=== PATIENT | male | born 1930 | race Caucasian/White ===

== ENCOUNTER 2018-01-07 11:37 | Inpatient (IN) | payer OTHER ==
[2018-01-07 12:16] LABS: Urine Blood NEGATIVE (NEG); Urine Glucose NEGATIVE (NEG); Urine Protein NEGATIVE (NEG); Urine Specific Gravity 1.015 (1.005-1.030)
[2018-01-07 12:36] LABS: Absolute Lymphocytes (CBC) 1.1 K/uL (0.7-4.9); Absolute Monocytes 0.4 K/uL (0.1-1.3); Absolute Neutrophil 4.4 K/uL (1.8-8.0); Basophils % 0.9 % (0-1.3); Eosinophils % 2.1 % (0-4.4); Hematocrit 28.2 % (39.6-49.0); Lymphocytes % 17.6 % (15.3-44.8); MCH 25.9 pg (27.0-35.0); MCV 82.8 fL (80-100); MPV 9.7 fL (7.6-11.3); Monocytes % 6.8 % (3.3-12.3); RBC Red Blood Cell Count 3.41 M/uL (4.33-5.43)
[2018-01-07 12:37] LABS: Protime INR 1.08
[2018-01-07 12:53] LABS: Potassium 4.2 mEq/L (3.6-5.0)
--- NOTE | 2018-01-07 12:54 | EKG ---
Test Date: 2018-01-07 Test Time: 12:15:09 Library Sales Consultant: NAHID MEASUREMENT RESULTS: Intervals: Rate: 77 UT: QRSD: 86 QT: 382 QTc: 432 Wallace: P: UT: QRS: 3 T: 93 INTERPRETIVE STATEMENTS: Atrial fibrillation Nonspecific T wave abnormality Abnormal ECG Compared to ECG 05/02/2017 21:20:49 T-wave abnormality now present Ventricular premature complex(es) no longer present Electronically Signed On 01-07-18 12:54:11 CDT by Elmer Vee
[2018-01-07 12:59] LABS: Albumin 3.2 g/dL (3.2-5.5); Bilirubin Direct 0.3 mg/dL (0-0.2); Bilirubin Total 0.9 mg/dL (0.3-1.2); Magnesium 1.5 mg/dL (1.8-2.5); Protein, Total 6.7 g/dL (6.0-8.3)
[2018-01-07] MEDS ORDERED: METHYLPREDNISOLONE 125 MG INJ ONE (13:30)
[2018-01-07] MEDS ORDERED: NA CHLORIDE 0.9% 500 ML ONE (13:31)
[2018-01-07] MEDS ORDERED: LEVALBUTEROL 1.25 MG/3 ML NEB ONE (13:31)
[2018-01-07] MEDS ORDERED: Magnesium Sulfate 2gm IVPB 2 G/50 ML BAG IV ONE (13:31)
--- NOTE | 2018-01-07 13:34 | RAD REPORT ---
EXAM DESCRIPTION: Tino Single View01/07/2018 1:25 pm CLINICAL HISTORY: Shortness of breath COMPARISON: April 2017 FINDINGS: Bibasilar lung opacities are present. Additional bilateral interstitial opacities are most ly chronic. The heart is mildly enlarged IMPRESSION: Bibasilar lung opacities probably represent pneumonia
[2018-01-07] MEDS ORDERED: Levofloxacin500mg IV 500 MG/100 ML BAG IV ONE (13:54)
--- NOTE | 2018-01-07 14:09 | ER ---
Nurse's Notes [facility] Name: Varinder Nielson Age: 87 yrs Sex: Male : 1930 Arrival Date: 01/07/2018 Time: 11:45 Bed 15 Private MD: Tramaine Grady H Diagnosis: Pneumonia due to other specified bacteria Presentation: 01/07 11:48 Presenting complaint: Patient states: Sent by PCP for worsening SOB and fatigue x 3 hb days. Transition of care: patient was not received from another setting of care. Onset of symptoms is unknown. Care prior to arrival: None. 11:48 Method Of Arrival: Ambulatory hb 11:48 Acuity: JANET 3 hb 16:15 Initial Sepsis Screen: Does the patient meet any 2 criteria? No. Patient's initial aj sepsis screen is negative. Does the patient have a suspected source of infection? No. Patient's initial sepsis screen is negative. Historical: - Allergies: 11:51 No Known Allergies; hb - Home Meds: 11:51 acetaminophen 325 mg Oral tab 2 tabs as needed [Active]; albuterol inhaler 2 puff every hb 6 hours [Active]; amlodipine 5 mg tab 1 tab once daily [Active]; apixaban Oral 1 tab 2 times per day [Active]; aspirin 81 mg Oral TbEC 1 tab once daily [Active]; atorvastatin 40 mg Oral tab 1 tab once daily [Active]; docusate sodium 100 mg Oral tab 1 tab once daily [Active]; ferrous sulfate 325 mg (65 mg iron) Oral tab twice a day [Active]; folic acid 1 mg Oral tab 1 tab once daily [Active]; hydralazine 25 mg Oral tab 1 tab three times a day [Active]; Levaquin 500 mg Oral tab 1 tab once daily [Active]; losartan 100 mg Oral tab 1 tab once daily [Active]; losartan 50 mg Oral tab 1 tab once daily [Active]; metformin 500 mg Oral Tb24 1 tab once daily [Active]; metoprolol tartrate 25 mg Oral tab 1 tab 2 times per day [Active]; multivitamin with minerals Oral tab daily [Active]; pantoprazole 40 mg Oral TbEC 1 tab once daily [Active]; Tears Naturale Free (PF) 0.1-0.3 % ophthalmic dpet 2 drop twice a day [Active]; amlodipine 10 mg tab 1 tab once daily [Active]; - PMHx: 11:51 Atrial Fib; CAD; Anemia; COPD; CVA; Dementia; Diabetes - NIDDM; Gastric Reflux; High hb Cholesterol; Hypertension; hypomagnesium; osteoarthritis; Pneumonia; - PSHx: 11:51 Cholecystectomy; Appendectomy; hb - Immunization history:: Adult Immunizations up to date. - Social history:: Smoking status: Patient/guardian denies using tobacco. Screenin:21 Abuse screen: Denies threats or abuse. Denies injuries from another. Nutritional aj screening: No deficits noted. Tuberculosis screening: No symptoms or risk factors identified. Fall Risk None identified. Assessment: 12:21 General: Appears in no apparent distress. comfortable, Behavior is calm, cooperative, aj appropriate for age. Pain: Denies pain. Neuro: Level of Consciousness is awake, alert, obeys commands, Oriented to person, place, time, situation, Appropriate for age. Respiratory: Reports shortness of breath on exertion Airway is patent Respiratory effort is even, unlabored, Respiratory pattern is regular, symmetrical. GI: Abdomen is flat, non-distended, Patient currently denies bloody stool. Derm: Skin is intact, is healthy with good turgor, Skin is pink, warm \\T\\ dry. normal. 16:09 Reassessment: Patient seated in wheelchair, asked tech to bring walker to him. Patient aj then looked in his wallet. Claimed his montemayor totalling $50.00 was missing. Patient states, "I had two twenty's and a ten dollar bill and now it's gone.". This nurse informed the charge nurse would be called. Charge nurse informed of patient complaint. 16:14 Reassessment: Charge nurse to notify Icebox Man. To meet patient in room 408 to aj make report. Vital Signs: 11:49 BP 139 / 72; Pulse 76; Resp 20; Temp 98.3; Pulse Ox 97% on R/A; Weight 83.91 kg; Height hb 5 ft. 10 in. (177.80 cm); Pain 0/10; 15:26 BP 146 / 78; Pulse 82; Resp 21; Pulse Ox 99% on R/A; aj 11:49 Body Mass Index 26.54 (83.91 kg, 177.80 cm) hb ED Course: 11:45 Patient arrived in ED. na 11:45 Grady, IreneAdamarisFermin, DO is Private Physician. na 11:49 Triage completed. hb 11:50 Arm band placed on left wrist. hb 11:57 Ray Palomo PA is PHCP. jr8 11:57 Nicolás Bosch MD is Attending Physician. jr8 11:57 iWnter Pickett, RN is Primary Nurse. aj 12:20 EKG done, by wafer fabrication technician. reviewed by Ray CALZADA. at1 12:21 Patient has correct armband on for positive identification. Placed in gown. Bed in low aj position. Call light in reach. Side rails up X 1. correspondence renew clerk on. Pulse ox on. NIBP on. 12:21 Inserted saline lock: 20 gauge in left forearm, using aseptic technique. Blood aj collected. 12:55 X-ray completed. Portable x-ray completed in exam room. Patient tolerated procedure ag1 well. 12:56 XRAY Chest (1 view) In Process Unspecified. EDMS 14:07 Yasmine Jacobsen MD is Hospitalizing Provider. jr8 15:37 No provider procedures requiring assistance completed. Patient admitted, IV remains in aj place. intact. 15:[address] nj 15:51 CT completed. Patient tolerated procedure well. Patient moved back from CT. ok Administered Medications: 13:39 Drug: Xopenex 1.25 mg Route: Inhalation; aj 13:39 Drug: SOLU-Medrol 125 mg Route: IVP; Site: left forearm; aj 16:15 Follow up: Response: No adverse reaction aj 13:40 Drug: NS 0.9% 500 ml Route: IV; Rate: bolus; Site: left forearm; aj 16:17 Follow up: Response: No adverse reaction; IV Status: Infusion continued upon admission; aj IV Intake: 300ml 13:40 Drug: Magnesium Sulfate 2 grams Route: IVPB; Infused Over: 2 hrs; Site: left forearm; aj 16:16 Follow up: Response: No adverse reaction; IV Status: Completed infusion; IV Intake: 50mlaj 14:42 Drug: LevaQUIN 500 mg Volume: 100 ml; Route: IVPB; Infused Over: 60 mins; Site: left aj forearm; 16:16 Follow up: Response: No adverse reaction; IV Status: Infusion continued upon admission; aj IV Intake: 50ml Intake: 16:16 IV: 50ml; Total: 50ml. aj 16:16 IV: 50ml; Total: 100ml. aj 16:17 IV: 300ml; Total: 400ml. lc Outcome: 14:08 Decision to Hospitalize by Provider. javier 15:37 Admitted to Med/surg accompanied by tech, via wheelchair, room 408, with chart, Report aj called to [place] 15:37 Condition: good 15:37 Discharge instructions given to patient, Instructed on the need for admit, Demonstrated understanding of instructions. 16:18 Patient left the ED. lc Signatures: Dispatcher [employer] EDWinter Chino, RN RN lc Daley, Ray Rodriguez PA PA jr8 Winter vidal, mammal keeper EKG Tat1 Brenda Garrett ag1 Jennifer Parham, RN RN Nba García
--- NOTE | 2018-01-07 14:09 | EDPHYS ---
Physician Documentation [facility] Name: Varinder Nielson Age: 87 yrs Sex: Male : 1930 Arrival Date: 01/07/2018 Time: 11:45 Bed 15 Private MD: Tramaine Grady H ED Physician Nicolás Bosch HPI: 01/07 13:28 This 87 yrs old Male presents to ER via Ambulatory with complaints of jr8 shortness of breath. 13:28 The patient has shortness of breath with light activity. Onset: The symptoms/episode jr8 began/occurred gradually, 2 day(s) ago. Duration: The symptoms are continuous. The patient's shortness of breath is aggravated by exertion. Associated signs and symptoms: Pertinent positives: fatigue. Severity of symptoms: At their worst the symptoms were moderate in the emergency department the symptoms are unchanged. It is unknown whether or not the patient has had similar symptoms in the past. The patient has been recently seen by a physician:. Historical: - Allergies: 11:51 No Known Allergies; hb - Home Meds: 11:51 acetaminophen 325 mg Oral tab 2 tabs as needed [Active]; albuterol inhaler 2 puff every hb 6 hours [Active]; amlodipine 5 mg tab 1 tab once daily [Active]; apixaban Oral 1 tab 2 times per day [Active]; aspirin 81 mg Oral TbEC 1 tab once daily [Active]; atorvastatin 40 mg Oral tab 1 tab once daily [Active]; docusate sodium 100 mg Oral tab 1 tab once daily [Active]; ferrous sulfate 325 mg (65 mg iron) Oral tab twice a day [Active]; folic acid 1 mg Oral tab 1 tab once daily [Active]; hydralazine 25 mg Oral tab 1 tab three times a day [Active]; Levaquin 500 mg Oral tab 1 tab once daily [Active]; losartan 100 mg Oral tab 1 tab once daily [Active]; losartan 50 mg Oral tab 1 tab once daily [Active]; metformin 500 mg Oral Tb24 1 tab once daily [Active]; metoprolol tartrate 25 mg Oral tab 1 tab 2 times per day [Active]; multivitamin with minerals Oral tab daily [Active]; pantoprazole 40 mg Oral TbEC 1 tab once daily [Active]; Tears Naturale Free (PF) 0.1-0.3 % ophthalmic dpet 2 drop twice a day [Active]; amlodipine 10 mg tab 1 tab once daily [Active]; - PMHx: 11:51 Atrial Fib; CAD; Anemia; COPD; CVA; Dementia; Diabetes - NIDDM; Gastric Reflux; High hb Cholesterol; Hypertension; hypomagnesium; osteoarthritis; Pneumonia; - PSHx: 11:51 Cholecystectomy; Appendectomy; hb - Immunization history:: Adult Immunizations up to date. - Social history:: Smoking status: Patient/guardian denies using tobacco. ROS: 13:28 Eyes: Negative for injury, pain, redness, and discharge, ENT: Negative for injury, jr8 pain, and discharge, Neck: Negative for injury, pain, and swelling, Cardiovascular: Negative for chest pain, palpitations, and edema, Abdomen/GI: Negative for abdominal pain, nausea, vomiting, diarrhea, and constipation, Back: Negative for injury and pain, MS/Extremity: Negative for injury and deformity, Skin: Negative for injury, rash, and discoloration, Neuro: Negative for headache, weakness, numbness, tingling, and seizure. 13:28 Constitutional: Positive for fatigue. 13:28 Respiratory: Positive for dyspnea on exertion, shortness of breath, Negative for cough, hemoptysis, orthopnea, pleurisy, sputum production, wheezing. Exam: 13:28 Eyes: Pupils equal round and reactive to light, extra-ocular motions intact. Lids and jr8 lashes normal. Conjunctiva and sclera are non-icteric and not injected. Cornea within normal limits. Periorbital areas with no swelling, redness, or edema. ENT: Nares patent. No nasal discharge, no septal abnormalities noted. Tympanic membranes are normal and external auditory canals are clear. Oropharynx with no redness, swelling, or masses, exudates, or evidence of obstruction, uvula midline. Mucous membranes moist. Neck: Trachea midline, no thyromegaly or masses palpated, and no cervical lymphadenopathy. Supple, full range of motion without nuchal rigidity, or vertebral point tenderness. No Meningismus. Cardiovascular: Regular rate and rhythm with a normal S1 and S2. No gallops, murmurs, or rubs. Normal PMI, no JVD. No pulse deficits. Abdomen/GI: Soft, non-tender, with normal bowel sounds. No distension or tympany. No guarding or rebound. No evidence of tenderness throughout. Back: No spinal tenderness. No costovertebral tenderness. Full range of motion. Skin: Warm, dry with normal turgor. Normal color with no rashes, no lesions, and no evidence of cellulitis. MS/ Extremity: Pulses equal, no cyanosis. Neurovascular intact. Full, normal range of motion. Neuro: Awake and alert, GCS 15, oriented to person, place, time, and situation. Cranial nerves II-XII grossly intact. Motor strength 5/5 in all extremities. Sensory grossly intact. Cerebellar exam normal. Normal gait. 13:28 Respiratory: the patient does not display signs of respiratory distress, Respirations: normal, symetrical, no use of accessory muscles, no grunting, no evidence of nasal flaring, no prolonged exhalations, no pursed lip breathing, no retractions, no shallow respirations, no splinting, no tachypnea, Breath sounds: wheezing: expiratory that is mild, is heard diffusely. Vital Signs: 11:49 BP 139 / 72; Pulse 76; Resp 20; Temp 98.3; Pulse Ox 97% on R/A; Weight 83.91 kg; Height hb 5 ft. 10 in. (177.80 cm); Pain 0/10; 15:26 BP 146 / 78; Pulse 82; Resp 21; Pulse Ox 99% on R/A; aj 11:49 Body Mass Index 26.54 (83.91 kg, 177.80 cm) hb MDM: 11:57 Patient medically screened. [facility] 14:07 Data reviewed: vital signs, nurses notes, lab test result(s), EKG, radiologic studies, [facility] plain films, and as a result, I will admit patient. Data interpreted: Pulse oximetry: on room air is 95 %. Interpretation: normal. Counseling: I had a detailed discussion with the patient and/or guardian regarding: the historical points, exam findings, and any diagnostic results supporting the discharge/admit diagnosis, lab results, radiology results, the need for further work-up and treatment in the hospital. 01/07 12:05 Order name: Basic Metabolic Panel [facility] 01/07 12:05 Order name: BNP; Complete Time: 13:20 [facility] 01/07 12:05 Order name: CBC with Diff; Complete Time: 12:55 [facility] 01/07 12:05 Order name: LFT's [facility] 01/07 12:05 Order name: Magnesium [facility] 01/07 12:05 Order name: PT-INR; Complete Time: 12:55 [facility] 01/07 12:05 Order name: XRAY Chest (1 view); Complete Time: 13:43 [facility] 01/07 12:05 Order name: TS [facility] 01/07 12:05 Order name: Basic Metabolic Panel; Complete Time: 13:20 [facility] 01/07 12:05 Order name: Liver (Hepatic) Function; Complete Time: 13:20 [facility] 01/07 12:05 Order name: Magnesium; Complete Time: 13:20 [facility] 01/07 12:12 Order name: Urine Dipstick--Ancillary (enter results); Complete Time: 12:29 cc1 01/07 15:04 Order name: Sputum Culture [facility] 01/07 15:04 Order name: Urinalysis [facility] 01/07 12:05 Order name: EKG; Complete Time: 12:06 [facility] 01/07 12:05 Order name: Cardiac monitoring; Complete Time: 12:16 [facility] 01/07 12:05 Order name: EKG - Nurse/Tech; Complete Time: 12:16 [facility] 01/07 12:05 Order name: IV Saline Lock; Complete Time: 12:16 [facility] 01/07 12:05 Order name: Labs collected and sent; Complete Time: 12:16 [facility] 01/07 12:05 Order name: O2 Per Protocol; Complete Time: 12:16 [facility] 01/07 12:05 Order name: O2 Sat Monitoring; Complete Time: 12:16 [facility] 01/07 15:04 Order name: Heart Healthy [facility] 01/07 15:04 Order name: Chest Pa And Lat (2 Views) [facility] 01/07 15:04 Order name: Chest Pa And Lat (2 Views) [facility] 01/07 15:23 Order name: Thorax Wo Con; Complete Time: 17:10 [facility] 01/07 12:05 Order name: Urine Dipstick-Ancillary (obtain specimen); Complete Time: 12:11 [facility] Administered Medications: 13:39 Drug: Xopenex 1.25 mg Route: Inhalation; aj 13:39 Drug: SOLU-Medrol 125 mg Route: IVP; Site: left forearm; aj 16:15 Follow up: Response: No adverse reaction aj 13:40 Drug: NS 0.9% 500 ml Route: IV; Rate: bolus; Site: left forearm; 16:17 Follow up: Response: No adverse reaction; IV Status: Infusion continued upon admission; IV Intake: 300ml 13:40 Drug: Magnesium Sulfate 2 grams Route: IVPB; Infused Over: 2 hrs; Site: left forearm; 16:16 Follow up: Response: No adverse reaction; IV Status: Completed infusion; IV Intake: 50mlaj 14:42 Drug: LevaQUIN 500 mg Volume: 100 ml; Route: IVPB; Infused Over: 60 mins; Site: left aj forearm; 16:16 Follow up: Response: No adverse reaction; IV Status: Infusion continued upon admission; IV Intake: 50ml Disposition: 01/07/18 14:08 Hospitalization ordered by Yasmine Jacobsen for Inpatient Admission. Preliminary diagnosis is Pneumonia due to other specified bacteria. - Bed requested for Telemetry/MedSurg (Inpatient). - Status is Inpatient Admission. aj - Condition is Stable. - Problem is new. - Symptoms have improved. UTI on Admission? No Addendum: 01/22/2018 19:45 Co-signature as Attending Physician, Nicolás Bosch MD I agree with the assessment and k dr plan of care. Signatures: Dispatcher [employer] EDAngela Acevedo Amanda, Nicolás Sandoval RN, MD MD [facility] Ray Palomo PA PA jr8 Jennifer Parham RN RN Corrections: (The following items were deleted from the chart) 01/07 15:20 14:08 Hospitalization Ordered by Yasmine Jacobsen MD for Inpatient Admission. Preliminary bd diagnosis is Pneumonia due to other specified bacteria. Bed requested for Telemetry/MedSurg (Inpatient). Status is Inpatient Admission. Condition is Stable. Problem is new. Symptoms have improved. UTI on Admission? No. jr8 16:18 15:20 01/07/2018 14:08 Hospitalization Ordered by Yasmine Jacobsen MD for Inpatient aj Admission. Preliminary diagnosis is Pneumonia due to other specified bacteria. Bed requested for Telemetry/MedSurg (Inpatient). Status is Inpatient Admission. Condition is Stable. Problem is new. Symptoms have improved. UTI on Admission? No. bd
[2018-01-07] MEDS ORDERED: ONDANSETRON 4 MG/2 ML VIAL IV PRN (14:57)
--- NOTE | 2018-01-07 15:50 | P.HP ---
Certification for Inpatient Patient admitted to: Observation With expected LOS: <2 Midnights Patient will require the following post-hospital care: None Practitioner: I am a practitioner with admitting privileges, knowledge of patient current condition, hospital course, and medical plan of care. Services: Services provided to patient in accordance with Admission requirements found in Title 42 Section 412.3 of the Code of Federal Regulations Patient History Date of Service: 01/07/18 Primary Care Provider: Unknown Reason for admission: SOB History of Present Illness: Set this is a 87-year-old male with significant past medical history of hypertension, diabetes, atrial fibrillation, COPD, CVA, dementia who presented to the ED complaining of having some shortness of breath that has been going on for about a week or 2. Patient states that he has chronic recurrent pneumonia and was at a [facility] today to get checked out for his shortness of breath. [facility] the [facility] he was sent over to the ER here to get it further checked out with an x-ray and lab work. Patient stated that he has been having to use more pillows at night time and has been "swollen" a lot for past couple of days. Patient did say that he took 2 Lasix pills for past couple of days and has not taken any today. Patient stated that he weighed 214lbs, however today he weighs about 184lbs and he said that he has a lot of urine output after taking lasix. He still however is SOB. No fever or chills noted. Allergies No Known Allergies Allergy (Verified 04/06/17 04:28) Home Medications: Acetaminophen [Tylenol] 325 mg PO Q6HP PRN 04/27/17 Albuterol Sulfate [Ventolin Hfa] 2 puff IH Q6H 04/27/17 Amlodipine [Norvasc*] 5 mg PO DAILY 04/27/17 Aspirin [Aspirin EC 81 MG] 81 mg PO DAILY 04/27/17 Atorvastatin Calcium [Lipitor*] 40 mg PO BEDTIME 04/27/17 Docusate [Colace Cap*] 100 mg PO DAILY 04/27/17 Ferrous Sulfate 325 mg PO BID 04/27/17 Fluticasone/Vilanterol [Breo Ellipta 100-25 Mcg INH] 1 each IH DAILY 04/27/17 Folic Acid 1 mg PO DAILY 04/27/17 Losartan Potassium [Cozaar*] 50 mg PO DAILY 04/27/17 Mag Hydroxide 8% [Milk Of Magnesia*] 30 ml PO Q8HP 04/27/17 Metformin HCl [Glucophage*] 500 mg PO DAILY WITH BREAKFAST 04/27/17 Metoprolol Tartrate [Lopressor*] 25 mg PO BID 04/27/17 Mirtazapine 7.5 mg PO BEDTIME 04/27/17 Multivitamin [One Daily Multivitamin] 1 each PO DAILY 04/27/17 Pantoprazole [Protonix Tab*] 40 mg PO DAILY 04/27/17 Polyethylene Glycol 3350 [Miralax] 17 gm PO DAILYPRN PRN 04/27/17 Doxycycline Monohydrate 100 mg PO BID #28 capsule 05/03/17 Gabapentin 400 mg PO TID #90 capsule 05/03/17 Smz./Tmp. [Bactrim Ds 800 MG/160 MG*] 1 tab PO BID #28 tab 05/03/17 - Past Medical/Surgical History Diabetic: Yes -: Iron deficiency anemia -: DDD, cervical radiculopathy -: CAD -: Diabetes mellitus type 2 -: Atrial fibrillation -: Hypertension -: GERD -: TIA/history CVA -: Arthritis -: Arthritis -: osteoarthritis -: anticoagulant therapy -: L eye cataract sx -: Appendectomy -: Cholecystectomy -: L. knee replacement Psychosocial/ Personal History: He is . He has 2 children. - Family History Mother -: Hypertension, Stroke - Social History Alcohol use: No CD- Drugs: No Caffeine use: Yes Review of Systems General: As per HPI Physical Examination - Physical Exam General: Alert, In no apparent distress, Oriented x3 HEENT: Atraumatic Neck: Supple Respiratory: Normal air movement, Crackles/rales Cardiovascular: Regular rate/rhythm, Normal S1 S2, Edema (2+ Edema lower extremity) Gastrointestinal: Normal bowel sounds, Soft and benign, Non-distended, No tenderness Musculoskeletal: No tenderness Integumentary: No rashes Neurological: Normal speech, Normal strength at 5/5 x4 extr Lymphatics: No axilla or inguinal lymphadenopathy - Studies Laboratory Data (last 24 hrs) 01/07/18 12:13: PT 12.8 H, INR 1.08 01/07/18 12:13: WBC 6.1, Hgb 8.8 L, Hct 28.2 L, Plt Count 208 01/07/18 12:13: B-Natriuretic Peptide 243 H 01/07/18 12:13: Sodium 136, Potassium 4.2, BUN 35 H, Creatinine 1.69 H, Glucose 160 H, Magnesium 1.5 L, Total Bilirubin 0.9, AST 21, ALT 10, Alkaline Phosphatase 75 Assessment and Plan - Problems (Diagnosis) (1) Dyspnea Current Visit: Yes Status: Acute Plan: Dyspnea during sleep and Swelling. Most likely 2.2 to PNA vs Volume overload -IV lasix 20mg daily -IV abx for now for PNA -CT chest pending -Pulmnology consulted. Awaiting Reccs Qualifiers: Dyspnea type: orthopnea Qualified Code(s): R06.01 - Orthopnea (2) Pneumonia Onset Date: 03/08/17 Current Visit: No Status: Acute Plan: PNA on cxray with + productive cough -IV abx for now -Procal pending -CT chest pending -Lab work f/u Qualifiers: Pneumonia type: due to unspecified organism Laterality: unspecified laterality Lung location: unspecified part of lung Qualified Code(s): J18.9 - Pneumonia, unspecified organism (3) CHF (congestive heart failure) Current Visit: Yes Status: Acute Plan: Acute on chronic Diastolic HF -IV lasix daily. Elevated BNP -ECHO in 03/2018 with Diastolic Dysfuntion. EF of 65%. - Qualifiers: Heart failure type: diastolic Heart failure chronicity: acute on chronic Qualified Code(s): I50.33 - Acute on chronic diastolic (congestive) heart failure (4) Atrial fibrillation Onset Date: 03/15/17 Current Visit: No Status: Chronic Plan: Currently in Afib with Rate control. -On BB and ASA. Will continue. Qualifiers: Atrial fibrillation type: persistent Qualified Code(s): I48.1 - Persistent atrial fibrillation (5) COPD (chronic obstructive pulmonary disease) Onset Date: 04/28/17 Current Visit: No Status: Chronic Plan: Duonebs, Steriods and oxygen Qualifiers: COPD type: chronic bronchitis Chronic bronchitis type: unspecified Qualified Code(s): J42 - Unspecified chronic bronchitis (6) Coronary artery disease Onset Date: 03/15/17 Current Visit: No Status: Chronic Qualifiers: Coronary Disease-Associated Artery/Lesion type: [place] artery [place] vs. transplanted heart: [place] heart Associated angina: without angina Qualified Code(s): I25.10 - Atherosclerotic heart disease of [place] coronary artery without angina pectoris (7) Diabetes mellitus Onset Date: 03/15/17 Current Visit: No Status: Chronic Qualifiers: Diabetes mellitus type: type 2 Diabetes mellitus rat exterminator insulin use: unspecified rat exterminator insulin use status (8) History of CVA (cerebrovascular accident) Current Visit: No Status: Chronic (9) Hyperlipidemia Onset Date: 04/28/17 Current Visit: No Status: Chronic Qualifiers: Hyperlipidemia type: unspecified Qualified Code(s): E78.5 - Hyperlipidemia , unspecified (10) Hypertension Onset Date: 03/15/17 Current Visit: No Status: Chronic Qualifiers: Hypertension type: essential hypertension Qualified Code(s): I10 - Essential (primary) hypertension Discharge Plan: Home Plan to discharge in: 48 Hours - Advance Directives Does patient have a Living Will: No Does patient have a Durable POA for Healthcare: No - Code Status/Comfort Care Code Status Assessed: Yes Critical Care: No
--- NOTE | 2018-01-07 16:06 | RAD REPORT ---
EXAM DESCRIPTION: CT - Thorax Wo Con CLINICAL HISTORY: Shortness of breath, fatigue COMPARISON: 03/08/2017, 03/06/2017 FINDINGS: Fibrotic changes are present throughout the lungs, greatest in the lower lobes. Traction b ronchiectasis with scarring suspected in the inferior right middle lobe. Endobronchial opacity is pre sent in the left lower lobe with mild linear atelectasis, possibly aspirated material with developing pneumonia present. Small bilateral pleural effusions are present. No pneumothorax. Mildly prominent lymph nodes are present in the mediastinum, the largest in the pretracheal region me asuring 16 mm. Prominent subcarinal lymph node is present measuring 22 mm. These lymph nodes appear f ractionally enlarged since comparative study. No concerning bony finding. Nodular contour is seen to the liver parenchyma with trace ascites in the upper abdomen, likely indicating mild liver cirrhosis. All CT scans are performed using dose optimization technique as appropriate and may include automated exposure control or mA/KV adjustment according to patient size. IMPRESSION: Linear left lower lobe lung opacity with areas of endobronchial plugging seen to the pos terior left lower lobe. Aspiration with mild postobstructive atelectasis or developing pneumonia susp ected. Small bilateral pleural effusions. Mild pulmonary fibrosis. Mild liver cirrhosis with trace ascites in the upper abdomen.
[2018-01-07] MEDS: INSULIN -REGULAR HUMAN 50 UNIT/0.5 ML ML SQ SCH ×2 (16:30→21:20)
[2018-01-07 16:52] VITALS: BMI 30.4
[2018-01-07] MEDS: FUROSEMIDE 20 MG/ 2ML VIAL IV SCH (18:10)
[2018-01-07] MEDS: PANTOPRAZOLE 40MG TABLET PO SCH (18:10)
[2018-01-07 18:21] LABS: Urine Appearance CLOUDY; Urine Bilirubin NEGATIVE (NEG); Urine Blood NEGATIVE (NEG); Urine Color YELLOW; Urine Glucose TRACE (NEG); Urine Protein NEGATIVE (NEG); Urine Specific Gravity 1.015 (1.005-1.030)
[2018-01-07 18:24] LABS: Urine Microscopic Reflex ORDER UMIC
[2018-01-07 18:59] LABS: Urine Bacteria NONE SEEN /HPF (NONE SEEN); Urine Culture Reflex Order NOT NEEDED; Urine Mucus NS /HPF (NONE SEEN); Urine RBC <5 /HPF (NONE SEEN)
[2018-01-07] MEDS: IPRATROPIUM BROM 0.5MG/2.5ML NEB SCH (20:30)
[2018-01-07] MEDS: LEVALBUTEROL 1.25 MG/3 ML NEB NEB SCH (20:31)
[2018-01-07] MEDS: ACETAMINOPHEN 500 MG TAB PO PRN (23:04)
[2018-01-08] MEDS: IPRATROPIUM BROM 0.5MG/2.5ML NEB SCH ×4 (01:56→20:29)
[2018-01-08] MEDS: LEVALBUTEROL 1.25 MG/3 ML NEB NEB SCH ×2 (01:57→09:28)
[2018-01-08 06:28] LABS: Absolute Lymphocytes (CBC) 0.5 K/uL (0.7-4.9); Absolute Monocytes 0.1 K/uL (0.1-1.3); Absolute Neutrophil 2.8 K/uL (1.8-8.0); Basophils % 0.2 % (0-1.3); Eosinophils % 0.1 % (0-4.4); Hematocrit 23.8 % (39.6-49.0); Lymphocytes % 14.2 % (15.3-44.8); MCH 26.3 pg (27.0-35.0); MPV 9.4 fL (7.6-11.3); Monocytes % 2.6 % (3.3-12.3)
[2018-01-08 06:57] LABS: Albumin 2.1 g/dL (3.2-5.5); Bilirubin Total 0.6 mg/dL (0.3-1.2); Potassium 4.5 mEq/L (3.6-5.0); Protein, Total 5.7 g/dL (6.0-8.3)
[2018-01-08] MEDS ORDERED: AZITHROMYCIN IV 500 MG in NA CHLORIDE 0.9% 250 ML IVPB SCH (09:00)
[2018-01-08] MEDS ORDERED: INSULIN DETEMIR 100 UNIT/1 ML INSULIN SQ SCH (09:00)
[2018-01-08] MEDS: INSULIN -REGULAR HUMAN 50 UNIT/0.5 ML ML SQ SCH ×4 (09:09→21:01)
[2018-01-08] MEDS: FUROSEMIDE 20 MG/ 2ML VIAL IV SCH (09:11)
[2018-01-08] MEDS: PANTOPRAZOLE 40MG TABLET PO SCH ×2 (09:11→17:28)
[2018-01-08] MEDS: predniSONE 10 MG TAB PO SCH (09:11)
--- NOTE | 2018-01-08 09:50 | P.CNS ---
Date of Consult: 01/08/18 Reason for Consult: Pneumonia Primary Care Provider: Unknown Chief Complaint: SOB History of Present Illness: Patient is a pleasant 87-year-old man he has been sick for about 2 weeks complaining of shortness of breath feeling sluggish fever chills coughing up very little sputum also gained weight from 118 lb to 214 lower extremity edema and was admitted to the hospital with a diagnosis of pneumonia according to the patient is a pneumonia about 10 times in the past 10 months history of COPD takes bronchodilators at home is feeling a little better patient is compliant with his inhalers Allergies No Known Allergies Allergy (Verified 01/07/18 16:44) Home Medications: Albuterol Sulfate [Ventolin Hfa] 2 puff IH Q6H 04/27/17 Amlodipine [Norvasc*] 10 mg PO DAILY 04/27/17 Atorvastatin Calcium [Lipitor*] 40 mg PO BEDTIME 04/27/17 Folic Acid 1 mg PO DAILY 04/27/17 Losartan Potassium [Cozaar*] 100 mg PO DAILY 04/27/17 Metformin HCl [Glucophage*] 1,000 mg PO BID 04/27/17 Gabapentin 400 mg PO TID #90 capsule 05/03/17 Albuterol Neb [Proventil 0.083% Neb Soln] 2.5 mg IH QID 01/07/18 Budesonide/Formoterol Fumarate [Symbicort 80-4.5 Mcg Inhaler] 2 puff IH BID Cholecalciferol (Vitamin D3) [Vitamin D] 1,200 unit PO DAILY 01/07/18 Ferrous Gluconate 324 mg PO BID 01/07/18 Glipizide [Glucotrol] 10 mg PO BID 01/07/18 Hydrochlorothiazide 50 mg PO DAILY 01/07/18 Omeprazole 20 mg PO DAILY PRN 01/07/18 Urea 226.8 gm TP DAILY 01/07/18 - Past Medical/Surgical History Diabetic: Yes -: Iron deficiency anemia -: DDD, cervical radiculopathy -: CAD -: Diabetes mellitus type 2 -: Atrial fibrillation -: Hypertension -: GERD -: TIA/history CVA -: Arthritis -: Arthritis -: osteoarthritis -: anticoagulant therapy -: L eye cataract sx -: Appendectomy -: Cholecystectomy -: L. knee replacement Psychosocial/ Personal History: He is . He has 2 children. - Family History Mother Medical History: Hypertension, Stroke - Social History Smoking Status: Unknown if ever smoked Alcohol use: No CD- Drugs: No Caffeine use: Yes Place of Residence: Home Review of Systems Unremarkable General: Weakness Respiratory: Cough, Shortness of Breath Cardiovascular: Edema Physical Examination Temp Pulse Resp BP Pulse Ox 98.0 F 80 18 145/67 H 96 01/08/18 08:00 01/08/18 09:11 01/08/18 08:00 01/08/18 09:11 01/08/18 08:00 General: Alert, Oriented x3 HEENT: Atraumatic Neck: Supple Respiratory: Crackles/rales (Bilaterally) Cardiovascular: Edema (3+ edema), Irregular heart rate/rhythm Gastrointestinal: Normal bowel sounds, Soft and benign Musculoskeletal: No clubbing, No swelling Integumentary: No rashes, No breakdown Laboratory Data (last 24 hrs) 01/07/18 12:13: PT 12.8 H, INR 1.08 01/07/18 12:13: WBC 6.1, Hgb 8.8 L, Hct 28.2 L, Plt Count 208 01/07/18 12:13: B-Natriuretic Peptide 243 H 01/07/18 12:13: Sodium 136, Potassium 4.2, BUN 35 H, Creatinine 1.69 H, Glucose 160 H, Magnesium 1.5 L, Total Bilirubin 0.9, AST 21, ALT 10, Alkaline Phosphatase 75 - Problems (1) Pneumonia Onset Date: 03/08/17 Current Visit: No Status: Acute Plan: Patient is 87 years of age admitted with 2 week history of cough congestion slight fever and chills patient does have a consolidation in the right lower lobe with some interstitial changes bilaterally renal function is mildly worsened has a mild microcytic anemia check iron studies patient's RDW is elevated clinically stable 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 antibiotics consider levofloxacin continue with bronchodilators lower extremity edema probably has underlying heart failure continue with diuresis patient is in AFib am not sure why is not anti coagulated apparently he has had repeated falls at home med list advise by his pastoral assistant to take a baby aspirin Qualifiers: Pneumonia type: due to unspecified organism Laterality: unspecified laterality Lung location: unspecified part of lung Qualified Code(s): J18.9 - Pneumonia, unspecified organism
[2018-01-08] MEDS ORDERED: LEVALBUTEROL 1.25 MG/3 ML NEB NEB PRN (09:52)
[2018-01-08] MEDS: levoFLOXacin 500 MG TAB PO SCH (10:41)
[2018-01-08] MEDS ORDERED: D50W 25 GM/50 ML SYRINGE IV PRN ×2 (11:46→14:01)
[2018-01-08] MEDS ORDERED: GLUCAGON 1 MG/VIAL IM PRN ×2 (11:46→14:01)
[2018-01-08] MEDS ORDERED: NA CHLORIDE 0.9% 250 ML IV SCH (12:00)
[2018-01-08 12:27] LABS: Ferritin 21.8 ng/ml (23.9-336.2)
--- NOTE | 2018-01-08 12:46 | RAD REPORT ---
EXAM DESCRIPTION: Tino Pa And Lat (2 Views)01/08/2018 12:38 pm CLINICAL HISTORY: Shortness of breath COMPARISON: January 07, 2018 FINDINGS: No significant change has occurred in bibasilar lung opacities. Moderate additional inters titial lung opacities are chronic. The heart is mildly enlarged IMPRESSION: No significant change in bibasilar lung opacities which may represent a combination of p neumonia and scarring. Moderate additional bilateral interstitial lung opacities have the appearance of pulmonary fibrosis
[2018-01-08] MEDS ORDERED: Magnesium Sulfate 2gm IVPB 2 G/50 ML BAG IV ONE (15:00)
[2018-01-08 19:54] LABS: Hematocrit 25.7 % (39.6-49.0)
[2018-01-08] MEDS: FERROUS SULFATE 325 MG TAB PO SCH (21:00)
[2018-01-09] MEDS: TRAZODONE 50 MG TABLET PO PRN ×2 (00:27→21:12)
[2018-01-09] MEDS: IPRATROPIUM BROM 0.5MG/2.5ML NEB SCH ×5 (01:50→20:00)
[2018-01-09 06:20] LABS: Absolute Monocytes 0.5 K/uL (0.1-1.3); Absolute Neutrophil 4.3 K/uL (1.8-8.0); Basophils % 0.6 % (0-1.3); Eosinophils % 0.8 % (0-4.4); Hematocrit 27.3 % (39.6-49.0); MCH 26.6 pg (27.0-35.0); MCV 82.3 fL (80-100); MPV 9.6 fL (7.6-11.3); Monocytes % 7.9 % (3.3-12.3); RBC Red Blood Cell Count 3.32 M/uL (4.33-5.43)
[2018-01-09 06:51] LABS: Albumin 2.7 g/dL (3.2-5.5); Bilirubin Total 0.6 mg/dL (0.3-1.2); Magnesium 1.7 mg/dL (1.8-2.5); Potassium 4.2 mEq/L (3.6-5.0); Protein, Total 5.8 g/dL (6.0-8.3)
[2018-01-09] MEDS ORDERED: MAGNESIUM SULFATE 1 gm IVPB 1 GM/100 ML BAG IV ONE (06:53)
[2018-01-09] MEDS: INSULIN -REGULAR HUMAN 50 UNIT/0.5 ML ML SQ SCH ×4 (07:30→21:12)
[2018-01-09] MEDS: FUROSEMIDE 20 MG/ 2ML VIAL IV SCH (08:43)
[2018-01-09] MEDS: FERROUS SULFATE 325 MG TAB PO SCH ×2 (08:44→21:12)
[2018-01-09] MEDS: predniSONE 10 MG TAB PO SCH (08:44)
[2018-01-09] MEDS: PANTOPRAZOLE 40MG TABLET PO SCH ×2 (08:44→16:32)
[2018-01-09] MEDS: levoFLOXacin 500 MG TAB PO SCH (08:44)
--- NOTE | 2018-01-09 11:28 | PN ---
Subjective: Currently, the patient is lying in bed. He looks comfortable. Shortness of breath improved. No chest pain. No abdominal pain. He continued to have cough. Objective: Vital Signs: Currently, blood pressure 148/67, respiratory rate 16 , pulse 82, temperature 98. General: He is fully alert, oriented x3. Does not look in any distress. HEENT: Atraumatic, normocephalic. PERRLA. Oral mucosa is moist. Neck: Supple. No JVD. Chest: Clear to auscultation with crackles at the bases. Heart: Regular rate and rhythm. S1, S2 are normal. No gallop. Abdomen: Soft, nontender. No masses. Positive bowel sounds. Extremities: No clubbing, no cyanosis. +2 edema. No calf tenderness. Neurologic: Grossly intact. Laboratory Data: Labs today showed CBC with white blood cells 3.4, hemoglobin down to , platelets 153. Chemistry showed sodium 133, potassium 4.5, creatinine 1.6, BUN of 33, glucose 268, serum total protein 5.7, globulin 3.6. Chest x-ray done today showed no change with bibasilar lung opacities, which represent ? pneumonia. Plan: 1. Dyspnea, multifactorial secondary to pneumonia and congestive heart failure. We will appreciate Dr. Anderson's input. 2. Pneumonia on x-ray. X-ray continued to show some infiltrate. CAT scan of the chest yesterday showed left lower lobe lung opacity with areas of endobronchial blocking seen on the posterior left lower lobe. Questionable for aspiration mild postobstructive atelectasis. Continue the patient on IV antibiotics with Levaquin. Continue nebulizer with Atrovent mg daily. 3. Anemia, much worse than yesterday. We will check stool occult blood. Iron profile showed iron deficiency. Also, the patient on tablet. If stool occult blood positive, then we will proceed with GI consult. The patient will be transfused 2 units of blood at this point. 4. Congestive heart failure. The patient on Lasix 20 mg daily. He has renal insufficiency. 5. Lower extremity edema and anasarca secondary to congestive heart failure. Echocardiogram done March 2017 that showed normal left ventricular ejection fraction. Aortic sclerosis, no aortic stenosis or regurgitation. 6. History of atrial fibrillation, rate controlled on beta-cecil and aspirin. The patient is not on anticoagulation apparently due to the risk of falls and standard risk of cerebrovascular accident. 7. Hyperlipidemia but the patient is not on statin. He will need to be on that at home. 8. We will start Lovenox for deep vein thrombosis prophylaxis. 9. Hyperglycemia. I will check hemoglobin A1c, place the patient on insulin sliding scale and may be Lantus 5 units at nighttime. 10. Hypomagnesemia. I will replace with IV magnesium. FOREST/MILIND Voice ID: [id number] Report ID: [id number] MTDD
[2018-01-09] MEDS ORDERED: HOME MED 1 EA UNK (Omeprazole [Omeprazole] 20 MG) PO PRN (13:06)
[2018-01-09] MEDS ORDERED: PANTOPRAZOLE 40MG TABLET PO PRN (13:49)
[2018-01-09] MEDS ORDERED: ALBUTEROL INHALER 60 PUFF/8 GM IH SCH (14:15)
[2018-01-09] MEDS: AMLODIPINE 10 MG TAB PO SCH (14:59)
[2018-01-09] MEDS: ENOXAPARIN 30 MG/0.3 ML SQ SCH (14:59)
[2018-01-09] MEDS: METFORMIN HCL 500 MG TAB PO SCH (16:32)
[2018-01-09] MEDS ORDERED: glipiZIDE 5 MG TAB PO SCH (17:00)
--- NOTE | 2018-01-09 17:55 | PN ---
Subjective: Currently, he is sitting on the side of the bed. He has no fever overnight. No chest p ain. He is feeling little bit better after we gave him blood transfusion. He did not have bowel mov ements. His stool occult blood is still pending. Objective: Vital Signs: Today, blood pressure is 159/80, respiratory rate 18, pulse 90, temperature 98.2, and saturating 98%. General: He is alert and oriented x3. Does not look in any distress. HEENT: Atraumatic, normocephalic. Oral mucosa is moist. Neck: Supple. No JVD. No carotid bruits. Chest: Clear to auscultation with crackles in the bases. Heart: Regular rate and rhythm. S1, S2 normal. No gallop. Abdomen: Soft, nontender. No masses. No hepatosplenomegaly. Positive bowel sounds. Extremities: No clubbing or cyanosis. +2 edema continues. No calf tenderness. Laboratory Data: Labs today showed CBC; white blood cells 5.8, hemoglobin 8.8, and platelet normal. Chemistry within normal, except for BUN of 43 and creatinine of 1.58, glucose 195. Stool occult blo od is still pending. Assessment And Plan: 1.Dyspnea, continue to improve. Multifactorial secondary to his pneumonia and CHF. The patient is feeling somewhat better after transfusion, but he may need to have home oxygen. 2.Pneumonia on x-ray. CAT scan showed left lower lobe opacities, which is questionable for aspirati on. I will proceed with swallow eval tomorrow. We will continue IV antibiotic in the meantime with Levaquin and continue nebulizer with Atrovent and Lovenox. 3.Hypertension, not well controlled. We will titrate blood pressure medications. Continue the micheal ent on p.r.n. hydralazine. 4.Anemia is better, status post transfusion. Stool occult blood pending. If positive, we will need to consult GI before discharging the patient. The patient's hemoglobin did not go up appropriately and it only went up 1.2. He received 2 units of blood. 5.History of congestive heart failure on Lasix 20. We will probably need to increase that to 40. 6.Lower extremity edema with anasarca secondary to his CHF. His echo from March 2017 showed normal l eft ventricular ejection fraction. I am not sure if the patient has diastolic dysfunction. 7.History of atrial fibrillation. Currently rate controlled with beta cecil and aspirin. The tyler ielincoln apparently is not on anticoagulation due to risk of multiple falls. He understand the risk of C VA. 8.Deep vein thrombosis prophylaxis with Lovenox. 9.Hyperglycemia, better. The patient was started on Lantus 5 units last night. His glucose is bett er this morning. I checked his hemoglobin A1c, but that is still pending. I am not sure if the micheal ent have diabetes as his medication list on the admission note did not include anything for diabetes, but he may need to be discharged on medication for diabetes upon going home. 10.We will need to obtain Physical Therapy with PT/OT, social work consult to make sure that the tyler bose have a caregiver. He stated that his care for him, but she is elderly and she have knee is sues as well. 11.Low magnesium, replaced yesterday. FOREST/MILIND Voice ID: [id number] Report ID: [id number]
[2018-01-09] MEDS ORDERED: ATORVASTATIN 40 MG TAB PO SCH (21:00)
[2018-01-09] MEDS: HOME MED 1 EA UNK (Budesonide/Formoterol Fumarate [Symbicort 80-4.5 Mcg Inhaler] 2 PUFF) IH SCH (21:00)
[2018-01-09] MEDS ORDERED: HOME MED 1 EA UNK (Glipizide [Glucotrol] 10 MG) PO SCH (21:00)
[2018-01-09] MEDS: ACETAMINOPHEN 500 MG TAB PO PRN (23:55)
[2018-01-10] MEDS: IPRATROPIUM BROM 0.5MG/2.5ML NEB SCH ×3 (02:00→14:00)
[2018-01-10 04:17] LABS: Absolute Monocytes 0.4 K/uL (0.1-1.3); Basophils % 0.6 % (0-1.3); Eosinophils % 2.1 % (0-4.4); Hematocrit 26.1 % (39.6-49.0); Lymphocytes % 18.2 % (15.3-44.8); MCH 27.3 pg (27.0-35.0); MCV 82.7 fL (80-100); MPV 9.5 fL (7.6-11.3); Monocytes % 7.2 % (3.3-12.3); RBC Red Blood Cell Count 3.16 M/uL (4.33-5.43)
[2018-01-10 04:37] LABS: Albumin 2.6 g/dL (3.2-5.5); Bilirubin Total 0.5 mg/dL (0.3-1.2); Magnesium 1.6 mg/dL (1.8-2.5); Potassium 4.1 mEq/L (3.6-5.0); Protein, Total 5.7 g/dL (6.0-8.3)
[2018-01-10] MEDS ORDERED: MAGNESIUM SULFATE 1 gm IVPB 1 GM/100 ML BAG IV ONE (04:58)
[2018-01-10] MEDS: INSULIN -REGULAR HUMAN 50 UNIT/0.5 ML ML SQ SCH ×2 (07:30→11:30)
[2018-01-10 08:26] VITALS: BP 155/87; TEMP 98.6
[2018-01-10] MEDS ORDERED: UREA TP SCH (09:00)
[2018-01-10] MEDS ORDERED: FOLIC ACID 1 MG TABLET PO SCH (09:00)
[2018-01-10] MEDS ORDERED: VITAMIN D 400 UNIT TAB PO SCH (09:00)
[2018-01-10] MEDS ORDERED: CHOLECALCIFEROL PO SCH (09:00)
[2018-01-10] MEDS ORDERED: HYDROCHLOROTHIAZIDE 50 MG PO SCH (09:00)
[2018-01-10] MEDS ORDERED: hydroCHLOROthiazide 25 MG TAB PO SCH (09:00)
[2018-01-10] MEDS: HOME MED 1 EA UNK (Budesonide/Formoterol Fumarate [Symbicort 80-4.5 Mcg Inhaler] 2 PUFF) IH SCH (09:00)
[2018-01-10] MEDS ORDERED: FUROSEMIDE 40 MG/4 ML VIAL IV SCH (09:00)
[2018-01-10] MEDS: METFORMIN HCL 500 MG TAB PO SCH (09:26)
[2018-01-10] MEDS: FERROUS SULFATE 325 MG TAB PO SCH (09:26)
[2018-01-10] MEDS: predniSONE 10 MG TAB PO SCH (09:27)
[2018-01-10] MEDS: PANTOPRAZOLE 40MG TABLET PO SCH (09:27)
[2018-01-10] MEDS: AMLODIPINE 10 MG TAB PO SCH (09:27)
[2018-01-10] MEDS: levoFLOXacin 500 MG TAB PO SCH (09:28)
[2018-01-10] MEDS: ENOXAPARIN 30 MG/0.3 ML SQ SCH (09:29)
[2018-01-10 10:34] LABS: A1c Component 0.38 mg/dL; Hemoglobin A1c 6.1 % (4-6.0)
[2018-01-10 11:53] VITALS: O2SAT 95
--- NOTE | 2018-01-10 18:17 | P.DS ---
Admission Date: 01/07/18 Discharge Date: 01/10/18 Primary Care Provider: Unknown Disposition: ROUTINE DISCHARGE Discharge Condition: GOOD Reason for Admission: SOB Consultations: Pulmonology - Problems (1) Dyspnea Onset Date: 01/10/18 Status: Acute Qualifiers: Dyspnea type: orthopnea Qualified Code(s): R06.01 - Orthopnea (2) Pneumonia Onset Date: 03/08/17 Status: Acute Qualifiers: Pneumonia type: due to unspecified organism Laterality: unspecified laterality Lung location: unspecified part of lung Qualified Code(s): J18.9 - Pneumonia, unspecified organism (3) CHF (congestive heart failure) Onset Date: 01/10/18 Status: Acute Qualifiers: Heart failure type: diastolic Heart failure chronicity: acute on chronic Qualified Code(s): I50.33 - Acute on chronic diastolic (congestive) heart failure (4) Atrial fibrillation Onset Date: 03/15/17 Status: Chronic Qualifiers: Atrial fibrillation type: persistent Qualified Code(s): I48.1 - Persistent atrial fibrillation (5) COPD (chronic obstructive pulmonary disease) Onset Date: 04/28/17 Status: Chronic Qualifiers: COPD type: chronic bronchitis Chronic bronchitis type: unspecified Qualified Code(s): J42 - Unspecified chronic bronchitis (6) Coronary artery disease Onset Date: 03/15/17 Status: Chronic Qualifiers: Coronary Disease-Associated Artery/Lesion type: [place] artery [place] vs. 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 use: unspecified extermination supervisor insulin use status (8) History of CVA (cerebrovascular accident) Status: Chronic (9) Hyperlipidemia Onset Date: 04/28/17 Status: Chronic Qualifiers: Hyperlipidemia type: unspecified Qualified Code(s): E78.5 - Hyperlipidemia , unspecified (10) Hypertension Onset Date: 03/15/17 Status: Chronic Qualifiers: Hypertension type: essential hypertension Qualified Code(s): I10 - Essential (primary) hypertension Brief History of Present Illness: Set this is a 87-year-old male with significant past medical history of hypertension, diabetes, atrial fibrillation, COPD, CVA, dementia who presented to the ED complaining of having some shortness of breath that has been going on for about a week or 2. Patient states that he has chronic recurrent pneumonia and was at [facility] to get checked out for his shortness of breath. [facility] he was sent over to the ER here to get it further checked out with an x-ray and lab work. Patient stated that he has been having to use more pillows at night time and has been "swollen" a lot for past couple of days. Patient did say that he took 2 Lasix pills for past couple of days and has not taken any today. Patient stated that he weighed 214lbs, however today he weighs about 184lbs and he said that he has a lot of urine output after taking lasix. He still however is SOB. No fever or chills noted. Hospital Course: Overall during the hospital course patient remained stable The patient was initially admitted to the hospital for dyspnea. Most likely multifactorial secondary to pneumonia, congestive heart failure. Patient remained on IV antibiotics here in the hospital. X-ray was consistent with bilateral lower lobe pneumonia pro calcitonin was elevated along with white count as well. Pulmonology was consulted who recommended the patient be continued on IV antibiotics. Sputum culture was is positive for 2+ staph aureus currently still pending sensitivities. Patient this morning was doing well overall had worked with physical therapy and has tolerated his diet well. Has no complaints to offer no fevers overnight and thus antibiotics was switched over to p.o.. At this point patient would like to go home and states that he will follow up with his primary care doctor. Given that he is doing well overall patient was discharged home under stable condition and was given oral antibiotics to go home with. We will follow up with sputum culture here in the hospital will notify patient if there is any changes. Patient did not have any coughing or any other fever chills here overnight. Patient also did not require oxygen when he went home. Initially due to weakness patient was referred for SNF however patient refused to go to SNF and stated that he will go home with home health. Other chronic conditions remained stable while here in the hospital. Patient does have a history of atrial fibrillation for which he gets beta-cecil. The remote history of GI bleeding and thus was asked only to take ASA. Vital Signs/Physical Exam: Temp Pulse Resp BP Pulse Ox 98.6 F 84 18 155/87 H 95 01/10/18 08:00 01/10/18 09:28 01/10/18 08:00 01/10/18 09:28 01/10/18 08:00 General: Alert, In no apparent distress, Oriented x3 HEENT: Atraumatic, PERRLA, EOMI Neck: Supple, JVD not distended Respiratory: Clear to auscultation bilaterally, Normal air movement Cardiovascular: Regular rate/rhythm, Normal S1 S2 Gastrointestinal: Normal bowel sounds, No tenderness Musculoskeletal: No tenderness Integumentary: No rashes Neurological: Normal speech, Normal tone, Normal affect Lymphatics: No axilla or inguinal lymphadenopathy Laboratory Data at Discharge: WBC 5.6 K/uL (4.3-10.9) 01/10/18 03:52 Hgb 8.6 g/dL (13.6-17.9) L 01/10/18 03:52 Hct 26.1 % (39.6-49.0) L 01/10/18 03:52 Plt Count 157 K/uL (152-406) 01/10/18 03:52 PT 12.8 SECONDS (9.5-12.5) H 01/07/18 12:13 INR 1.08 01/07/18 12:13 Sodium 135 mEq/L (135-145) 01/10/18 03:52 Potassium 4.1 mEq/L (3.6-5.0) 01/10/18 03:52 BUN 37 mg/dL (6-20) H 01/10/18 03:52 Creatinine 1.41 mg/dL (0.61-1.24) H 01/10/18 03:52 Glucose 133 mg/dL (65-120) H 01/10/18 03:52 Magnesium 1.6 mg/dL (1.8-2.5) L 01/10/18 03:52 Total Bilirubin 0.5 mg/dL (0.3-1.2) 01/10/18 03:52 AST 13 IU/L (10-42) 01/10/18 03:52 ALT 11 IU/L (10-60) 01/10/18 03:52 Alkaline Phosphatase 59 IU/L (42-121) 01/10/18 03:52 B-Natriuretic Peptide 243 pg/ml (<=100) H 01/07/18 12:13 Home Medications: Albuterol Sulfate [Ventolin Hfa] 2 puff IH Q6H 04/27/17 Amlodipine [Norvasc*] 10 mg PO DAILY 04/27/17 Atorvastatin Calcium [Lipitor*] 40 mg PO BEDTIME 04/27/17 Folic Acid 1 mg PO DAILY 04/27/17 Losartan Potassium [Cozaar*] 100 mg PO DAILY 04/27/17 Metformin HCl [Glucophage*] 1,000 mg PO BID 04/27/17 Gabapentin 400 mg PO TID #90 capsule 05/03/17 Albuterol Neb [Proventil 0.083% Neb Soln] 2.5 mg IH QID 01/07/18 Budesonide/Formoterol Fumarate [Symbicort 80-4.5 Mcg Inhaler] 2 puff IH BID Cholecalciferol (Vitamin D3) [Vitamin D3] 1,200 unit PO DAILY 01/07/18 Ferrous Gluconate 324 mg PO BID 01/07/18 Glipizide [Glucotrol] 10 mg PO BID 01/07/18 Hydrochlorothiazide 50 mg PO DAILY 01/07/18 Omeprazole 20 mg PO DAILY PRN 01/07/18 Urea 226.8 gm TP DAILY 01/07/18 Levofloxacin [Levaquin*] 500 mg PO DAILY #10 tab 01/10/18 New Medications: Levofloxacin [Levaquin*] 500 mg PO DAILY #10 tab Patient Discharge Instructions: Please f/u with PCP in 1 week post discharge. Please f/u with Dr Spence in 1 week post discharge. New medication. Levaquin 500mg Daily for 10 days Diet: Regular Activity: Ad pamella Followup: Bhupendra Rossi MD [ACTIVE - CAN ADMIT] - 1 Week (call to schedule appointment)
== END 2018-01-10 14:52 | disposition home or self-care (01) | DRG 291 ==
LOC: ER 11:37 → 4TH 14:33
PROVIDERS: ADMIT Family Medicine; ATTEND Family Medicine
PROC: 30233N1 Transfusion of Nonautologous Red Blood Cells into Peripheral Vein, Percutaneous Approach (ICD-10-PCS; principal; 2018-01-08)
DX: I11.0 Hypertensive heart disease with heart failure (principal); J18.9 Pneumonia, unspecified organism; I48.1 Persistent atrial fibrillation; I50.33 Acute on chronic diastolic (congestive) heart failure; D50.9 Iron deficiency anemia, unspecified; K21.9 Gastro-esophageal reflux disease without esophagitis; J42 Unspecified chronic bronchitis; E78.5 Hyperlipidemia, unspecified; R63.4 Abnormal weight loss; Z68.30 Body mass index [BMI] 30.0-30.9, adult; I25.10 Atherosclerotic heart disease of native coronary artery without angina pectoris; E83.42 Hypomagnesemia; M50.30 Other cervical disc degeneration, unspecified cervical region; E11.65 Type 2 diabetes mellitus with hyperglycemia; F03.90 Unspecified dementia, unspecified severity, without behavioral disturbance, psychotic disturbance, mood disturbance, and anxiety; Z86.73 Personal history of transient ischemic attack (TIA), and cerebral infarction without residual deficits
CPT/HCPCS: 36415; 71045; 71046; 71250; 80048; 80053; 80076; 81003; 81015; 82274; 82728; 82962; 83036; 83540; 83735; 83880; 84145; 84466; 85014; 85018; 85025; 85610; 86850; 86900; 86901; 87070; 87205; 93005; 96365; 96366; 96375; 97163; 99285; J0456; J1650; J1940; J2930; J3475; J7512; P9016

== ENCOUNTER 2018-09-18 15:34 | Inpatient (IN) | payer OTHER ==
--- OUTSIDE RECORDS SUMMARY | 2018-09-18 15:36 | XMS REPORT | Clinical Summary ---
:1930 Author Organization [facility] Address [address] [place] [id number] Care Team Providers Name Role Phone Asked, No Pcp Primary Care Provider Unavailable Allergies No Known Allergies Medications Medication Sig Dispensed Refills Start Date End Date Status omeprazole (PriLOSEC) 20 Take 20 mg by 0 Active MG capsule mouth daily. hydroCHLOROthiazide Take 50 mg by 0 Active (HYDRODIURIL) 50 MG tablet mouth daily. glipiZIDE (GLUCOTROL) 10 Take 10 mg by 0 Active MG tablet mouth 2 (two) times a day before meals. amlodipine-benazepril Take 1 capsule 0 Active (LOTREL) 10-20 mg per by mouth capsule daily. ferrous gluconate 324 mg Take 1 tablet 0 Active (36 mg iron) tablet by mouth 2 (two) times a day. losartan (COZAAR) 100 MG Take 100 mg by 0 Active tablet mouth daily. aspirin (ECOTRIN) 81 MG Take 81 mg by 0 Active enteric coated tablet mouth daily. gabapentin (NEURONTIN) 400 Take 400 mg by 0 Active mg capsule mouth 3 (three) times a day. atorvastatin (LIPITOR) 80 Take 40 mg by 0 Active MG tablet mouth daily. metFORMIN (GLUCOPHAGE) Take 1,000 mg 0 Active 1,000 mg tablet by mouth 2 (two) times a day with meals. melatonin 5 mg capsule Take 1 capsule 0 Active by mouth daily. Active Problems No known active problems Encounters Date Type Specialty Care Team Description 03/02/2018 Office Visit Orthopedic Surgery Raz Silva Primary osteoarthritis MD Og of right knee (Primary Dx) 02/07/2018 Office Visit Orthopedic Surgery Raz Silva Primary osteoarthritis of right knee (Primary Dx); MD Og Chronic pain of right knee after 09/17/2017 Family History Medical History Relation Name Comments Diabetes Father Hypertension Father Diabetes Mother Hypertension Mother Relation Name Status Comments Father Mother Social History Tobacco Use Types Packs/Day Years Used Date Never Smoker Smokeless Tobacco: Former User Quit: 2011 Alcohol Use Drinks/Week oz/Week Comments No Sex Assigned at Date Recorded Not on file Job Start Date Occupation Industry Not on file Not on file Not on file Travel History Travel Start Travel End No recent travel history available. Last Filed Vital Signs Vital Sign Reading Time Taken Blood Pressure - - Pulse - - Temperature - - Respiratory Rate - - Oxygen Saturation - - Inhaled Oxygen Concentration - - Weight 88.5 kg (195 lb) 02/07/2018 2:01 PM CDT Height 177.8 cm (5' 10") 02/07/2018 2:01 PM CDT Body Mass Index 27.98 02/07/2018 2:01 PM CDT Plan of Treatment Health Maintenance Due Date Last Done Comments SHINGLES VACCINES (1 of 2) 02/12/1981 PNEUMOCOCCAL POLYSACCHARIDE VACCINE AGE 65 AND OVER 02/13/1996 PNEUMOCOCCAL-13 02/13/1996 INFLUENZA VACCINE 04/20/2018 Procedures Procedure Name Priority Date/Time Associated Diagnosis Comments XR KNEE 3 VW RIGHT Routine 02/07/2018 2:00 PM Chronic pain of Results for this CDT right knee procedure are in the results section. after 09/17/2017 Results XR Knee 3 Vw Right (02/07/2018 2:00 PM CDT) Narrative Performed At Three views of the right knee performed in the office today demonstrate [facility] advanced degenerative changes throughout the knee.There is a marked varus alignment of approximately 25.There is complete destruction of the medial compartment with extensive bone to bone contact.There are periarticular osteophytes as well as subchondral sclerosis.Extensive arterial calcification is also noted. Performing Organization Address City/State/Zipcode Phone Number [facility] [id number] [place] [address] after 09/17/2017 Insurance Payer Benefit Plan / Group Subscriber ID Type Phone Address MEDICARE MEDICARE PART A AND B xxxxxxxxxx Medicare [place], [place] Advance Directives Patient has advance care planning documents on file. For more information, please contact:Melo Meza[address] [place] [address]
--- OUTSIDE RECORDS SUMMARY | 2018-09-18 15:38 | XMS REPORT | CCD ---
:02/13/1931 Author Organization [facility] [place] Care Team Providers Name Role Phone Arian Eddy Consulting Provider Allergies, Adverse Reactions, Alerts Substance Reaction Status NKDA Active NKFA Active Problem List Condition Effective Dates Status AP - Angina pectoris Resolved Arthritis Resolved BPH Resolved CAD (coronary artery disease) Resolved CATARACT1 Resolved CHF (congestive heart failure) Resolved COPD Resolved DM (diabetes mellitus)2 Resolved Eczema Resolved GERD (gastroesophageal reflux disease) Resolved glasses/day Resolved High cholesterol Resolved HTN (hypertension) Resolved Pneumonia3 Resolved Replacement4 Resolved [id number] in last 7 yrs4lt knee
--- OUTSIDE RECORDS SUMMARY | 2018-09-18 15:38 | XMS REPORT | CCD ---
:02/13/1931 Author Organization [facility] Care Team Providers Name Role Phone Robin Parrish Referring Provider Allergies, Adverse Reactions, Alerts Substance Reaction [...] HTN (hypertension) Resolved Pneumonia3 Resolved Replacement4 Resolved [id number] in last 7 yrs4lt knee Medications Medication Instructions Start Date End Date Status Saline Flush 0.9% 5 ml, Route: IVP, Drug 04/26/2013 04/26/2013 Discontinued Form: INJ, Dosing Weight 101.818, kg, PRN, PRN Line Flush, Start date: 04/26/13 8:31:00, Duration: 30 day, Stop date: 05/26/13 8:30:00 Saline Flush 0.9% 5 ml, Route: IVP, Drug 04/26/2013 04/26/2013 Discontinued Form: INJ, Dosing Weight 101.818, kg, Q12H, Start date: 04/26/13 9:00:00, Duration: 30 day, Stop date: 05/25/13 21:00:00 nitroglycerin SL Tab 0.4 mg, 1 tab, Route: 04/26/2013 04/26/2013 Discontinued SL, Drug form: TAB, Q5Min, Dosing Weight 101.818, kg, PRN Chest Pain, Start date: 04/26/13 8:31:00, Duration: 3 doses or times, Stop date: Limited # of times acetaminophen 650 mg, 2 tab, Route: 04/26/2013 04/26/2013 Discontinued PO, Drug form: TAB, Q4H, Dosing Weight 101.818, kg, PRN Headache 1-5, Start date: 04/26/13 8:31:00, Duration: 30 day, Stop date: 05/26/13 8:30:00 acetaminophen-hydrocodone 1 tab, Route: PO, Drug 04/26/2013 04/26/2013 Discontinued 325 mg-5 mg oral tablet Form: TAB, Dosing Weight 101.818, kg, Q4H, PRN Pain Score 1-5, Start date: 04/26/13 8:31:00, Duration: 30 day, Stop date: 05/26/13 8:30:00 metFORmin 850 mg oral 850 mg, 1 tab, PO, BID, 04/25/2013 Ordered tablet Substitution Allowed Coumadin 7.5 mg oral 7.5 mg, 1 tab, PO, wed/wed, Substitution Allowed 2012 Ordered tablet wed/sun Coumadin 5 mg oral tablet 5 mg, 1 tab, PO, Daily, ///wed/wed, Substitution Allowed 04/25/2013 Ordered ///wed/wed omeprazole 20 mg oral 20 mg, 1 tab, PO, Daily, 04/25/2013 Ordered enteric coated tablet Substitution Allowed amLODipine 10 mg oral 10 mg, 1 tab, PO, Daily, 04/25/2013 Ordered tablet Substitution Allowed losartan 50 mg oral tablet with HTCZ, PO, Daily, 04/25/2013 Ordered Substitution Allowed glyBURIDE 5 mg oral tablet 10 mg, 2 tab, PO, BID, 04/25/2013 Ordered Substitution Allowed K-Dur 10 oral tablet, 1 tab po daily, 04/25/2013 Ordered extended release Substitution Allowed simvastatin 40 mg oral 40 mg, 1 tab, PO, 04/25/2013 Ordered tablet Bedtime, Substitution Allowed, Maintenance Vital Signs Most recent to oldest [Reference Range]: 1 Height 177.8 cm (04/25/2013 12:37:00) Weight 101.818 kg (04/25/2013 12:37:00) Results BLOOD BANK RESULTS Most recent to oldest [Reference Range]: 1 ABO/Rh AB NEG *Unknown* (04/26/2013 06:30:00) Antibody Scrn Negative (04/26/2013 06:30:00) CHEMISTRY Most recent to oldest [Reference Range]: 1 Sodium Lvl [135-145 mEq/L] 138 mEq/L (04/26/2013:30:00) Potassium Lvl [3.5-5.1 mEq/L] 3.9 mEq/L (04/26/2013:30:00) Chloride Lvl [95-109 mEq/L] 98 mEq/L (04/26/2013:30:00) CO2 [24-32 mEq/L] 31 mEq/L (04/26/2013:30:00) AGAP [10.0-20.0 mEq/L] 12.9 mEq/L (04/26/2013:30:00) Creatinine Lvl [0.5-1.4 mg/dL] 1.3 mg/dL (04/26/2013:30:00) eGFR 51 mL/min/1.73m2 1 *NA* (04/26/201330:00) BUN [7-22 mg/dL] 21 mg/dL (04/26/2013:30:00) Glucose Lvl [70-99 mg/dL] 131 mg/dL 2 *HI* (04/26/2013:30:00) Calcium Lvl [8.5-10.5 mg/dL] 10.4 mg/dL (04/26/2013:30:00) 1Result Comment: The eGFR is calculated using the CKD-EPI formula. In most young , healthy individualsthe eGFR will be >90 mL/min/1.73m2. The eGFR declines with age. An eGFR of 60-89 may be normal in some populations, particularly the elderly, for whom the CKD-EPI formula has not been extensively validated. Use of the eGFR is not recommended in the following populations: Individuals with unstable creatinine concentrations, including patients and those with serious co-morbid conditions. Patients with extremes in muscle mass or diet. The data above are obtained from the National Kidney Disease Education Program ( NKDEP) which additionally recommends that when the eGFR is used in patients with extremes of body mass index for purposesof drug dosing, the eGFR should be multiplied by the estimated BMI.2Interpretive Data: Adult reference range values reflect the clinical guidelines of the [place] [employer].HEMATOLOGY Most recent to oldest [Reference Range]: 1 WBC [3.7-10.4 K/CMM] 7.8 K/CMM (04/26/2013 06:30:00) RBC [4.70-6.10 M/CMM] 4.06 M/CMM *LOW* (04/26/2013 06:30:00) Hgb [14.0-18.0 g/dL] 10.7 g/dL *LOW* (04/26/2013 06:30:00) Hct [42.0-54.0 %] 33.5 % *LOW* (04/26/2013 06:30:00) MCV [80.0-94.0 fL] 82.6 fL (04/26/2013 06:30:00) MCH [27.0-31.0 pg] 26.3 pg *LOW* (04/26/2013 06:30:00) MCHC [32.0-36.0 g/dL] 31.9 g/dL *LOW* (04/26/2013 06:30:00) RDW [11.5-14.5 %] 15.7 % *HI* (04/26/2013 06:30:00) Platelet [133-450 K/CMM] 215 K/CMM (04/26/2013 06:30:00) MPV [7.4-10.4 fL] 9.5 fL (04/26/2013 06:30:00) Segs [45.0-75.0 %] 70.2 % (04/26/2013 06:30:00) Lymphocytes [20.0-40.0 %] 19.6 % *LOW* (04/26/2013 06:30:00) Monocytes [2.0-12.0 %] 8.2 % (04/26/2013 06:30:00) Eosinophils [0.0-4.0 %] 1.5 % (04/26/2013 06:30:00) Basophils [0.0-1.0 %] 0.5 % (04/26/2013 06:30:00) Segs-Bands # [1.5-8.1 K/CMM] 5.5 K/CMM (04/26/2013 06:30:00) Lymphocytes # [1.0-5.5 K/CMM] 1.5 K/CMM (04/26/2013 06:30:00) Monocytes # [0.0-0.8 K/CMM] 0.6 K/CMM (04/26/2013 06:30:00) Eosinophils # [0.0-0.5 K/CMM] 0.1 K/CMM (04/26/2013 06:30:00) Basophils # [0.0-0.2 K/CMM] 0.0 K/CMM (04/26/2013 06:30:00) Elliptocyte [None Seen] Slight *ABN* (04/26/2013 06:30:00) Plt Morph Normal (04/26/2013 06:30:00) PT [12.0-14.7 seconds] 14.8 seconds *HI* (04/26/2013 06:30:00) INR [0.85-1.17] 1.14 3 (04/26/2013 06:30:00) 3Interpretive Data: RECOMMENDED RANGES FOR PROTIME INR: 2.0-3.0 for most medical and surgical thromboembolic states. 2.5-3.5 for artificial heart valves and recurrent embolism. INR SHOULD BE USED ONLY FOR PATIENTS ON STABLE ANTICOAGULANT THERAPY. Procedures Procedures Date Related Diagnosis Cholecystectomy Coronary angiogram 1 Knee replacement 2 [facility]uls[facility] of lens [facility]
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
--- OUTSIDE RECORDS SUMMARY | 2018-09-18 15:38 | XMS REPORT | Continuity of Care Document ---
:02/13/1931 Author Organization [facility] Care Team Providers Name Role Phone MD Prashant, Art Unavailable Unavailable Insurance Providers Payer name Policy type / Policy ID Covered green party ID Policy Fraser Coverage type MEDICARE PRIMARY MEDICARE [place]: [employer] MEDICARE B-[place]: [employer] Encounters Encounter Performer Location Date Office Visit Koffi Cerda MD [facility] [place] [facility] Allergies, Adverse Reactions, Alerts Type Substance [...] Apr 11, 2014 Active CORONARY ATHEROSCLEROSIS OF [place] CORONARY ARTERY Apr 11, 2014 Active DISEASE, [...] STATED UNCONTROLLED SINUSITIS, ACUTE Jun 05, 2014 Inactive COPD Jun 05, 2014 Active CELLULITIS, ARM Dec 05, 2014 Inactive BACK PAIN, LUMBAR Dec 05, 2014 Active GUAIAC POSITIVE STOOL Jan 04, 2015 Active IRON DEFICIENCY ANEMIA, UNSPECIFIED Jan 04, 2015 Active HYPOGLYCEMIA Jan 04, 2015 Active WEIGHT LOSS January 23, 2015 Inactive ARTHUS PHENOMENON Feb 19, 2015 Active CELLULITIS AND ABSCESS OF BUTTOCK Apr 09, 2015 Active Procedures Date Description Comments Nov 17, 2012 smoking status former smoker Apr 11, 2014 smoking status Former smoker Apr 11, 2014 diabetic foot check yes Jun 05, 2014 smoking status Former smoker Dec 05, 2014 smoking status Former smoker Jan 04, 2015 smoking status Former smoker Jan 04, 2015 diabetic foot check yes January 23, 2015 smoking status Former smoker Feb 19, 2015 smoking status Former smoker Apr 09, 2015 smoking status Former smoker Medications Medication Instructions Start Date Status ZETIA 10 MG TABS 1 PO daily Inactive WARFARIN SODIUM 10 MG TABS 1 PO [...] Active daily for Blood Pressure & Heart HYDROCHLOROTHIAZIDE 50 MG TABS 1 tablet po daily February 06, 2013 Active CEPHALEXIN 500 [...] BID for 10 days Jun 05, 2014 Inactive MECLIZINE HCL 12.5 MG TABS 1 tablet every 8 hours PRN Mar 08, 2013 Inactive dizziness OMEPRAZOLE 20 MG TBEC 1 PO daily February 06, 2013 Inactive METFORMIN HCL 1000 MG TABS Take 1 tablet by mouth twice February 06, 2013 Active daily DOXAZOSIN MESYLATE 2 MG TABS 1 hs daily February 06, 2013 Inactive BENZONATATE 100 MG CAPS 1-2 capusles PO TID PRN Jun 05, 2014 Inactive cough KEFLEX 500 MG CAPS 2 capsule 2wice Dec 05, 2014 Inactive KEFLEX 500 MG CAPS 1 capsule three times a day Dec 21, 2014 Inactive SIMVASTATIN 40 MG TABS Take 1 tablet by mouth at February 06, 2013 Inactive bedtime GLYBURIDE 5 MG TABS Take 1 tablets by mouth once February 06, 2013 Active daily KEFLEX 500 MG CAPS 1 capsule three times a day January 21, 2015 Inactive TRIAMCINOLONE ACETONIDE 0.1 % CREA apply to affected area twice Feb 19, 2015 Active daily as needed KEFLEX 500 MG CAPS 1 capsule three times a day Apr 09, 2015 Active Vital Signs Date Description Test Result Nov 17, 2012 height Lori - 8302-2 HEIGHT 67 in Nov 17, 2012 weight Lori Anguiano WEIGHT 222.2 lb Nov 17, 2012 temperature [...] RATE 16 /min February 06, 2013 weight Lori Anguiano WEIGHT 230.8 lb February 06, 2013 temperature [...] 86 /min February 14, 2014 weight Lori Giron1-9 WEIGHT 218.4 lb February 14, 2014 temperature [...] 80 mm Hg Apr 11, 2014 weight David&William - 3141-9 WEIGHT 220.2 lb Apr 11, 2014 temperature [...] RATE 20 /min Jun 05, 2014 weight David&William - 3141-9 WEIGHT 224.0 lb Jun 05, 2014 temperature E&M TEMPERATURE 98.0 deg f Jun 05, 2014 pulse rate E&M - 8867-4 PULSE RATE 100 /min Jun 05, 2014 respiratory rate E&M - 9279-1 RESP RATE 28 /min Jun 05, 2014 blood pressure, systolic - 8480-6 BP SYSTOLIC 140 mm Hg Jun 05, 2014 blood pressure, diastolic - 8462-4 BP DIASTOLIC 60 mm Hg Dec 05, 2014 weight David&William - Mack1-9 WEIGHT 209 lb Dec 05, 2014 temperature E&M TEMPERATURE 98.0 deg f Dec 05, 2014 respiratory rate E&M - 9279-1 RESP RATE 16 /min Dec 05, 2014 pulse rate E&M - 8867-4 PULSE RATE 99 /min Dec 05, 2014 blood pressure, systolic - 8480-6 BP SYSTOLIC 166 mm Hg Dec 05, 2014 blood pressure, diastolic - 8462-4 BP DIASTOLIC 68 mm Hg Jan 04, 2015 weight David&William - Mack1-9 WEIGHT 206.6 lb Jan 04, 2015 temperature E&M TEMPERATURE 97.8 deg f Jan 04, 2015 respiratory rate E&M - 9279-1 RESP RATE 20 /min Jan 04, 2015 pulse rate E&M - 8867-4 PULSE RATE 105 /min Jan 04, 2015 blood pressure, systolic - 8480-6 BP SYSTOLIC 159 mm Hg Jan 04, 2015 blood pressure, diastolic - 8462-4 BP DIASTOLIC 69 mm Hg January 23, 2015 weight E&M - 3141-9 WEIGHT 205 lb January 23, 2015 pulse rate E&M - 8867-4 PULSE RATE 92 /min January 23, 2015 blood pressure, systolic - 8480-6 BP SYSTOLIC 152 mm Hg January 23, 2015 blood pressure, diastolic - 8462-4 BP DIASTOLIC 72 mm Hg Feb 19, 2015 weight E&M - 3141-9 WEIGHT 207.4 lb Feb 19, 2015 temperature E&M TEMPERATURE 97.4 deg f Feb 19, 2015 respiratory rate E&M - 9279-1 RESP RATE 20 /min Feb 19, 2015 pulse rate E&M - 8867-4 PULSE RATE 84 /min Feb 19, 2015 blood pressure, systolic - 8480-6 BP SYSTOLIC 167 mm Hg Feb 19, 2015 blood pressure, diastolic - 8462-4 BP DIASTOLIC 69 mm Hg Apr 09, 2015 weight E&M - 3141-9 WEIGHT 204.2 lb Apr 09, 2015 temperature E&M TEMPERATURE 97.5 deg f Apr 09, 2015 respiratory rate E&M - 9279-1 RESP RATE 16 /min Apr 09, 2015 pulse rate E&M - 8867-4 PULSE RATE 105 /min Apr 09, 2015 blood pressure, systolic - 8480-6 BP SYSTOLIC 172 mm Hg Apr 09, 2015 blood pressure, diastolic - 8462-4 BP DIASTOLIC 74 mm Hg Results Date Description Test Name Value Reference Interpretation Status Dec 04, hemoglobin, blood HGB 10.5 g/dL 2014Dec 04, hematocrit, blood HCT 33.3 % 2014Dec 04, platelet count PLATELETS 201 /mm3 2014Jan 04, hemoglobin, blood HGB 11.1 g/dL 12.3-17.3 Low 2014Jan 04, hematocrit, blood HCT 34.0 % 36.7-50.5 Low 2014Jan 04, erythrocyte ESR 77 mm/hr 0-15 High 2014 sedimentation rate Jan 04, reticulocytes as RETIC COUNT 0.8 % 0.5-1.5 2014 percent of blood erythrocytes Dec 04, cholesterol, serum CHOLESTEROL 129 mg/dl 2014Dec 04, triglyceride, serum, TRIGLYCERIDE 69 mg/dl 2014 fasting Dec 04, HDL cholesterol, HDL 32 mg/dl 2014 serum Dec 04, LDL cholesterol, LDL 83.2 2014 serum mg/dl Dec 04, hemoglobin A1C, HGBA1C 6.5 % 2014 blood, as % of total hemoglobin Dec 04, thyroid stimulating TSH 4.1 2015 hormone, serum uIU/mL Dec 04, sodium, serum SODIUM 132 2014 mmol/L Dec 04, potassium, serum POTASSIUM 3.7 2014 mmol/L Dec 04, creatinine, serum CREATININE 0.92 2014 mg/dL Dec 04, albumin, serum ALBUMIN 3.7 g/dL 2014Dec 04, calcium, serum CALCIUM 10.9 2014 mg/dL Dec 04, aspartate SGOT (AST) 22 U/L 2014 aminotransferase (SGOT), serum Dec 04, alanine SGPT (ALT) 16 U/L 2014 aminotransferase (SGPT), serum Dec 04, alkaline phosphatase, ALK PHOS 87 U/L 2014 serum Oct 09, cholesterol, serum CHOLESTEROL 100 mg/dl 2014Oct 09, triglyceride, serum, TRIGLYCERIDE 71 mg/dl 2014 fasting Oct 09, HDL cholesterol, HDL 29 mg/dl 2014 serum Oct 09, LDL cholesterol, LDL 56.8 2014 serum mg/dl Oct 09, hemoglobin A1C, HGBA1C 6.8 % 2014 blood, as % of total hemoglobin Oct 09, thyroid stimulating TSH 4.7 2014 hormone, serum uIU/mL Jan 04, sodium, serum SODIUM 131 135-143 Low 2014 mmol/L Jan 04, potassium, serum POTASSIUM 3.4 3.3-5.0 2014 mmol/L Jan 04, albumin, serum ALBUMIN 3.6 g/dL 3.5-5.0 2014Jan 04, calcium, serum CALCIUM 10.6 8.6-9.8 High 2014 mg/dL Jan 04, creatinine, serum CREATININE 0.96 0.46-1.20 2014 mg/dL Jan 04, urea nitrogen, blood BUN 17 mg/dL 10-22 2014Jan 04, alkaline phosphatase, ALK PHOS 80 U/L 32-96 2014 serum Jan 04, aspartate SGOT (AST) 22 U/L 10-42 2014 aminotransferase (SGOT), serum Jan 04, alanine SGPT (ALT) 16 U/L 11-43 2015 aminotransferase (SGPT), serum Jan 04, cholesterol, serum CHOLESTEROL 136 mg/dl [phone] Jan 04, HDL cholesterol, HDL 34 mg/dl 26-62 2014Jan 04, LDL cholesterol, LDL 90 mg/dl 0-130 2014Jan 04, iron, serum IRON 25 ug/dL 20-172 2014Jan 04, iron binding TIBC 367 ug/dL [phone] capacity, total Jan 04, creatine kinase, CPK 87 U/L 18-164 2014Jan 04, hemoglobin A1C, HGBA1C 6.6 % 3.0-6.0 High 2015 blood, as % of total hemoglobin Jan 04, ferritin, serum FERRITIN 41.7 23.9-336.2 2015 ng/mL Dec 04, international INR 2.16 null 2015 normalized ratio (INR) Apr 17, international INR 1.59 null 0.8-1.5 High 2015 normalized ratio (INR)
--- OUTSIDE RECORDS SUMMARY | 2018-09-18 15:38 | XMS REPORT | Continuity of Care Document ---
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 XRAY VISIT 09/17 [facility] /2015 [place] [facility] [id number] ART 11/09 [facility] [place] [facility] [id number] ART 02/08 [facility] [place] Procedures Procedure Code Date Perfomer Comments Source diabetic foot check [id number] yes Medical 5 Group diabetic foot check [id number] yes Medical 4 Group Cholecystectomy [id number] [facility] Coronary angiogram [id number] [facility] <sup>1</sup> 04/26/13 [facility] Knee replacement [id number] 2lt [facility] <sup>2</sup> [facility] Phacoemulsification of 3ou [facility] lens and insertion of [facility] prosthetic replacement <sup>3</sup>
--- OUTSIDE RECORDS SUMMARY | 2018-09-18 15:39 | XMS REPORT | Continuity of Care Document ---
:02/13/1931 Author Organization [facility] Care Team Providers Name Role Phone MD Prashant, Art Unavailable Unavailable Insurance Providers Payer name Policy type / Policy ID Covered republican ID Policy Fraser Coverage type MEDICARE PRIMARY MEDICARE B-[place]: [employer] MEDICARE B-[place]: [employer] Encounters Encounter Performer Location Date Office Visit Koffi Cerda MD [facility] [place] [facility] Allergies, Adverse Reactions, Alerts Type Substance [...] Apr 11, 2014 Active CORONARY ATHEROSCLEROSIS OF [place] CORONARY ARTERY Apr 11, 2014 Active DISEASE, [...] Inactive ARTHUS PHENOMENON Feb 19, 2015 Active Procedures Date Description Comments Nov [...] Feb 19, 2015 smoking status Former smoker Medications Medication [...] Feb 19, 2015 Active daily as needed Vital Signs Date Description Test Result Nov 17, 2012 height E&M - 8302-2 HEIGHT 67 in Nov 17, 2012 weight David&William - 3141-9 WEIGHT 222.2 lb Nov 17, [...] RATE 16 /min February 06, 2013 weight David&William - 3141-9 WEIGHT 230.8 lb February 06, [...] RATE 20 /min Mar 08, 2013 weight David&William - 3141-9 WEIGHT 229.4 lb Mar 08, 2013 temperature [...] RATE 86 /min February 14, 2014 weight David&William - Mack1-9 WEIGHT 218.4 lb February 14, 2014 temperature [...] Hg Apr 11, 2014 weight David&William - Mack1-9 WEIGHT 220.2 lb Apr 11, 2014 temperature [...] RATE 20 /min Jun 05, 2014 weight E&M - 3141-9 WEIGHT 224.0 lb Jun 05, [...] 60 mm Hg Dec 05, 2014 weight E&M - 3141-9 WEIGHT 209 lb Dec 05, 2014 temperature [...] 68 mm Hg Jan 04, 2015 weight E&M - 3141-9 WEIGHT 206.6 lb Jan 04, 2015 temperature [...] - 8462-4 BP DIASTOLIC 69 mm Hg Results Date Description Test Name [...] 2014Dec 04, triglyceride, serum, TRIGLYCERIDE 69 mg/dl 2014Dec 04, HDL cholesterol, HDL 32 mg/dl 2014Dec 04, LDL cholesterol, LDL 83.2 2014 serum mg/dl Dec 04, hemoglobin A1C, HGBA1C 6.5 % 2014 blood, as % of total hemoglobin Dec 04, thyroid stimulating TSH 4.1 2014 hormone, serum uIU/mL Dec 04, sodium, serum [...] Oct 09, HDL cholesterol, HDL 29 mg/dl 2014Oct 09, LDL cholesterol, LDL 56.8 2014 serum mg/dl Oct 09, hemoglobin A1C, HGBA1C 6.8 % 2014 blood, as % of total hemoglobin Mele 20, thyroid stimulating TSH 4.7 2015 hormone, serum uIU/mL Jan 04, sodium, serum [...] Jan 04, cholesterol, serum CHOLESTEROL 136 mg/dl [phone] Jan 04, HDL cholesterol, HDL 34 mg/dl 26-62 2014 serum Jan 04, LDL cholesterol, LDL 90 mg/dl 0-130 2014 serum Jan 04, iron, serum IRON 25 ug/dL 20-172 2014Jan 04, iron binding TIBC 367 ug/dL [phone] capacity, total Jan 04, creatine kinase, CPK 87 U/L 18-164 2014 serum Jan 04, hemoglobin A1C, HGBA1C 6.6 % 3.0-6.0 High 2015 blood, as % of total hemoglobin Jan 04, ferritin, serum FERRITIN 41.7 23.9-336.2 2014 ng/mL Dec 04, international INR 2.16 null 2014 normalized ratio (INR) Jan 04, international INR 1.59 null 0.8-1.5 High 2014 normalized ratio (INR)
--- OUTSIDE RECORDS SUMMARY | 2018-09-18 15:39 | XMS REPORT | Continuity of Care Document ---
:1930 Author Organization [facility] Care Team Providers Name Role Phone MD Howie, Kaushal Unavailable Unavailable Insurance Providers Payer name Policy type / Policy ID Covered democrat ID Policy Fraser Coverage type MEDICARE PRIMARY MEDICARE [place]: [employer] MEDICARE B-[place]: [employer] Encounters Encounter Performer Location Date Office Visit Kaushal Denise MD [facility] [place] January 23, 2015 Gastroenterology Allergies, Adverse Reactions, Alerts Type Substance Reaction [...] Apr 11, 2014 Active CORONARY ATHEROSCLEROSIS OF [place] CORONARY ARTERY Apr 11, 2014 Active DISEASE, [...] Active WEIGHT LOSS January 23, 2015 Inactive Procedures Date Description Comments Nov 17, 2012 smoking status former smoker Apr 11, 2014 smoking status Former smoker Apr 11, 2014 diabetic foot check yes Jun 05, 2014 smoking status Former smoker Dec 05, 2014 smoking status Former smoker Jan 04, 2015 smoking status Former smoker Jan 04, 2015 diabetic foot check yes January 23, 2015 smoking status Former smoker Medications Medication [...] three times a day January 21, 2015 Active Vital Signs Date Description Test [...] 16 /min February 06, 2013 weight Lori Laboy-9 WEIGHT 230.8 lb February 06, 2013 temperature [...] 20 /min Mar 08, 2013 weight Lori Laboy-9 WEIGHT 229.4 lb Mar 08, 2013 temperature [...] 86 /min February 14, 2014 weight Lori Laboy-9 WEIGHT 218.4 lb February 14, 2014 temperature [...] mm Hg Apr 11, 2014 weight Lori Laboy-9 WEIGHT 220.2 lb Apr 11, 2014 temperature [...] RATE 20 /min Jun 05, 2014 weight David&M - 3141-9 WEIGHT 224.0 lb Jun 05, [...] 68 mm Hg Jan 04, 2015 weight David&M - 3141-9 WEIGHT 206.6 lb Jan 04, [...] - 8462-4 BP DIASTOLIC 72 mm Hg Results Date Description Test Name [...] Dec 04, HDL cholesterol, HDL 32 mg/dl 2014Dec 04, LDL cholesterol, LDL 83.2 2015 serum mg/dl Dec 04, hemoglobin A1C, HGBA1C [...] alkaline phosphatase, ALK PHOS 80 U/L 32-96 2015 serum Apr 17, aspartate SGOT (AST) 22 U/L 10-42 2015 aminotransferase (SGOT), serum Apr 17, alanine SGPT (ALT) 16 U/L 11-43 2015 aminotransferase (SGPT), serum Apr 17, cholesterol, serum CHOLESTEROL 136 mg/dl [phone] Apr 17, HDL cholesterol, HDL 34 mg/dl 26-62 2015 serum Apr 17, LDL cholesterol, LDL 90 mg/dl 0-130 2015 serum Apr 17, iron, serum IRON 25 ug/dL 20-172 2015 Jan 04, iron binding TIBC 367 ug/dL [phone] capacity, total Apr , creatine kinase, CPK 87 U/L 18-164 2015 serum Apr 17, hemoglobin A1C, HGBA1C 6.6 % 3.0-6.0 High 2015 blood, as % of total hemoglobin Apr , ferritin, serum FERRITIN 41.7 23.9-336.2 2014 ng/mL Dec 04, international INR 2.16 null 2015 normalized ratio (INR) Jan 04, international INR 1.59 null 0.8-1.5 High 2015 normalized ratio (INR)
--- OUTSIDE RECORDS SUMMARY | 2018-09-18 15:39 | XMS REPORT | Continuity of Care Document ---
:1930 Author Organization [facility] Care Team Providers Name Role Phone MD Prashant, Art Unavailable Unavailable Insurance Providers Payer name Policy type / Policy ID Covered libertarian ID Policy Fraser Coverage type MEDICARE PRIMARY MEDICARE [place]: [employer] MEDICARE B-[place]: [employer] Encounters Encounter Performer Location Date Lab Report Art MD Prashant [facility] [place] [facility] Jan 04, 2015 Practice Allergies, Adverse Reactions, Alerts Type Substance [...] Apr 11, 2014 Active CORONARY ATHEROSCLEROSIS OF [place] CORONARY ARTERY Apr 11, 2014 Active DISEASE, [...] 2015 Active HYPOGLYCEMIA Jan 04, 2015 Active Procedures Date Description Comments Nov 17, 2012 smoking status former smoker Apr 11, 2014 smoking status Former smoker Apr 11, 2014 diabetic foot check yes Jun 05, 2014 smoking status Former smoker Dec 05, 2014 smoking status Former smoker Jan 04, 2015 smoking status Former smoker Jan 04, 2015 diabetic foot check yes Medications Medication Instructions Start Date Status ZETIA [...] mouth once February 06, 2013 Active daily Vital Signs Date Description Test Result Nov [...] 16 /min February 06, 2013 weight Lori - Benoit-9 WEIGHT 230.8 lb February 06, 2013 temperature [...] /min Mar 08, 2013 weight David&William - Mack1-9 WEIGHT 229.4 lb Mar 08, 2013 temperature [...] 86 /min February 14, 2014 weight Lori - Mack1-9 WEIGHT 218.4 lb February 14, [...] Hg Jan 04, 2015 weight David&William - 3141-9 WEIGHT 206.6 lb Jan 04, [...] serum Dec 04, LDL cholesterol, LDL 83.2 2015 serum [...] Oct 09, hemoglobin A1C, HGBA1C 6.8 % 2015 blood, as % of total hemoglobin Oct 09, thyroid stimulating TSH 4.7 2015 hormone, serum uIU/mL Jan 04, sodium, serum SODIUM 131 135-143 Low 2014 mmol/L Jan 04, potassium, serum POTASSIUM 3.4 3.3-5.0 2014 mmol/L Jan 04, albumin, serum ALBUMIN 3.6 g/dL 3.5-5.0 2014Jan 04, calcium, serum CALCIUM 10.6 8.6-9.8 High 2014 mg/dL Jan 04, creatinine, serum CREATININE 0.96 0.46-1.20 2014 mg/dL Jan 04, urea nitrogen, blood BUN 17 mg/dL -22 2014Jan 04, alkaline phosphatase, ALK PHOS 80 U/L 32-96 2014Jan 04, aspartate SGOT (AST) 22 U/L 10-42 2014 aminotransferase (SGOT), serum Jan 04, alanine SGPT (ALT) 16 U/L 11-43 2014 aminotransferase (SGPT), serum Jan 04, cholesterol, serum CHOLESTEROL 136 mg/dl [phone] Jan 04, HDL cholesterol, HDL 34 mg/dl 26-62 2014Jan 04, LDL cholesterol, LDL 90 mg/dl 0-130 2014Jan 04, iron, serum IRON 25 ug/dL 20-172 2014Jan 04, iron binding TIBC 367 ug/dL [phone] capacity, total Jan 04, creatine kinase, CPK 87 U/L 18-164 2014 serum Apr , hemoglobin A1C, HGBA1C 6.6 % 3.0-6.0 High 2014 blood, as % of total hemoglobin Jan 04, ferritin, serum FERRITIN 41.7 23.9-336.2 2014 ng/mL Dec 04, international INR 2.16 null 2014 normalized ratio (INR) Jan 04, international INR 1.59 null 0.8-1.5 High 2014 normalized ratio (INR)
--- OUTSIDE RECORDS SUMMARY | 2018-09-18 15:39 | XMS REPORT | Continuity of Care Document ---
:1930 Author Organization [facility] Care Team Providers Name Role Phone MD Prashant, Art Unavailable Unavailable Insurance Providers Payer name Policy type / Policy ID Covered alliance party ID Policy Fraser Coverage type MEDICARE PRIMARY MEDICARE [place]: [employer] MEDICARE B-[place]: [employer] Encounters Encounter Performer Location Date Office Visit Koffi Cerda MD [facility] [place] [facility] Allergies, Adverse Reactions, Alerts Type Substance [...] Apr 11, 2014 Active CORONARY ATHEROSCLEROSIS OF [place] CORONARY ARTERY Apr 11, 2014 Active DISEASE, [...] 2014 Active COPD Jun 05, 2014 Active CELLULITIS, ARM Dec 05, 2014 Active BACK PAIN, LUMBAR Dec 05, 2014 Active Procedures Date Description Comments Nov 17, 2012 smoking status former smoker Apr 11, 2014 smoking status Former smoker Apr 11, 2014 diabetic foot check yes Jun 05, 2014 smoking status Former smoker Dec 05, 2014 smoking status Former smoker Medications Medication Instructions Start Date Status ZETIA 10 MG TABS 1 PO daily Inactive GLYBURIDE 5 MG TABS Take 2 tablets by mouth February 06, 2013 Active twice daily WARFARIN SODIUM 10 MG TABS 1 [...] mouth at February 06, 2013 Active bedtime HYDROCHLOROTHIAZIDE 50 MG TABS 1 tablet po [...] CAPS 2 capsule 2wice Dec 05, 2014 Active Vital Signs Date Description Test Result [...] /min February 06, 2013 weight David&William - Mack1-9 WEIGHT 230.8 lb February 06, 2013 temperature [...] 86 /min February 14, 2014 weight Lori Laboy-Peyton WEIGHT 218.4 lb February 14, 2014 temperature [...] /min Jun 05, 2014 weight David&William - Mack1-9 WEIGHT 224.0 lb Jun 05, 2014 temperature [...]
[2018-09-18] MEDS ORDERED: LEVALBUTEROL 1.25 MG/3 ML NEB ONE (15:55)
[2018-09-18] MEDS ORDERED: METHYLPREDNISOLONE 125 MG INJ ONE (15:55)
--- NOTE | 2018-09-18 16:07 | RAD REPORT ---
EXAM DESCRIPTION: RAD - Chest Single View - 09/18/2018 3:48 pm CLINICAL HISTORY: Dyspnea;Hemoptysis Chest pain. COMPARISON: Chest Pa And Lat (2 Views) dated 01/08/2018; Chest Single View dated 01/07/2018; Chest Pa And Lat (2 Views) dated 05/03/2017; Chest Single View dated 05/01/2017 FINDINGS: Portable technique limits examination quality. Moderate bibasilar pulmonary opacity is present with bilateral pleural effusions, most compatible wit h bibasilar pneumonia. The heart is mildly enlarged in size. No displaced fractures. IMPRESSION: Moderate bibasilar pneumonia pattern is noted.
--- NOTE | 2018-09-18 16:16 | EDPHYS ---
Physician Documentation [facility] Name: Varinder Nielson Age: 88 yrs Sex: Male : 1930 Arrival Date: 09/18/2018 Time: 15:39 Bed 4 Private MD: ED Physician Cody Bhatti HPI: 09/18 16:09 This 88 yrs old Male presents to ER via Wheelchair with complaints of jr8 Shortness Of Breath. 16:09 The patient has shortness of breath at rest. Onset: The symptoms/episode began/occurred jr8 gradually, 1 day(s) ago. Duration: The symptoms are continuous, and are markedly worse than the original presentation. The patient's shortness of breath is aggravated by supine position, talking, walking. Associated signs and symptoms: Pertinent positives: non-productive cough. Severity of symptoms: At their worst the symptoms were moderate in the emergency department the symptoms are unchanged. It is unknown whether or not the patient has had similar symptoms in the past. The patient has not recently seen a physician. Historical: - Allergies: 15:45 No Known Allergies; tw2 - PMHx: 15:45 COPD; Diabetes - NIDDM; Gastric Reflux; Anemia; Atrial Fib; CAD; CVA; Dementia; High tw2 Cholesterol; Hypertension; hypomagnesium; osteoarthritis; Pneumonia; - PSHx: 15:45 Cholecystectomy; Appendectomy; tw2 - Immunization history:: Adult Immunizations. - Social history:: Smoking status: Patient/guardian denies using tobacco, the patient reports quitting approximately 15 years ago. - Ebola Screening: : Patient denies travel to an Ebola-affected area in the 21 days before illness onset. ROS: 16:09 Eyes: Negative for injury, pain, redness, and discharge, ENT: Negative for injury, jr8 pain, and discharge, Neck: Negative for injury, pain, and swelling, Cardiovascular: Negative for chest pain, palpitations, and edema, Abdomen/GI: Negative for abdominal pain, nausea, vomiting, diarrhea, and constipation, Back: Negative for injury and pain, MS/Extremity: Negative for injury and deformity, Skin: Negative for injury, rash, and discoloration, Neuro: Negative for headache, weakness, numbness, tingling, and seizure. 16:09 Respiratory: Positive for dyspnea on exertion, shortness of breath, wheezing. Exam: 16:09 Eyes: Pupils equal round and reactive to light, extra-ocular motions intact. Lids and jr8 lashes normal. Conjunctiva and sclera are non-icteric and not injected. Cornea within normal limits. Periorbital areas with no swelling, redness, or edema. ENT: Nares patent. No nasal discharge, no septal abnormalities noted. Tympanic membranes are normal and external auditory canals are clear. Oropharynx with no redness, swelling, or masses, exudates, or evidence of obstruction, uvula midline. Mucous membranes moist. Neck: Trachea midline, no thyromegaly or masses palpated, and no cervical lymphadenopathy. Supple, full range of motion without nuchal rigidity, or vertebral point tenderness. No Meningismus. Cardiovascular: Regular rate and rhythm with a normal S1 and S2. No gallops, murmurs, or rubs. Normal PMI, no JVD. No pulse deficits. 1+ pitting edema to lower extremities Abdomen/GI: Soft, non-tender, with normal bowel sounds. No distension or tympany. No guarding or rebound. No evidence of tenderness throughout. Back: No spinal tenderness. No costovertebral tenderness. Full range of motion. Skin: Warm, dry with normal turgor. Normal color with no rashes, no lesions, and no evidence of cellulitis. MS/ Extremity: Pulses equal, no cyanosis. Neurovascular intact. Full, normal range of motion. Neuro: Awake and alert, GCS 15, oriented to person, place, time, and situation. Cranial nerves II-XII grossly intact. Motor strength 5/5 in all extremities. Sensory grossly intact. Cerebellar exam normal. Normal gait. 16:09 Respiratory: moderate respiratory distress is noted, Respirations: labored breathing, pursed lip breathing, tachypnea, Breath sounds: wheezing: expiratory that is moderate, is heard diffusely, Respiratory rate: 24 Vital Signs: 15:42 BP 146 / 76; Pulse 80; Resp 24; Pulse Ox 85% on R/A; Pain 0/10; tw2 15:45 Temp 97.7(O); sv 16:30 BP 134 / 78; Pulse 88; Resp 22; Pulse Ox 100% on 2 lpm NC; sv 16:55 BP 132 / 80; Pulse 85; Resp 22; Pulse Ox 99% on 2 lpm NC; sv 15:42 placed on 3L nc o2 at 95%, provider ZHENG Zhang at bedside at this time. tw2 MDM: 15:39 Patient medically screened. 8 16:11 Data reviewed: vital signs, nurses notes, lab test result(s), EKG, radiologic studies, jr8 plain films. Data interpreted: Pulse oximetry: on room air is 85 %. Interpretation: hypoxia. Counseling: I had a detailed discussion with the patient and/or guardian regarding: the historical points, exam findings, and any diagnostic results supporting the discharge/admit diagnosis, lab results, radiology results, the need for further work-up and treatment in the hospital. Physician consultation: Jorge Luis Carter DO was called at 16:11, was contacted at 16:11, regarding admission, to the telemetry unit. consult, patient's condition, and will see patient in ED. 09/18 15:39 Order name: Basic Metabolic Panel; Complete Time: 16:35 09/18 15:39 Order name: CBC with Diff; Complete Time: 16:32 09/18 15:39 Order name: LFT's; Complete Time: 16:35 09/18 15:39 Order name: Magnesium; Complete Time: 16:35 09/18 15:39 Order name: NT PRO-BNP; Complete Time: 16:35 09/18 15:39 Order name: PT-INR; Complete Time: 16:32 09/18 15:39 Order name: Troponin (emerg Dept Use Only); Complete Time: 16:35 09/18 15:39 Order name: XRAY Chest (1 view); Complete Time: 16:11 09/18 15:40 Order name: Blood Culture Adult (2) 09/18 16:15 Order name: Procalcitonin 09/18 16:15 Order name: Lactate 09/18 15:39 Order name: EKG; Complete Time: 15:40 09/18 15:39 Order name: Cardiac monitoring; Complete Time: 16:14 09/18 15:39 Order name: EKG - Nurse/Tech; Complete Time: 15:56 09/18 15:39 Order name: IV Saline Lock; Complete Time: 16:14 09/18 15:39 Order name: Labs collected and sent; Complete Time: 16:14 09/18 15:39 Order name: O2 Per Protocol; Complete Time: 16:14 09/18 15:39 Order name: O2 Sat Monitoring; Complete Time: 16:14 Administered Medications: 15:55 Drug: Xopenex (3) 1.25 mg Route: Inhalation; sv 16:05 Drug: SOLU-Medrol 125 mg Route: IVP; Site: left forearm; sv 16:29 Follow up: Response: No adverse reaction sv 16:28 Drug: LevaQUIN 750 mg Volume: 150 ml; Route: IVPB; Infused Over: 90 mins; Site: left sv forearm; 17:00 Follow up: Response: No adverse reaction; IV Status: Infusion continued upon admission sv 16:28 Drug: NS 0.9% 1000 ml Route: IV; Rate: 1000 ml; Site: left forearm; sv 17:00 Follow up: Response: No adverse reaction; IV Status: Infusion continued upon admission sv 16:54 Drug: Lasix 20 mg Route: IVP; Site: left forearm; sv 17:00 Follow up: Response: No adverse reaction sv Disposition: 18:41 Co-signature as Attending Physician, Cody Bhatti MD. rn Disposition: 09/18/18 16:15 Hospitalization ordered by Jorge Luis Carter for Inpatient Admission. Preliminary diagnosis are Pneumonia due to other specified bacteria, Acute respiratory failure with hypoxia. - Bed requested for Telemetry/MedSurg (Inpatient). - Status is Inpatient Admission. sv - Condition is Fair. - Problem is new. - Symptoms have improved. UTI on Admission? No Signatures: Dispatcher [employer] EDMS Lee Ann Oneill RN RN Cody Bhatti MD MD rn Roszak, Josh, PA PA jr8 Latanya Bedolla RN RN tw2 Elise Shaikh RN RN df Corrections: (The following items were deleted from the chart) 16:11 16:09 Eyes: Pupils equal round and reactive to light, extra-ocular motions intact. Lids jr8 and lashes normal. Conjunctiva and sclera are non-icteric and not injected. Cornea within normal limits. Periorbital areas with no swelling, redness, or edema. ENT: Nares patent. No nasal discharge, no septal abnormalities noted. Tympanic membranes are normal and external auditory canals are clear. Oropharynx with no redness, swelling, or masses, exudates, or evidence of obstruction, uvula midline. Mucous membranes moist. Neck: Trachea midline, no thyromegaly or masses palpated, and no cervical lymphadenopathy. Supple, full range of motion without nuchal rigidity, or vertebral point tenderness. No Meningismus. Cardiovascular: Regular rate and rhythm with a normal S1 and S2. No gallops, murmurs, or rubs. Normal PMI, no JVD. No pulse deficits. Abdomen/GI: Soft, non-tender, with normal bowel sounds. No distension or tympany. No guarding or rebound. No evidence of tenderness throughout. Back: No spinal tenderness. No costovertebral tenderness. Full range of motion. Skin: Warm, dry with normal turgor. Normal color with no rashes, no lesions, and no evidence of cellulitis. MS/ Extremity: Pulses equal, no cyanosis. Neurovascular intact. Full, normal range of motion. Neuro: Awake and alert, GCS 15, oriented to person, place, time, and situation. Cranial nerves II-XII grossly intact. Motor strength 5/5 in all extremities. Sensory grossly intact. Cerebellar exam normal. Normal gait. jr8 16:34 16:15 Hospitalization Ordered by Jorge Luis Carter DO for Inpatient Admission. Preliminary df diagnosis is Pneumonia due to other specified bacteria; Acute respiratory failure with hypoxia. Bed requested for Telemetry/MedSurg (Inpatient). Status is Inpatient Admission. Condition is Fair. Problem is new. Symptoms have improved. UTI on Admission? No. jr8 17:07 16:34 09/18/2018 16:15 Hospitalization Ordered by Jorge Luis Carter DO for Inpatient sv Admission. Preliminary diagnosis is Pneumonia due to other specified bacteria; Acute respiratory failure with hypoxia. Bed requested for Telemetry/MedSurg (Inpatient). Status is Inpatient Admission. Condition is Fair. Problem is new. Symptoms have improved. UTI on Admission? No. df
--- NOTE | 2018-09-18 16:16 | ER ---
Nurse's Notes [facility] Name: Varinder Nielson Age: 88 yrs Sex: Male : 1930 Arrival Date: 09/18/2018 Time: 15:39 Bed 4 Private MD: Diagnosis: Pneumonia due to other specified bacteria;Acute respiratory failure with hypoxia Presentation: 09/18 15:39 Presenting complaint: Patient states: danis been short of breath for like 2 days and i tw2 cant get the va to answer. Transition of care: patient was not received from another setting of care. Onset of symptoms was September 18, 2018. Risk Assessment: Do you want to hurt yourself or someone else? Patient reports no desire to harm self or others. Care prior to arrival: None. 15:39 Method Of Arrival: Wheelchair tw2 15:39 Acuity: JANET 2 tw2 15:50 Initial Sepsis Screen: Does the patient meet any 2 criteria? RR > 20 per min. Yes Does sv the patient have a suspected source of infection? No. Patient's initial sepsis screen is negative. Triage Assessment: 15:39 General: Appears distressed, Behavior is cooperative. Pain: Denies pain. Respiratory: tw2 Reports shortness of breath air hunger Respiratory effort is labored, pursed lip, Respiratory pattern is tachypnea Onset: The symptoms/episode began/occurred couple of days now, the patient has severe shortness of breath. Historical: - Allergies: 15:45 No Known Allergies; tw2 - PMHx: 15:45 COPD; Diabetes - NIDDM; Gastric Reflux; Anemia; Atrial Fib; CAD; CVA; Dementia; High tw2 Cholesterol; Hypertension; hypomagnesium; osteoarthritis; Pneumonia; - PSHx: 15:45 Cholecystectomy; Appendectomy; tw2 - Immunization history:: Adult Immunizations. - Social history:: Smoking status: Patient/guardian denies using tobacco, the patient reports quitting approximately 15 years ago. - Ebola Screening: : Patient denies travel to an Ebola-affected area in the 21 days before illness onset. Screenin:45 Abuse screen: Denies threats or abuse. Nutritional screening: No deficits noted. tw2 Tuberculosis screening: No symptoms or risk factors identified. Fall Risk Secondary diagnosis (15 points) impaired mobility, Ambulatory Aid- Crutches/Cane/Walker (15 pts). Assessment: 15:39 Respiratory: Airway is patent Respiratory effort is labored, pursed lip, Respiratory tw2 pattern is tachypnea. 15:50 General: Appears uncomfortable, Behavior is cooperative, appropriate for age. Pain: sv Denies pain. Neuro: Level of Consciousness is awake, alert, obeys commands, Oriented to person, place, time, situation, Moves all extremities. Full function Gait is steady. Cardiovascular: Heart tones S1 S2 present Patient's skin is warm and dry. Pulses are 3+ in right radial artery and left radial artery Rhythm is sinus rhythm. Respiratory: Reports shortness of breath at rest on exertion labored breathing Airway is patent Respiratory effort is even, labored, pursed lip, Respiratory pattern is symmetrical, tachypnea Breath sounds with wheezes bilaterally. Derm: Skin is normal. 16:14 Reassessment: Dr Carter at bedside. sv 16:20 Reassessment: Patient appears in no apparent distress at this time. Patient and/or sv family updated on plan of care and expected duration. Pain level reassessed. Patient is alert, oriented x 3, equal unlabored respirations, skin warm/dry/pink. Patient states feeling better. Patient states symptoms have improved. Respiratory: Respiratory effort is even, unlabored, Respiratory pattern is symmetrical, tachypnea. 17:00 Reassessment: Lactate and procalcitonin obtained before going upstairs. sv Vital Signs: 15:42 BP 146 / 76; Pulse 80; Resp 24; Pulse Ox 85% on R/A; Pain 0/10; tw2 15:45 Temp 97.7(O); sv 16:30 BP 134 / 78; Pulse 88; Resp 22; Pulse Ox 100% on 2 lpm NC; sv 16:55 BP 132 / 80; Pulse 85; Resp 22; Pulse Ox 99% on 2 lpm NC; sv 15:42 placed on 3L nc o2 at 95%, provider ZHENG Zhang at bedside at this time. tw2 ED Course: 15:39 Patient arrived in ED. jr8 15:39 Ray Palomo PA is PHCP. jr8 15:39 Cody Bhatti MD is Attending Physician. jr8 15:39 Placed in gown. Bed in low position. Side rails up X2. sewer builder on. Pulse ox on. tw2 NIBP on. 15:42 Triage completed. tw2 15:42 Arm band placed on. tw2 15:45 Initial lab(s) drawn, by me, sent to lab. First set of blood cultures drawn by me. sv Inserted saline lock: 20 gauge in left forearm, using aseptic technique. Blood collected. Flushed left forearm with 5 ml normal saline. 15:47 XRAY Chest (1 view) In Process Unspecified. EDMS 15:50 EKG done, by ED staff, reviewed by Ray CALZADA. eb 16:00 Second set of blood cultures drawn by me. sv 16:12 Lee Ann Oneill, RN is Primary Nurse. sv 16:14 Jorge Luis Carter DO is Hospitalizing Provider. jr8 17:07 No provider procedures requiring assistance completed. Patient admitted, IV remains in sv place. intact. Administered Medications: 15:55 Drug: Xopenex (3) 1.25 mg Route: Inhalation; sv 16:05 Drug: SOLU-Medrol 125 mg Route: IVP; Site: left forearm; sv 16:29 Follow up: Response: No adverse reaction sv 16:28 Drug: LevaQUIN 750 mg Volume: 150 ml; Route: IVPB; Infused Over: 90 mins; Site: left sv forearm; 17:00 Follow up: Response: No adverse reaction; IV Status: Infusion continued upon admission sv 16:28 Drug: NS 0.9% 1000 ml Route: IV; Rate: 1000 ml; Site: left forearm; sv 17:00 Follow up: Response: No adverse reaction; IV Status: Infusion continued upon admission sv 16:54 Drug: Lasix 20 mg Route: IVP; Site: left forearm; sv 17:00 Follow up: Response: No adverse reaction sv Outcome: 16:15 Decision to Hospitalize by Provider. jr8 16:50 Admitted to Tele accompanied by tech, via stretcher, room 423, with oxygen, with chart, sv Report called to THAD SINGH 16:50 Condition: stable 16:50 Instructed on the need for admit. 17:07 Patient left the ED. sv Signatures: Dispatcher [employer] Lee Ann Hawkins, RN RN Ray Palomo PA PA jr8 Latanya Bedolla RN RN tw2 Vivian Gupta
[2018-09-18 16:20] LABS: Absolute Lymphocytes (CBC) 0.9 K/uL (0.7-4.9); Absolute Monocytes 0.5 K/uL (0.1-1.3); Absolute Neutrophil 5.3 K/uL (1.8-8.0); Basophils % 0.6 % (0-1.3); Eosinophils % 1.7 % (0-4.4); Hematocrit 23.4 % (39.6-49.0); Lymphocytes % 13.4 % (15.3-44.8); MPV 9.8 fL (7.6-11.3); Monocytes % 7.3 % (3.3-12.3); Protime INR 1.12
[2018-09-18] MEDS ORDERED: Levofloxacin 750mg IV 750 MG/150 ML BAG IV ONE (16:21)
[2018-09-18] MEDS ORDERED: NA CHLORIDE 0.9% 1,000 ML ONE (16:21)
[2018-09-18 16:34] LABS: ALT/SGPT 10 U/L (12-78); AST/SGOT 10 U/L (15-37); Alkaline Phosphatase 117 U/L (45-117); BUN Blood Urea Nitrogen 30 mg/dL (7-18); Bicarbonate 28 mmol/L (21-32); Bilirubin Direct 0.2 mg/dL (0-0.2); Bilirubin Total 0.4 mg/dL (0.2-1.0); Glucose Level 134 mg/dL (74-106); Magnesium 2.1 mg/dL (1.8-2.4); NT PRO-BNP 3003 pg/mL (<450); Potassium 4.1 mmol/L (3.5-5.1); Protein, Total 7.8 g/dL (6.4-8.2); Sodium Level 140 mmol/L (136-145); Troponin (Emerg Dept Use Only) < 0.02 ng/mL (0.0-0.045)
[2018-09-18] MEDS ORDERED: FUROSEMIDE 20 MG/ 2ML VIAL ONE (16:52)
--- NOTE | 2018-09-18 16:54 | P.HP ---
Certification for Inpatient Patient admitted to: Inpatient With expected LOS: >2 Midnights Patient will require the following post-hospital care: None Practitioner: I am a practitioner with admitting privileges, knowledge of patient current condition, hospital course, and medical plan of care. Services: Services provided to patient in accordance with Admission requirements found in Title 42 Section 412.3 of the Code of Federal Regulations Patient History Date of Service: 09/18/18 Primary Care Provider: [facility] Reason for admission: Shortness of breath History of Present Illness: 88-year-old male presented to the emergency room with increasing shortness of breath. Patient has reported increased shortness of breath over the past week. He denies any fever, chills. He does report increased sputum production and a cough. Patient has multiple medical problems including COPD with oxygen, former tobacco abuse, hypertension, CHF, paroxysmally atrial fibrillation, diabetes and diabetic neuropathy. Patient is seen at the [facility]. He was not able to get in to see his doctor on Wednesday. He came to the ER for further evaluation. In the ER patient evaluated peer blood pressure 146/76. Heart rate 80. Oxygen saturations were decreased. Lab white count 6.9, hemoglobin 7.6. Sodium within normal range. BUN of 13, creatinine 1.91 with a GFR 33. Glucose 134. Troponin unremarkable. Chest x-ray shows bilateral pneumonia. Patient was given COPD treatment in the emergency room. Antibiotics have been initiated. Patient will be admitted for further evaluation. In the ER patient appeared stable. Patient reports that he takes multiple medications for multiple illnesses. He reports a history of having pneumonia last year. Allergies No Known Allergies Allergy (Verified 01/07/18 16:44) Home medications list reviewed: Yes Home Medications: Albuterol Sulfate [Ventolin Hfa] 2 puff IH Q6H 04/27/17 Amlodipine [Norvasc*] 10 mg PO DAILY 04/27/17 Atorvastatin Calcium [Lipitor*] 40 mg PO BEDTIME 04/27/17 Folic Acid 1 mg PO DAILY 04/27/17 Losartan Potassium [Cozaar*] 100 mg PO DAILY 04/27/17 Metformin HCl [Glucophage*] 1,000 mg PO BID 04/27/17 Gabapentin 400 mg PO TID #90 capsule 05/03/17 Albuterol Neb [Proventil 0.083% Neb Soln] 2.5 mg IH QID 01/07/18 Budesonide/Formoterol Fumarate [Symbicort 80-4.5 Mcg Inhaler] 2 puff IH BID Cholecalciferol (Vitamin D3) [Vitamin D3] 1,200 unit PO DAILY 01/07/18 Ferrous Gluconate 324 mg PO BID 01/07/18 Glipizide [Glucotrol] 10 mg PO BID 01/07/18 Hydrochlorothiazide 50 mg PO DAILY 01/07/18 Omeprazole 20 mg PO DAILY PRN 01/07/18 Urea 226.8 gm TP DAILY 01/07/18 levoFLOXacin [Levaquin*] 500 mg PO DAILY #10 tab 01/10/18 - Past Medical/Surgical History Diabetic: Yes -: Iron deficiency anemia -: DDD, cervical radiculopathy -: CAD -: Diabetes mellitus type 2 -: Paroxysmally Atrial fibrillation -: Hypertension -: GERD -: TIA/history CVA -: Diabetic neuropathy -: Arthritis -: CHF, diastolic dysfunction, pulmonary hypertension -: Hyperlipidemia -: L eye cataract sx -: Appendectomy -: Cholecystectomy -: L. knee replacement Psychosocial/ Personal History: He is . He has 2 children. - Family History Mother -: Hypertension, Stroke - Social History Smoking Status: Former smoker Alcohol use: No CD- Drugs: No Caffeine use: Yes Place of Residence: Home Review of Systems General: Weakness, As per HPI Eyes: Unremarkable ENT: Nose Congestion, As per HPI Respiratory: Cough, Shortness of Breath, Sputum, As per HPI Cardiovascular: Edema, As per HPI Gastrointestinal: Unremarkable Genitourinary: Unremarkable Musculoskeletal: Pedal edema, As per HPI Integumentary: Unremarkable Neurological: Unremarkable Lymphatics: Unremarkable Physical Examination - Physical Exam General: Alert, In no apparent distress, Oriented x3, Cooperative HEENT: Atraumatic, Normocephalic, PERRLA, Other (Nasal congestion bilateral) Neck: Supple Respiratory: Crackles/rales (Bilateral), Expiratory wheezes, Inspiratory wheezes Cardiovascular: Normal pulses, Regular rate/rhythm Gastrointestinal: Normal bowel sounds, Soft and benign, Non-distended, No tenderness, No masses, No rebound, No guarding Musculoskeletal: No erythema, No tenderness, No warmth Integumentary: No erythema, No warmth, No cyanosis, Tenderness/swelling (1 to 2 + pitting edema to the lower extremities bilateral) Neurological: Normal speech, Normal strength at 5/5 x4 extr, Normal tone, Normal affect - Studies Laboratory Data (last 24 hrs) 09/18/18 15:45: PT 13.2 H, INR 1.12 09/18/18 15:45: WBC 6.9, Hgb 7.6 L*, Hct 23.4 L, Plt Count 211 09/18/18 15:45: Sodium 140, Potassium 4.1, BUN 30 H, Creatinine 1.91 H, Glucose 134 H, Magnesium 2.1, Total Bilirubin 0.4, AST 10 L, ALT 10 L, Alkaline Phosphatase 117 Assessment and Plan - Plan Impression: Shortness of breath secondary to bilateral pneumonia complicated with acute on chronic diastolic CHF with pulmonary hypertension and COPD exacerbation Acute on chronic renal disease stage III CAD Paroxysmally atrial fibrillation not on chronic anti coagulation therapy Hypertension Diabetes mellitus type 2, [id number] Chronic iron deficiency anemia GERD Hyperlipidemia Plan: Shortness of breath secondary to bilateral pneumonia complicated with acute on chronic diastolic CHF with pulmonary hypertension and COPD exacerbation: Will be admitted for treatment. Will start IV Levaquin. Will provide medication for cough and congestion. Will maintain sats above 90%. Will start low-dose steroids for COPD. Will provide COPD treatment. Will consult pulmonology for further evaluation. Will monitor cardiac enzymes. Will check echocardiogram. Will start Lasix IV 20 mg twice daily. Consult cardiology for further recommendation. Will continue monitor closely. Will recheck chest x-ray in the morning. Patient may require skilled placement at discharge. Acute on chronic renal disease stage III: Will continue to monitor closely. Patient on diuretic therapy. Will check renal ultrasound. Will consult nephrology for further recommendation. CAD: Will continue with DVT prophylaxis. Paroxysmally atrial fibrillation not on chronic anti coagulation therapy: Will continue with DVT prophylaxis. Patient taking metoprolol for rate control. Patient not on chronic anticoagulation therapy likely related to high risk for fall and bleeding. Stable this time. Hypertension: Will continue with his medications of Norvasc 10 mg daily, losartan 100 mg daily, and metoprolol 25 mg daily. Will monitor and adjust appropriately. Diabetes mellitus type 2, [id number]: Will continue with sliding scale. Will check A1c. Chronic iron deficiency anemia: Will monitor hemoglobin closely. Will start iron supplementation. Patient may require blood transfusion if significantly decreased. Will check iron and B12 studies. GERD: Will provide medication. Will monitor closely. Hyperlipidemia: Will restart home medication-Lipitor 80 mg daily Discharge Plan: Other (Skilled placement) Plan to discharge in: Greater than 2 days - Advance Directives Does patient have a Living Will: No Does patient have a Durable POA for Healthcare: No - Code Status/Comfort Care Code Status Assessed: Yes (Patient is full code) Time Spent Managing Pts Care (In Minutes): 55
[2018-09-18] MEDS: INSULIN -REGULAR HUMAN 50 UNIT/0.5 ML ML SQ SCH ×2 (16:59→20:53)
[2018-09-18] MEDS ORDERED: ONDANSETRON 4 MG/2 ML VIAL IV PRN (16:59)
[2018-09-18] MEDS ORDERED: ALBUTEROL 2.5 MG/3 ML NEB SOL NEB PRN (16:59)
[2018-09-18] MEDS: FUROSEMIDE 20 MG/ 2ML VIAL IV SCH (17:00)
[2018-09-18 18:00] LABS: Thyroid Stimulating Hormone 5.26 uIU/mL (0.360-3.740)
[2018-09-18] MEDS ORDERED: Levofloxacin500mg IV 500 MG/100 ML BAG IV SCH (18:00)
[2018-09-18 18:25] LABS: Urine Appearance CLEAR; Urine Bilirubin NEGATIVE (NEG); Urine Blood NEGATIVE (NEG); Urine Color YELLOW; Urine Glucose NEGATIVE (NEG); Urine Protein TRACE (NEG); Urine Specific Gravity 1.015 (1.005-1.030); Urine Urobilinogen 0.2 mg/dL (0.2-1.0)
[2018-09-18] MEDS: ENOXAPARIN 40 MG/0.4 ML SQ SCH (18:34)
--- NOTE | 2018-09-18 18:55 | EKG ---
Test Date: 2018-09-18 Test Time: 15:50:31 Dynamometer Tester Engine: ALISHA MEASUREMENT RESULTS: Intervals: Rate: 76 PA: 276 QRSD: 78 QT: 364 QTc: 409 [place]: P: -35 PA: 276 QRS: 39 T: 80 INTERPRETIVE STATEMENTS: Atrial fibrillation Nonspecific T wave abnormality Abnormal ECG Compared to ECG 01/07/2018 12:15:09 T-wave abnormality still present Electronically Signed On 09-18-18 18:54:39 PACK CHANGER by Elmer Vee
--- NOTE | 2018-09-18 19:08 | RAD REPORT ---
EXAM DESCRIPTION: US - Renal Ultrasound-Complete - 09/18/2018 6:19 pm CLINICAL HISTORY: evaluate for chronic renal disease COMPARISON: No comparisons FINDINGS: Both kidneys are mildly echogenic. The right kidney measures 9.9 x 6.1 x 4.6 cm. No hydronephrosis, focal mass or perinephric fluid. 3.5 x 3.3 x 3.2 cm hypoechoic cyst is present. The left kidney measures 12.9 x 5.5 x 5.4 cm. No hydronephrosis, focal mass or perinephric fluid. The urinary bladder is incompletely distended without gross abnormality seen. IMPRESSION: Mildly echogenic kidneys suggests underlying medical renal disease. Benign 3.5 cm right renal cyst.
[2018-09-18 19:10] LABS: Urine Microscopic Reflex NO UMIC
[2018-09-18] MEDS: ARFORMOTEROL TARTRATE 15 MCG/2 ML VIAL.NEB NEB SCH (20:21)
[2018-09-18] MEDS: ATORVASTATIN 80 MG TAB PO SCH (20:46)
[2018-09-18] MEDS: BENZONATATE 100 MG CAP PO PRN (20:46)
[2018-09-18] MEDS: FERROUS SULFATE 325 MG TAB PO SCH (20:46)
[2018-09-18] MEDS: GABAPENTIN 100 MG CAP PO SCH (20:46)
[2018-09-18] MEDS: FAMOTIDINE 20 MG TAB PO SCH (20:46)
[2018-09-18] MEDS: GUAIFENESIN 600 MG SA TAB PO SCH (20:48)
[2018-09-18 22:04] LABS: Hematocrit 21.6 % (39.6-49.0)
[2018-09-18 22:29] LABS: CKMB Creatine Kinase MB 1.4 ng/mL (0.3-3.6); Creatine Phosphokinase 25 U/L (39-308); Troponin I < 0.02 ng/mL (0.0-0.045)
[2018-09-19] MEDS ORDERED: MELATONIN 3 MG TABLET PO ONE (00:05)
[2018-09-19] MEDS: METOPROLOL TAR 25 MG TAB PO SCH (06:02)
[2018-09-19 06:27] LABS: Absolute Lymphocytes (CBC) 0.4 K/uL (0.7-4.9); Absolute Neutrophil 3.9 K/uL (1.8-8.0); Basophils % 0.2 % (0-1.3); Hematocrit 21.5 % (39.6-49.0); Lymphocytes % 8.9 % (15.3-44.8); MPV 9.4 fL (7.6-11.3); Monocytes % 0.9 % (3.3-12.3)
[2018-09-19 06:46] LABS: Magnesium 2.1 mg/dL (1.8-2.4); Potassium 4.2 mmol/L (3.5-5.1)
[2018-09-19 06:48] LABS: CKMB Creatine Kinase MB 1.1 ng/mL (0.3-3.6); Creatine Phosphokinase 18 U/L (39-308); Troponin I < 0.02 ng/mL (0.0-0.045)
[2018-09-19] MEDS: ARFORMOTEROL TARTRATE 15 MCG/2 ML VIAL.NEB NEB SCH ×2 (07:42→19:55)
[2018-09-19] MEDS ORDERED: FUROSEMIDE 20 MG/ 2ML VIAL IV ONE (08:00)
[2018-09-19 08:12] LABS: Blood Morphology Comment NOTED (NOT SEEN); Platelet Estimate ADEQ; Urine White Blood Cell Casts OK
[2018-09-19 08:13] LABS: Anisocytosis 1+; Macrocytosis SLIGHT
[2018-09-19] MEDS: GUAIFENESIN 600 MG SA TAB PO SCH ×2 (10:17→20:56)
[2018-09-19] MEDS: FAMOTIDINE 20 MG TAB PO SCH (10:17)
[2018-09-19] MEDS: FERROUS SULFATE 325 MG TAB PO SCH ×2 (10:17→20:55)
[2018-09-19] MEDS: VITAMIN D 5,000 UNIT CAP PO SCH (10:17)
[2018-09-19] MEDS: AMLODIPINE 10 MG TAB PO SCH (10:17)
[2018-09-19] MEDS: LOSARTAN POTASSIUM 50 MG TABLET PO SCH (10:17)
[2018-09-19] MEDS: FUROSEMIDE 20 MG/ 2ML VIAL IV SCH (10:18)
[2018-09-19] MEDS: INSULIN -REGULAR HUMAN 50 UNIT/0.5 ML ML SQ SCH ×4 (10:18→21:00)
[2018-09-19] MEDS: ENOXAPARIN 40 MG/0.4 ML SQ SCH (10:19)
--- NOTE | 2018-09-19 10:44 | P.CNS ---
Date of Consult: 09/19/18 Primary Care Provider: [facility] Chief Complaint: Shortness of breath History of Present Illness: Patient is 88 years of age was recently discharged from the [facility] with the GI bleeding he has some blood transfusion complaining of shortness of breath for the past 4 days denies any fever chills cough sputum has some history of hemoptysis patient has chronic lower extremity edema history of congestive heart failure on diuretics at home patient quits from smoking a long time ago his uses in inhaler at home history of hypertension Allergies No Known Allergies Allergy (Verified 01/07/18 16:44) Home Medications: Acetaminophen [Tylenol*] 325 mg PO Q4HP PRN 09/18/18 Amlodipine Besylate [Norvasc] 10 mg PO DAILY 09/18/18 Aspirin Chewable [Aspirin Chewable*] 81 mg PO DAILY 09/18/18 Atorvastatin Calcium [Lipitor] 40 mg PO BEDTIME 09/18/18 Budesonide/Formoterol Fumarate [Symbicort 80-4.5 Mcg Inhaler] 2 puff IH BID Cholecalciferol (Vitamin D3) [Vitamin D3] 3 tab PO DAILY 09/18/18 Diclofenac Sodium [Voltaren] 1 brandon TOP BIDP PRN 09/18/18 Docusate Sodium 100 mg PO BIDP PRN 09/18/18 Ferrous Gluconate 324 mg PO Q48H 09/18/18 Folic Acid 1 mg PO DAILY 09/18/18 Furosemide [Lasix*] 60 mg PO DAILY 09/18/18 Gabapentin 300 mg PO DAILY 09/18/18 Glipizide [Glucotrol] 10 mg PO DAILY 09/18/18 Magnesium Oxide [Mag 0X*] 400 mg PO DAILY 09/18/18 Melatonin/Pyridoxine HCl (B6) [Melatonin 3 mg Tablet] 3 mg PO BEDTIME 09/18/18 Metoprolol Succinate [Toprol Xl*] 25 mg PO DAILY 09/18/18 Omeprazole 20 mg PO DAILY 09/18/18 Polyethyl Gly 3350 [Glycolax*] 1 dose PO DAILYPRN PRN 09/18/18 Zinc Oxide [Zinc Oxide 20%*] 1 brandon TOP PRN 09/18/18 levoFLOXacin [Levaquin*] 500 mg PO Q48H 09/18/18 - Past Medical/Surgical History Diabetic: Yes -: Iron deficiency anemia -: DDD, cervical radiculopathy -: CAD -: Diabetes mellitus type 2 -: Paroxysmally Atrial fibrillation -: Hypertension -: GERD -: TIA/history CVA -: Diabetic neuropathy -: Arthritis -: CHF, diastolic dysfunction, pulmonary hypertension -: Hyperlipidemia -: L eye cataract sx -: Appendectomy -: Cholecystectomy -: L. knee replacement Psychosocial/ Personal History: He is . He has 2 children. - Family History Mother Medical History: Hypertension, Stroke - Social History Smoking Status: Unknown if ever smoked Alcohol use: No CD- Drugs: No Caffeine use: Yes Place of Residence: Home Review of Systems General: Weakness Respiratory: Shortness of Breath Cardiovascular: Edema Physical Examination Temp Pulse Resp BP Pulse Ox 98.6 F 70 18 147/67 H 96 09/19/18 08:00 09/19/18 10:18 09/19/18 08:00 09/19/18 10:18 09/19/18 08:00 General: Alert, Oriented x3, Mild distress HEENT: Atraumatic Neck: Supple Respiratory: Clear to auscultation bilaterally, Diminished Cardiovascular: Normal S1 S2, Edema (2+ edema) Gastrointestinal: Normal bowel sounds, Soft and benign Laboratory Data (last 24 hrs) 09/18/18 15:45: PT 13.2 H, INR 1.12 09/18/18 15:45: WBC 6.9, Hgb 7.6 L*, Hct 23.4 L, Plt Count 211 09/18/18 15:45: Sodium 140, Potassium 4.1, BUN 30 H, Creatinine 1.91 H, Glucose 134 H, Magnesium 2.1, Total Bilirubin 0.4, AST 10 L, ALT 10 L, Alkaline Phosphatase 117 - Problems (1) Shortness of breath Current Visit: Yes Status: Acute Plan: Patient is 88 years of age recently had an upper GI bleed was transfuse admitted with 4 day history of worsening dyspnea he has bilateral lower zone opacities possible effusion. Patient also has chronic renal insufficiency is also anemic transfused 1 unit of packed red blood cells no evidence of sepsis patient will need a higher dose of Lasix probably has some element of volume overload as he was recently transfused BNP also elevated Dc levofloxacin increase dose of Lasix to 40 mg IV b.i.d. patient has had 1 unit of blood transfused I doubt if he has COPD 2D echocardiogram
--- NOTE | 2018-09-19 10:56 | RAD REPORT ---
EXAM DESCRIPTION: RAD - Chest Pa And Lat (2 Views) - 09/19/2018 9:34 am CLINICAL HISTORY: follow up pneumonia/COPD Chest pain. COMPARISON: Chest Single View dated 09/18/2018; Chest Pa And Lat (2 Views) dated 01/08/2018; Chest Si ngle View dated 01/07/2018; Chest Pa And Lat (2 Views) dated 05/03/2017 FINDINGS: Bibasilar lung opacities are present with bilateral pleural effusions, slightly worse on t he left. Overall, findings appears essentially unchanged since comparative study. Baseline emphysemat ous changes are present. The heart is mildly enlarged in size. No displaced fractures. IMPRESSION: Little overall change is seen in the appearance of the chest since comparative study.
--- NOTE | 2018-09-19 11:07 | P.PN ---
Subjective Date of Service: 09/19/18 Primary Care Provider: [facility] Chief Complaint: Shortness of breath Subjective: Improving Physical Examination - Vital Signs Temperature: 98.6 F Blood Pressure: 147/67 Pulse: 70 Respirations: 18 Pulse Ox (%): 96 - Physical Exam General: Alert, In no apparent distress, Oriented x3, Cooperative HEENT: Atraumatic Neck: Supple Respiratory: Crackles/rales (To the bases bilateral but improved) Cardiovascular: Irregular heart rate/rhythm (Atrial fibrillation rate controlled ) Gastrointestinal: Normal bowel sounds, No tenderness, No masses, No rebound, No guarding Musculoskeletal: No erythema, No tenderness, No warmth Integumentary: No erythema, No warmth, No cyanosis, Tenderness/swelling (Edema to the lower extremities improved) Neurological: Normal speech, Normal strength at 5/5 x4 extr, Normal tone, Normal affect - Studies Laboratory Data (last 24 hrs) 09/18/18 15:45: PT 13.2 H, INR 1.12 09/18/18 15:45: WBC 6.9, Hgb 7.6 L*, Hct 23.4 L, Plt Count 211 09/18/18 15:45: Sodium 140, Potassium 4.1, BUN 30 H, Creatinine 1.91 H, Glucose 134 H, Magnesium 2.1, Total Bilirubin 0.4, AST 10 L, ALT 10 L, Alkaline Phosphatase 117 Medications List Reviewed: Yes Assessment & Plan Discharge Plan: Other (Skilled placement) Plan to discharge in: 48 Hours Physician Review Additional Text: Impression: Shortness of breath secondary to acute on chronic diastolic CHF with pulmonary hypertension and COPD exacerbation Acute on chronic renal disease stage III CAD Paroxysmally atrial fibrillation not on chronic anti coagulation therapy Hypertension Diabetes mellitus type 2, [id number] Chronic iron deficiency anemia GERD Hyperlipidemia Recent history of GI bleed Plan: Shortness of breath secondary to acute on chronic diastolic CHF with pulmonary hypertension and COPD exacerbation: Patient evaluated by pulmonology. Pulmonology feels shortness of breath related to CHF and COPD. Levaquin discontinued. IV Lasix adjusted. Will provide medication for cough and congestion. Will maintain sats above 90%. Will continue COPD treatment. Echo to be obtained. Consult cardiology for further recommendation. Will continue monitor closely. Will have physical therapy assess ambulation. Will try to wean off oxygen. Case discussed with social media editor. Patient will likely require skilled placement at discharge Acute on chronic renal disease stage III: Will continue to monitor closely. Patient on diuretic therapy. Will check renal ultrasound. Will consult nephrology for further recommendation. CAD: Will continue with DVT prophylaxis. Paroxysmally atrial fibrillation not on chronic anti coagulation therapy: Will continue with DVT prophylaxis. Patient taking metoprolol for rate control. Patient not on chronic anticoagulation therapy likely related to high risk for fall and bleeding. Stable this time. Hypertension: Will continue with his medications of Norvasc 10 mg daily, losartan 100 mg daily, and metoprolol 25 mg daily. Will monitor and adjust appropriately. Diabetes mellitus type 2, [id number]: Will continue with sliding scale. Will check A1c. Acute on Chronic iron and B12 deficiency anemia: Will monitor hemoglobin closely. Hemoglobin low. Will transfuse 1 unit. Will continue with iron and B12 supplementation. Will maintain hemoglobin above 8.0 GERD: Will provide medication. Will monitor closely. Hyperlipidemia: Will restart home medication-Lipitor 80 mg daily Recent history of GI bleed: Will continue monitor closely. Continue as above. Time Spent Managing Pts Care (In Minutes): 55
[2018-09-19] MEDS ORDERED: CYANOCOBALAMIN 1000MCG/ML INJ IM ONE (11:08)
[2018-09-19] MEDS: PANTOPRAZOLE 40MG TABLET PO SCH ×2 (12:10→17:13)
[2018-09-19] MEDS ORDERED: NA CHLORIDE 0.9% 250 ML ONE (13:18)
--- NOTE | 2018-09-19 15:14 | CON ---
History Of Present Illness: Mr. Nielson came to the hospital with dyspnea. He is found to be profou ndly anemic. He is in atrial fibrillation and he had what looks like it could have been bibasilar pn eumonia according the radiology report, but also may be mild pulmonary edema. He does not have an el evated white cell count or a fever. Enzymes are normal. Mr. Nielson is known to have normal ejectio n fraction, although the echocardiogram for this visit is still pending. He is known to be in chroni c AFib and his treatment plan is all around rate control. We cannot establish sinus rhythm in him an d we cannot anticoagulate him. He has severe GI bleeding. He has been through workup from the GI tr act to find something that could be repaired, fixed, corrected and to no avail. So, he is extremely intolerant to have blood thinners, and in spite of no blood thinners, he still requires transfusion. His hemoglobin as of today is 7.0. It was 7.6 on admission yesterday. He will probably require ano ther transfusion. He is getting antibiotics, IV levofloxacin since that is completely absorbed orall y and I consider changing that oral levofloxacin. He is getting diuresis that is probably helping hi m. I think it is more likely this is mild basilar pulmonary edema instead of bilateral pneumonia. W e should not alter the therapy for his atrial fibrillation. We should probably even stop the DVT pro phylaxis, Lovenox dose he gets. He has dropped his hemoglobin and may require another transfusion, o ne has been ordered. Thank you very much for your kind referral of Mr. Nielson. I will follow him with you. INGA Voice ID: [id number] Report ID: [id number]
[2018-09-19] MEDS: FUROSEMIDE 40 MG/4 ML VIAL IV SCH (15:47)
[2018-09-19 19:02] LABS: Urine Protein/Creatinine Ratio 0.44 ratio (<0.15)
[2018-09-19 19:18] LABS: Hematocrit 23.9 % (39.6-49.0)
[2018-09-19] MEDS: MELATONIN 3 MG TABLET PO PRN (20:55)
[2018-09-19] MEDS: GABAPENTIN 100 MG CAP PO SCH (20:55)
[2018-09-19] MEDS: ATORVASTATIN 80 MG TAB PO SCH (20:56)
[2018-09-19] MEDS: TAMSULOSIN 0.4 MG SR CAP PO SCH (21:00)
[2018-09-19 22:55] LABS: Hematocrit 22.9 % (39.6-49.0)
--- NOTE | 2018-09-19 23:41 | CON ---
Date of Consultation: 09/19/2018 NEPHROLOGY CONSULTATION History Of Present Illness: Mr. Nielson is an 88-year-old male who presented to the hospital with sh ortness of breath. The patient has evidence of congestive heart failure as well as COPD exacerbation . The consultation is requested as the patient does have elevated creatinine on admission. The micheal ent has stated that he may have had a kidney workup in the past but is unsure, he is not the best his antonio. Since admission, the patient has been treated for COPD as well as acute congestive heart michelle lure. Both Cardiology and Pulmonology are following along with the patient. The patient is currentl y seen at the bedside. His current complaints; he denies any fevers, chills. He said the shortness of breath is improving. He is complaining of nausea. He has had no vomiting or diarrhea. He also s tates that he has been having dark stools. He states in terms of urination that he has frequency, es pecially at nighttime, 8 to 10 times per night that he has to rise for urination. He denies any use of NSAIDs and any contrast administration. Past Medical History: As per admission history and physical. Family History: No history of renal disease. Social History: The patient is a former smoker. No alcohol or drug use noted. Physical Examination: Vital Signs: Blood pressure is 144/65, pulse 85, temperature 98.2. General: Elderly, frail, in no acute distress. Heart: Regular rate and rhythm. Distant heart sounds. No murmurs, rubs, gallops. Lungs: Expiratory wheezing noted bilaterally. No crepitations noted. Abdomen: Soft, nontender, nondistended. Extremities: No significant edema. Laboratory Data: Sodium 140, potassium 4.2, chloride 106, CO2 of 27, BUN 36, creatinine 1.76, glucos e 263, calcium 10.3. Troponin has been negative. The patient did have iron panel which has shown tr ansferrin saturation of 9.1. TSH was 5.2, albumin is 3. CBC had shown a hemoglobin and hematocrit o f 7/21.5. UA was bland. Diagnostic Imaging: Renal ultrasound has shown right kidney measuring 9.9 cm. He has a 3.5 cm hypoe choic cyst, left kidney is 12.9 cm. The most recent chest x-ray, little overall change in appearance of chest since the comparative study which is showing bibasilar lung opacities with bilateral pleura l effusions, slightly worse in the left. He also has emphysematous changes. Current Medications: Reviewed. The patient is on Lasix 20 mg IV twice daily, Zofran 4 mg IV q.6 braeden rs. Also receiving iron supplementation. Impression: 1.Acute kidney injury on chronic kidney disease. The patient does have a baseline creatinine which has been elevated over the past year from a 1.3 to 1.6 range. The patient also likely has a nominal cardiorenal syndrome. We will avoid all NSAIDs, avoid all contrast. Continue diuresis to achieve eu volemia. Monitor daily electrolytes. Maintain potassium greater than 4, magnesium over 2 with activ e diuresis. 2.Nausea. The patient does have antiemetics on board. Recommend liberal use of antiemetics to help with the patient's nausea. 3.Anemia. The patient has a recent history of gastrointestinal bleed. Given his renal insufficienc y, I will also order a urine protein creatinine ratio to assess the patient's proteinuria level in co ordination with his hypoalbuminemia to ensure that he does not have nephrotic range proteinuria, whic h combined with anemia would have its own differential diagnosis but we will assess that with the pat ient's urine test. 4.Urinary frequency. The patient likely has some element of benign prostatic hypertrophy. PSA leve l will be ordered for the morning and the patient will also have tamsulosin ordered in the evenings to help with urination. Thank you kindly for the consultation. We will continue to follow. FELIPE Voice ID: [id number] Report ID: [id number]
[2018-09-20] MEDS ORDERED: NA CHLORIDE 0.9% 100 ML IV ONE (00:49)
[2018-09-20] MEDS ORDERED: MORPHINE 2 MG/ML SYR IV ONE (03:47)
[2018-09-20] MEDS ORDERED: MORPHINE 4 MG/ML SYR ONE (04:05)
[2018-09-20] MEDS ORDERED: FUROSEMIDE 20 MG/ 2ML VIAL IV ONE (04:06)
[2018-09-20] MEDS: METOPROLOL TAR 25 MG TAB PO SCH (05:31)
[2018-09-20 06:17] LABS: Absolute Lymphocytes (CBC) 0.7 K/uL (0.7-4.9); Absolute Monocytes 0.5 K/uL (0.1-1.3); Absolute Neutrophil 4.7 K/uL (1.8-8.0); Basophils % 0.6 % (0-1.3); Eosinophils % 1.1 % (0-4.4); Hematocrit 24.8 % (39.6-49.0); Lymphocytes % 12.1 % (15.3-44.8); MPV 9.3 fL (7.6-11.3); Monocytes % 8.6 % (3.3-12.3); RBC Red Blood Cell Count 2.82 M/uL (4.33-5.43)
[2018-09-20 06:43] LABS: Magnesium 2.3 mg/dL (1.8-2.4); Potassium 3.9 mmol/L (3.5-5.1)
[2018-09-20] MEDS: INSULIN -REGULAR HUMAN 50 UNIT/0.5 ML ML SQ SCH ×4 (07:30→21:00)
[2018-09-20] MEDS: ARFORMOTEROL TARTRATE 15 MCG/2 ML VIAL.NEB NEB SCH ×2 (07:41→20:00)
[2018-09-20] MEDS: PANTOPRAZOLE 40MG TABLET PO SCH ×2 (08:23→17:02)
[2018-09-20] MEDS: FUROSEMIDE 40 MG/4 ML VIAL IV SCH ×2 (09:00→17:02)
[2018-09-20] MEDS ORDERED: POTASSIUM CL SA 10 MEQ TAB PO ONE (09:00)
[2018-09-20] MEDS ORDERED: CHOLECALCIFEROL PO SCH (09:00)
[2018-09-20] MEDS: AMLODIPINE 10 MG TAB PO SCH (09:00)
[2018-09-20] MEDS: LOSARTAN POTASSIUM 50 MG TABLET PO SCH (09:00)
[2018-09-20] MEDS: ENOXAPARIN 40 MG/0.4 ML SQ SCH (10:43)
[2018-09-20] MEDS: FERROUS SULFATE 325 MG TAB PO SCH ×2 (10:45→22:53)
[2018-09-20] MEDS: VITAMIN D 5,000 UNIT CAP PO SCH (10:47)
[2018-09-20] MEDS: FOLIC ACID 1 MG TABLET PO SCH (10:47)
[2018-09-20] MEDS: CYANOCOBALAMIN 1,000 MCG TAB PO SCH (10:47)
[2018-09-20] MEDS: GUAIFENESIN 600 MG SA TAB PO SCH ×2 (10:47→22:53)
--- NOTE | 2018-09-20 10:50 | ECHO ---
HEIGHT: 5 ft 10 in WEIGHT: 184 lb 0 oz DATE OF STUDY: 09/19/[address]: Jorge Luis Carter DO 2-DIMENSIONAL: YES M.MODE: YES DOPPLER: YES COLOR FLOW: YES TDS: PORTABLE: DEFINITY: BUBBLE STUDY: DIAGNOSIS: EVAL CONGESTIVE HEART FAILURE CARDIAC HISTORY: CATHERIZATION: NO SURGERY: NO PROSTHETIC VALVE: NO PACEMAKER: NO MEASUREMENTS (cm) DIASTOLIC (NORMALS) SYSTOLIC (NORMALS) IVSd 1.2 (0.6-1.2) LA Diam 4.4 (1.9-4.0) LVEF 61% LVIDd 4.9 (3.5-5.7) LVIDs 3.3 (2.0-3.5) %FS 33% LVPWd 1.1 (0.6-1.2) Ao Diam 2.7 (2.0-3.7) 2 DIMENSIONAL ASSESSMENT: RIGHT ATRIUM: NORMAL LEFT ATRIUM: DILATED RIGHT VENTRICLE: NORMAL LEFT VENTRICLE: NORMAL TRICUSPID VALVE: NORMAL MITRAL VALVE: NORMAL PULMONIC VALVE: NORMAL AORTIC VALVE: MILD SCLEROSIS PERICARDIAL EFFUSION: NONE AORTIC ROOT: NORMAL LEFT VENTRICULAR WALL MOTION: NORMAL DOPPLER/COLOR FLOW: MILD MITRAL REGURGITATION AND TRICUSPID REGURGITATION. ESTIMATED RIGHT VENTRICULAR SYSTOLIC PRESSURE 40 mmHg. MILD PULMONARY HYPERTENSION. NO AORTIC STENOSIS OR AORTIC REGURGITATION. COMMENTS: NORMAL LEFT VENTRICULAR EJECTION FRACTION. DILATED LEFT ATRIUM. AORTIC SCLEROSIS WITH NO AORTIC STENOSIS OR AORTIC REGURGITATION. ATRIAL FIBRILLATION 80-85 BEATS PER MINUTE. TECHNOLOGIST: CAROLA ESCOBAR
--- NOTE | 2018-09-20 11:59 | P.PN ---
Subjective Date of Service: 09/20/18 Primary Care Provider: [facility] Chief Complaint: Shortness of breath Subjective: Doing well Physical Examination - Vital Signs Temperature: 98 F Blood Pressure: 141/65 Pulse: 66 Respirations: 18 Pulse Ox (%): 99 - Physical Exam General: Alert, In no apparent distress, Oriented x3, Cooperative HEENT: Atraumatic Neck: Supple Respiratory: Crackles/rales (Bases but improved) Cardiovascular: Irregular heart rate/rhythm (Atrial fibrillation, rate controlled) Gastrointestinal: Normal bowel sounds, Soft and benign, Non-distended, No tenderness, No masses, No rebound, No guarding Musculoskeletal: No erythema, No tenderness, No warmth Integumentary: No tenderness/swelling, No erythema, No warmth, No cyanosis Neurological: Normal speech, Normal strength at 5/5 x4 extr, Normal tone, Normal affect - Studies Medications List Reviewed: Yes Assessment & Plan Discharge Plan: Other (half-way facility) Plan to discharge in: 48 Hours Physician Review Additional Text: Impression: Shortness of breath secondary to acute on chronic diastolic CHF with pulmonary hypertension and COPD exacerbation Acute on chronic renal disease stage III CAD Paroxysmally atrial fibrillation not on chronic anti coagulation therapy Hypertension Diabetes mellitus type 2, [id number] Chronic iron deficiency anemia GERD Hyperlipidemia Recent history of GI bleed Plan: Shortness of breath secondary to acute on chronic diastolic CHF with pulmonary hypertension and COPD exacerbation: Patient continues to improve. Patient evaluated by pulmonology and Cardiology. Pulmonology feels shortness of breath related to CHF and COPD. Levaquin discontinued. Continue with IV Lasix. Patient refuse IV Lasix this morning. Will need to address compliance with treatment. Will provide medication for cough and congestion. Will maintain sats above 90%. Will continue COPD treatment. Will have physical therapy assess ambulation. Will try to wean off oxygen. Case discussed with medical social worker. Arrangement for skilled placement is required. I will turn the service over to Dr. Jacobsen tomorrow. I will go over the plan of care with her. Acute on chronic renal disease stage III: Will continue to monitor closely. Patient on diuretic therapy. Renal ultrasound shows chronic renal disease. CAD: Will continue with DVT prophylaxis but will need to consider discontinuing if still with anemia. Paroxysmally atrial fibrillation not on chronic anti coagulation therapy: Will continue with DVT prophylaxis but will consider holding off on DVT prophylaxis if patient continues to be anemic. Patient taking metoprolol for rate control. Patient not on chronic anticoagulation therapy likely related to high risk for fall and bleeding. Stable this time. Hypertension: Will continue with his medications of Norvasc 10 mg daily, losartan 100 mg daily, and metoprolol 25 mg daily. Will monitor and adjust appropriately. Diabetes mellitus type 2, [id number]: Will continue with sliding scale. Will check A1c. Acute on Chronic iron and B12 deficiency anemia: Will monitor hemoglobin closely. Hemoglobin low. Will transfuse 1 unit. Will continue with iron and B12 supplementation. Will maintain hemoglobin above 8.0 GERD: Will provide medication. Will monitor closely. Hyperlipidemia: Will restart home medication-Lipitor 80 mg daily Recent history of GI bleed: Will continue monitor closely. Patient did receive transfusion. Overall stable. Continue to monitor closely. Continue as above. Time Spent Managing Pts Care (In Minutes): 55
[2018-09-20] MEDS: MELATONIN 3 MG TABLET PO PRN (22:52)
[2018-09-20] MEDS: ATORVASTATIN 80 MG TAB PO SCH (22:53)
[2018-09-20] MEDS: GABAPENTIN 100 MG CAP PO SCH (22:53)
[2018-09-20] MEDS: TAMSULOSIN 0.4 MG SR CAP PO SCH (22:53)
[2018-09-21 04:06] LABS: Absolute Lymphocytes (CBC) 0.8 K/uL (0.7-4.9); Absolute Monocytes 0.4 K/uL (0.1-1.3); Absolute Neutrophil 3.5 K/uL (1.8-8.0); Basophils % 0.9 % (0-1.3); Eosinophils % 2.3 % (0-4.4); Hematocrit 25.4 % (39.6-49.0); Lymphocytes % 16.4 % (15.3-44.8); MPV 9.6 fL (7.6-11.3); Monocytes % 7.3 % (3.3-12.3); RBC Red Blood Cell Count 2.88 M/uL (4.33-5.43)
[2018-09-21 04:21] LABS: Magnesium 2.3 mg/dL (1.8-2.4)
[2018-09-21] MEDS: METOPROLOL TAR 25 MG TAB PO SCH (06:07)
[2018-09-21] MEDS: INSULIN -REGULAR HUMAN 50 UNIT/0.5 ML ML SQ SCH ×4 (07:30→21:00)
[2018-09-21] MEDS: ARFORMOTEROL TARTRATE 15 MCG/2 ML VIAL.NEB NEB SCH ×2 (09:41→20:15)
[2018-09-21] MEDS: LOSARTAN POTASSIUM 50 MG TABLET PO SCH (10:03)
[2018-09-21] MEDS: PANTOPRAZOLE 40MG TABLET PO SCH ×2 (10:04→16:59)
[2018-09-21] MEDS: FOLIC ACID 1 MG TABLET PO SCH (10:04)
[2018-09-21] MEDS: AMLODIPINE 10 MG TAB PO SCH (10:04)
[2018-09-21] MEDS: FERROUS SULFATE 325 MG TAB PO SCH ×2 (10:05→21:30)
[2018-09-21] MEDS: VITAMIN D 5,000 UNIT CAP PO SCH (10:05)
[2018-09-21] MEDS: BENZONATATE 100 MG CAP PO PRN (10:05)
[2018-09-21] MEDS: CYANOCOBALAMIN 1,000 MCG TAB PO SCH (10:05)
[2018-09-21] MEDS: FUROSEMIDE 40 MG/4 ML VIAL IV SCH ×2 (10:05→16:58)
[2018-09-21] MEDS: ENOXAPARIN 30 MG/0.3 ML SQ SCH (10:06)
[2018-09-21] MEDS: GUAIFENESIN 600 MG SA TAB PO SCH ×2 (10:06→21:30)
--- NOTE | 2018-09-21 12:34 | P.PN ---
Subjective Date of Service: 09/24/18 Primary Care Provider: [facility] Chief Complaint: Shortness of breath Subjective: Improving (Patient claims that is improving is still short of breath has some cough Mr GIL isolated in the sputum CT scan possible pneumonia) Review of Systems General: Weakness Respiratory: Cough, Shortness of Breath Physical Examination - Vital Signs Temperature: 97.2 F Blood Pressure: 137/62 Pulse: 60 Respirations: 22 Pulse Ox (%): 99 - Physical Exam General: Alert, Oriented x3, Mild distress Neck: Supple Respiratory: Clear to auscultation bilaterally, Diminished Cardiovascular: Edema, Irregular heart rate/rhythm - Studies Medications List Reviewed: Yes Assessment & Plan - Problems (Diagnosis) (1) Shortness of breath Current Visit: Yes Status: Acute Plan: Congestive heart failure kidney function is improving continue with Lasix hemoglobin is now 8.6 status post blood transfusion (2) Pneumonia Current Visit: Yes Status: Acute Plan: Possible pneumonia Mr GIL isolated CT scan abnormal he does have an infiltrate with IV vancomycin for 2 weeks Dc doxycycline abnormal renal function ovoid Bactrim patient resistant to doxycycline Qualifiers: Pneumonia type: due to methicillin-resistant Staphylococcus aureus (MRSA) Physician Review Additional Text: I
[2018-09-21] MEDS: VANCOMYCIN 1.5 GM in NA CHLORIDE 0.9% 500 ML IVPB SCH (13:32)
--- NOTE | 2018-09-21 15:25 | PN ---
Date of Progress Note: 09/21/2018 NEPHROLOGY PROGRESS NOTE Subjective: The patient is seen at the bedside. No overnight events reported. The patient continue s on diuresis. Review of Systems: No fevers, chills, chest pain, shortness of breath, nausea, vomiting, or diarrhea. The patient noris nues to have frequency of urination. Physical Examination: Vital Signs: Blood pressure 137/62, pulse 60, temperature 97.2. Input and output; 1518 in, 1400 out . General: Elderly, no acute distress. Heart: Regular rate and rhythm. No murmurs, rubs, or gallops. Lungs: Poor air movement bilaterally. No acute crepitations noted, however, decreased breath sounds at the bases. Abdomen: Soft, nontender, nondistended. Extremities: No significant edema. Laboratory Data: CBC reviewed. Serum chemistry, electrolytes noted, BUN and creatinine are 42/1.52. Impression: 1.Acute kidney injury on chronic kidney disease. 2.Acute chronic obstructive pulmonary disease exacerbation. 3.Acute congestive heart failure. 4.Anemia. 5.Urinary frequency. 6.Hypercalcemia. Plan: The patient is responding well to diuresis. The patient is having frequency of urination. Ta msulosin is not providing significant benefit. Consider urology evaluation and also up titration of the patient's Flomax cautiously after assessing the patient's ambulatory status without increasing fa ll risk. The patient has hypercalcemia and thus the patient's vitamin D 5000 units will be discontinued at this time. Avoid NSAIDs, avoid contrast and we will continue to follow. /MILIND Voice ID: [id number] Report ID: [id number]
[2018-09-21] MEDS: ACETAMINOPHEN 500 MG TAB PO PRN (16:58)
--- NOTE | 2018-09-21 18:37 | P.PN ---
Subjective Date of Service: 09/21/18 Primary Care Provider: [facility] Chief Complaint: Shortness of breath Patient seen and examined at bedside. Chart reviewed. Case discussed with pulmonology. Patient currently without acute distress. Refusing to go to a shelter facility. States that he does not want to go anywhere with his [facility] benefits and his recent CA surgery. States that he does not want to go home either. Patient stated extensively on the need to go to a shelter facility for physical therapy and IV antibiotics. Review of Systems 10-point ROS is otherwise unremarkable Physical Examination - Vital Signs Temperature: 97.2 F Blood Pressure: 149/65 Pulse: 77 Respirations: 20 Pulse Ox (%): 97 - Physical Exam General: Alert, Mild distress HEENT: Atraumatic, PERRLA, EOMI Neck: Supple, JVD not distended Respiratory: Normal air movement, Crackles/rales, Expiratory wheezes, Inspiratory wheezes Cardiovascular: Regular rate/rhythm, Normal S1 S2 Gastrointestinal: Normal bowel sounds, No tenderness Musculoskeletal: No tenderness Integumentary: No rashes Neurological: Normal speech, Normal tone, Normal affect Lymphatics: No axilla or inguinal lymphadenopathy - Studies Medications List Reviewed: Yes Assessment And Plan - Current Problems (Diagnosis) (1) Acute respiratory distress Current Visit: Yes Status: Acute Plan: Acute respiratory distress most likely secondary to COPD exacerbation secondary to pneumonia -pulmonology consulted. Appreciated recommendations at this time -duo nebs, steroids, oxygen at this time -sputum culture positive for MRSA -patient started on IV vancomycin today. Will need to be continued for 2 weeks -case management consulted for placement at this time. (2) Pneumonia Current Visit: Yes Status: Acute Plan: Pneumonia secondary to MRSA -on IV vancomycin and will need a for total of 2 weeks. Qualifiers: Pneumonia type: due to methicillin-resistant Staphylococcus aureus (MRSA) (3) COPD (chronic obstructive pulmonary disease) Onset Date: 04/28/17 Current Visit: No Status: Chronic Plan: Acute worsening of chronic COPD most likely secondary to pneumonia -units, steroids, oxygen at this time Qualifiers: COPD type: chronic bronchitis Chronic bronchitis type: unspecified Qualified Code(s): J42 - Unspecified chronic bronchitis (4) CHF (congestive heart failure) Onset Date: 01/10/18 Current Visit: No Status: Chronic Plan: Acute on chronic diastolic dysfunction -cardiology consulted. Appreciated recommendations at this time -now improved. -Continue with IV Lasix. Qualifiers: Heart failure type: diastolic Heart failure chronicity: acute on chronic Qualified Code(s): I50.33 - Acute on chronic diastolic (congestive) heart failure (5) Atrial fibrillation Onset Date: 03/15/17 Current Visit: No Status: Chronic Plan: 1 metoprolol for rate control. No anticoagulation due to high risk for fall and GI bleed Qualifiers: Atrial fibrillation type: persistent Qualified Code(s): I48.1 - Persistent atrial fibrillation (6) Coronary artery disease Onset Date: 03/15/17 Current Visit: No Status: Chronic Qualifiers: Coronary Disease-Associated Artery/Lesion type: ho-chunk artery [place] vs. transplanted heart: ho-chunk heart Associated angina: without angina Qualified Code(s): I25.10 - Atherosclerotic heart disease of ho-chunk coronary artery without angina pectoris (7) Diabetes type 2, controlled Onset Date: 09/22/16 Current Visit: No Status: Chronic Qualifiers: Diabetes mellitus oysterman insulin use: with oysterman use Diabetes mellitus complication status: without complication Qualified Code(s): E11.9 - Type 2 diabetes mellitus without complications; Z79.4 - termite control servicer (current) use of insulin (8) History of CVA (cerebrovascular accident) Current Visit: No Status: Chronic (9) Hyperlipidemia Onset Date: 04/28/17 Current Visit: No Status: Chronic Qualifiers: Hyperlipidemia type: unspecified Qualified Code(s): E78.5 - Hyperlipidemia , unspecified (10) Hypertension Onset Date: 03/15/17 Current Visit: No Status: Chronic Qualifiers: Hypertension type: essential hypertension Qualified Code(s): I10 - Essential (primary) hypertension (11) GERD (gastroesophageal reflux disease) Current Visit: No Status: Suspected Qualifiers: Esophagitis presence: esophagitis presence not specified Qualified Code(s) : K21.9 - Gastro-esophageal reflux disease without esophagitis Discharge Plan: Other Plan to discharge in: 72 Hours - Code Status/Comfort Care Code Status Assessed: Yes Physician Review Additional Text: Impression: Shortness of breath secondary to acute on chronic diastolic CHF with pulmonary hypertension and COPD exacerbation Acute on chronic renal disease stage III CAD Paroxysmally atrial fibrillation not on chronic anti coagulation therapy Hypertension Diabetes mellitus type 2, [id number] Chronic iron deficiency anemia GERD Hyperlipidemia Recent history of GI bleed Plan: Shortness of breath secondary to acute on chronic diastolic CHF with pulmonary hypertension and COPD exacerbation: Patient continues to improve. Patient evaluated by pulmonology and Cardiology. Pulmonology feels shortness of breath related to CHF and COPD. Levaquin discontinued. Continue with IV Lasix. Patient refuse IV Lasix this morning. Will need to address compliance with treatment. Will provide medication for cough and congestion. Will maintain sats above 90%. Will continue COPD treatment. Will have physical therapy assess ambulation. Will try to wean off oxygen. Case discussed with social media analyst. Arrangement for skilled placement is required. I will turn the service over to Dr. Jacobsen tomorrow. I will go over the plan of care with her. Acute on chronic renal disease stage III: Will continue to monitor closely. Patient on diuretic therapy. Renal ultrasound shows chronic renal disease. CAD: Will continue with DVT prophylaxis but will need to consider discontinuing if still with anemia. Paroxysmally atrial fibrillation not on chronic anti coagulation therapy: Will continue with DVT prophylaxis but will consider holding off on DVT prophylaxis if patient continues to be anemic. Patient taking metoprolol for rate control. Patient not on chronic anticoagulation therapy likely related to high risk for fall and bleeding. Stable this time. Hypertension: Will continue with his medications of Norvasc 10 mg daily, losartan 100 mg daily, and metoprolol 25 mg daily. Will monitor and adjust appropriately. Diabetes mellitus type 2, [id number]: Will continue with sliding scale. Will check A1c. Acute on Chronic iron and B12 deficiency anemia: Will monitor hemoglobin closely. Hemoglobin low. Will transfuse 1 unit. Will continue with iron and B12 supplementation. Will maintain hemoglobin above 8.0 GERD: Will provide medication. Will monitor closely. Hyperlipidemia: Will restart home medication-Lipitor 80 mg daily Recent history of GI bleed: Will continue monitor closely. Patient did receive transfusion. Overall stable. Continue to monitor closely. Continue as above. Critical Care: No
[2018-09-21] MEDS: IPRATROPIUM BROM 0.5MG/2.5ML NEB PRN (20:15)
[2018-09-21] MEDS: ATORVASTATIN 80 MG TAB PO SCH (21:30)
[2018-09-21] MEDS: GABAPENTIN 100 MG CAP PO SCH (21:30)
[2018-09-21] MEDS: TAMSULOSIN 0.4 MG SR CAP PO SCH (21:30)
[2018-09-21] MEDS ORDERED: DOXYCYCLINE 100 MG CAP PO SCH (23:00)
[2018-09-22 04:20] LABS: Absolute Lymphocytes (CBC) 0.6 K/uL (0.7-4.9); Absolute Monocytes 0.3 K/uL (0.1-1.3); Absolute Neutrophil 2.9 K/uL (1.8-8.0); Basophils % 0.8 % (0-1.3); Eosinophils % 2.4 % (0-4.4); Hematocrit 24.3 % (39.6-49.0); Lymphocytes % 15.4 % (15.3-44.8); MPV 9.4 fL (7.6-11.3); Monocytes % 8.1 % (3.3-12.3); RBC Red Blood Cell Count 2.73 M/uL (4.33-5.43)
[2018-09-22 04:24] LABS: Magnesium 2.2 mg/dL (1.8-2.4); Potassium 3.8 mmol/L (3.5-5.1)
[2018-09-22] MEDS ORDERED: POTASSIUM 25 MEQ EFFERV TAB PO ONE (05:09)
[2018-09-22] MEDS: METOPROLOL TAR 25 MG TAB PO SCH (05:54)
[2018-09-22] MEDS: INSULIN -REGULAR HUMAN 50 UNIT/0.5 ML ML SQ SCH ×4 (07:30→21:01)
[2018-09-22] MEDS: PANTOPRAZOLE 40MG TABLET PO SCH ×2 (07:55→16:57)
[2018-09-22] MEDS: ARFORMOTEROL TARTRATE 15 MCG/2 ML VIAL.NEB NEB SCH ×2 (08:00→20:40)
[2018-09-22] MEDS: CYANOCOBALAMIN 1,000 MCG TAB PO SCH (09:48)
[2018-09-22] MEDS: FOLIC ACID 1 MG TABLET PO SCH (09:48)
[2018-09-22] MEDS: LOSARTAN POTASSIUM 50 MG TABLET PO SCH (09:48)
[2018-09-22] MEDS: FERROUS SULFATE 325 MG TAB PO SCH ×2 (09:48→21:01)
[2018-09-22] MEDS: AMLODIPINE 10 MG TAB PO SCH (09:49)
[2018-09-22] MEDS: GUAIFENESIN 600 MG SA TAB PO SCH ×2 (09:49→21:00)
[2018-09-22] MEDS: ENOXAPARIN 30 MG/0.3 ML SQ SCH (09:49)
[2018-09-22] MEDS: FUROSEMIDE 40 MG/4 ML VIAL IV SCH ×2 (09:51→16:57)
--- NOTE | 2018-09-22 16:00 | PN ---
Date of Progress Note: 09/22/2018 History: The patient was seen and examined at bedside. He is very frustrated. He states that he is not going to get better here, [facility] says that [facility] trying to send him to a nurs ing home, but he [facility] not want to [facility] to [facility]. He does not believe that the [facility] is g oing to give him the right treatment to get him better. Physical Examination: Vital Signs: At this time are showing temperature of 98.1, pulse rate of 73, respiratory rate of 18, blood pressure 125/56, O2 saturation of 98% on 2 L of nasal cannula. General: He appears thin, weak, and cachectic. HEENT: Shows atraumatic head. Chest: Auscultation of lungs revealed wheezes noted in the left lung base. No crackles were noted. No JVD was noted. Cardiac: Auscultation of the heart revealed regular rate and rhythm. Extremities: Without any evidence of edema, but muscle wasting and cachexia was noted. Laboratory Data: At this time is showing sodium of 143, potassium of 3.8, chloride of 107, BUN of 38 , and creatinine of 1.4, which is improving from previous. CBC showing chronic anemia with a hemoglo bin of 8, hematocrit of 24.3, and platelet count of 136. Current Medications: Include Tylenol, albuterol nebulizer, amlodipine 10 mg a day, atorvastatin, carson zonatate, vitamin B12, Lovenox for DVT prophylaxis, p.o. iron, folic acid, Lasix 40 mg IV b.i.d. mariaelena pentin 200 mg at bedtime, Mucinex 600 mg twice daily, losartan 100 mg a day, melatonin, metoprolol 25 mg a day, Pantoprazole 40 mg b.i.d., Zofran as needed, tamsulosin 0.4 mg at bedtime, and vancomycin 1.5 g every 36 hours. Impression: 1.Acute on chronic renal insufficiency, currently with overall stabilizing and improving renal funct ion, underlying cardiorenal syndrome leading to worsening renal failure, but it is improving at this time. 2.Respiratory distress secondary to combination of congestive heart failure as well as chronic obstr uctive pulmonary disease. The patient is currently getting treatment for congestive heart failure wi th Lasix and chronic obstructive pulmonary disease with nebulizers. May need some steroids also to i mprove his breathing function as well. 3.Hypertension. The patient remains on multiple medications including losartan, metoprolol, and his blood pressure seems to be stable overall. 4.Underlying benign prostatic hyperplasia, remains on tamsulosin. 5.Methicillin-resistant Staphylococcus aureus pneumonia. Remains on vancomycin every 36 hours. Lev els are being monitored, by pharmacy. Plan: The patient's overall renal function is doing better and I have reassured the patient regardin g his renal condition and also advised that the patient needs 2 weeks of antibiotics to improve his M RSA underlying pneumonia leading to shortness of breath and COPD exacerbation. The patient was educa zaida regarding the need for antibiotics and need for pulmonary toilet as well as physical therapy. Th e patient understands, but stated that he does not want to go to the [facility]. Continue all othe r medications and plan of care. SARAH/MILIND Voice ID: [id number] Report ID: [id number]
--- NOTE | 2018-09-22 16:16 | P.PN ---
Subjective Date of Service: 09/22/18 Primary Care Provider: [facility] Chief Complaint: Shortness of breath Patient seen and examined at bedside. Chart reviewed. Case discussed with pulmonology. Patient currently without acute distress. Refusing to go to a correction facility. States that he does not want to go anywhere with his [facility] benefits and his recent colon surgery. States he is bleeding in his colon and needs it fixed. States that he does not want to go home either. Patient educated extensively on the need to go to a correction facility for physical therapy and IV antibiotics. States that he will be talking to his today Review of Systems 10-point ROS is otherwise unremarkable Physical Examination - Vital Signs Temperature: 98.3 F Blood Pressure: 142/63 Pulse: 81 Respirations: 20 Pulse Ox (%): 99 - Physical Exam General: Alert, Mild distress HEENT: Atraumatic, PERRLA, EOMI Neck: Supple, JVD not distended Respiratory: Normal air movement, Crackles/rales, Expiratory wheezes, Inspiratory wheezes Cardiovascular: Regular rate/rhythm, Normal S1 S2 Gastrointestinal: Normal bowel sounds, No tenderness Musculoskeletal: No tenderness Integumentary: No rashes Neurological: Normal speech, Normal tone, Normal affect Lymphatics: No axilla or inguinal lymphadenopathy - Studies Medications List Reviewed: Yes Assessment And Plan - Current Problems (Diagnosis) (1) Acute respiratory distress Current Visit: Yes Status: Acute Plan: Acute respiratory distress most likely secondary to COPD exacerbation secondary to pneumonia -pulmonology consulted. Appreciated recommendations at this time -duo nebs, steroids, oxygen at this time -sputum culture positive for MRSA -patient started on IV vancomycin 11/03 -case management consulted for placement at this time. (2) Pneumonia Current Visit: Yes Status: Acute Plan: Pneumonia secondary to MRSA -on IV vancomycin 11/03 Qualifiers: Pneumonia type: due to methicillin-resistant Staphylococcus aureus (MRSA) (3) COPD (chronic obstructive pulmonary disease) Onset Date: 04/28/17 Current Visit: No Status: Chronic Plan: Acute worsening of chronic COPD most likely secondary to pneumonia -Duonebs, steroids, oxygen at this time Qualifiers: COPD type: chronic bronchitis Chronic bronchitis type: unspecified Qualified Code(s): J42 - Unspecified chronic bronchitis (4) CHF (congestive heart failure) Onset Date: 01/10/18 Current Visit: No Status: Chronic Plan: Acute on chronic diastolic dysfunction. Now improved -cardiology consulted. Appreciated recommendations at this time -Continue with IV Lasix. Qualifiers: Heart failure type: diastolic Heart failure chronicity: acute on chronic Qualified Code(s): I50.33 - Acute on chronic diastolic (congestive) heart failure (5) Atrial fibrillation Onset Date: 03/15/17 Current Visit: No Status: Chronic Plan: On metoprolol for rate control. No anticoagulation due to high risk for fall and GI bleed Qualifiers: Atrial fibrillation type: persistent Qualified Code(s): I48.1 - Persistent atrial fibrillation (6) Coronary artery disease Onset Date: 03/15/17 Current Visit: No Status: Chronic Qualifiers: Coronary Disease-Associated Artery/Lesion type: [place] artery [place] vs. 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) use of insulin (8) History of CVA (cerebrovascular accident) Current Visit: No Status: Chronic (9) Hyperlipidemia Onset Date: 04/28/17 Current Visit: No Status: Chronic Qualifiers: Hyperlipidemia type: unspecified Qualified Code(s): E78.5 - Hyperlipidemia , unspecified (10) Hypertension Onset Date: 03/15/17 Current Visit: No Status: Chronic Qualifiers: Hypertension type: essential hypertension Qualified Code(s): I10 - Essential (primary) hypertension (11) GERD (gastroesophageal reflux disease) Current Visit: No Status: Suspected Qualifiers: Esophagitis presence: esophagitis presence not specified Qualified Code(s) : K21.9 - Gastro-esophageal reflux disease without esophagitis Discharge Plan: Retirement Plan to discharge in: Greater than 2 days - Code Status/Comfort Care Code Status Assessed: Yes Critical Care: No
--- NOTE | 2018-09-22 20:49 | RAD REPORT ---
EXAM DESCRIPTION: [place] Single View09/22/2018 8:30 pm CLINICAL HISTORY: Chest pain COMPARISON: September 19, 2018 FINDINGS: No significant change in the bilateral pulmonary opacities and pleural effusions. Heart remains enlarged
[2018-09-22] MEDS: GABAPENTIN 100 MG CAP PO SCH (21:00)
[2018-09-22] MEDS: ATORVASTATIN 80 MG TAB PO SCH (21:01)
[2018-09-22] MEDS: TAMSULOSIN 0.4 MG SR CAP PO SCH (21:01)
--- NOTE | 2018-09-23 00:51 | PN ---
Date of Progress Note: 09/22/2018 Mr. Nielson had been admitted with bilateral pneumonia, questionable pulmonary edema, anemia, and chr onic atrial fibrillation. He was seen mostly for his chronic atrial fibrillation. He is severely an emic and not a candidate for anticoagulation. He is on a low-dose metoprolol and Lasix. We recommen d stopping the Lovenox because of the anemia. He is in atrial fibrillation and the heart rate in the 60s today. His echocardiogram was normal. Continue present regimen. We will sign off his case. SHERMAN/MILIND Voice ID: [id number] Report ID: [id number]
[2018-09-23] MEDS: VANCOMYCIN 1.5 GM in NA CHLORIDE 0.9% 500 ML IVPB SCH (01:00)
[2018-09-23] MEDS: METOPROLOL TAR 25 MG TAB PO SCH (05:22)
[2018-09-23 06:15] LABS: Magnesium 2.2 mg/dL (1.8-2.4); Potassium 3.8 mmol/L (3.5-5.1)
[2018-09-23] MEDS ORDERED: POTASSIUM CL SA 10 MEQ TAB PO ONE (06:23)
[2018-09-23 06:34] LABS: Absolute Lymphocytes (CBC) 0.8 K/uL (0.7-4.9); Absolute Monocytes 0.4 K/uL (0.1-1.3); Absolute Neutrophil 3.1 K/uL (1.8-8.0); Basophils % 0.6 % (0-1.3); Eosinophils % 2.3 % (0-4.4); Hematocrit 25.1 % (39.6-49.0); Lymphocytes % 17.5 % (15.3-44.8); MPV 9.5 fL (7.6-11.3); Monocytes % 8.7 % (3.3-12.3); RBC Red Blood Cell Count 2.83 M/uL (4.33-5.43)
[2018-09-23] MEDS: ARFORMOTEROL TARTRATE 15 MCG/2 ML VIAL.NEB NEB SCH ×2 (08:05→20:00)
[2018-09-23] MEDS: INSULIN -REGULAR HUMAN 50 UNIT/0.5 ML ML SQ SCH ×4 (09:00→21:00)
[2018-09-23] MEDS: PANTOPRAZOLE 40MG TABLET PO SCH ×2 (09:00→17:04)
[2018-09-23] MEDS: LOSARTAN POTASSIUM 50 MG TABLET PO SCH (09:00)
[2018-09-23] MEDS: FERROUS SULFATE 325 MG TAB PO SCH ×2 (10:23→21:21)
[2018-09-23] MEDS: CYANOCOBALAMIN 1,000 MCG TAB PO SCH (10:24)
[2018-09-23] MEDS: FOLIC ACID 1 MG TABLET PO SCH (10:24)
[2018-09-23] MEDS: AMLODIPINE 10 MG TAB PO SCH (10:24)
[2018-09-23] MEDS: GUAIFENESIN 600 MG SA TAB PO SCH ×2 (10:25→21:21)
[2018-09-23] MEDS: FUROSEMIDE 40 MG/4 ML VIAL IV SCH (10:26)
--- NOTE | 2018-09-23 11:13 | P.PN ---
Subjective Date of Service: 09/23/18 Primary Care Provider: [facility] Chief Complaint: Shortness of breath Patient seen and examined at bedside. Chart reviewed. Case discussed with pulmonology. Patient currently without acute distress. Agreeable to senior care facility. [place] was faked clinicals have been sent overnight complains of having some hemoptysis. No other complaints to offer at this time. Review of Systems 10-point ROS is otherwise unremarkable Physical Examination - Vital Signs Temperature: 97.3 F Blood Pressure: 145/70 Pulse: 63 Respirations: 20 Pulse Ox (%): 100 - Physical Exam General: Alert, In no apparent distress HEENT: Atraumatic, PERRLA, EOMI Neck: Supple, JVD not distended Respiratory: Normal air movement, Crackles/rales, Expiratory wheezes, Inspiratory wheezes Cardiovascular: Regular rate/rhythm, Normal S1 S2 Gastrointestinal: Normal bowel sounds, No tenderness Musculoskeletal: No tenderness Integumentary: No rashes Neurological: Normal speech, Normal tone, Normal affect Lymphatics: No axilla or inguinal lymphadenopathy - Studies Medications List Reviewed: Yes Assessment And Plan - Current Problems (Diagnosis) (1) Acute respiratory distress Current Visit: Yes Status: Acute Plan: Acute respiratory distress most likely secondary to COPD exacerbation secondary to pneumonia -pulmonology consulted. Appreciated recommendations at this time -duo nebs, steroids, oxygen at this time -sputum culture positive for MRSA -patient started on IV vancomycin 12/01 -case management consulted for placement at this time. (2) Pneumonia Current Visit: Yes Status: Acute Plan: Pneumonia secondary to MRSA -on IV vancomycin 12/01 Qualifiers: Pneumonia type: due to methicillin-resistant Staphylococcus aureus (MRSA) (3) Hemoptysis Current Visit: Yes Status: Acute Plan: Hemoptysis noted this morning most likely secondary to pneumonia versus chronic cough -will continue to monitor closely. H&H has been stable at this time. (4) COPD (chronic obstructive pulmonary disease) Onset Date: 04/28/17 Current Visit: No Status: Chronic Plan: Acute worsening of chronic COPD most likely secondary to pneumonia -Duonebs, steroids, oxygen at this time Qualifiers: COPD type: chronic bronchitis Chronic bronchitis type: unspecified Qualified Code(s): J42 - Unspecified chronic bronchitis (5) CHF (congestive heart failure) Onset Date: 01/10/18 Current Visit: No Status: Chronic Plan: Acute on chronic diastolic dysfunction. Now improved -cardiology consulted. Appreciated recommendations at this time -Continue with IV Lasix. Qualifiers: Heart failure type: diastolic Heart failure chronicity: acute on chronic Qualified Code(s): I50.33 - Acute on chronic diastolic (congestive) heart failure (6) Atrial fibrillation Onset Date: 03/15/17 Current Visit: No Status: Chronic Plan: On metoprolol for rate control. No anticoagulation due to high risk for fall and GI bleed Qualifiers: Atrial fibrillation type: persistent Qualified Code(s): I48.1 - Persistent atrial fibrillation (7) Coronary artery disease Onset Date: 03/15/17 Current Visit: No Status: Chronic Qualifiers: Coronary Disease-Associated Artery/Lesion type: [place] artery [place] vs. 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 of insulin (9) History of CVA (cerebrovascular accident) Current Visit: No Status: Chronic (10) Hyperlipidemia Onset Date: 04/28/17 Current Visit: No Status: Chronic Qualifiers: Hyperlipidemia type: unspecified Qualified Code(s): E78.5 - Hyperlipidemia , unspecified (11) Hypertension Onset Date: 03/15/17 Current Visit: No Status: Chronic Qualifiers: Hypertension type: essential hypertension Qualified Code(s): I10 - Essential (primary) hypertension (12) GERD (gastroesophageal reflux disease) Current Visit: No Status: Suspected Qualifiers: Esophagitis presence: esophagitis presence not specified Qualified Code(s) : K21.9 - Gastro-esophageal reflux disease without esophagitis - Plan Patient is currently awaiting placement at this time. Clinicals have been sent to the care home for senior care facility. Will await approval from the insurance and the facility itself. Discharge Plan: Shelter Plan to discharge in: 48 Hours - Code Status/Comfort Care Code Status Assessed: Yes Critical Care: No
[2018-09-23] MEDS ORDERED: LIDOCAINE 1% MPF 5 ML VIAL ONE (14:49)
--- NOTE | 2018-09-23 16:15 | RAD REPORT ---
EXAM DESCRIPTION: RAD - Chest Single View - 09/23/2018 4:00 pm CLINICAL HISTORY: Picc line placement COMPARISON: Chest Single View dated 09/22/2018; Chest Pa And Lat (2 Views) dated 09/19/2018; Chest Sin gle View dated 09/18/2018; Chest Pa And Lat (2 Views) dated 01/08/2018 FINDINGS: Portable chest was obtained following placement of a left upper extremity PICC line. The c atheter tip projects over the SVC..
--- NOTE | 2018-09-23 16:32 | PN ---
Date of Progress Note: 09/23/2018 Subjective: The patient is seen and examined. Doing better today. He is complaining of some hemopt ysis. Physical Examination: Vital Signs: Showing temperature of 97.3, pulse rate 62, respiratory rate 20, blood pressure 145/70, O2 saturation of 98% on 2 L nasal cannula oxygen. General: He appears thin, weak, and cachectic. HEENT: Shows atraumatic head. Lungs: Clear. Abdomen: Soft and nontender. Heart: Auscultation of the heart revealed regular rate and rhythm. Extremities: Without any evidence of edema. Laboratory Data: Showing improved creatinine to 1.8 and other electrolytes are stable. CBC showing chronic anemia with a hemoglobin of 8.6, hematocrit of 25.1, and platelet count of 143. Current Medications: Have been reviewed. Impression: 1.Acute on chronic renal insufficiency secondary to cardiorenal syndrome versus acute tubular necros is, currently improving at this time. 2.Chronic congestive heart failure. Remains on Lasix 40 mg IV b.i.d. We will go ahead and change i t to p.o. Lasix at this time. 3.Methicillin-resistant Staphylococcus aureus pneumonia, remains on vancomycin. Pharmacy is followi ng vancomycin levels and dosage is being adjusted. 4.Severe debility and weakness. The patient will need physical therapy and occupational therapy. Plan: The patient is overall doing okay, improving renal function. We will switch him to p.o. Lasix . Continue antibiotics and monitor him closely. VV/MODL Voice ID: [id number] Report ID: [id number]
[2018-09-23] MEDS: FUROSEMIDE 40 MG TABLET PO SCH (17:09)
[2018-09-23] MEDS: TAMSULOSIN 0.4 MG SR CAP PO SCH (21:20)
[2018-09-23] MEDS: GABAPENTIN 100 MG CAP PO SCH (21:21)
[2018-09-23] MEDS: ATORVASTATIN 80 MG TAB PO SCH (21:21)
[2018-09-24 05:22] LABS: Absolute Lymphocytes (CBC) 0.8 K/uL (0.7-4.9); Absolute Monocytes 0.4 K/uL (0.1-1.3); Absolute Neutrophil 3.2 K/uL (1.8-8.0); Basophils % 0.8 % (0-1.3); Eosinophils % 2.3 % (0-4.4); Lymphocytes % 18.3 % (15.3-44.8); Monocytes % 8.9 % (3.3-12.3); RBC Red Blood Cell Count 2.61 M/uL (4.33-5.43)
[2018-09-24 05:40] LABS: Potassium 3.9 mmol/L (3.5-5.1)
[2018-09-24] MEDS ORDERED: POTASSIUM CL SA 10 MEQ TAB PO ONE ×2 (05:41→08:03)
[2018-09-24] MEDS: METOPROLOL TAR 25 MG TAB PO SCH (06:19)
[2018-09-24] MEDS: INSULIN -REGULAR HUMAN 50 UNIT/0.5 ML ML SQ SCH ×4 (07:30→21:00)
[2018-09-24] MEDS: ARFORMOTEROL TARTRATE 15 MCG/2 ML VIAL.NEB NEB SCH ×2 (08:03→21:15)
[2018-09-24] MEDS: SODIUM CHLORIDE 0.9% 10ML INJ IV SCH ×2 (09:00→21:00)
[2018-09-24] MEDS: PANTOPRAZOLE 40MG TABLET PO SCH ×2 (09:00→16:55)
[2018-09-24] MEDS ORDERED: SODIUM CHLORIDE 0.9% 10ML INJ IV PRN ×2 (09:00)
[2018-09-24] MEDS ORDERED: LIDOCAINE 1% MPF 5 ML VIAL IM PRN (09:00)
[2018-09-24] MEDS: AMLODIPINE 10 MG TAB PO SCH (09:31)
[2018-09-24] MEDS: FERROUS SULFATE 325 MG TAB PO SCH ×2 (09:31→22:04)
[2018-09-24] MEDS: FOLIC ACID 1 MG TABLET PO SCH (09:31)
[2018-09-24] MEDS: CYANOCOBALAMIN 1,000 MCG TAB PO SCH (09:31)
[2018-09-24] MEDS: LOSARTAN POTASSIUM 50 MG TABLET PO SCH (09:32)
[2018-09-24] MEDS: GUAIFENESIN 600 MG SA TAB PO SCH ×2 (09:32→22:04)
[2018-09-24] MEDS: FUROSEMIDE 40 MG TABLET PO SCH ×2 (09:32→16:56)
[2018-09-24] MEDS ORDERED: NA CHLORIDE 0.9% 250 ML ONE (10:28)
--- NOTE | 2018-09-24 10:50 | P.PN ---
Subjective Date of Service: 09/24/18 Primary Care Provider: [facility] Chief Complaint: Hemoptysis Patient is complaining of coughing up some dark blood probably hemoptysis from his pneumonia otherwise is breathing has improved Review of Systems General: Weakness Respiratory: Shortness of Breath, Hemoptysis Physical Examination - Vital Signs Temperature: 97.2 F Blood Pressure: 137/62 Pulse: 60 Respirations: 22 Pulse Ox (%): 99 - Physical Exam General: Alert, Oriented x3 Neck: Supple Respiratory: Clear to auscultation bilaterally Cardiovascular: No edema, Regular rate/rhythm - Studies Microbiology Data (last 24 hrs): 09/18/18 16:00 Blood - Blood Aerobic Blood Culture - Final No growth in 5 days. 09/18/18 16:00 Blood - Blood Anaerobic Blood Culture - Final No growth in 5 days. 09/18/18 16:00 Blood - Blood Aerobic Blood Culture - Final No growth in 5 days. 09/18/18 16:00 Blood - Blood Anaerobic Blood Culture - Final No growth in 5 days. Medications List Reviewed: Yes Assessment & Plan - Problems (Diagnosis) (1) Shortness of breath Current Visit: Yes Status: Acute Plan: Shortness of breath is improving continue with Lasix in his slight decline in his hemoglobin (2) Pneumonia Current Visit: Yes Status: Acute Plan: Patient is improving is a little anxious I suspect his hemoptysis which is very dark old blood is probably from his underlying infection continue with vancomycin Qualifiers: Pneumonia type: due to methicillin-resistant Staphylococcus aureus (MRSA) Physician Review Additional Text: I
[2018-09-24] MEDS: VANCOMYCIN 1.5 GM in NA CHLORIDE 0.9% 500 ML IVPB SCH ×2 (13:00→17:54)
[2018-09-24 16:53] LABS: Hematocrit 29.9 % (39.6-49.0)
--- NOTE | 2018-09-24 18:16 | P.PN ---
Subjective Date of Service: 09/24/18 Primary Care Provider: [place] [facility] Chief Complaint: Hemoptysis Patient seen and examined at bedside. Chart reviewed. Case discussed with pulmonology. Patient currently without acute distress. Agreeable to snf facility. [place] was faked clinicals have been sent overnight complains of having some hemoptysis. No other complaints to offer at this time. Review of Systems 10-point ROS is otherwise unremarkable Physical Examination - Vital Signs Temperature: 98.6 F Blood Pressure: 144/65 Pulse: 78 Respirations: 18 Pulse Ox (%): 98 - Physical Exam General: Alert, In no apparent distress HEENT: Atraumatic, PERRLA, EOMI Neck: Supple, JVD not distended Respiratory: Normal air movement, Expiratory wheezes, Inspiratory wheezes Cardiovascular: Regular rate/rhythm, Normal S1 S2 Gastrointestinal: Normal bowel sounds, No tenderness Musculoskeletal: No tenderness Integumentary: No rashes Neurological: Normal speech, Normal tone, Normal affect Lymphatics: No axilla or inguinal lymphadenopathy - Studies Microbiology Data (last 24 hrs): 09/18/18 16:00 Blood - Blood Aerobic Blood Culture - Final No growth in 5 days. 09/18/18 16:00 Blood - Blood Anaerobic Blood Culture - Final No growth in 5 days. 09/18/18 16:00 Blood - Blood Aerobic Blood Culture - Final No growth in 5 days. 09/18/18 16:00 Blood - Blood Anaerobic Blood Culture - Final No growth in 5 days. Medications List Reviewed: Yes Assessment And Plan - Current Problems (Diagnosis) (1) Anemia Onset Date: 03/15/17 Current Visit: No Status: Chronic Plan: Anemia of chronic disease versus acute blood loss anemia. -patient with history of GI bleeding recently had general surgery operated on his colon per patient -records have been requested from [place] -will get a stool culture this time. -hemoglobin in the 7.8 today will transfuse 2 units. -GI is unavailable at this time. Will get RBC scan to identify the location of of the bleed -save actively bleeding patient may need to be transferred to a higher level of care for that have GI coverage Qualifiers: Anemia type: other cause Other causes of anemia: acute posthemorrhagic Qualified Code(s): D62 - Acute posthemorrhagic anemia (2) Acute respiratory distress Current Visit: Yes Status: Acute Plan: Acute respiratory distress most likely secondary to COPD exacerbation secondary to pneumonia -pulmonology consulted. Appreciated recommendations at this time -duo nebs, steroids, oxygen at this time -sputum culture positive for MRSA -patient started on IV vancomycin 01/01 -case management consulted for placement at this time. (3) Pneumonia Current Visit: Yes Status: Acute Plan: Pneumonia secondary to MRSA -on IV vancomycin 01/01 Qualifiers: Pneumonia type: due to methicillin-resistant Staphylococcus aureus (MRSA) (4) Hemoptysis Current Visit: Yes Status: Acute Plan: Hemoptysis noted this morning most likely secondary to pneumonia versus chronic cough -will continue to monitor closely. H&H trending down today -pulmonology notified. Recommendations appreciated at this time (5) COPD (chronic obstructive pulmonary disease) Onset Date: 04/28/17 Current Visit: No Status: Chronic Plan: Acute worsening of chronic COPD most likely secondary to pneumonia -Duonebs, steroids, oxygen at this time Qualifiers: COPD type: chronic bronchitis Chronic bronchitis type: unspecified Qualified Code(s): J42 - Unspecified chronic bronchitis (6) CHF (congestive heart failure) Onset Date: 01/10/18 Current Visit: No Status: Chronic Plan: Acute on chronic diastolic dysfunction. Now improved -cardiology consulted. Appreciated recommendations at this time -Continue with IV Lasix. Qualifiers: Heart failure type: diastolic Heart failure chronicity: acute on chronic Qualified Code(s): I50.33 - Acute on chronic diastolic (congestive) heart failure (7) Atrial fibrillation Onset Date: 03/15/17 Current Visit: No Status: Chronic Plan: On metoprolol for rate control. No anticoagulation due to high risk for fall and GI bleed Qualifiers: Atrial fibrillation type: persistent Qualified Code(s): I48.1 - Persistent atrial fibrillation (8) Coronary artery disease Onset Date: 03/15/17 Current Visit: No Status: Chronic Qualifiers: Coronary Disease-Associated Artery/Lesion type: [place] artery [place] vs. 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 of insulin (10) History of CVA (cerebrovascular accident) Current Visit: No Status: Chronic (11) Hyperlipidemia Onset Date: 04/28/17 Current Visit: No Status: Chronic Qualifiers: Hyperlipidemia type: unspecified Qualified Code(s): E78.5 - Hyperlipidemia , unspecified (12) Hypertension Onset Date: 03/15/17 Current Visit: No Status: Chronic Qualifiers: Hypertension type: essential hypertension Qualified Code(s): I10 - Essential (primary) hypertension (13) GERD (gastroesophageal reflux disease) Current Visit: No Status: Suspected Qualifiers: Esophagitis presence: esophagitis presence not specified Qualified Code(s) : K21.9 - Gastro-esophageal reflux disease without esophagitis - Plan Patient is currently awaiting placement at this time. [facility]. Will await approval from the insurance and the facility itself. Physician Review Additional Text: I
--- NOTE | 2018-09-24 19:32 | RAD REPORT ---
EXAM DESCRIPTION: NM - GI Blood Loss Imaging - 09/24/2018 4:27 pm CLINICAL HISTORY: GI bleed TECHNIQUE: 1 24.8 millicuries technetium labeled red blood cells were administered intravenously. Im ages of the abdomen and pelvis were obtained for 90 minutes. FINDINGS: There is poor labeling as free pertechnetate is present within the stomach. Activity is s een within the duodenum and proximal jejunum likely from the stomach. Otherwise, no abnormal radiotracer activity is visualized within the bowel. IMPRESSION: No gross evidence of an active GI bleed
[2018-09-24] MEDS: IPRATROPIUM BROM 0.5MG/2.5ML NEB PRN (21:15)
[2018-09-24] MEDS: ATORVASTATIN 80 MG TAB PO SCH (22:03)
[2018-09-24] MEDS: TAMSULOSIN 0.4 MG SR CAP PO SCH (22:04)
[2018-09-24] MEDS: GABAPENTIN 100 MG CAP PO SCH (22:04)
[2018-09-25] MEDS: METOPROLOL TAR 25 MG TAB PO SCH (05:58)
[2018-09-25 06:18] LABS: Absolute Lymphocytes (CBC) 0.8 K/uL (0.7-4.9); Absolute Monocytes 0.4 K/uL (0.1-1.3); Absolute Neutrophil 3.3 K/uL (1.8-8.0); Basophils % 0.8 % (0-1.3); Hematocrit 25.9 % (39.6-49.0); Lymphocytes % 17.7 % (15.3-44.8); MPV 9.6 fL (7.6-11.3); Monocytes % 9.1 % (3.3-12.3); RBC Red Blood Cell Count 2.98 M/uL (4.33-5.43)
[2018-09-25] MEDS: INSULIN -REGULAR HUMAN 50 UNIT/0.5 ML ML SQ SCH ×4 (07:30→21:00)
[2018-09-25] MEDS: SODIUM CHLORIDE 0.9% 10ML INJ IV SCH ×2 (09:00→21:00)
[2018-09-25] MEDS: PANTOPRAZOLE 40MG TABLET PO SCH ×2 (09:04→17:12)
[2018-09-25] MEDS: AMLODIPINE 10 MG TAB PO SCH (09:04)
[2018-09-25] MEDS: FERROUS SULFATE 325 MG TAB PO SCH ×2 (09:04→21:42)
[2018-09-25] MEDS: FUROSEMIDE 40 MG TABLET PO SCH ×2 (09:04→17:11)
[2018-09-25] MEDS: GUAIFENESIN 600 MG SA TAB PO SCH ×2 (09:04→21:42)
[2018-09-25] MEDS: FOLIC ACID 1 MG TABLET PO SCH (09:04)
[2018-09-25] MEDS: LOSARTAN POTASSIUM 50 MG TABLET PO SCH (09:05)
[2018-09-25] MEDS: ARFORMOTEROL TARTRATE 15 MCG/2 ML VIAL.NEB NEB SCH ×2 (09:15→20:00)
[2018-09-25] MEDS: CYANOCOBALAMIN 1,000 MCG TAB PO SCH (09:15)
--- NOTE | 2018-09-25 12:41 | P.PN ---
Subjective Date of Service: 09/25/18 Primary Care Provider: [facility] Chief Complaint: Hemoptysis Patient seen and examined at bedside. Chart reviewed. Case discussed with pulmonology. Patient currently without acute distress. Agreeable to long-term facility. [facility] was faxed clinicals have been sent. Hemoptysis has improved.. No other complaints to offer at this time. Review of Systems 10-point ROS is otherwise unremarkable Physical Examination - Vital Signs Temperature: 98.6 F Blood Pressure: 129/62 Pulse: 68 Respirations: 16 Pulse Ox (%): 98 - Physical Exam General: Alert, In no apparent distress HEENT: Atraumatic, PERRLA, EOMI Neck: Supple, JVD not distended Respiratory: Clear to auscultation bilaterally, Normal air movement Cardiovascular: Regular rate/rhythm, Normal S1 S2 Gastrointestinal: Normal bowel sounds, No tenderness Musculoskeletal: No tenderness Integumentary: No rashes Neurological: Normal speech, Normal tone, Normal affect Lymphatics: No axilla or inguinal lymphadenopathy - Studies Medications List Reviewed: Yes Assessment And Plan - Current Problems (Diagnosis) (1) Anemia Onset Date: 03/15/17 Current Visit: No Status: Chronic Plan: Anemia of chronic disease versus acute blood loss anemia. -patient with history of GI bleeding recently had general surgery operated on his colon per patient -records have been requested from [place] -stool occult negative at this time -hemoglobin stable after transfusion -GI is unavailable at this time. RBC scan negative for any acute bleeding Qualifiers: Anemia type: other cause Other causes of anemia: acute posthemorrhagic Qualified Code(s): D62 - Acute posthemorrhagic anemia (2) Acute respiratory distress Current Visit: Yes Status: Acute Plan: Acute respiratory distress most likely secondary to COPD exacerbation secondary to pneumonia -pulmonology consulted. Appreciated recommendations at this time -duo nebs, steroids, oxygen at this time -sputum culture positive for MRSA -patient started on IV vancomycin 01/31 -case management consulted for placement at this time. (3) Pneumonia Current Visit: Yes Status: Acute Plan: Pneumonia secondary to MRSA -on IV vancomycin 01/31 Qualifiers: Pneumonia type: due to methicillin-resistant Staphylococcus aureus (MRSA) (4) Hemoptysis Current Visit: Yes Status: Acute Plan: Hemoptysis noted this morning most likely secondary to pneumonia versus chronic cough. Improved today -will continue to monitor closely. H&H trending down today -pulmonology notified. Recommendations appreciated at this time (5) COPD (chronic obstructive pulmonary disease) Onset Date: 04/28/17 Current Visit: No Status: Chronic Plan: Acute worsening of chronic COPD most likely secondary to pneumonia -Duonebs, steroids, oxygen at this time Qualifiers: COPD type: chronic bronchitis Chronic bronchitis type: unspecified Qualified Code(s): J42 - Unspecified chronic bronchitis (6) CHF (congestive heart failure) Onset Date: 01/10/18 Current Visit: No Status: Chronic Plan: Acute on chronic diastolic dysfunction. Now improved -cardiology consulted. Appreciated recommendations at this time -Continue with IV Lasix. Qualifiers: Heart failure type: diastolic Heart failure chronicity: acute on chronic Qualified Code(s): I50.33 - Acute on chronic diastolic (congestive) heart failure (7) Atrial fibrillation Onset Date: 03/15/17 Current Visit: No Status: Chronic Plan: On metoprolol for rate control. No anticoagulation due to high risk for fall and GI bleed Qualifiers: Atrial fibrillation type: persistent Qualified Code(s): I48.1 - Persistent atrial fibrillation (8) Coronary artery disease Onset Date: 03/15/17 Current Visit: No Status: Chronic Qualifiers: Coronary Disease-Associated Artery/Lesion type: [place] artery [place] vs. transplanted heart: [place] heart Associated angina: without angina Qualified Code(s): I25.10 - Atherosclerotic heart disease of [place] coronary artery without angina pectoris (9) Diabetes type 2, controlled Onset Date: 09/22/16 Current Visit: No Status: Chronic Qualifiers: Diabetes mellitus technician terminal and repeater insulin use: with long-term use Diabetes mellitus complication status: without complication Qualified Code(s): E11.9 - Type 2 diabetes mellitus without complications; Z79.4 - emt intermediate (current) use of insulin (10) History of CVA (cerebrovascular accident) Current Visit: No Status: Chronic (11) Hyperlipidemia Onset Date: 04/28/17 Current Visit: No Status: Chronic Qualifiers: Hyperlipidemia type: unspecified Qualified Code(s): E78.5 - Hyperlipidemia , unspecified (12) Hypertension Onset Date: 03/15/17 Current Visit: No Status: Chronic Qualifiers: Hypertension type: essential hypertension Qualified Code(s): I10 - Essential (primary) hypertension (13) GERD (gastroesophageal reflux disease) Current Visit: No Status: Suspected Qualifiers: Esophagitis presence: esophagitis presence not specified Qualified Code(s) : K21.9 - Gastro-esophageal reflux disease without esophagitis - Plan Patient is currently awaiting placement at this time. Clinicals have been sent to the intermediate for long-term facility. Will await approval from the insurance and the facility itself. Discharge Plan: Long Term Plan to discharge in: 48 Hours - Code Status/Comfort Care Code Status Assessed: Yes Critical Care: No
[2018-09-25] MEDS: VANCOMYCIN 1.5 GM in NA CHLORIDE 0.9% 500 ML IVPB SCH (18:01)
[2018-09-25] MEDS: GABAPENTIN 100 MG CAP PO SCH (21:42)
[2018-09-25] MEDS: ATORVASTATIN 80 MG TAB PO SCH (21:42)
[2018-09-25] MEDS: TAMSULOSIN 0.4 MG SR CAP PO SCH (21:42)
[2018-09-26] MEDS: METOPROLOL TAR 25 MG TAB PO SCH (06:00)
[2018-09-26] MEDS: INSULIN -REGULAR HUMAN 50 UNIT/0.5 ML ML SQ SCH ×4 (07:30→21:00)
[2018-09-26] MEDS: PANTOPRAZOLE 40MG TABLET PO SCH ×2 (07:41→17:38)
[2018-09-26] MEDS: FERROUS SULFATE 325 MG TAB PO SCH ×2 (09:59→21:00)
[2018-09-26] MEDS: FOLIC ACID 1 MG TABLET PO SCH (09:59)
[2018-09-26] MEDS: LOSARTAN POTASSIUM 50 MG TABLET PO SCH (09:59)
[2018-09-26] MEDS: CYANOCOBALAMIN 1,000 MCG TAB PO SCH (09:59)
[2018-09-26] MEDS: GUAIFENESIN 600 MG SA TAB PO SCH ×2 (09:59→21:00)
[2018-09-26] MEDS: FUROSEMIDE 40 MG TABLET PO SCH ×2 (09:59→17:37)
[2018-09-26] MEDS: AMLODIPINE 10 MG TAB PO SCH (10:00)
[2018-09-26] MEDS: SODIUM CHLORIDE 0.9% 10ML INJ IV SCH ×2 (10:00→21:00)
[2018-09-26] MEDS: ARFORMOTEROL TARTRATE 15 MCG/2 ML VIAL.NEB NEB SCH ×2 (14:04→20:30)
--- NOTE | 2018-09-26 14:53 | P.PN ---
Subjective Date of Service: 09/26/18 Primary Care Provider: [facility] Chief Complaint: Hemoptysis Patient seen and examined at bedside. Chart reviewed. Case discussed with pulmonology. Patient currently without acute distress. Agreeable to shelter facility. [facility] was faxed clinicals have been sent. Hemoptysis has improved.. No other complaints to offer at this time. Review of Systems 10-point ROS is otherwise unremarkable Physical Examination - Vital Signs Temperature: 98.5 F Blood Pressure: 139/68 Pulse: 73 Respirations: 20 Pulse Ox (%): 97 - Physical Exam General: Alert, In no apparent distress HEENT: Atraumatic, PERRLA, EOMI Neck: Supple, JVD not distended Respiratory: Clear to auscultation bilaterally, Normal air movement Cardiovascular: Regular rate/rhythm, Normal S1 S2 Gastrointestinal: Normal bowel sounds, No tenderness Musculoskeletal: No tenderness Integumentary: No rashes Neurological: Normal speech, Normal tone, Normal affect Lymphatics: No axilla or inguinal lymphadenopathy - Studies Medications List Reviewed: Yes Assessment And Plan - Current Problems (Diagnosis) (1) Anemia Onset Date: 03/15/17 Current Visit: No Status: Chronic Plan: Anemia of chronic disease versus acute blood loss anemia. -patient with history of GI bleeding recently had general surgery operated on his colon per patient -records have been requested from [place] -stool occult negative at this time -hemoglobin stable after transfusion -GI is unavailable at this time. RBC scan negative for any acute bleeding Qualifiers: Anemia type: other cause Other causes of anemia: acute posthemorrhagic Qualified Code(s): D62 - Acute posthemorrhagic anemia (2) Acute respiratory distress Current Visit: Yes Status: Acute Plan: Acute respiratory distress most likely secondary to COPD exacerbation secondary to pneumonia -pulmonology consulted. Appreciated recommendations at this time -duo nebs, steroids, oxygen at this time -sputum culture positive for MRSA -patient started on IV vancomycin 03/03 -case management consulted for placement at this time. (3) Pneumonia Current Visit: Yes Status: Acute Plan: Pneumonia secondary to MRSA -on IV vancomycin 03/03 Qualifiers: Pneumonia type: due to methicillin-resistant Staphylococcus aureus (MRSA) (4) Hemoptysis Current Visit: Yes Status: Acute Plan: Hemoptysis noted this morning most likely secondary to pneumonia versus chronic cough. Improved today -will continue to monitor closely. H&H trending down today -pulmonology notified. Recommendations appreciated at this time (5) COPD (chronic obstructive pulmonary disease) Onset Date: 04/28/17 Current Visit: No Status: Chronic Plan: Acute worsening of chronic COPD most likely secondary to pneumonia -Duonebs, steroids, oxygen at this time Qualifiers: COPD type: chronic bronchitis Chronic bronchitis type: unspecified Qualified Code(s): J42 - Unspecified chronic bronchitis (6) CHF (congestive heart failure) Onset Date: 01/10/18 Current Visit: No Status: Chronic Plan: Acute on chronic diastolic dysfunction. Now improved -cardiology consulted. Appreciated recommendations at this time -Continue with IV Lasix. Qualifiers: Heart failure type: diastolic Heart failure chronicity: acute on chronic Qualified Code(s): I50.33 - Acute on chronic diastolic (congestive) heart failure (7) Atrial fibrillation Onset Date: 03/15/17 Current Visit: No Status: Chronic Plan: On metoprolol for rate control. No anticoagulation due to high risk for fall and GI bleed Qualifiers: Atrial fibrillation type: persistent Qualified Code(s): I48.1 - Persistent atrial fibrillation (8) Coronary artery disease Onset Date: 03/15/17 Current Visit: No Status: Chronic Qualifiers: Coronary Disease-Associated Artery/Lesion type: [place] artery [place] vs. transplanted heart: [place] heart Associated angina: without angina Qualified Code(s): I25.10 - Atherosclerotic heart disease of [place] coronary artery without angina pectoris (9) Diabetes type 2, controlled Onset Date: 09/22/16 Current Visit: No Status: Chronic Qualifiers: Diabetes mellitus intermodal dispatcher insulin use: with [facility] use Diabetes mellitus complication status: without complication Qualified Code(s): E11.9 - Type 2 diabetes mellitus without complications; Z79.4 - intermodal dispatcher (current) use of insulin (10) History of CVA (cerebrovascular accident) Current Visit: No Status: Chronic (11) Hyperlipidemia Onset Date: 04/28/17 Current Visit: No Status: Chronic Qualifiers: Hyperlipidemia type: unspecified Qualified Code(s): E78.5 - Hyperlipidemia , unspecified (12) Hypertension Onset Date: 03/15/17 Current Visit: No Status: Chronic Qualifiers: Hypertension type: essential hypertension Qualified Code(s): I10 - Essential (primary) hypertension (13) GERD (gastroesophageal reflux disease) Current Visit: No Status: Suspected Qualifiers: Esophagitis presence: esophagitis presence not specified Qualified Code(s) : K21.9 - Gastro-esophageal reflux disease without esophagitis - Plan Patient is currently awaiting placement at this time. Clinicals have been sent to the long term for shelter facility. Will await approval from the insurance and the facility itself.
[2018-09-26] MEDS: VANCOMYCIN 1.5 GM in NA CHLORIDE 0.9% 500 ML IVPB SCH (18:47)
[2018-09-26] MEDS: ATORVASTATIN 80 MG TAB PO SCH (21:00)
[2018-09-26] MEDS: TAMSULOSIN 0.4 MG SR CAP PO SCH (21:00)
[2018-09-26] MEDS: GABAPENTIN 100 MG CAP PO SCH (21:00)
[2018-09-27 05:10] LABS: Magnesium 1.8 mg/dL (1.8-2.4); Potassium 3.8 mmol/L (3.5-5.1)
[2018-09-27] MEDS: METOPROLOL TAR 25 MG TAB PO SCH (05:28)
[2018-09-27] MEDS: INSULIN -REGULAR HUMAN 50 UNIT/0.5 ML ML SQ SCH ×4 (07:30→20:28)
[2018-09-27] MEDS: ARFORMOTEROL TARTRATE 15 MCG/2 ML VIAL.NEB NEB SCH ×2 (07:45→20:05)
[2018-09-27] MEDS ORDERED: MAGNESIUM SULFATE 1 gm IVPB 1 GM/100 ML BAG IV ONE (07:46)
[2018-09-27] MEDS ORDERED: POTASSIUM CL SA 10 MEQ TAB PO ONE (08:02)
[2018-09-27 08:55] LABS: Magnesium 1.8 mg/dL (1.8-2.4); Potassium 4.1 mmol/L (3.5-5.1)
[2018-09-27] MEDS: SODIUM CHLORIDE 0.9% 10ML INJ IV SCH ×2 (09:00→20:32)
[2018-09-27] MEDS: GUAIFENESIN 600 MG SA TAB PO SCH ×2 (10:04→20:28)
[2018-09-27] MEDS: PANTOPRAZOLE 40MG TABLET PO SCH ×2 (10:04→17:28)
[2018-09-27] MEDS: FOLIC ACID 1 MG TABLET PO SCH (10:04)
[2018-09-27] MEDS: LOSARTAN POTASSIUM 50 MG TABLET PO SCH (10:05)
[2018-09-27] MEDS: FUROSEMIDE 40 MG TABLET PO SCH ×2 (10:05→17:28)
[2018-09-27] MEDS: FERROUS SULFATE 325 MG TAB PO SCH ×2 (10:05→20:28)
[2018-09-27] MEDS: CYANOCOBALAMIN 1,000 MCG TAB PO SCH (10:05)
[2018-09-27] MEDS: AMLODIPINE 10 MG TAB PO SCH (10:06)
--- NOTE | 2018-09-27 14:35 | P.PN ---
Subjective Date of Service: 09/27/18 Primary Care Provider: [facility] Chief Complaint: Hemoptysis Patient seen and examined at bedside. Chart reviewed. Case discussed with pulmonology. Patient currently without acute distress. Agreeable to [facility] facility. [facility] denied the patient and new clinicals were sent over to [facility]. A marked this is has been improving this morning. Review of Systems 10-point ROS is otherwise unremarkable Physical Examination - Vital Signs Temperature: 98.6 F Blood Pressure: 133/60 Pulse: 63 Respirations: 16 Pulse Ox (%): 96 - Physical Exam General: Alert, In no apparent distress, Cachectic, Other HEENT: Atraumatic, PERRLA, EOMI Neck: Supple, JVD not distended Respiratory: Normal air movement, Expiratory wheezes, Inspiratory wheezes Cardiovascular: Regular rate/rhythm, Normal S1 S2 Gastrointestinal: Normal bowel sounds, No tenderness Musculoskeletal: No tenderness Integumentary: No rashes Neurological: Normal speech, Normal tone, Normal affect Lymphatics: No axilla or inguinal lymphadenopathy - Studies Medications List Reviewed: Yes Assessment And Plan - Current Problems (Diagnosis) (1) Anemia Onset Date: 03/15/17 Current Visit: No Status: Chronic Plan: Anemia of chronic disease versus acute blood loss anemia. -patient with history of GI bleeding recently had general surgery operated on his colon per patient -records have been requested from [place] -stool occult negative at this time -hemoglobin stable after transfusion -GI is unavailable at this time. RBC scan negative for any acute bleeding Qualifiers: Anemia type: other cause Other causes of anemia: acute posthemorrhagic Qualified Code(s): D62 - Acute posthemorrhagic anemia (2) Acute respiratory distress Current Visit: Yes Status: Acute Plan: Acute respiratory distress most likely secondary to COPD exacerbation secondary to pneumonia -pulmonology consulted. Appreciated recommendations at this time -duo nebs, steroids, oxygen at this time -sputum culture positive for MRSA -patient started on IV vancomycin 04/02 -case management consulted for placement at this time. (3) Pneumonia Current Visit: Yes Status: Acute Plan: Pneumonia secondary to MRSA -on IV vancomycin 04/02 Qualifiers: Pneumonia type: due to methicillin-resistant Staphylococcus aureus (MRSA) (4) Hemoptysis Current Visit: Yes Status: Acute Plan: Hemoptysis noted this morning most likely secondary to pneumonia versus chronic cough. Improved today -will continue to monitor closely. H&H steadily trending down. -pulmonology notified. Recommendations appreciated at this time (5) COPD (chronic obstructive pulmonary disease) Onset Date: 04/28/17 Current Visit: No Status: Chronic Plan: Acute worsening of chronic COPD most likely secondary to pneumonia -Duonebs, steroids, oxygen at this time Qualifiers: COPD type: chronic bronchitis Chronic bronchitis type: unspecified Qualified Code(s): J42 - Unspecified chronic bronchitis (6) CHF (congestive heart failure) Onset Date: 01/10/18 Current Visit: No Status: Chronic Plan: Acute on chronic diastolic dysfunction. Now improved -cardiology consulted. Appreciated recommendations at this time -Continue with IV Lasix. Qualifiers: Heart failure type: diastolic Heart failure chronicity: acute on chronic Qualified Code(s): I50.33 - Acute on chronic diastolic (congestive) heart failure (7) Atrial fibrillation Onset Date: 03/15/17 Current Visit: No Status: Chronic Plan: On metoprolol for rate control. No anticoagulation due to high risk for fall and GI bleed Qualifiers: Atrial fibrillation type: persistent Qualified Code(s): I48.1 - Persistent atrial fibrillation (8) Coronary artery disease Onset Date: 03/15/17 Current Visit: No Status: Chronic Qualifiers: Coronary Disease-Associated Artery/Lesion type: [place] artery [place] vs. 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 insulin use: with detention use Diabetes mellitus complication status: without complication Qualified Code(s): E11.9 - Type 2 diabetes mellitus without complications; Z79.4 - terminal worker (current) use of insulin (10) History of CVA (cerebrovascular accident) Current Visit: No Status: Chronic (11) Hyperlipidemia Onset Date: 04/28/17 Current Visit: No Status: Chronic Qualifiers: Hyperlipidemia type: unspecified Qualified Code(s): E78.5 - Hyperlipidemia , unspecified (12) Hypertension Onset Date: 03/15/17 Current Visit: No Status: Chronic Qualifiers: Hypertension type: essential hypertension Qualified Code(s): I10 - Essential (primary) hypertension (13) GERD (gastroesophageal reflux disease) Current Visit: No Status: Suspected Qualifiers: Esophagitis presence: esophagitis presence not specified Qualified Code(s) : K21.9 - Gastro-esophageal reflux disease without esophagitis - Plan Patient is currently awaiting placement at this time. Clinicals have been sent to the [facility] for [facility] facility. Has been denied [facility]. New clinical sent to [facility]. Will await approval from the insurance and the facility itself. Discharge Plan: Home Plan to discharge in: 24 Hours - Code Status/Comfort Care Code Status Assessed: Yes Critical Care: No
[2018-09-27] MEDS: VANCOMYCIN 1.5 GM in NA CHLORIDE 0.9% 500 ML IVPB SCH (17:29)
[2018-09-27] MEDS: ACETAMINOPHEN 500 MG TAB PO PRN (18:23)
[2018-09-27] MEDS: ATORVASTATIN 80 MG TAB PO SCH (20:28)
[2018-09-27] MEDS: GABAPENTIN 100 MG CAP PO SCH (20:28)
[2018-09-27] MEDS: TAMSULOSIN 0.4 MG SR CAP PO SCH (20:29)
[2018-09-27] MEDS: MELATONIN 3 MG TABLET PO PRN (23:06)
--- NOTE | 2018-09-27 23:30 | P.PN ---
Date of Service: 09/26/18 Vital Signs Temp Pulse Resp BP Pulse Ox 98.8 F 80 18 142/61 H 95 09/27/18 20:00 09/27/18 20:00 09/27/18 20:00 09/27/18 20:00 09/27/18 20:00 Medications Acetaminophen (Tylenol -Extra Strength) 500 mg PO Q4HP PRN PRN Reason: [id number] Stop: 10/18/18 17:00 Last Admin: 09/27/18 18:23 Dose: 500 mg Albuterol Sulfate (Proventil 0.083% Neb Soln) 2.5 mg NEB [id number] PRN PRN Reason: SHORTNESS OF BREATH Stop: 10/18/18 17:00 Amlodipine Besylate (Norvasc) 10 mg PO DAILY EZEKIEL Stop: 10/19/18 09:01 Last Admin: 09/27/18 10:06 Dose: 10 mg Arformoterol Tartrate (Brovana) 15 mcg NEB BIDRESP EZEKIEL Stop: 10/18/18 20:01 Last Admin: 09/27/18 20:05 Dose: 15 mcg Atorvastatin Calcium (Lipitor) 80 mg PO BEDTIME EZEKIEL Stop: 10/18/18 21:01 Last Admin: 09/27/18 20:28 Dose: 80 mg Benzonatate (Tessalon Perle) 100 mg PO TID PRN PRN Reason: COUGH Stop: 10/18/18 17:00 Last Admin: 09/21/18 10:05 Dose: 100 mg Cyanocobalamin (Vitamin B-12) 1,000 mcg PO DAILY EZEKIEL Stop: 10/20/18 09:01 Last Admin: 09/27/18 10:05 Dose: 1,000 mcg Ferrous Sulfate (Feosol) 325 mg PO BID EZEKIEL Stop: 10/18/18 21:01 Last Admin: 09/27/18 20:28 Dose: 325 mg Folic Acid (Folic Acid) 1 mg PO DAILY EZEKIEL Stop: 10/20/18 09:01 Last Admin: 09/27/18 10:04 Dose: 1 mg Furosemide (Lasix) 40 mg PO BIDL EZEKIEL Stop: 10/23/18 17:01 Last Admin: 09/27/18 17:28 Dose: 40 mg Gabapentin (Neurontin) 200 mg PO BEDTIME EZEKIEL Stop: 10/18/18 21:01 Last Admin: 09/27/18 20:28 Dose: 200 mg Guaifenesin (Mucinex 600mg) 600 mg PO BID COUNT INCLUDES THE [facility] Stop: 10/18/18 21:01 Last Admin: 09/27/18 20:28 Dose: 600 mg Vancomycin HCl 1.5 gm/ Sodium (Chloride) 500 mls @ 250 mls/hr IVPB Q24H COUNT INCLUDES THE [facility]; Protocol Stop: 10/24/18 18:01 Last Admin: 09/27/18 17:29 Dose: 500 mls Insulin Human Regular (Novolin -R) 0 unit SQ ACHS COUNT INCLUDES THE [facility]; Protocol Stop: 10/18/18 17:00 Last Admin: 09/27/18 20:28 Dose: 4 unit Ipratropium [place] (Atrovent Neb) 0.5 mg NEB [id number] PRN PRN Reason: SHORTNESS OF BREATH Stop: 10/18/18 17:00 Last Admin: 09/24/18 21:15 Dose: 0.5 mg Lidocaine HCl (Xylocaine 1% Inj, Mpf 5 Ml) 0 ml IM PRN PRN PRN Reason: FOR PICC LINE INSERTION Stop: 09/28/18 09:01 Losartan Potassium (Cozaar) 100 mg PO DAILY COUNT INCLUDES THE [facility] Stop: 10/19/18 09:01 Last Admin: 09/27/18 10:05 Dose: 100 mg Melatonin (Melatonin) 3 mg PO BEDTIME PRN PRN PRN Reason: INSOMNIA Stop: 10/18/18 22:57 Last Admin: 09/27/18 23:06 Dose: 3 mg Metoprolol Tartrate (Lopressor) 25 mg PO [id number] COUNT INCLUDES THE [facility] Stop: 10/19/18 06:01 Last Admin: 09/27/18 05:28 Dose: 25 mg Ondansetron HCl (Zofran) 4 mg IV Q6HP PRN PRN Reason: NAUSEA / VOMITING Stop: 10/18/18 17:00 Last Admin: 09/20/18 12:45 Dose: 4 mg Pantoprazole Sodium (Protonix Tab) 40 mg PO BIDAC COUNT INCLUDES THE [facility] Stop: 10/19/18 10:46 Last Admin: 09/27/18 17:28 Dose: 40 mg Sodium Chloride (Normal Saline Flush) 10 ml IV BID EZEKIEL Stop: 10/18/18 21:01 Last Admin: 09/27/18 20:29 Dose: 10 ml Sodium Chloride (Sodium Chloride 10 Ml Inj) 10 ml IV BID EZEKIEL Stop: 10/24/18 09:01 Last Admin: 09/27/18 20:32 Dose: Not Given Tamsulosin HCl (Flomax) 0.4 mg PO BEDTIME EZEKIEL Stop: 10/19/18 21:01 Last Admin: 09/27/18 20:29 Dose: 0.4 mg Microbiology Results 09/18/18 16:00 Blood - Blood Aerobic Blood Culture - Final No growth in 5 days. 09/18/18 16:00 Blood - Blood Anaerobic Blood Culture - Final No growth in 5 days. 09/18/18 16:00 Blood - Blood Aerobic Blood Culture - Final No growth in 5 days. 09/18/18 16:00 Blood - Blood Anaerobic Blood Culture - Final No growth in 5 days. Assessment/ Plan: Nephrology CPS stable without CP or SOB. No pain. Good urine output. No acute events overnight. Vitals, medications, blood work and imaging reviewed in the chart. NAD. MMM. Neck supple. CTA. RRR. Soft Abd. No C/C/E. No rash. AAO. Normal Speech. A/ RAN/ CKD III. Proteinuria. 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 Iron Deficiency Anemia. Hypercalcemia. PNA. P/ Continue current POC and Medications other than the changes listed below. AM labs. Daily weight. No NSAIDs. Transfuse PRBC as needed. Check PTH level. Agree with abx.
--- NOTE | 2018-09-27 23:31 | P.PN ---
Date of Service: 09/27/18 Vital Signs Temp Pulse Resp BP Pulse Ox 98.8 F 80 18 142/61 H 95 09/27/18 20:00 09/27/18 20:00 09/27/18 20:00 09/27/18 20:00 09/27/18 20:00 Medications Acetaminophen (Tylenol -Extra Strength) 500 mg PO Q4HP PRN PRN Reason: [id number] Stop: 10/18/18 17:00 Last Admin: 09/27/18 18:23 Dose: 500 mg Albuterol Sulfate (Proventil 0.083% Neb Soln) 2.5 mg NEB [id number] PRN PRN Reason: SHORTNESS OF BREATH Stop: 10/18/18 17:00 Amlodipine Besylate (Norvasc) 10 mg PO DAILY EZEKIEL Stop: 10/19/18 09:01 Last Admin: 09/27/18 10:06 Dose: 10 mg Arformoterol Tartrate (Brovana) 15 mcg NEB BIDRESP EZEKIEL Stop: 10/18/18 20:01 Last Admin: 09/27/18 20:05 Dose: 15 mcg Atorvastatin Calcium (Lipitor) 80 mg PO BEDTIME EZEKIEL Stop: 10/18/18 21:01 Last Admin: 09/27/18 20:28 Dose: 80 mg Benzonatate (Tessalon Perle) 100 mg PO TID PRN PRN Reason: COUGH Stop: 10/18/18 17:00 Last Admin: 09/21/18 10:05 Dose: 100 mg Cyanocobalamin (Vitamin B-12) 1,000 mcg PO DAILY EZEKIEL Stop: 10/20/18 09:01 Last Admin: 09/27/18 10:05 Dose: 1,000 mcg Ferrous Sulfate (Feosol) 325 mg PO BID EZEKIEL Stop: 10/18/18 21:01 Last Admin: 09/27/18 20:28 Dose: 325 mg Folic Acid (Folic Acid) 1 mg PO DAILY EZEKIEL Stop: 10/20/18 09:01 Last Admin: 09/27/18 10:04 Dose: 1 mg Furosemide (Lasix) 40 mg PO BIDL EZEKIEL Stop: 10/23/18 17:01 Last Admin: 09/27/18 17:28 Dose: 40 mg Gabapentin (Neurontin) 200 mg PO BEDTIME EZEKIEL Stop: 10/18/18 21:01 Last Admin: 09/27/18 20:28 Dose: 200 mg Guaifenesin (Mucinex 600mg) 600 mg PO BID [facility] Stop: 10/18/18 21:01 Last Admin: 09/27/18 20:28 Dose: 600 mg Vancomycin HCl 1.5 gm/ Sodium (Chloride) 500 mls @ 250 mls/hr IVPB Q24H [facility]; Protocol Stop: 10/24/18 18:01 Last Admin: 09/27/18 17:29 Dose: 500 mls Insulin Human Regular (Novolin -R) 0 unit SQ ACHS [facility]; Protocol Stop: 10/18/18 17:00 Last Admin: 09/27/18 20:28 Dose: 4 unit Ipratropium [place] (Atrovent Neb) 0.5 mg NEB [id number] PRN PRN Reason: SHORTNESS OF BREATH Stop: 10/18/18 17:00 Last Admin: 09/24/18 21:15 Dose: 0.5 mg Lidocaine HCl (Xylocaine 1% Inj, Mpf 5 Ml) 0 ml IM PRN PRN PRN Reason: FOR PICC LINE INSERTION Stop: 09/28/18 09:01 Losartan Potassium (Cozaar) 100 mg PO DAILY [facility] Stop: 10/19/18 09:01 Last Admin: 09/27/18 10:05 Dose: 100 mg Melatonin (Melatonin) 3 mg PO BEDTIME PRN PRN PRN Reason: INSOMNIA Stop: 10/18/18 22:57 Last Admin: 09/27/18 23:06 Dose: 3 mg Metoprolol Tartrate (Lopressor) 25 mg PO [id number] [facility] Stop: 10/19/18 06:01 Last Admin: 09/27/18 05:28 Dose: 25 mg Ondansetron HCl (Zofran) 4 mg IV Q6HP PRN PRN Reason: NAUSEA / VOMITING Stop: 10/18/18 17:00 Last Admin: 09/20/18 12:45 Dose: 4 mg Pantoprazole Sodium (Protonix Tab) 40 mg PO BIDAC [facility] Stop: 10/19/18 10:46 Last Admin: 09/27/18 17:28 Dose: 40 mg Sodium Chloride (Normal Saline Flush) 10 ml IV BID EZEKIEL Stop: 10/18/18 21:01 Last Admin: 09/27/18 20:29 Dose: 10 ml Sodium Chloride (Sodium Chloride 10 Ml Inj) 10 ml IV BID EZEKIEL Stop: 10/24/18 09:01 Last Admin: 09/27/18 20:32 Dose: Not Given Tamsulosin HCl (Flomax) 0.4 mg PO BEDTIME EZEKIEL Stop: 10/19/18 21:01 Last Admin: 09/27/18 20:29 Dose: 0.4 mg Microbiology Results 09/18/18 16:00 Blood - Blood Aerobic Blood Culture - Final No growth in 5 days. 09/18/18 16:00 Blood - Blood Anaerobic Blood Culture - Final No growth in 5 days. 09/18/18 16:00 Blood - Blood Aerobic Blood Culture - Final No growth in 5 days. 09/18/18 16:00 Blood - Blood Anaerobic Blood Culture - Final No growth in 5 days. Assessment/ Plan: Nephrology CPS stable without CP or SOB. No pain. Good urine output. Feeling better today. No acute events overnight. Wants to take a shower. Vitals, medications, blood work and imaging reviewed in the chart. NAD. MMM. Neck supple. CTA. RRR. Soft Abd. No C/C/E. No rash. AAO. Normal Speech. A/ RAN/ CKD III. Proteinuria. 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 Iron Deficiency Anemia. Hypercalcemia. PNA. P/ Continue current POC and Medications other than the changes listed below. AM labs. Daily weight. No NSAIDs. Transfuse PRBC as needed. Agree with abx. Maintain nutrition. PT as tolerated.
[2018-09-28 04:24] LABS: Urine Appearance CLEAR; Urine Bilirubin NEGATIVE (NEG); Urine Blood NEGATIVE (NEG); Urine Color YELLOW; Urine Glucose NEGATIVE (NEG); Urine Protein NEGATIVE (NEG); Urine pH 5.5 (5.0-7.0)
[2018-09-28 04:43] LABS: UR MICROALBUMIN 1.3 mg/dL (< 1.9)
[2018-09-28 05:23] LABS: Urine Bacteria <20 /HPF (NONE SEEN); Urine Culture Reflex Order NOT NEEDED; Urine RBC <5 /HPF (NONE SEEN)
[2018-09-28] MEDS: METOPROLOL TAR 25 MG TAB PO SCH (06:00)
[2018-09-28 06:39] LABS: Albumin 2.6 g/dL (3.4-5.0); Bilirubin Total 0.6 mg/dL (0.2-1.0); Magnesium 1.9 mg/dL (1.8-2.4); Phosphorus 2.2 mg/dL (2.5-4.9); Potassium 3.7 mmol/L (3.5-5.1); Protein, Total 6.5 g/dL (6.4-8.2); Uric Acid 6.5 mg/dL (3.5-7.2)
[2018-09-28 07:06] LABS: Absolute Lymphocytes (CBC) 0.7 K/uL (0.7-4.9); Absolute Monocytes 0.5 K/uL (0.1-1.3); Absolute Neutrophil 3.4 K/uL (1.8-8.0); Basophils % 0.9 % (0-1.3); Eosinophils % 3.6 % (0-4.4); Hematocrit 26.6 % (39.6-49.0); Lymphocytes % 14.9 % (15.3-44.8); MPV 11.2 fL (7.6-11.3); Monocytes % 9.7 % (3.3-12.3); RBC Red Blood Cell Count 3.08 M/uL (4.33-5.43)
[2018-09-28] MEDS: INSULIN -REGULAR HUMAN 50 UNIT/0.5 ML ML SQ SCH ×4 (07:30→21:12)
[2018-09-28] MEDS ORDERED: POTASSIUM CL SA 10 MEQ TAB PO ONE (08:02)
[2018-09-28] MEDS: ARFORMOTEROL TARTRATE 15 MCG/2 ML VIAL.NEB NEB SCH ×2 (08:24→19:52)
[2018-09-28] MEDS: SODIUM CHLORIDE 0.9% 10ML INJ IV SCH ×2 (09:00→21:00)
[2018-09-28] MEDS: FOLIC ACID 1 MG TABLET PO SCH (10:19)
[2018-09-28] MEDS: CYANOCOBALAMIN 1,000 MCG TAB PO SCH (10:19)
[2018-09-28] MEDS: FERROUS SULFATE 325 MG TAB PO SCH ×2 (10:19→21:11)
[2018-09-28] MEDS: GUAIFENESIN 600 MG SA TAB PO SCH ×2 (10:19→21:11)
[2018-09-28] MEDS: AMLODIPINE 10 MG TAB PO SCH (10:20)
[2018-09-28] MEDS: LOSARTAN POTASSIUM 50 MG TABLET PO SCH (10:20)
[2018-09-28] MEDS: PANTOPRAZOLE 40MG TABLET PO SCH ×2 (10:20→17:03)
[2018-09-28] MEDS: FUROSEMIDE 40 MG TABLET PO SCH ×2 (10:20→17:03)
--- NOTE | 2018-09-28 15:08 | P.PN ---
Subjective Date of Service: 09/28/18 Primary Care Provider: [facility] Chief Complaint: Hemoptysis Subjective: Doing well Physical Examination - Vital Signs Temperature: 98.0 F Blood Pressure: 150/60 Pulse: 70 Respirations: 18 Pulse Ox (%): 96 - Physical Exam General: Alert, In no apparent distress, Oriented x3, Cooperative HEENT: Atraumatic Neck: Supple Respiratory: Expiratory wheezes, Inspiratory wheezes Cardiovascular: Normal pulses, Regular rate/rhythm Gastrointestinal: Normal bowel sounds, Soft and benign, Non-distended, No tenderness, No masses, No rebound, No guarding Musculoskeletal: No erythema, No tenderness, No warmth Integumentary: No erythema, No warmth, No cyanosis - Studies Medications List Reviewed: Yes Assessment & Plan Discharge Plan: Intermediate Plan to discharge in: 24 Hours Physician Review Additional Text: Impression: Shortness of breath secondary to acute on chronic diastolic CHF with pulmonary hypertension and COPD exacerbation with sputum positive for methicillin- resistant Staph aureus on IV vancomycin day 05/03 Acute on chronic renal disease stage III CAD Paroxysmally atrial fibrillation not on chronic anti coagulation therapy Hypertension Diabetes mellitus type 2, [id number] Chronic iron deficiency anemia GERD Hyperlipidemia Recent history of GI bleed Plan: Shortness of breath secondary to acute on chronic diastolic CHF with pulmonary hypertension and COPD exacerbation with sputum positive for methicillin- resistant Staph aureus on IV vancomycin day 05/03: Patient continues to improve. Continue with IV vancomycin. Awaiting skilled placement. Pharmacy to monitor and adjust medication. Acute on chronic renal disease stage III: Will continue to monitor closely. Patient on diuretic therapy. Renal ultrasound shows chronic renal disease. CAD: Will continue with DVT prophylaxis but will need to consider discontinuing if still with anemia. Paroxysmally atrial fibrillation not on chronic anti coagulation therapy: Patient taking metoprolol for rate control. Patient not on chronic anticoagulation therapy likely related to high risk for fall and bleeding. Stable this time. Hypertension: Will continue with his medications of Norvasc 10 mg daily, losartan 100 mg daily, and metoprolol 25 mg daily. Will monitor and adjust appropriately. Diabetes mellitus type 2, [id number]: Will continue with sliding scale. Will check A1c. Acute on Chronic iron and B12 deficiency anemia: Will monitor hemoglobin closely. No bleeding noted. Will continue with iron and B12 supplementation. Will maintain hemoglobin above 8.0. Bleeding scan negative. GERD: Will provide medication. Will monitor closely. Hyperlipidemia: Continue with medication-Lipitor 80 mg daily Recent history of GI bleed: Will continue monitor closely. Patient did receive transfusion. Overall stable. Continue to monitor closely. Continue as above. Time Spent Managing Pts Care (In Minutes): 55
[2018-09-28] MEDS: VANCOMYCIN 1.5 GM in NA CHLORIDE 0.9% 500 ML IVPB SCH ×2 (17:03→18:00)
[2018-09-28] MEDS: TAMSULOSIN 0.4 MG SR CAP PO SCH (21:11)
[2018-09-28] MEDS: GABAPENTIN 100 MG CAP PO SCH (21:11)
[2018-09-28] MEDS: ATORVASTATIN 80 MG TAB PO SCH (21:11)
[2018-09-28] MEDS: MELATONIN 3 MG TABLET PO PRN (21:12)
[2018-09-29 05:12] VITALS: BMI 24.3
[2018-09-29 05:31] LABS: Absolute Lymphocytes (CBC) 0.8 K/uL (0.7-4.9); Absolute Monocytes 0.5 K/uL (0.1-1.3); Basophils % 0.8 % (0-1.3); Eosinophils % 2.2 % (0-4.4); Hematocrit 25.9 % (39.6-49.0); Lymphocytes % 14.3 % (15.3-44.8); MPV 10.5 fL (7.6-11.3); Monocytes % 8.9 % (3.3-12.3); RBC Red Blood Cell Count 2.99 M/uL (4.33-5.43)
[2018-09-29 05:44] LABS: Albumin 2.4 g/dL (3.4-5.0); Bilirubin Total 0.4 mg/dL (0.2-1.0); Potassium 3.9 mmol/L (3.5-5.1); Protein, Total 6.3 g/dL (6.4-8.2)
[2018-09-29] MEDS: METOPROLOL TAR 25 MG TAB PO SCH (05:56)
[2018-09-29] MEDS ORDERED: POTASSIUM CL SA 10 MEQ TAB PO ONE (07:00)
[2018-09-29] MEDS ORDERED: IPRATROPIUM BROM 0.5MG/2.5ML NEB PRN (07:21)
[2018-09-29] MEDS ORDERED: ALBUTEROL 2.5 MG/3 ML NEB SOL NEB PRN (07:22)
[2018-09-29] MEDS: ARFORMOTEROL TARTRATE 15 MCG/2 ML VIAL.NEB NEB SCH ×2 (07:24→21:30)
[2018-09-29] MEDS: INSULIN -REGULAR HUMAN 50 UNIT/0.5 ML ML SQ SCH ×4 (07:30→20:53)
[2018-09-29] MEDS: FERROUS SULFATE 325 MG TAB PO SCH ×2 (08:34→20:48)
[2018-09-29] MEDS: FOLIC ACID 1 MG TABLET PO SCH (08:34)
[2018-09-29] MEDS: FUROSEMIDE 40 MG TABLET PO SCH ×2 (08:34→17:00)
[2018-09-29] MEDS: PANTOPRAZOLE 40MG TABLET PO SCH ×2 (08:34→17:54)
[2018-09-29] MEDS: LOSARTAN POTASSIUM 50 MG TABLET PO SCH (08:35)
[2018-09-29] MEDS: AMLODIPINE 10 MG TAB PO SCH (08:35)
[2018-09-29] MEDS: CYANOCOBALAMIN 1,000 MCG TAB PO SCH (08:36)
[2018-09-29] MEDS: GUAIFENESIN 600 MG SA TAB PO SCH ×2 (08:36→20:49)
[2018-09-29] MEDS: SODIUM CHLORIDE 0.9% 10ML INJ IV SCH ×2 (08:38→20:50)
--- NOTE | 2018-09-29 09:29 | P.DS ---
Admission Date: 09/18/18 Discharge Date: 09/29/18 Primary Care Provider: [facility] Disposition: TRANSFER TO SNF - MEDICAL Discharge Condition: GOOD Reason for Admission: Hemoptysis Consultations: Pulmonary-Dr. Rossi Nephrology-Dr. Mai Cardiology-Dr. Vee/Dr. Jeffries Procedures: ECHO: Ejection fraction 61% LEFT VENTRICULAR WALL MOTION: NORMAL DOPPLER/COLOR FLOW: MILD MITRAL REGURGITATION AND TRICUSPID REGURGITATION. ESTIMATED RIGHT VENTRICULAR SYSTOLIC PRESSURE 40 mmHg. MILD PULMONARY HYPERTENSION. NO AORTIC STENOSIS OR AORTIC REGURGITATION. COMMENTS: NORMAL LEFT VENTRICULAR EJECTION FRACTION. DILATED LEFT ATRIUM. AORTIC SCLEROSIS WITH NO AORTIC STENOSIS OR AORTIC REGURGITATION. ATRIAL FIBRILLATION 80-85 BEATS PER MINUTE. Renal US: COMPARISON: No comparisons FINDINGS: Both kidneys are mildly echogenic. The right kidney measures 9.9 x 6.1 x 4.6 cm. No hydronephrosis, focal mass or perinephric fluid. 3.5 x 3.3 x 3.2 cm hypoechoic cyst is present. The left kidney measures 12.9 x 5.5 x 5.4 cm. No hydronephrosis, focal mass or perinephric fluid. The urinary bladder is incompletely distended without gross abnormality seen. IMPRESSION: Mildly echogenic kidneys suggests underlying medical renal disease. Benign 3.5 cm right renal cyst. GI Bleed scan: CLINICAL HISTORY: GI bleed TECHNIQUE: 1 24.8 millicuries technetium labeled red blood cells were administered intravenously. Images of the abdomen and pelvis were obtained for 90 minutes. FINDINGS: There is poor labeling as free pertechnetate is present within the stomach. Activity is seen within the duodenum and proximal jejunum likely from the stomach. Otherwise, no abnormal radiotracer activity is visualized within the bowel. IMPRESSION: No gross evidence of an active GI bleed Medical Problem List: Shortness of breath secondary to acute on chronic diastolic CHF with pulmonary hypertension, COPD exacerbation, bilateral pneumonia with chronic bilateral pleural effusions with sputum positive for methicillin-resistant Staph aureus on IV vancomycin day 06/03 Acute on chronic renal disease stage III CAD Paroxysmally atrial fibrillation not on chronic anti coagulation therapy Hypertension Diabetes mellitus type 2, [id number] Chronic iron and B12 deficiency anemia GERD Hyperlipidemia Recent history of GI bleed, no bleeding at this time status post transfusion BPH Brief History of Present Illness: 88-year-old male presented to the emergency room with increasing shortness of breath. Patient has reported increased shortness of breath over the past week. He denies any fever, chills. He does report increased sputum production and a cough. Patient has multiple medical problems including COPD with oxygen, former tobacco abuse, hypertension, CHF, paroxysmally atrial fibrillation, diabetes and diabetic neuropathy. Patient is seen at the [facility]. He was not able to get in to see his doctor on Wednesday. He came to the ER for further evaluation. In the ER patient evaluated peer blood pressure 146/76. Heart rate 80. Oxygen saturations were decreased. Lab white count 6.9, hemoglobin 7.6. Sodium within normal range. BUN of 13, creatinine 1.91 with a GFR 33. Glucose 134. Troponin unremarkable. Chest x-ray shows bilateral pneumonia. Patient was given COPD treatment in the emergency room. Antibiotics have been initiated. Patient will be admitted for further evaluation. In the ER patient appeared stable. Patient reports that he takes multiple medications for multiple illnesses. He reports a history of having pneumonia last year. Hospital Course: Patient presented with shortness of breath. Shortness of breath was complicated related to acute on chronic diastolic CHF with pulmonary hypertension, COPD exacerbation and bilateral pneumonia with chronic bilateral pleural effusions. Patient was also found to have sputum culture positive for methicillin-resistant Staph aureus. Patient seen and evaluated by Cardiology and pulmonology. Patient was treated during the course of his stay. Patient required IV antibiotic therapy. PICC line was placed. Patient continues with IV vancomycin. At discharge patient will continue with IV antibiotic treatment at skilled facility. At discharge he will continue with IV vancomycin. He is currently on day 06/03. Pharmacy to monitor and adjust. Vanc trough levels will need to be monitored along with BMP by pharmacy and nursing facility physician. Recheck chest x-ray in 1-2 weeks to monitor resolution. Patient may follow up with cardiology and pulmonology as an outpatient. For his COPD patient will continue with Brovana 1 unit dose twice daily and albuterol 1 unit dose 3 times a day as needed for shortness of breath. Patient will continue with oxygen to maintain sats above 90%. Patient may follow up with pulmonology in 1-2 weeks to follow up this hospitalization. Tessalon Perles 100 mg 1 pill 3 times a day as needed for cough will be provided. For his CHF patient will need to continue with a 1500 cc per day fluid restriction and low-salt diet. Adjustments in diuretic therapy were made. At discharge he will continue with Lasix 40 mg 1 pill twice daily. Patient is to monitor his weight daily. If his weight increases by more than 5 lb he is to contact his PCP or cardiology for further recommendation. Recommendation for the patient follow up with cardiology in 1-2 weeks to follow up this hospitalization. Patient has acute on chronic renal disease. Patient seen and evaluated by nephrology. Adjustments in medications were required. Recommendation is no further use of nonsteroidal anti-inflammatories. Future medications will need to be renally dosed. Recommend to recheck lab-BMP in 1 week to monitor his progress. Recommendation for the patient follow up with nephrology in 1-2 weeks to follow up this hospitalization. Patient has paroxysmal atrial fibrillation and CAD. Patient not on chronic anti coagulation therapy due to risk of fall and bleeding. Patient stable this time. Patient may continue with aspirin 81 mg daily. Patient on rate control [id number] 25 mg daily. Recommend for the patient follow up with cardiology in 1-2 weeks. Patient has hypertension. Medications were adjusted during his stay. A new medication losartan was added. At discharge she will continue with Norvasc 10 mg daily, Toprol-XL 25 mg daily, and losartan 100 mg daily. Recommendation is to maintain blood pressures less 150/80. Further adjustment can be done by his PCP or cardiology. Patient has diabetes type 2, [id number]. This remained stable. Patient will continue with glipizide 10 mg daily. Recommendation is to maintain blood sugars less 140 fasting and less than 200 after meals. Further adjustment can be done by his PCP. Patient has BPH. Patient will continue with Flomax 0.4 mg daily. Patient may follow up with urology as an outpatient to further monitor. Patient has chronic iron and B12 deficiency with GERD. Patient required transfusion of blood during his stay. Patient recently hospitalized at another facility for GI bleed. Guaiac stool negative. GI bleeding scan negative. Hemoglobin stable this time. At discharge patient will continue with iron 325 mg 1 pill twice daily, vitamin B12 1 pill daily, folic acid 1 mg once daily. Prilosec has been discontinued. Patient will continue with Protonix 40 mg 1 pill twice daily. Recommendation is for the patient follow up with GI as an outpatient to further monitor and address. Patient may require repeat EGD and colonoscopy in the future to further monitor and address. Recommend to recheck lab-CBC in 1-2 weeks to monitor his progress. Patient has diabetic neuropathy. Patient will continue with gabapentin 300 mg daily. Vital Signs/Physical Exam: Temp Pulse Resp BP Pulse Ox 99 F 62 19 129/60 93 09/29/18 04:00 09/29/18 08:35 09/29/18 04:00 09/29/18 08:35 09/29/18 04:00 General: Alert, In no apparent distress, Oriented x3, Cooperative HEENT: Atraumatic Neck: Supple Respiratory: Clear to auscultation bilaterally, Normal air movement Cardiovascular: Normal pulses, Regular rate/rhythm Gastrointestinal: Normal bowel sounds, Soft and benign, Non-distended, No tenderness, No masses, No rebound, No guarding Musculoskeletal: No erythema, No tenderness, No warmth Integumentary: No tenderness/swelling, No erythema, No warmth, No cyanosis Neurological: Normal speech, Normal strength at 5/5 x4 extr, Normal tone, Normal affect Laboratory Data at Discharge: WBC 5.4 K/uL (4.3-10.9) 09/29/18 04:50 Hgb 8.5 g/dL (13.6-17.9) L 09/29/18 04:50 Hct 25.9 % (39.6-49.0) L 09/29/18 04:50 Plt Count 129 K/uL (152-406) L 09/29/18 04:50 PT 13.2 SECONDS (9.5-12.5) H 09/18/18 15:45 INR 1.12 09/18/18 15:45 Sodium 140 mmol/L (136-145) 09/29/18 04:50 Potassium 3.9 mmol/L (3.5-5.1) 09/29/18 04:50 BUN 22 mg/dL (7-18) H 09/29/18 04:50 Creatinine 1.40 mg/dL (0.55-1.3) H 09/29/18 04:50 Glucose 208 mg/dL (74-106) H 09/29/18 04:50 Uric Acid 6.5 mg/dL (3.5-7.2) 09/28/18 05:21 Phosphorus 2.2 mg/dL (2.5-4.9) L 09/28/18 05:21 Magnesium 1.9 mg/dL (1.8-2.4) 09/28/18 05:21 Total Bilirubin 0.4 mg/dL (0.2-1.0) 09/29/18 04:50 AST 7 U/L (15-37) L 09/29/18 04:50 ALT 11 U/L (12-78) L 09/29/18 04:50 Alkaline Phosphatase 97 U/L (45-117) 09/29/18 04:50 Troponin I < 0.02 ng/mL (0.0-0.045) 09/19/18 06:15 Triglycerides 46 mg/dL (<150) 09/19/18 06:15 Cholesterol 69 mg/dL (<200) 09/19/18 06:15 HDL Cholesterol 32 mg/dL (40-60) L 09/19/18 06:15 Cholesterol/HDL Ratio 2.16 09/19/18 06:15 Home Medications: Acetaminophen [Tylenol*] 325 mg PO Q4HP PRN 09/18/18 Amlodipine Besylate [Norvasc] 10 mg PO DAILY 09/18/18 Aspirin Chewable [Aspirin Chewable*] 81 mg PO DAILY 09/18/18 Cholecalciferol (Vitamin D3) [Vitamin D3] 3 tab PO DAILY 09/18/18 Docusate Sodium 100 mg PO BIDP PRN 09/18/18 Folic Acid 1 mg PO DAILY 09/18/18 Gabapentin 300 mg PO DAILY 09/18/18 Glipizide [Glucotrol] 10 mg PO DAILY 09/18/18 Magnesium Oxide [Mag 0X*] 400 mg PO DAILY 09/18/18 Melatonin/Pyridoxine HCl (B6) [Melatonin 3 mg Tablet] 3 mg PO BEDTIME 09/18/18 Metoprolol Succinate [Toprol Xl*] 25 mg PO DAILY 09/18/18 Polyethyl Gly 3350 [Glycolax*] 1 dose PO DAILYPRN PRN 09/18/18 Zinc Oxide [Zinc Oxide 20%*] 1 brandon TOP PRN 09/18/18 Albuterol Neb [Proventil 0.083% Neb Soln] 3 ml NEB TID PRN #90 amp 09/29/18 Arformoterol Tartrate [Brovana] 2 ml NEB BIDRESP #60 vial.neb 09/29/18 Atorvastatin Calcium [Lipitor] 80 mg PO BEDTIME #30 tab 09/29/18 Benzonatate [Tessalon Perle*] 100 mg PO TID PRN #30 cap 09/29/18 Cyanocobalamin [Vitamin B-12*] 1,000 mcg PO DAILY #90 tab 09/29/18 Ferrous Sulfate [Ferrous Sulfate*] 325 mg PO BID #60 tab 09/29/18 Furosemide [Lasix*] 40 mg PO BIDL #60 tab 09/29/18 Losartan Potassium [Cozaar*] 100 mg PO DAILY #60 tablet 09/29/18 Pantoprazole [Protonix Tab*] 40 mg PO BIDAC #60 tab 09/29/18 Tamsulosin [Flomax*] 0.4 mg PO BEDTIME 30 Days cap 09/29/18 New Medications: Albuterol Neb [Proventil 0.083% Neb Soln] 3 ml NEB TID PRN #90 amp PRN Reason: Shortness Of Breath Arformoterol Tartrate [Brovana] 2 ml NEB BIDRESP #60 vial.neb Atorvastatin Calcium [Lipitor] 80 mg PO BEDTIME #30 tab Benzonatate [Tessalon Perle*] 100 mg PO TID PRN #30 cap PRN Reason: Cough Cyanocobalamin [Vitamin B-12*] 1,000 mcg PO DAILY #90 tab Ferrous Sulfate [Ferrous Sulfate*] 325 mg PO BID #60 tab Furosemide [Lasix*] 40 mg PO BIDL #60 tab Losartan Potassium [Cozaar*] 100 mg PO DAILY #60 tablet Pantoprazole [Protonix Tab*] 40 mg PO BIDAC #60 tab Tamsulosin [Flomax*] 0.4 mg PO BEDTIME 30 Days cap Patient Discharge Instructions: 1. Patient will go to a skilled facility to continue his care. 2. Patient presented with shortness of breath. Shortness of breath was complicated related to acute on chronic diastolic CHF with pulmonary hypertension, COPD exacerbation and bilateral pneumonia with chronic bilateral pleural effusions. Patient was also found to have sputum culture positive for methicillin-resistant Staph aureus. Patient seen and evaluated by Cardiology and pulmonology. Patient was treated during the course of his stay. Patient required IV antibiotic therapy. PICC line was placed. Patient continues with IV vancomycin. At discharge patient will continue with IV antibiotic treatment at skilled facility. At discharge he will continue with IV vancomycin. He is currently on day 06/03. Pharmacy to monitor and adjust. Vanc trough levels will need to be monitored along with BMP by pharmacy and nursing facility physician. Recheck chest x-ray in 1-2 weeks to monitor resolution. Patient may follow up with cardiology and pulmonology as an outpatient. 3. For his COPD patient will continue with Brovana 1 unit dose twice daily and albuterol 1 unit dose 3 times a day as needed for shortness of breath. Patient will continue with oxygen to maintain sats above 90%. Patient may follow up with pulmonology in 1-2 weeks to follow up this hospitalization. Tessalon Perles 100 mg 1 pill 3 times a day as needed for cough will be provided. 4. For his CHF patient will need to continue with a 1500 cc per day fluid restriction and low-salt diet. Adjustments in diuretic therapy were made. At discharge he will continue with Lasix 40 mg 1 pill twice daily. Patient is to monitor his weight daily. If his weight increases by more than 5 lb he is to contact his PCP or cardiology for further recommendation. Recommendation for the patient follow up with cardiology in 1-2 weeks to follow up this hospitalization. 5. Patient has acute on chronic renal disease. Patient seen and evaluated by nephrology. Adjustments in medications were required. Recommendation is no further use of nonsteroidal anti- inflammatories. Future medications will need to be renally dosed. Recommend to recheck lab-BMP in 1 week to monitor his progress. Recommendation for the patient follow up with nephrology in 1-2 weeks to follow up this hospitalization. 6. Patient has paroxysmal atrial fibrillation and CAD. Patient not on chronic anti coagulation therapy due to risk of fall and bleeding. Patient stable this time. Patient may continue with aspirin 81 mg daily. Patient on rate control [id number]-[id number] 25 mg daily. Recommend for the patient follow up with cardiology in 1-2 weeks. 7. Patient has hypertension. Medications were adjusted during his stay. A new medication losartan was added. At discharge she will continue with Norvasc 10 mg daily, Toprol-XL 25 mg daily, and losartan 100 mg daily. Recommendation is to maintain blood pressures less 150/80. Further adjustment can be done by his PCP or cardiology. 8. Patient has diabetes type 2, [id number]. This remained stable. Patient will continue with glipizide 10 mg daily. Recommendation is to maintain blood sugars less 140 fasting and less than 200 after meals. Further adjustment can be done by his PCP. 9. Patient has BPH. Patient will continue with Flomax 0.4 mg daily. Patient may follow up with urology as an outpatient to further monitor. 10. Patient has chronic iron and B12 deficiency with GERD. Patient required transfusion of blood during his stay. Patient recently hospitalized at another facility for GI bleed. Guaiac stool negative. GI bleeding scan negative. Hemoglobin stable this time. At discharge patient will continue with iron 325 mg 1 pill twice daily, vitamin B12 1 pill daily, folic acid 1 mg once daily. Prilosec has been discontinued. Patient will continue with Protonix 40 mg 1 pill twice daily. Recommendation is for the patient follow up with GI as an outpatient to further monitor and address. Patient may require repeat EGD and colonoscopy in the future to further monitor and address. Recommend to recheck lab-CBC in 1-2 weeks to monitor his progress. 11. Patient has diabetic neuropathy. Patient will continue with gabapentin 300 mg daily. Diet: AHA Activity: Fall precautions Time spent managing pt's care (in minutes): 55
[2018-09-29] MEDS ORDERED: VANCOMYCIN 1.5 GM in NA CHLORIDE 0.9% 500 ML IVPB SCH (18:00)
--- NOTE | 2018-09-29 20:20 | P.PN ---
Date of Service: 09/29/18 Vital Signs Temp Pulse Resp BP Pulse Ox 98.6 F 86 28 H 137/63 95 09/29/18 16:00 09/29/18 16:00 09/29/18 16:00 09/29/18 16:00 09/29/18 16:00 Medications Acetaminophen (Tylenol -Extra Strength) 500 mg PO Q4HP PRN PRN Reason: [id number] Stop: 10/18/18 17:00 Last Admin: 09/27/18 18:23 Dose: 500 mg Albuterol Sulfate (Proventil 0.083% Neb Soln) 2.5 mg NEB Q6HP PRN PRN Reason: SHORTNESS OF BREATH Stop: 10/29/18 07:23 Amlodipine Besylate (Norvasc) 10 mg PO DAILY EZEKIEL Stop: 10/19/18 09:01 Last Admin: 09/29/18 08:35 Dose: 10 mg Arformoterol Tartrate (Brovana) 15 mcg NEB BIDRESP EZEKIEL Stop: 10/18/18 20:01 Last Admin: 09/29/18 07:24 Dose: 15 mcg Atorvastatin Calcium (Lipitor) 80 mg PO BEDTIME EZEKIEL Stop: 10/18/18 21:01 Last Admin: 09/28/18 21:11 Dose: 80 mg Benzonatate (Tessalon Perle) 100 mg PO TID PRN PRN Reason: COUGH Stop: 10/18/18 17:00 Last Admin: 09/21/18 10:05 Dose: 100 mg Cyanocobalamin (Vitamin B-12) 1,000 mcg PO DAILY EZEKIEL Stop: 10/20/18 09:01 Last Admin: 09/29/18 08:36 Dose: 1,000 mcg Ferrous Sulfate (Feosol) 325 mg PO BID EZEKIEL Stop: 10/18/18 21:01 Last Admin: 09/29/18 08:34 Dose: 325 mg Folic Acid (Folic Acid) 1 mg PO DAILY EZEKIEL Stop: 10/20/18 09:01 Last Admin: 09/29/18 08:34 Dose: 1 mg Furosemide (Lasix) 40 mg PO BIDL EZEKIEL Stop: 10/23/18 17:01 Last Admin: 09/29/18 17:00 Dose: Not Given Gabapentin (Neurontin) 200 mg PO BEDTIME EZEKIEL Stop: 10/18/18 21:01 Last Admin: 09/28/18 21:11 Dose: 200 mg Guaifenesin (Mucinex 600mg) 600 mg PO BID [facility] Stop: 10/18/18 21:01 Last Admin: 09/29/18 08:36 Dose: 600 mg Vancomycin HCl 1.5 gm/ Sodium (Chloride) 500 mls @ 250 mls/hr IVPB Q36H [facility]; Protocol Stop: 10/29/18 18:01 Last Admin: 09/29/18 17:56 Dose: Not Given Insulin Human Regular (Novolin -R) 0 unit SQ ACHS [facility]; Protocol Stop: 10/18/18 17:00 Last Admin: 09/29/18 17:54 Dose: 2 unit Ipratropium Locust (Atrovent Neb) 0.5 mg NEB Q6HP PRN PRN Reason: SHORTNESS OF BREATH Stop: 10/29/18 07:22 Losartan Potassium (Cozaar) 100 mg PO DAILY [facility] Stop: 10/19/18 09:01 Last Admin: 09/29/18 08:35 Dose: 100 mg Melatonin (Melatonin) 3 mg PO BEDTIME PRN PRN PRN Reason: INSOMNIA Stop: 10/18/18 22:57 Last Admin: 09/28/18 21:12 Dose: 3 mg Metoprolol Tartrate (Lopressor) 25 mg PO [id number] [facility] Stop: 10/19/18 06:01 Last Admin: 09/29/18 05:56 Dose: 25 mg Ondansetron HCl (Zofran) 4 mg IV Q6HP PRN PRN Reason: NAUSEA / VOMITING Stop: 10/18/18 17:00 Last Admin: 09/20/18 12:45 Dose: 4 mg Pantoprazole Sodium (Protonix Tab) 40 mg PO BIDAC [facility] Stop: 10/19/18 10:46 Last Admin: 09/29/18 17:54 Dose: 40 mg Sodium Chloride (Normal Saline Flush) 10 ml IV BID [facility] Stop: 10/18/18 21:01 Last Admin: 09/29/18 08:37 Dose: 10 ml Sodium Chloride (Sodium Chloride 10 Ml Inj) 10 ml IV BID [facility] Stop: 10/24/18 09:01 Last Admin: 09/29/18 08:38 Dose: Not Given Tamsulosin HCl (Flomax) 0.4 mg PO BEDTIME [facility] Stop: 10/19/18 21:01 Last Admin: 09/28/18 21:11 Dose: 0.4 mg Microbiology Results 09/18/18 16:00 Blood - Blood Aerobic Blood Culture - Final No growth in 5 days. 09/18/18 16:00 Blood - Blood Anaerobic Blood Culture - Final No growth in 5 days. 09/18/18 16:00 Blood - Blood Aerobic Blood Culture - Final No growth in 5 days. 09/18/18 16:00 Blood - Blood Anaerobic Blood Culture - Final No growth in 5 days. Assessment/ Plan: Nephrology CPS stable without CP or SOB. No pain. Good urine output. No acute events overnight. Vitals, medications, blood work and imaging reviewed in the chart. NAD. MMM. Neck supple. CTA. RRR. Soft Abd. No C/C/E. No rash. AAO. Normal Speech. A/ RAN/ CKD III. Proteinuria. 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 Iron Deficiency Anemia. Hypercalcemia. PNA. P/ Continue current POC and Medications other than the changes listed below. AM labs. Daily weight. No NSAIDs. Hold Lasix at this time. Transfuse PRBC as needed. Agree with abx. Maintain nutrition. PT as tolerated.
[2018-09-29] MEDS: ATORVASTATIN 80 MG TAB PO SCH (20:48)
[2018-09-29] MEDS: TAMSULOSIN 0.4 MG SR CAP PO SCH (20:48)
[2018-09-29] MEDS: GABAPENTIN 100 MG CAP PO SCH (20:49)
[2018-09-30] MEDS: METOPROLOL TAR 25 MG TAB PO SCH (05:41)
[2018-09-30] MEDS: INSULIN -REGULAR HUMAN 50 UNIT/0.5 ML ML SQ SCH ×2 (07:30→12:18)
[2018-09-30] MEDS: ARFORMOTEROL TARTRATE 15 MCG/2 ML VIAL.NEB NEB SCH (07:33)
[2018-09-30 08:12] LABS: Absolute Lymphocytes (CBC) 0.8 K/uL (0.7-4.9); Absolute Monocytes 0.5 K/uL (0.1-1.3); Basophils % 0.8 % (0-1.3); Eosinophils % 2.1 % (0-4.4); Hematocrit 25.6 % (39.6-49.0); Lymphocytes % 15.6 % (15.3-44.8); MPV 10.6 fL (7.6-11.3); Monocytes % 8.4 % (3.3-12.3); RBC Red Blood Cell Count 2.97 M/uL (4.33-5.43)
[2018-09-30 08:51] LABS: Albumin 2.5 g/dL (3.4-5.0); Bilirubin Total 0.4 mg/dL (0.2-1.0); Potassium 4.1 mmol/L (3.5-5.1); Protein, Total 6.4 g/dL (6.4-8.2)
[2018-09-30] MEDS: PANTOPRAZOLE 40MG TABLET PO SCH (08:56)
[2018-09-30] MEDS: CYANOCOBALAMIN 1,000 MCG TAB PO SCH (08:56)
[2018-09-30] MEDS: AMLODIPINE 10 MG TAB PO SCH (08:56)
[2018-09-30] MEDS: FOLIC ACID 1 MG TABLET PO SCH (08:56)
[2018-09-30] MEDS: FERROUS SULFATE 325 MG TAB PO SCH (08:56)
[2018-09-30] MEDS: LOSARTAN POTASSIUM 50 MG TABLET PO SCH (08:56)
[2018-09-30] MEDS: GUAIFENESIN 600 MG SA TAB PO SCH (08:56)
[2018-09-30] MEDS: SODIUM CHLORIDE 0.9% 10ML INJ IV SCH (08:57)
[2018-09-30 12:52] VITALS: O2SAT 95
[2018-09-30 16:50] VITALS: BP 130/60; TEMP 97
--- NOTE | 2018-09-30 18:56 | P.PN ---
Date of Service: 09/30/18 Vital Signs Temp Pulse Resp BP Pulse Ox 97.0 F 60 18 130/60 96 09/30/18 12:00 09/30/18 12:00 09/30/18 12:00 09/30/18 12:00 09/30/18 12:00 Microbiology Results 09/18/18 16:00 Blood - Blood Aerobic Blood Culture - Final No growth in 5 days. 09/18/18 16:00 Blood - Blood Anaerobic Blood Culture - Final No growth in 5 days. 09/18/18 16:00 Blood - Blood Aerobic Blood Culture - Final No growth in 5 days. 09/18/18 16:00 Blood - Blood Anaerobic Blood Culture - Final No growth in 5 days. Assessment/ Plan: Nephrology CPS stable without CP or SOB. No pain. Good urine output. No acute events overnight. Vitals, medications, blood work and imaging reviewed in the chart. NAD. MMM. Neck supple. CTA. RRR. Soft Abd. No C/C/E. No rash. AAO. Normal Speech. A/ RAN/ CKD III. Proteinuria. 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 Iron Deficiency Anemia. Hypercalcemia. PNA. P/ Continue current POC and Medications other than the changes listed below. AM labs. Daily weight. No NSAIDs. Hold Lasix at this time. Transfuse PRBC as needed. Agree with abx. Maintain nutrition. PT as tolerated.
== END 2018-09-30 15:28 | DRG 177 ==
LOC: ER 15:34 → ERHOLD 16:21 → 4TH 16:55
PROVIDERS: ADMIT Family Medicine; ATTEND Family Medicine
PROC: 30233N1 Transfusion of Nonautologous Red Blood Cells into Peripheral Vein, Percutaneous Approach (ICD-10-PCS; principal; 2018-09-18)
PROC: 02HV33Z Insertion of Infusion Device into Superior Vena Cava, Percutaneous Approach (ICD-10-PCS; 2018-09-23)
PROC: B548ZZA Ultrasonography of Superior Vena Cava, Guidance (ICD-10-PCS; 2018-09-23)
DX: J15.212 Pneumonia due to Methicillin resistant Staphylococcus aureus (principal); I50.33 Acute on chronic diastolic (congestive) heart failure; J44.0 Chronic obstructive pulmonary disease with (acute) lower respiratory infection; J44.1 Chronic obstructive pulmonary disease with (acute) exacerbation; I13.0 Hypertensive heart and chronic kidney disease with heart failure and stage 1 through stage 4 chronic kidney disease, or unspecified chronic kidney disease; N17.9 Acute kidney failure, unspecified; J90 Pleural effusion, not elsewhere classified; N18.3 Chronic kidney disease, stage 3 (moderate); E11.22 Type 2 diabetes mellitus with diabetic chronic kidney disease; Z79.4 Long term (current) use of insulin; I27.20 Pulmonary hypertension, unspecified; I25.10 Atherosclerotic heart disease of native coronary artery without angina pectoris; I48.0 Paroxysmal atrial fibrillation; D50.9 Iron deficiency anemia, unspecified; D51.3 Other dietary vitamin B12 deficiency anemia; K21.9 Gastro-esophageal reflux disease without esophagitis; E78.5 Hyperlipidemia, unspecified; N40.0 Benign prostatic hyperplasia without lower urinary tract symptoms; Z87.891 Personal history of nicotine dependence; E11.40 Type 2 diabetes mellitus with diabetic neuropathy, unspecified; E83.52 Hypercalcemia; R80.9 Proteinuria, unspecified
CPT/HCPCS: 36415; 36430; 71045; 71046; 76770; 78278; 80048; 80053; 80061; 80076; 80202; 81001; 81003; 82043; 82274; 82550; 82553; 82570; 82607; 82728; 82962; 83036; 83540; 83605; 83735; 83880; 83970; 84100; 84145; 84156; 84439; 84443; 84466; 84484; 84550; 85014; 85018; 85025; 85610; 86850; 86900; 86901; 87040; 87070; 87077; 87081; 87186; 87205; 87804; 93005; 93306; 96365; 96375; 97112; 97116; 97163; 97530; 99285; A9560; G0103; J1650; J1940; J2405; J2930; J3420; J3475; J7030; J7605; P9016

== ENCOUNTER 2018-10-11 09:31 | Emergency (ER) | payer OTHER ==
--- OUTSIDE RECORDS SUMMARY | 2018-10-11 09:34 | XMS REPORT | Clinical Summary ---
:1930 Author Organization [facility] Address [address] [place] [id number] Care Team Providers Name Role Phone Asked, [...] Og Chronic pain of right knee after 10/10/2017 Family History Medical History Relation Name Comments [...] procedure are in the results section. after 10/10/2017 Results XR Knee 3 Vw Right (02/07/2018 [...] Address City/State/Zipcode Phone Number [facility] [address] [place] [address] after 10/10/2017 Insurance Payer Benefit Plan / Group Subscriber ID Type Phone Address MEDICARE MEDICARE PART A AND B xxxxxxxxxx Medicare [place], [place] Advance Directives Patient has advance care planning documents on file. For more information, please contact:Melo Meza[address] [place] [address]
--- OUTSIDE RECORDS SUMMARY | 2018-10-11 09:36 | XMS REPORT | Continuity of Care Document ---
:02/13/1931 Author Organization [facility] Care Team Providers Name Role Phone MD Prashant, Art Unavailable Unavailable Insurance Providers Payer name Policy type / Policy ID Covered republican ID Policy Fraser Coverage type MEDICARE PRIMARY MEDIC[place]: [employer] MEDIC[place]: [employer] Encounters Encounter Performer Location Date Office Visit Koffi Cerda MD [facility] Allergies, Adverse Reactions, Alerts [...] Apr 11, 2014 Active CORONARY ATHEROSCLEROSIS OF [place] CORONARY ARTERY Apr 11, 2014 Active DISEASE, [...] Jan 04, cholesterol, serum CHOLESTEROL 136 mg/dl [phone] Jan 04, HDL cholesterol, HDL 34 mg/dl 26-62 2014Jan 04, LDL cholesterol, LDL 90 mg/dl 0-130 2014Jan 04, iron, serum IRON 25 ug/dL 20-172 2014Jan 04, iron binding TIBC 367 ug/dL [phone] capacity, total Jan 04, creatine kinase, CPK [...]
--- OUTSIDE RECORDS SUMMARY | 2018-10-11 09:36 | XMS REPORT | CCD ---
:02/13/1931 Author Organization [facility] Care Team Providers Name Role Phone Robin [...] HTN (hypertension) Resolved Pneumonia3 Resolved Replacement4 Resolved [id number] in last 7 yrs4lt knee Medications Medication [...] values reflect the clinical guidelines of the [place] [employer].HEMATOLOGY Most recent to oldest [Reference [...] [facility]
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
--- OUTSIDE RECORDS SUMMARY | 2018-10-11 09:36 | XMS REPORT | CCD ---
:02/13/1931 Author Organization [facility] [place] Care Team Providers Name Role Phone Arian [...] HTN (hypertension) Resolved Pneumonia3 Resolved Replacement4 Resolved [id number] in last 7 yrs4lt knee
--- OUTSIDE RECORDS SUMMARY | 2018-10-11 09:36 | XMS REPORT | Continuity of Care Document ---
:1930 Author Organization [facility] Care Team Providers Name Role Phone MD Prashant, Art Unavailable Unavailable Insurance Providers Payer name Policy type / Policy ID Covered constitution party ID Policy Fraser Coverage type MEDICARE PRIMARY MEDIC[place]: [employer] MEDIC[place]: [employer] Encounters Encounter Performer Location Date Office Visit Koffi Cerda MD [facility] Allergies, Adverse Reactions, Alerts [...] Apr 11, 2014 Active CORONARY ATHEROSCLEROSIS OF [place] CORONARY ARTERY Apr 11, 2014 Active DISEASE, [...] RATE 20 /min Jun 05, 2014 weight Lori Anguiano WEIGHT 224.0 lb Jun 05, 2014 [...]
--- OUTSIDE RECORDS SUMMARY | 2018-10-11 09:37 | XMS REPORT | Continuity of Care Document ---
:1930 Author Organization [facility] Care Team Providers Name Role Phone MD Prashant, Art Unavailable Unavailable Insurance Providers Payer name Policy type / Policy ID Covered libertarian ID Policy Fraser Coverage type MEDICARE PRIMARY [place]: al[place]: [place]grano Encounters Encounter Performer Location Date Lab Report Art MD Prashant [facility] [place] [facility] Jan 04, 2015 Practice Allergies, Adverse [...] Apr 11, 2014 Active CORONARY ATHEROSCLEROSIS OF [place] CORONARY ARTERY Apr 11, 2014 Active DISEASE, [...] Jan 04, cholesterol, serum CHOLESTEROL 136 mg/dl [phone] Jan 04, HDL cholesterol, HDL 34 mg/dl 26-62 2014Jan 04, LDL cholesterol, LDL 90 mg/dl 0-130 2014Jan 04, iron, serum IRON 25 ug/dL 20-172 2014Jan 04, iron binding TIBC 367 ug/dL [phone] capacity, total Jan 04, creatine kinase, CPK [...]
--- OUTSIDE RECORDS SUMMARY | 2018-10-11 09:37 | XMS REPORT | Continuity of Care Document ---
:02/13/1931 Author Organization [facility] Care Team Providers Name Role Phone MD Prashant, Art Unavailable Unavailable Insurance Providers Payer name Policy type / Policy ID Covered democrat ID Policy Fraser Coverage type MEDICARE PRIMARY MEDIC[place]: iVideosongs MEDICARE B-[place]: iVideosongs Encounters Encounter Performer Location Date Office Visit Koffi Cerda MD [facility] [place] [facility] Feb [facility] Allergies, Adverse Reactions, Alerts [...] Apr 11, 2014 Active CORONARY ATHEROSCLEROSIS OF [place] CORONARY ARTERY Apr 11, 2014 Active DISEASE, [...] Jan 04, cholesterol, serum CHOLESTEROL 136 mg/dl [phone] Jan 04, HDL cholesterol, HDL 34 mg/dl 26-62 2014 serum Jan 04, LDL cholesterol, LDL 90 mg/dl 0-130 2014 serum Jan 04, iron, serum IRON 25 ug/dL 20-172 2014Jan 04, iron binding TIBC 367 ug/dL [phone] capacity, total Jan 04, creatine kinase, CPK [...]
--- OUTSIDE RECORDS SUMMARY | 2018-10-11 09:37 | XMS REPORT | Continuity of Care Document ---
:1930 Author Organization [facility] Care Team Providers Name Role Phone MD Prashant, Art Unavailable Unavailable Insurance Providers Payer name Policy type / Policy ID Covered democrat ID Policy Fraser Coverage type MEDICARE PRIMARY MEDIC[place]: [id number] MEDICARE B-[place]: [id number] Encounters Encounter Performer Location Date Office Visit Koffi Cerda MD [facility] [place] [facility] Allergies, Adverse Reactions, Alerts [...] Apr 11, 2014 Active CORONARY ATHEROSCLEROSIS OF [place] CORONARY ARTERY Apr 11, 2014 Active DISEASE, [...]
--- OUTSIDE RECORDS SUMMARY | 2018-10-11 09:37 | XMS REPORT | Continuity of Care Document ---
:1930 Author Organization [facility] Care Team Providers Name Role Phone MD Howie, Kaushal Unavailable Unavailable Insurance Providers Payer name Policy type / Policy ID Covered libertarian ID Policy Fraser Coverage type MEDICARE PRIMARY MEDIC[place]: Mendor MEDICARE B-[place]: Mendor Encounters Encounter Performer Location Date Office Visit Kaushal Denise MD [facility] [place] January 23, 2015 Gastroenterology Allergies, [...] Apr 11, 2014 Active CORONARY ATHEROSCLEROSIS OF [place] CORONARY ARTERY Apr 11, 2014 Active DISEASE, [...] Apr 17, cholesterol, serum CHOLESTEROL 136 mg/dl [phone] Apr 17, HDL cholesterol, HDL 34 mg/dl 26-62 2015 serum Apr 17, LDL cholesterol, LDL 90 mg/dl 0-130 2015 serum Apr 17, iron, serum IRON 25 ug/dL 20-172 2015 Jan 04, iron binding TIBC 367 ug/dL [phone] capacity, total Apr , creatine kinase, CPK [...]
[2018-10-11 10:20] LABS: Absolute Lymphocytes (CBC) 0.7 K/uL (0.7-4.9); Absolute Monocytes 0.5 K/uL (0.1-1.3); Absolute Neutrophil 3.3 K/uL (1.8-8.0); Basophils % 0.7 % (0-1.3); Eosinophils % 2.1 % (0-4.4); Hematocrit 21.9 % (39.6-49.0); Lymphocytes % 14.8 % (15.3-44.8); MPV 9.9 fL (7.6-11.3); Monocytes % 10.3 % (3.3-12.3); RBC Red Blood Cell Count 2.52 M/uL (4.33-5.43)
[2018-10-11 10:24] LABS: Protime INR 1.22
[2018-10-11] MEDS ORDERED: LORAZEPAM 0.5 MG TABLET ONE (10:34)
[2018-10-11] MEDS ORDERED: ALBUTEROL 2.5 MG/3 ML NEB SOL ONE ×2 (10:34→14:21)
--- NOTE | 2018-10-11 10:52 | RAD REPORT ---
EXAM DESCRIPTION: RAD - Chest Single View - 10/11/2018 10:45 am CLINICAL HISTORY: COPD Chest pain. COMPARISON: Chest Single View dated 09/23/2018; Chest Single View dated 09/22/2018; Chest Pa And Lat (2 Views) dated 09/19/2018; Chest Single View dated 09/18/2018 FINDINGS: Portable technique limits examination quality. Moderate bilateral pulmonary opacities with bilateral pleural effusions again noted, appearing stable since the prior study. Moderate cardiomegaly is seen. No displaced fractures. IMPRESSION: No significant interval change in the appearance of the chest since 09/23/2018 study.
[2018-10-11 10:58] LABS: Albumin 2.7 g/dL (3.4-5.0); Bilirubin Direct 0.2 mg/dL (0-0.2); Bilirubin Total 0.4 mg/dL (0.2-1.0); Potassium 3.9 mmol/L (3.5-5.1); Protein, Total 7.1 g/dL (6.4-8.2)
[2018-10-11] MEDS ORDERED: NA CHLORIDE 0.9% 250 ML ONE (11:37)
--- NOTE | 2018-10-11 12:03 | RAD REPORT ---
EXAM DESCRIPTION: RAD - Barium Swallow Modified - 10/11/2018 11:54 am CLINICAL HISTORY: r/o possible aspiration pneumonia. Dysphagia COMPARISON: GI Blood Loss Imaging dated 09/24/2018 TECHNIQUE: The patient was given liquid, semi-solid and solid forms of barium. Lateral view fluorosc opic imaging was performed in conjunction with speech pathology service. FINDINGS: Cervical spine changes noted but swallow within functional limits despite, -Pill got stuck in mid esophagus but cleared with another sup of thin. Total fluoroscopy time: 2 minutes.
--- NOTE | 2018-10-11 15:25 | ER ---
Nurse's Notes [facility] Name: Varinder Nielson Age: 88 yrs Sex: Male : 1930 Arrival Date: 10/11/2018 Time: 09:36 Bed 7 Private MD: Tramaine Grady H Diagnosis: Unspecified diastolic (congestive) heart failure;Chronic obstructive pulmonary disease, unspecified;Anemia in chronic diseases classified elsewhere Presentation: 10/11 09:50 Presenting complaint: Sent by PCP for low hemoglobin. Pt reports dark tarry stools x 1 hb year and recent blood transfusion. Transition of care: patient was not received from another setting of care. Onset of symptoms was October 11, 2018. Risk Assessment: Do you want to hurt yourself or someone else? Patient reports no desire to harm self or others. Initial Sepsis Screen: Does the patient meet any 2 criteria? No. Patient's initial sepsis screen is negative. Does the patient have a suspected source of infection? No. Patient's initial sepsis screen is negative. Care prior to arrival: None. 09:50 Method Of Arrival: Ambulatory hb 09:50 Acuity: JANET 3 hb Triage Assessment: 09:50 General: Appears in no apparent distress. comfortable, Behavior is calm, cooperative, sv appropriate for age. Pain: Denies pain. Neuro: Level of Consciousness is awake, alert, obeys commands, Oriented to person, place, time, situation, Moves all extremities. Full function Gait is steady. Respiratory: Airway is patent Respiratory effort is even, unlabored, Respiratory pattern is regular, symmetrical, Breath sounds with wheezes bilaterally. Historical: - Allergies: 09:54 No Known Allergies; hb - PMHx: 09:54 Atrial Fib; Dementia; Diabetes - NIDDM; Gastric Reflux; CAD; Anemia; COPD; CVA; High hb Cholesterol; Hypertension; hypomagnesium; osteoarthritis; Pneumonia; 10:07 Hyperlipidemia; CHF; BPH; sv - PSHx: 09:54 Cholecystectomy; Appendectomy; hb - Immunization history:: Adult Immunizations up to date. - Social history:: Smoking status: Patient/guardian denies using tobacco. - Ebola Screening: : No symptoms or risks identified at this time. Screenin:01 Abuse screen: Denies threats or abuse. Denies injuries from another. Nutritional hb screening: No deficits noted. Tuberculosis screening: No symptoms or risk factors identified. Fall Risk Total Slater Fall Scale indicates Low Risk Score (25-44 pts). Fall prevention measures have been instituted. Side Rails Up X 2 Frequent Obs/Assesments occuring As available Patient and Family Educated on Fall Prevention Program and strategies. Assessment: 10:30 Reassessment: Patient appears in no apparent distress at this time. Patient and/or sv family updated on plan of care and expected duration. Pain level reassessed. Patient is alert, oriented x 3, equal unlabored respirations, skin warm/dry/pink. 10:31 Reassessment: Point of Contact (): . ss 11:30 Reassessment: Patient appears in no apparent distress at this time. Patient and/or sv family updated on plan of care and expected duration. Pain level reassessed. Patient is alert, oriented x 3, equal unlabored respirations, skin warm/dry/pink. 12:16 Reassessment: Patient appears in no apparent distress at this time. Patient and/or sv family updated on plan of care and expected duration. Pain level reassessed. Patient is alert, oriented x 3, equal unlabored respirations, skin warm/dry/pink. 13:00 Reassessment: 1st unit of PRBCs started, see blood transfusion sheet. sv 14:10 Respiratory: Airway is patent Respiratory effort is even, unlabored, Respiratory sv pattern is regular, symmetrical, Breath sounds with wheezes bilaterally. Informed Christiana POOLROOM TABLE ATTENDANT and she came to bedside to reevaluate. Medication order received. 14:35 Reassessment: Patient appears in no apparent distress at this time. Patient and/or sv family updated on plan of care and expected duration. Pain level reassessed. Patient is alert, oriented x 3, equal unlabored respirations, skin warm/dry/pink. 15:30 Reassessment: Patient appears in no apparent distress at this time. Patient and/or sv family updated on plan of care and expected duration. Pain level reassessed. Patient is alert, oriented x 3, equal unlabored respirations, skin warm/dry/pink. 16:33 Reassessment: Patient appears in no apparent distress at this time. Patient and/or sv family updated on plan of care and expected duration. Pain level reassessed. Patient is alert, oriented x 3, equal unlabored respirations, skin warm/dry/pink. Vital Signs: 09:49 BP 107 / 54; Pulse 87; Resp 20; Temp 97.9; Pulse Ox 97% on R/A; Pain 0/10; hb 10:58 BP 132 / 57; Pulse 83; Resp 16; Pulse Ox 100% on 2 lpm NC; sv 12:40 BP 122 / 65; Pulse 72; Resp 16; Pulse Ox 100% 2 lpm ; sv 13:01 BP 127 / 66; Pulse 80; Resp 16; Pulse Ox 100% ; sv 13:45 BP 126 / 60; Pulse 67; Resp 16; Pulse Ox 100% on 2 lpm NC; sv 14:35 BP 124 / 63; Pulse 86; Resp 20; Temp 97.3; Pulse Ox 100% on 2 lpm NC; sv 15:22 BP 123 / 61; Pulse 85; Resp 20; Pulse Ox 100% on 2 lpm NC; sv 16:20 BP 145 / 74; Pulse 81; Resp 20; Pulse Ox 100% ; sv ED Course: 09:36 Patient arrived in ED. sb2 09:37 Tramaine Grady DO is Private Physician. sb2 09:41 Christian[facility] Rodgers [facility]-C [facility]. snw 09:41 Cody Bhatti MD is Attending Physician. snw 09:47 Lee Ann Oneill, SAMANTHA is Primary Nurse. sv 09:51 Triage completed. hb 10:00 T\T\S collected, blood band applied to patient. sv 10:01 Arm band placed on right wrist. hb 10:01 Patient has correct armband on for positive identification. Placed in gown. Bed in low hb position. Call light in reach. Side rails up X 1. 10:01 Inserted saline lock: 22 gauge in left upper arm, using aseptic technique. Blood hb collected. 10:13 Nurse Practitioner and/or Physician Hairspring Truer to see patient. sv 10:29 Awaiting lab results. sv 10:46 Chest Single View XRAY In Process Unspecified. EDMS 11:06 Patient moved to radiology via stretcher. sv 11:55 Barium Swallow Modified In Process Unspecified. EDMS 15:23 Tramaine Grady DO is Referral Physician. snw 16:09 Bb Add On: crossmatch 2 units, 1 to give as soon as ready Sent. sv 16:40 No provider procedures requiring assistance completed. IV discontinued, intact, sv bleeding controlled, No redness/swelling at site. Pressure dressing applied. Administered Medications: 10:29 Drug: Ativan 0.5 mg Route: PO; sv 10:57 Follow up: Response: No adverse reaction sv 10:29 Drug: Albuterol 2.5 mg Route: Inhalation; sv 14:14 Drug: Albuterol 2.5 mg Route: Inhalation; sv 16:09 Drug: Lasix 20 mg Route: IVP; Site: left upper arm; sv 16:37 Follow up: Response: No adverse reaction sv Output: 12:55 Urine: 100ml (Voided); Total: 100ml. sv 14:16 Urine: 100ml (Voided); Total: 200ml. sv Outcome: 15:24 Discharge ordered by . snw 15:45 Discharged to detention. Report called to Evelyn SINGH sv 15:45 Condition: stable 15:45 Discharge instructions given to detention, Instructed on discharge instructions, follow up and referral plans. Demonstrated understanding of instructions, follow-up care. 16:48 Patient left the ED. sv Signatures: Dispatcher [employer] Lee Ann Hawkins RN RN sv Christiana Rodgers, MACHINE HOSTLER-C MACHINE HOSTLER-Csnw Ayse Boggs RN RN Jennifer Parham RN RN hb Billeau, Sheri sb2
--- NOTE | 2018-10-11 15:26 | EDPHYS ---
Physician Documentation [facility] Name: Varinder Nielson Age: 88 yrs Sex: Male : 1930 Arrival Date: 10/11/2018 Time: 09:36 Bed 7 Private MD: Tramaine Grady H ED Physician Cody Bhatti HPI: 10/11 11:26 This 88 yrs old Male presents to ER via Ambulatory with complaints of snw Abnormal Lab Results. 11:26 Pt recently discharged with pneumonia, known guaiac + stools, anemia. Rec'd PRBC snw infusion recently. Abnormal H/H today. Onset: The symptoms/episode began/occurred gradually, and became persistent. Severity of symptoms: At their worst the symptoms were moderate in the emergency department the symptoms have improved mildly. The patient has experienced similar episodes in the past. The patient has been recently seen by a physician:. Historical: - Allergies: 09:54 No Known Allergies; hb - PMHx: 09:54 Atrial Fib; Dementia; Diabetes - NIDDM; Gastric Reflux; CAD; Anemia; COPD; CVA; High hb Cholesterol; Hypertension; hypomagnesium; osteoarthritis; Pneumonia; 10:07 Hyperlipidemia; CHF; BPH; sv - PSHx: 09:54 Cholecystectomy; Appendectomy; hb - Immunization history:: Adult Immunizations up to date. - Social history:: Smoking status: Patient/guardian denies using tobacco. - Ebola Screening: : No symptoms or risks identified at this time. ROS: 11:25 Eyes: Negative for injury, pain, redness, and discharge, ENT: Negative for injury, snw pain, and discharge, Neck: Negative for injury, pain, and swelling, Cardiovascular: Negative for chest pain, palpitations, and edema. 11:25 Abdomen/GI: Negative for abdominal pain, nausea, vomiting, diarrhea, and constipation, Back: Negative for injury and pain, : Negative for injury, bleeding, discharge, and swelling, MS/Extremity: Negative for injury and deformity, Skin: Negative for injury, rash, and discoloration, Neuro: Negative for headache, weakness, numbness, tingling, and seizure. 11:25 Constitutional: Positive for malaise. 11:25 Respiratory: Positive for cough, shortness of breath, wheezing. Exam: 11:23 Constitutional: This is a well developed, well nourished patient who is awake, alert, snw and in no acute distress. Head/Face: Normocephalic, atraumatic. ENT: Nares patent. No nasal discharge, no septal abnormalities noted. Tympanic membranes are normal and external auditory canals are clear. Oropharynx with no redness, swelling, or masses, exudates, or evidence of obstruction, uvula midline. Mucous membranes moist. Neck: Trachea midline, no thyromegaly or masses palpated, and no cervical lymphadenopathy. Supple, full range of motion without nuchal rigidity, or vertebral point tenderness. No Meningismus. Chest/axilla: Normal chest wall appearance and motion. Nontender with no deformity. No lesions are appreciated. Abdomen/GI: Soft, non-tender, with normal bowel sounds. No distension or tympany. No guarding or rebound. No evidence of tenderness throughout. Back: No spinal tenderness. No costovertebral tenderness. Full range of motion. Skin: Warm, dry with normal turgor. Normal color with no rashes, no lesions, and no evidence of cellulitis. MS/ Extremity: Pulses equal, no cyanosis. Neurovascular intact. Full, normal range of motion. Neuro: Awake and alert, GCS 15, oriented to person, place, time, and situation. Cranial nerves II-XII grossly intact. Motor strength 5/5 in all extremities. Sensory grossly intact. Cerebellar exam normal. Normal gait. Psych: Awake, alert, with orientation to person, place and time. Behavior, mood, and affect are within normal limits. 11:23 Cardiovascular: Rate: normal, Heart sounds: murmur, Edema: 2+ edema to level of left ankle, left foot, right ankle and right foot. 11:23 Respiratory: the patient does not display signs of respiratory distress, Respirations: normal, Breath sounds: decreased breath sounds, that are moderate, are located in both bases, + upper airway congestion. wheezin:25 Eyes: Conjunctiva: pale. snw Vital Signs: 09:49 BP 107 / 54; Pulse 87; Resp 20; Temp 97.9; Pulse Ox 97% on R/A; Pain 0/10; hb 10:58 BP 132 / 57; Pulse 83; Resp 16; Pulse Ox 100% on 2 lpm NC; sv 12:40 BP 122 / 65; Pulse 72; Resp 16; Pulse Ox 100% 2 lpm ; sv 13:01 BP 127 / 66; Pulse 80; Resp 16; Pulse Ox 100% ; sv 13:45 BP 126 / 60; Pulse 67; Resp 16; Pulse Ox 100% on 2 lpm NC; sv 14:35 BP 124 / 63; Pulse 86; Resp 20; Temp 97.3; Pulse Ox 100% on 2 lpm NC; sv 15:22 BP 123 / 61; Pulse 85; Resp 20; Pulse Ox 100% on 2 lpm NC; sv 16:20 BP 145 / 74; Pulse 81; Resp 20; Pulse Ox 100% ; sv MDM: 10:20 Patient medically screened. snw 15:20 Data reviewed: vital signs, nurses notes. Data interpreted: Pulse oximetry: on room air snw is 100 %. Interpretation: normal. Counseling: I had a detailed discussion with the patient and/or guardian regarding: the historical points, exam findings, and any diagnostic results supporting the discharge/admit diagnosis, lab results, radiology results, the need for outpatient follow up, to return to the emergency department if symptoms worsen or persist or if there are any questions or concerns that arise at home. Special discussion: Based on the history and exam findings, there is no indication for further emergent testing or inpatient evaluation. I discussed with the patient/guardian the need to see the primary care provider for further evaluation of the symptoms. 15:21 Response to treatment: the patient's condition has returned to base line, Pt passes snw barium swallow. Speech pathologist findings and recommendations in chart. Pt has many chronic illnesses being treated outpatient. No new complaints., and as a result, I will discharge patient, back to [facility].. 10/11 10:07 Order name: Basic Metabolic Panel; Complete Time: 11:w 10/11 10:07 Order name: CBC with Diff; Complete Time: 10:24 w 10/11 10:07 Order name: Hepatic Function; Complete Time: 11: snw 10/11 10:07 Order name: Lipase; Complete Time: 11:w 10/11 10:07 Order name: TS w 10/11 10:07 Order name: PT-INR; Complete Time: 10:57 snw 10/11 10:21 Order name: Chest Single View XRAY; Complete Time: 10:57 w 10/11 10:26 Order name: Bb Add On: crossmatch 2 units, 1 to give as soon as ready [facility] 10/11 10:39 Order name: Packed RBC Leukored -1 EDKY 10/11 16:00 Order name: Hemoglobin; Complete Time: 17:18 10/11 16:00 Order name: Hematocrit; Complete Time: 17:18 10/11 10:03 Order name: IV Saline Lock; Complete Time: 10:03 10/11 10:07 Order name: Labs collected and sent; Complete Time: 10:09 [facility] 10/11 10:38 Order name: Barium Swallow Modified; Complete Time: 12:06 EDKY 10/11 13:20 Order name: consult Order-Speech pathology; Complete Time: 14:15 [facility] 10/11 14:05 Order name: Diet Mech. Soft (chopped); Complete Time: 14:06 bd Administered Medications: 10:29 Drug: Ativan 0.5 mg Route: PO; sv 10:57 Follow up: Response: No adverse reaction sv 10:29 Drug: Albuterol 2.5 mg Route: Inhalation; sv 14:14 Drug: Albuterol 2.5 mg Route: Inhalation; sv 16:09 Drug: Lasix 20 mg Route: IVP; Site: left upper arm; sv 16:37 Follow up: Response: No adverse reaction sv Disposition: 16:52 Co-signature as Attending Physician, Cody Bhatti MD. rn Disposition: 10/11/18 15:24 Discharged to Home. Impression: Unspecified diastolic (congestive) heart failure, Chronic obstructive pulmonary disease, unspecified, Anemia in chronic diseases classified elsewhere. - Condition is Stable. - Discharge Instructions: Anemia, Nonspecific, Chronic Obstructive Pulmonary Disease, Heart Failure. - Medication Reconciliation Form, Thank You Letter, Antibiotic Education, Prescription Opioid Use form. - Follow up: Tramaine Grady DO; When: 1 - 2 days; Reason: Recheck today's complaints, Continuance of care, Re-evaluation by your physician. Follow up: Emergency Department; When: As needed; Reason: Worsening of condition. Signatures: Dispatcher [employer] [facility] Lee Ann Oneill RN RN sv Therrien, Shelly, HEAVY MOBILE EQUIPMENT OPERATOR-C HEAVY MOBILE EQUIPMENT OPERATOR-Csnw Cody Bhatti MD MD rn Baxter, Heather, RN RN Corrections: (The following items were deleted from the chart) 10:08 10:07 IV Saline Lock ordered. snw sv 11:14 10:04 CBC+H.LAB.BRZ ordered. EDKY EDMS 13:26 10:04 BASIC METABOLIC PANEL+C.LAB.BRZ ordered. EDKY EDMS 13:29 10:04 TYPE AND SCREEN+BB.LAB.BRZ ordered. EDKY EDKY 16:48 15:24 10/11/2018 15:24 Discharged to Home. Impression: Unspecified diastolic sv (congestive) heart failure; Chronic obstructive pulmonary disease, unspecified; Anemia in chronic diseases classified elsewhere. Condition is Stable. Forms are Medication Reconciliation Form, Thank You Letter, Antibiotic Education, Prescription Opioid Use. Follow up: Tramaine Grady; When: 1 - 2 days; Reason: Recheck today's complaints, Continuance of care, Re-evaluation by your physician. Follow up: Emergency Department; When: As needed; Reason: Worsening of condition. snw
[2018-10-11] MEDS ORDERED: FUROSEMIDE 20 MG/ 2ML VIAL ONE (16:12)
[2018-10-11 16:28] LABS: Hematocrit 25.5 % (39.6-49.0)
[2018-10-11 17:14] VITALS: O2SAT 100
[2018-10-11 17:20] VITALS: TEMP 97.3
[2018-10-11 17:22] VITALS: BP 145/74
== END 2018-10-11 16:48 | disposition home or self-care (01) ==
LOC: ER 09:31
DX: J44.9 Chronic obstructive pulmonary disease, unspecified (principal); D63.8 Anemia in other chronic diseases classified elsewhere; I11.0 Hypertensive heart disease with heart failure; I50.30 Unspecified diastolic (congestive) heart failure; I48.91 Unspecified atrial fibrillation; I25.10 Atherosclerotic heart disease of native coronary artery without angina pectoris; E11.9 Type 2 diabetes mellitus without complications; E78.5 Hyperlipidemia, unspecified; K21.9 Gastro-esophageal reflux disease without esophagitis; M19.90 Unspecified osteoarthritis, unspecified site; N40.0 Benign prostatic hyperplasia without lower urinary tract symptoms; F03.90 Unspecified dementia, unspecified severity, without behavioral disturbance, psychotic disturbance, mood disturbance, and anxiety; Z86.73 Personal history of transient ischemic attack (TIA), and cerebral infarction without residual deficits
CPT/HCPCS: 36415; 71045; 74230; 80048; 80076; 83690; 85014; 85018; 85025; 85610; 86850; 86900; 86901; 96374; 99284; J1940; P9016

== ENCOUNTER 2018-12-05 13:18 | Inpatient (IN) | payer OTHER ==
--- OUTSIDE RECORDS SUMMARY | 2018-12-05 13:23 | XMS REPORT | Clinical Summary ---
:1930 Author Organization [facility] Address [address] [place] [address] Care Team Providers Name Role Phone J Carlos Dixon Primary Care Provider Allergies Active Allergy Reactions Severity Noted Date Comments Lisinopril Medications Medication Sig Dispensed Refills Start Date End Date Status omeprazole (PriLOSEC) 20 Take 20 mg 0 Active MG capsule by mouth daily. glipiZIDE (GLUCOTROL) 10 Take 10 mg 0 Active MG tablet by mouth daily. amlodipine-benazepril Take 1 0 Active (LOTREL) 10-20 mg per capsule by capsule mouth daily. ferrous gluconate 324 mg Take 1 0 Active (36 mg iron) tablet tablet by mouth every other day. aspirin (ECOTRIN) 81 MG Take 81 mg 0 Active enteric coated tablet by mouth daily. gabapentin (NEURONTIN) Take 300 mg 0 Active 400 mg capsule by mouth 3 (three) times a day. atorvastatin (LIPITOR) Take 40 mg 0 Active 80 MG tablet by mouth daily. melatonin 5 mg capsule Take 1 0 Active capsule by mouth daily. metoprolol succinate XL Take 25 mg 0 Active (TOPROL-XL) 25 mg 24 hr by mouth tablet daily. docusate sodium (COLACE) Take 100 mg 0 Active 100 MG capsule by mouth daily. magnesium oxide (MAG-OX) Take 400 mg 0 Active 400 mg (241.3 mg by mouth magnesium) tablet daily. folic acid (FOLVITE) 400 Take 800 mcg 0 Active MCG tablet by mouth daily. furosemide (LASIX) 20 mg Take 20 mg 0 Active tablet by mouth 3 (three) times a day. cholecalciferol, vitamin Take 400 0 Active D3, (VITAMIN D3) 400 Units by unit tablet mouth 3 (three) times a day. potassium gluconate 595 Take 595 mg 0 Active mg (99 mg) tablet by mouth nightly. budesonide-formoterol Inhale 2 0 Active (SYMBICORT) 80-4.5 puffs as mcg/actuation inhaler needed. lisinopril Take 1 30 tablet 0 10/29/2018 Active (PRINIVIL,ZESTRIL) 20 mg tablet (20 tablet mg total) by mouth daily for 30 days. hydroCHLOROthiazide Take 50 mg 0 10/22/19 Discontinued (HYDRODIURIL) 50 MG by mouth 19 tablet daily. losartan (COZAAR) 100 MG Take 100 mg 0 10/22/19 Discontinued tablet by mouth 19 daily. metFORMIN (GLUCOPHAGE) Take 1,000 0 10/22/19 Discontinued 1,000 mg tablet mg by mouth 19 2 (two) times a day with meals. metFORMIN (GLUCOPHAGE) Take 1 60 tablet 0 10/28/2018 11/28/19 1,000 mg tablet tablet 19 (1,000 mg total) by mouth 2 (two) times a day with meals for 30 days. amLODIPine (NORVASC) 10 Take 1 30 tablet 0 10/29/2018 11/29/19 mg tablet tablet (10 19 mg total) by mouth daily for 30 days. levoFLOXacin (LEVAQUIN) Take 2 10 tablet 0 10/28/2018 11/02/19 250 MG tablet tablets (500 19 mg total) by mouth daily for 5 days. predniSONE (DELTASONE) Take 2 60 tablet 0 10/29/2018 11/29/19 20 mg tablet tablets (40 19 mg total) by mouth daily for 30 days. 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 Mediastinal lymphadenopathy 10/28/2018 Shortness of breath 10/28/2018 Anemia 10/28/2018 CHF, acute on chronic 10/22/2018 Encounters Date Type Specialty Care Team Description 11/10/2018 Office Visit Pulmonology Tessie Robertson MD Pleural effusion ( Primary Dx); Lung mass 10/22/2018 - [facility] Internal Roxie Ames, Acute on chronic congestive heart failure, unspecified heart failure type (HCC) (Primary Dx); 10/28/2018 Encounter Medicine Pleural effusion 03/02/2018 Office Visit Orthopedic Surgery Raz Silva MD osteoarthritis of right knee (Primary Dx) 02/07/2018 Office Visit Orthopedic Surgery Raz Silva Primary osteoarthritis of right knee (Primary Dx); MD Og Chronic pain of right knee after 12/04/2017 Family History Medical History Relation Name Comments [...] Vital Sign Reading Time Taken Blood Pressure 154/63 11/10/2018 2:49 PM [facility] Pulse 88 11/10/2018 2:49 PM [facility] Temperature 36.2 C (97.1 F) 11/10/2018 2:49 PM [facility] Respiratory Rate 18 10/28/2018 3:29 PM [facility] Oxygen Saturation 96% 11/10/2018 2:49 PM [facility] Inhaled Oxygen Concentration - - Weight 82.6 kg (182 lb) 11/10/2018 2:49 PM [facility] Height 177.8 cm (5' 10") 10/22/2018 10:35 PM [facility] Body Mass Index 26.11 11/10/2018 2:49 PM [facility] Plan of Treatment Health Maintenance Due Date Last Done Comments SHINGLES VACCINES (#1) 1981 65+ PNEUMOCOCCAL VACCINE (1 of 2 - PCV13) 02/16/1996 PNEUMOCOCCAL POLYSACCHARIDE VACCINE AGE 65 AND OVER 02/16/1996 INFLUENZA VACCINE Completed 07/07/2018 Procedures Procedure Name Priority Date/Time Associated Comments Diagnosis POC GLUCOSE Routine 10/28/2018 12:02 Results for this PM [facility] procedure are in the results section. POC GLUCOSE Routine 10/28/2018 7:57 Results for this AM [facility] procedure are in the results section. POC GLUCOSE Routine 10/27/2018 9:20 Results for this PM [facility] procedure are in the results section. POC GLUCOSE Routine 10/27/2018 4:53 Results for this PM [facility] procedure are in the results section. POC GLUCOSE Routine 10/27/2018 11:39 Results for this AM [facility] procedure are in the results section. POC GLUCOSE Routine 10/27/2018 7:03 Results for this AM [facility] procedure are in the results section. ESTIMATED GFR Routine 10/27/2018 6:30 Results for this AM [facility] procedure are in the results section. HC COMPLETE BLD COUNT Routine 10/27/2018 6:30 Results for this W/AUTO DIFF AM [facility] procedure are in the results section. MAGNESIUM LEVEL Routine 10/27/2018 6:30 Results for this AM [facility] procedure are in the results section. COMPREHENSIVE METABOLIC Routine 10/27/2018 6:30 Results for this PANEL AM [facility] procedure are in the results section. XR CHEST 1 VW PORTABLE Routine 10/27/2018 1:33 Results for this AM [facility] procedure are in the results section. POC GLUCOSE Routine 10/27/2018 12:38 Results for this AM [facility] procedure are in the results section. POC GLUCOSE Routine 10/26/2018 3:51 Results for this PM [facility] procedure are in the results section. US THORACENTESIS WITH Routine 10/26/2018 10:08 Results for this IMAGING AM [facility] procedure are in the results section. CYTOLOGY Routine 10/26/2018 10:01 Results for this (NON-GYNECOLOGICAL) AM [facility] procedure are in REQUEST the results section. XR CHEST 1 VW PORTABLE STAT 10/26/2018 9:21 Results for this AM [facility] procedure are in the results section. PH, MISC FLUID Routine 10/26/2018 9:05 Results for this AM [facility] procedure are in the results section. CELL COUNT AND Routine 10/26/2018 9:05 Results for this DIFFERENTIAL, BODY AM [facility] procedure are in FLUID the results section. PROTEIN, MISC FLUID Routine 10/26/2018 9:05 Results for this AM [facility] procedure are in the results section. LDH, MISC FLUID Routine 10/26/2018 9:05 Results for this AM [facility] procedure are in the results section. BLOOD CULTURE, AEROBIC Routine 10/26/2018 9:05 Results for this & ANAEROBIC AM [facility] procedure are in the results section. POC GLUCOSE Routine 10/26/2018 7:15 Results for this AM [facility] procedure are in the results section. POC GLUCOSE Routine 10/25/2018 10:44 Results for this PM [facility] procedure are in the results section. POC GLUCOSE Routine 10/25/2018 3:16 Results for this PM [facility] procedure are in the results section. POC GLUCOSE Routine 10/25/2018 10:33 Results for this AM [facility] procedure are in the results section. POC GLUCOSE Routine 10/25/2018 7:09 Results for this AM [facility] procedure are in the results section. POC GLUCOSE Routine 10/24/2018 9:00 Results for this PM [facility] procedure are in the results section. HC COMPLETE BLD COUNT Routine 10/24/2018 7:30 Results for this W/AUTO DIFF PM [facility] procedure are in the results section. XR CHEST 1 VW Routine 10/24/2018 6:50 Results for this PM [facility] procedure are in the results section. TRANSFUSE RED BLOOD Routine 10/24/2018 5:24 CELLS PM [facility] POC GLUCOSE Routine 10/24/2018 4:30 Results for this PM [facility] procedure are in the results section. US THORACENTESIS WITH Routine 10/24/2018 4:29 Results for this IMAGING PM [facility] procedure are in the results section. XR CHEST 1 VW PORTABLE STAT 10/24/2018 3:59 Results for this PM [facility] procedure are in the results section. PH, MISC FLUID Routine 10/24/2018 3:42 Results for this PM [facility] procedure are in the results section. CELL COUNT AND Routine 10/24/2018 3:42 Results for this DIFFERENTIAL, BODY PM [facility] procedure are in FLUID the results section. PROTEIN, MISC FLUID Routine 10/24/2018 3:42 Results for this PM [facility] procedure are in the results section. LDH, MISC FLUID Routine 10/24/2018 3:42 Results for this PM [facility] procedure are in the results section. BLOOD CULTURE, AEROBIC Routine 10/24/2018 3:42 Results for this & ANAEROBIC PM [facility] procedure are in the results section. GRAM STAIN Routine 10/24/2018 3:42 Results for this PM [facility] procedure are in the results section. POC GLUCOSE Routine 10/24/2018 11:36 Results for this AM [facility] procedure are in the results section. CYTOLOGY Routine 10/24/2018 7:44 Results for this (NON-GYNECOLOGICAL) AM [facility] procedure are in REQUEST the results section. POC GLUCOSE Routine 10/24/2018 7:18 Results for this AM [facility] procedure are in the results section. ESTIMATED GFR Routine 10/24/2018 6:20 Results for this AM [facility] procedure are in the results section. TOTAL IRON BINDING Routine 10/24/2018 6:20 Results for this CAPACITY AM [facility] procedure are in the results section. FERRITIN LEVEL Routine 10/24/2018 6:20 Results for this AM [facility] procedure are in the results section. MAGNESIUM LEVEL Routine 10/24/2018 6:20 Results for this AM [facility] procedure are in the results section. COMPREHENSIVE METABOLIC Routine 10/24/2018 6:20 Results for this PANEL AM [facility] procedure are in the results section. HC COMPLETE BLD COUNT Routine 10/24/2018 6:20 Results for this W/AUTO DIFF AM [facility] procedure are in the results section. US DUPLEX VENOUS LOWER Routine 10/24/2018 3:56 Results for this EXTREMITY BILATERAL AM [facility] procedure are in the results section. POC GLUCOSE Routine 10/23/2018 8:40 Results for this PM [facility] procedure are in the results section. TROPONIN Timed 10/23/2018 5:45 Results for this PM [facility] procedure are in the results section. POC GLUCOSE Routine 10/23/2018 4:10 Results for this PM [facility] procedure are in the results section. ECHOCARDIOGRAM 2D Routine 10/23/2018 2:16 Results for this COMPLETE W MMODE PM [facility] procedure are in SPECTRAL COLOR DOPPLER the results ([id number]) section. POC GLUCOSE Routine 10/23/2018 10:49 Results for this AM [facility] procedure are in the results section. XR CHEST 1 VW PORTABLE Routine 10/23/2018 10:23 Results for this AM [facility] procedure are in the results section. ECG 12-LEAD Routine 10/23/2018 10:18 Results for this AM [facility] procedure are in the results section. CT CHEST WO CONTRAST Routine 10/23/2018 9:46 Results for this AM [facility] procedure are in the results section. TROPONIN Routine 10/23/2018 8:21 Results for this AM [facility] procedure are in the results section. ESTIMATED GFR Routine 10/23/2018 8:21 Results for this AM [facility] procedure are in the results section. MAGNESIUM LEVEL Routine 10/23/2018 8:21 Results for this AM [facility] procedure are in the results section. COMPREHENSIVE METABOLIC Routine 10/23/2018 8:21 Results for this PANEL AM [facility] procedure are in the results section. HC COMPLETE BLD COUNT Routine 10/23/2018 8:21 Results for this W/AUTO DIFF AM [facility] procedure are in the results section. POC GLUCOSE Routine 10/23/2018 7:01 Results for this AM [facility] procedure are in the results section. TRANSFUSE RED BLOOD STAT 10/23/2018 6:22 CELLS AM [facility] PREPARE RBC STAT 10/23/2018 12:40 Results for this AM [facility] procedure are in the results section. PREPARE RBC STAT 10/23/2018 12:40 Results for this AM [facility] procedure are in the results section. TYPE AND SCREEN STAT 10/23/2018 12:40 Results for this AM [facility] procedure are in the results section. HEMOGLOBIN & HEMATOCRIT STAT 10/23/2018 12:40 Results for this AM [facility] procedure are in the results section. POC GLUCOSE Routine 10/22/2018 11:40 Results for this PM [facility] procedure are in the results section. BLOOD CULTURE, AEROBIC Routine 10/22/2018 10:50 Results for this & ANAEROBIC PM [facility] procedure are in the results section. TROPONIN Routine 10/22/2018 10:45 Results for this PM [facility] procedure are in the results section. ESTIMATED GFR Routine 10/22/2018 10:45 Results for this PM [facility] procedure are in the results section. LIPASE LEVEL Routine 10/22/2018 10:45 Results for this PM [facility] procedure are in the results section. CREATINE KINASE, TOTAL Routine 10/22/2018 10:45 Results for this (CPK) PM [facility] procedure are in the results section. AMYLASE LEVEL Routine 10/22/2018 10:45 Results for this PM [facility] procedure are in the results section. B NATRIURETIC PEPTIDE Routine 10/22/2018 10:45 Results for this PM [facility] procedure are in the results section. COMPREHENSIVE METABOLIC Routine 10/22/2018 10:45 Results for this PANEL PM [facility] procedure are in the results section. HEMOGLOBIN A1C Routine 10/22/2018 10:45 Results for this PM [facility] procedure are in the results section. LACTIC ACID LEVEL Routine 10/22/2018 10:45 Results for this PM [facility] procedure are in the results section. LIPID PANEL Routine 10/22/2018 10:45 Results for this PM [facility] procedure are in the results section. MAGNESIUM LEVEL Routine 10/22/2018 10:45 Results for this PM [facility] procedure are in the results section. PHOSPHORUS LEVEL Routine 10/22/2018 10:45 Results for this PM [facility] procedure are in the results section. PREALBUMIN LEVEL Routine 10/22/2018 10:45 Results for this PM [facility] procedure are in the results section. THYROID STIMULATING Routine 10/22/2018 10:45 Results for this HORMONE PM [facility] procedure are in the results section. T4, FREE Routine 10/22/2018 10:45 Results for this PM [facility] procedure are in the results section. URIC ACID LEVEL Routine 10/22/2018 10:45 Results for this PM [facility] procedure are in the results section. URINALYSIS SCREEN AND Routine 10/22/2018 10:45 Results for this MICROSCOPY, WITH REFLEX PM [facility] procedure are in TO CULTURE the results section. PARTIAL THROMBOPLASTIN Routine 10/22/2018 10:45 Results for this TIME (PTT) PM [facility] procedure are in the results section. PROTHROMBIN TIME WITH Routine 10/22/2018 10:45 Results for this INR PM [facility] procedure are in the results section. HC COMPLETE BLD COUNT Routine 10/22/2018 10:45 Results for this W/AUTO DIFF PM [facility] procedure are in the results section. URINE CULTURE Routine 10/22/2018 10:45 Results for this PM [facility] procedure are in the results section. BLOOD CULTURE, AEROBIC Routine 10/22/2018 10:45 Results for this & ANAEROBIC PM [facility] procedure are in the results section. XR KNEE 3 VW RIGHT Routine 02/07/2018 2:00 Chronic pain of Results for this PM CDT right knee procedure are in the results section. after 12/04/2017 Results POC glucose (10/28/2018 12:02 PM [facility])Only the most recent of22 resultswithin the time period is included. POC glucose 210 (H) 65 - 99 mg/dL [facility] Comment: HOSPITAL RN Notified Meter ID: [id number] Set Making Machine Operator: Iban Queen Performing Organization Address City/[facility] Phone Number [facility] DEPARTMENT OF PATHOLOGY [address] [place] [address] Estimated GFR (10/27/2018 6:30 AM [facility])Only the most recent of4 resultswithin the time period is included. Estimated GFR 35 (A) mL/min/1.73 m2 [facility] Comment: [facility] CatergoryUnitsInterpretation G1 >=90 Normal or high G2 60-89Mildly decreased [id number] to moderately decreased L1t59-77Iafgoyoxwe to severely decreased G4 15-29Severely decreased G5 <15Kidney failure The eGFR was calculated using the Chronic Kidney Disease Epidemiology Collaboration (CKD-EPI) equation. Interpretation is based on recommendations of the National Kidney Foundation-Kidney Disease Outcomes Quality Initiative (NKF-KDOQI) published in 2014. Specimen Plasma specimen Performing Organization Address City/[facility]/Zipcode Phone Number [facility] DEPARTMENT OF PATHOLOGY [id number] [place] [address] CBC with platelet and differential (10/27/2018 6:30 AM [facility])Only the most recent of5 resultswithin the time period is included. WBC 4.8 4.5 - 11.0 k/uL [facility] RBC 2.95 (L) 4.40 - 6.00 m/uL [facility] HGB 7.9 (L) 14.0 - 18.0 g/dL [facility] HCT 26.2 (L) 41.0 - 51.0 % [facility] MCV 88.8 82.0 - 100.0 fL [facility] MCH 26.8 (L) 27.0 - 34.0 pg [facility] MCHC 30.2 (L) 31.0 - 37.0 g/dL [facility] RDW - SD 50.4 37.0 - 55.0 fL [facility] MPV 11.7 (H) 6.9 - 11.0 fL [facility] Platelet count 174 150 - 400 K/uL [facility] Nucleated RBC 0.00 /100 WBC [facility] Neutrophils 86.6 (H) 39.0 - 69.0 % [facility] Lymphocytes 6.6 (L) 25.0 - 45.0 % [facility] Monocytes 6.0 0.0 - 10.0 % [facility] Eosinophils 0.0 0.0 - 5.0 % [facility] Basophils 0.0 0.0 - 1.0 % [facility] Immature granulocytes 0.8 0.0 - 1.0 % [facility] Specimen Blood Performing Organization Address City/[facility]/Zipcode Phone Number [facility] DEPARTMENT OF PATHOLOGY [address] [place] [address] AND GENOMIC MEDICINE [facility] [address] [place] [address] HOSPITAL Magnesium level (10/27/2018 6:30 AM [facility])Only the most recent of4 resultswithin the time period is included. Magnesium 2.1 1.6 - 2.4 mg/dL [facility] Specimen Plasma specimen Performing Organization Address City/[facility]/Zipcode Phone Number [facility] DEPARTMENT OF PATHOLOGY [id number] [place] [address] AND [facility] [id number] [place] [address] Comprehensive metabolic panel (10/27/2018 6:30 AM [facility])Only the most recent of4 resultswithin the time period is included. Sodium 138 135 - 148 mEq/L [facility] Potassium 4.8 3.5 - 5.0 mEq/L [facility] Chloride 97 (L) 98 - 112 mEq/L [facility] CO2 27 24 - 31 mEq/L [facility] Anion gap 14@ANIO 7 - 15 mEq/L [facility] BUN 80 (H) 8 - 23 mg/dL [facility] Creatinine 1.71 (H) 0.70 - 1.20 mg/dL [facility] Glucose 215 (H) 65 - 99 mg/dL [facility] Calcium 11.1 (H) 8.8 - 10.2 mg/dL [facility] Protein 6.6 6.3 - 8.3 g/dL [facility] Albumin 2.9 (L) 3.5 - 5.0 g/dL [facility] A/G ratio 0.8 0.7 - 3.8 [facility] Alkaline phosphatase 72 40 - 129 U/L [facility] AST 14 10 - 50 U/L [facility] ALT 7 5 - 50 U/L [facility] Total bilirubin <0.2 0.2 - 1.2 mg/dL [facility] Specimen Plasma specimen Performing Organization Address City/State/Zipcode Phone Number [facility] DEPARTMENT OF PATHOLOGY [address] [place] [address] AND [facility] [id number] [place] [address] XR Chest 1 Vw Portable (10/27/2018 1:33 AM [facility])Only the most recent of4 resultswithin the time period is included. Narrative Performed At EXAMINATION:XR CHEST 1 VW PORTABLE [facility] CLINICAL HISTORY:pneumonia COMPARISON:10/26/2018 IMPRESSION: Mild to moderate enlargement of cardiac silhouette. Hazy interstitial infiltrates on the right are somewhat improved; airspace infiltrates on the left are somewhat worsened. Persistent opacity of right lung base is seen, and follow-up until resolution is advised. Small bilateral effusions. No pneumothorax. No other significant interval change. [facility]-[id number] Procedure Note Interface, Radiology Results Incoming - 10/27/2018 4:22 AM [facility] EXAMINATION: XR CHEST 1 VW PORTABLE CLINICAL HISTORY: pneumonia COMPARISON: 10/26/2018 IMPRESSION: Mild to moderate enlargement of cardiac silhouette. Hazy interstitial infiltrates on the right are somewhat improved; airspace infiltrates on the left are somewhat worsened. Persistent opacity of right lung base is seen, and follow-up until resolution is advised. Small bilateral effusions. No pneumothorax. No other significant interval change. [facility]-[id number] Performing Organization Address City/State/Zipcode Phone Number [facility] [address] [place] [address] US Thoracentesis With Imaging (10/26/2018 10:08 AM [facility])Only the most recent of2 resultswithin the time period is included. Narrative Performed At Procedure [facility] Ultrasound-guided left thoracentesis. Clinical Indication Pleural effusion. Anesthesia Lidocaine 1%. Sedation None. Technique Written informed consent was obtained prior to the procedure. Preprocedural ultrasound imaging over the left posterior chest was then performed, demonstrating a moderate pleural effusion. The posterior chest was sterilely prepared and draped in the routine manner. Lidocaine 1% was used for local anesthetic. Using ultrasound guidance, a 5-Andorran 1 step centesis was advanced successfully into thepleural space, with return of yellow pleural fluid. A total 2.7 L of fluid was removed. The Yueh catheter was removed and hemostasis was achieved with manual compression.The patient tolerated the procedure well. Complications None. Impression: Successful ultrasound-guided left thoracentesis with removal of 0.7 L of pleural fluid. [facility]-[id number] Procedure Note Interface, Radiology Results Incoming - 10/26/2018 10:37 AM [facility] Procedure Ultrasound-guided left thoracentesis. Clinical Indication Pleural effusion. Anesthesia Lidocaine 1%. Sedation None. Technique Written informed consent was obtained prior to the procedure. Preprocedural ultrasound imaging over the left posterior chest was then performed, demonstrating a moderate pleural effusion. The posterior chest was sterilely prepared and draped in the routine manner. Lidocaine 1% was used for local anesthetic. Using ultrasound guidance, a 5-Andorran 1 step centesis was advanced successfully into thepleural space, with return of yellow pleural fluid. A total 2.7 L of fluid was removed. The Yueh catheter was removed and hemostasis was achieved with manual compression. The patient tolerated the procedure well. Complications None. Impression: Successful ultrasound-guided left thoracentesis with removal of 0.7 L of pleural fluid. [facility]-[id number] Performing Organization Address City/[facility]/Zipcode Phone Number [facility] [address] [place] [phone] Cytology (non-gynecological) request (10/26/2018 10:01 AM SIDING STAPLER)Only the most recent of2 resultswithin the time period is included. [facility] DEPARTMENT OF PATHOLOGY AND GENOMIC MEDICINE Cytology See link below for PDF [facility] DEPARTMENT OF (non-gynecological) report Lab Report PATHOLOGY AND GENOMIC MEDICINE Result status This is Final Report [facility] DEPARTMENT OF for [id number] PATHOLOGY AND GENOMIC MEDICINE Performing Organization Address [facility] Phone Number [facility] DEPARTMENT OF PATHOLOGY [address] [place] [address] AND [facility] Blood culture, aerobic & anaerobic (10/26/2018 9:05 AM SIDING STAPLER)Only the most recent of4 resultswithin the time period is included. Blood culture isolate No growth after 5 days of incubation. [facility] Comment: HOSPITAL Specimen Information Specimen Source: Fluid Specimen Site: Thoracentesis fluid Specimen Thoracentesis fluid Performing Organization Address City/[facility] Phone Number [facility] DEPARTMENT OF PATHOLOGY AND [address] [place] [address] [facility] [address] [address] Cell count and differential, body fluid (10/26/2018 9:05 AM SIDING STAPLER)Only the most recent of2 resultswithin the time period is included. [facility] fluid type Pleural [facility] Color, fluid Pale yellow [facility] Appearance, fluid Hazy [facility] RBC, fluid SEE COMMENTComment: 2+ /CMM [facility] (500 - 10,000 RBC/[facility] Nucleated cells, fluid 892 /CMM [facility] Fluid mononuclear cell Diff to follow [facility] Neutrophils, fluid 2 % [facility] Lymphocytes, fluid 30 % [facility] Mesothelial cells, fluid 2 % [facility] Macrophages, fluid 66 % [facility] Specimen Cerebrospinal fluid Performing Organization Address City/State/Zipcode Phone Number [facility] DEPARTMENT OF PATHOLOGY [address] [place] [address] AND [facility] MEDICINE [facility] [address] [place] [address] HOSPITAL Protein, misc fluid (10/26/2018 9:05 AM SIDING STAPLER)Only the most recent of2 resultswithin the time period is included. Fluid type Pleural [facility] Protein, fluid 1.4 g/dL [facility] Comment: Analysis performed on Madison 8000 analyzer. This is not an approved methodology for this specimen type;accuracy and clinical significance uncertain. Specimen Fluid Performing Organization Address City/[facility]/Zipcode Phone Number [facility] DEPARTMENT OF PATHOLOGY AND [address] [place] [phone] LDH, misc fluid (10/26/2018 9:05 AM SIDING STAPLER)Only the most recent of2 resultswithin the time period is included. Fluid type Pleural [facility] LDH, fluid 63 U/L [facility] Comment: Analysis performed on Madison 8000 analyzer. This is not an approved methodology for this specimen type;accuracy and clinical significance uncertain. Specimen Fluid Performing Organization Address City/[facility] Phone Number [facility] DEPARTMENT OF PATHOLOGY AND [address] [place] [address] [address] pH, misc fluid (10/26/2018 9:05 AM SIDING STAPLER)Only the most recent of2 resultswithin the time period is included. Fluid type Pleural [facility] pH, fluid 8.00Comment: Reference ranges are not [facility] established for Miscellanous specimens. Specimen Fluid Performing Organization Address City/State/Zipcode Phone Number [facility] DEPARTMENT OF PATHOLOGY AND [address] [place] [phone] [address] XR Chest 1 Vw (10/24/2018 6:50 PM SIDING STAPLER) Narrative Performed At Study:XR CHEST 1 VW HM [facility] History: Post Thoracentesis COMPARISON: Same date IMPRESSION: A single view of the chest. Mild pulmonary edema, bibasilar consolidations or atelectasis, and small bilateral pleural effusions unchanged. No pneumothorax. Cardiac silhouette is enlarged, stable.Visualized osseous structures arestable. [id number] Procedure Note Hm Interface, Radiology Results Incoming - 10/24/2018 7:07 PM SIDING STAPLER Study:XR CHEST 1 VW History: Post Thoracentesis COMPARISON: Same date IMPRESSION: A single view of the chest. Mild pulmonary edema, bibasilar consolidations or atelectasis, and small bilateral pleural effusions unchanged. No pneumothorax. Cardiac silhouette is enlarged, stable. Visualized osseous structures are stable. [id number] Performing Organization Address City/[facility]/Zipcode Phone Number [facility] [address] [place] [address] Transfuse RBC (10/24/2018 5:24 PM SIDING STAPLER)Only the most recent of4 resultswithin the time period is included.Gram stain (10/24/2018 3:42 PM SIDING STAPLER) Gram stain isolate Few WBC's [facility] No organisms seen Comment: Specimen Information Specimen Source: Thoracentesis fluid Specimen Site: Chest, right Specimen Thoracentesis fluid - Chest, right Performing Organization Address City/[facility] Phone Number [facility] DEPARTMENT OF PATHOLOGY AND [address] [place] [address] [facility] [address] [place] [phone] Total iron binding capacity (10/24/2018 6:20 AM SIDING STAPLER) Iron level 14 (L) 59 - 158 ug/dL [facility] Iron binding capacity 211 (L) 260 - 460 ug/dL [facility] % Saturation 6.6 (L) 20.0 - 40.0 % [facility] Specimen Plasma specimen Performing Organization Address City/[facility]/Zipcode Phone Number [facility] DEPARTMENT OF PATHOLOGY [address] [place] [address] AND [facility] [address] [place] [address] HOSPITAL Ferritin level (10/24/2018 6:20 AM SIDING STAPLER) Ferritin level 99 30 - 400 ng/mL [facility] Specimen Plasma specimen Performing Organization Address City/[facility]/Zipcode Phone Number [facility] DEPARTMENT OF PATHOLOGY AND [address] [place] [address] GENOMIC MEDICINE [facility] [address] [place] [address] Us duplex venous lower extremity (10/24/2018 3:56 AM SIDING STAPLER) Narrative Performed At EXAMINATION:US DUPLEX VENOUS LOWER EXTREMITY BILATERAL [facility] CLINICAL HISTORY:Leg swelling or painDVT suspected COMPARISON:None. TECHNIQUE:Grayscale, color Doppler, and spectral waveform analysis of the bilateral lower extremity deep venous systems was performed. The bilateral common femoral, superficial femoral, proximal deep femoral, greater saphenous, and popliteal veins were evaluated. The calf vessels were also evaluated. FINDINGS: The bilateral common femoral, superficial femoral, and popliteal veins are compressible. They demonstrate normal venous waveforms and response to augmentation. There is flow in the visualized calf veins. There is no evidence of a popliteal or Hilario's cyst. IMPRESSION: Normal bilateral lower extremity venous Doppler examination. There is no evidence of deep venous thrombosis. Subcutaneous edema of bilateral lower extremities. [facility]-[id number] Procedure Note Interface, Radiology Results Incoming - 10/24/2018 5:26 AM SIDING STAPLER EXAMINATION: US DUPLEX VENOUS LOWER EXTREMITY BILATERAL CLINICAL HISTORY: Leg swelling or pain DVT suspected COMPARISON: None. TECHNIQUE: Grayscale, color Doppler, and spectral waveform analysis of the bilateral lower extremity deep venous systems was performed. The bilateral common femoral, superficial femoral, proximal deep femoral, greater saphenous, and popliteal veins were evaluated. The calf vessels were also evaluated. FINDINGS: The bilateral common femoral, superficial femoral, and popliteal veins are compressible. They demonstrate normal venous waveforms and response to augmentation. There is flow in the visualized calf veins. There is no evidence of a popliteal or Hilario's cyst. IMPRESSION: Normal bilateral lower extremity venous Doppler examination. There is no evidence of deep venous thrombosis. Subcutaneous edema of bilateral lower extremities. [facility]-[id number] Performing Organization Address City/[facility]/Zipcode Phone Number [facility] [address] [place] [address] Troponin (10/23/2018 5:45 PM SIDING STAPLER)Only the most recent of3 resultswithin the time period is included. Troponin <0.30 0.00 - 0.30 ng/mL [facility] Comment: HOSPITAL 0.11 - 1.49 ng/mlMay indicate increased risk of acute coronary syndrome. >=1.5 ng/mlConsistent with acute myocardial infarction. The diagnostic value of a single normal or non-diagnostic result is questionable.Serial samples at 2-6 hour intervals are required to rule out acute myocardial injury. Specimen Plasma specimen Performing Organization Address City/State/Zipcode Phone Number [facility] DEPARTMENT OF PATHOLOGY [address] [place] [address] AND GENOMIC MEDICINE [facility] [address] Echocardiogram complete w contrast and 3D if needed (10/23/2018 2:16 PM SIDING STAPLER) Ao Root Diameter 3.32 cm HM [facility] AoV Area, Vmax 2.08 cm2 [facility] AoV Area, VTI 1.94 cm2 [facility] AoV Mean PG 5.77 mmHg [facility] AoV Peak PG 10.06 mmHg HM [facility] AoV Vmax 1.59 m/s [facility] AoV VTI 0.35 m [facility] IVS,d 1.28 cm [facility] IVS/LVPW,2D 1.15 HM [facility] Left Atrium Dimension Anterior 4.11 cm HM [facility] LA Area d A4C 15.65 cm2 [facility] LV,d 5.06 cm HM [facility] LV EF,2D 63.07 % [facility] LV,s 3.63 cm HM [facility] LVOT area 3.43 cm2 HM [facility] LVOT Diam,S 2.09 cm HM [facility] LVOT Vmax 0.96 m/s [facility] LVOT VTI 0.20 m [facility] LVPWD,d 1.11 cm HM [facility] PV Pk Grad 6.16 mmHg HM [facility] PV VMAX 1.24 m/s [facility] RVOT Vmax 0.71 m/s [facility] RVSP (TR) 65.15 mmHg HM [facility] TR Vpeak 3.54 mm/s [facility] TR pk grad 50.15 mmHg HM [facility] AV LVOT peak gradient 3.72 mmHg HM [facility] RVSP 65.15 mmHg HM [facility] Ao Root Diameter 3.32 cm HM [facility] MV mean gradient 2.72 mmHg HM [facility] LV SYS VOL 55.62 ml HM [facility] LV MCKEON VOL 121.75 ml HM [facility] LV SV Teich 2D 66.13 ml HM [facility] LV Vol s Teich PSAX 55.62 ml HM [facility] MR peak grad 8.83 mmHg HM [facility] MV Vmax 1.49 m HM [facility] MV VTI Tips 0.37 m HM [facility] RVOT pk grad 2.01 mmHg HM [facility] AoV Vmn 1.15 HM [facility] LV FS Teich 2D 28.26 HM [facility] LV FS Cube 2D 28.26 HM [facility] LVOT Vmn 0.68 HM [facility] Aov area Vmn 2.01 cm2 HM [facility] LA Vol d MOD A4C 39.55 ml HM [facility] LVOT mean grad 1.98 mmHg HM [facility] MAX Pred HR 133.31 [facility] 85 of MPHR 113.31 HM [facility] Calc MPHR 133.31 bpm HM [facility] LV SV Cube 2D 81.88 ml HM [facility] LV vol d cube 2D 129.81 ml HM [facility] LV vol s cube 2D 47.94 ml HM [facility] Pred Exer Dur R1 4.61 HM [facility] Pred METS R1 5.00 HM [facility] Velocity Ratio (V1/V2) 0.60 m/s [facility] EF 54.32 % [facility] Narrative Performed At Left ventricular systolic function is normal. [facility] Left Ventricular ejection fraction is 60 - 65%. Left atrium size is mildly dilated. Severe pulmonary hypertension present. Unable to assess diastolic filling. Right Ventricle: Normal right ventricular size, wall thickness and global function. Diastology: Unable to assess diastolic filling. Mild tricuspid valve regurgitation. Performing Organization Address City/State/Zipcode Phone Number [facility] [address] [place] [address] ECG 12 lead (10/23/2018 10:18 AM SIDING STAPLER) Ventricular rate 79 [facility] Atrial rate 87 [facility] QRSD interval 96 [facility] QT interval 372 [facility] QTC interval 426 [facility] QRS axis 1 -11 [facility] T wave axis 70 [facility] EKG impression Atrial fibrillation with premature [facility] MUSE ventricular or aberrantly conducted complexes-Abnormal ECG-No previous ECGs available- Narrative Performed At Performing Organization Address City/State/Zipcode Phone Number [facility] MUSE [address] [place] [address] CT Chest Wo Contrast (10/23/2018 9:46 AM SIDING STAPLER) Narrative Performed At EXAMINATION: [facility] CT CHEST WO CONTRAST CLINICAL HISTORY: Hypoxia TECHNIQUE: Multiple axial images of the chest were obtained without intravenous contrast. The lack of intravenous contrast reduces the sensitivity of detecting solid organ disease and evaluating vasculature. Sagittal and coronal computerized reformatted images were also obtained. CT imaging was performed with iterative reconstruction techniques and/or automated exposure control to reduce radiation dose. COMPARISON: FINDINGS: 1.Moderate symmetric bilateral pleural effusions are present. 2.There are prominent bilateral interstitial lung markings. Many are fine, peripheral/juxtapleural, and somewhat irregular. 3.There is localized consolidation and atelectasis in the right middle lobe, regional bronchiectasis, and there is endobronchial impaction and complete opacification of the proximal right middle lobe bronchus. 4.Endobronchial mucous plugging/opacification in the basal left lower lobe airways are present. There is consolidation/atelectasis in the left lower lobe. However, there is narrowing of more rounded opacification in the left lower lobe measuring approximately 6 x 4 cm on image 77. 5.There are multiple enlarged mediastinal and left hilar lymph nodes. A subcarinal lymph node measuring 3.4 x 1.9 cm on image 57, low right anterior paratracheal 2.2 x 1.5 cm node on image 41, as well as multiple other more superior paratracheal nodes, AP window nodes, and anterior mediastinal nodes, are present. There is a mildly prominent left gastric lymph node on image 106, measuring 16 x 14 mm. 6.There is mild to moderate generalized cardiomegaly. Coronary, aortic and peripheral atherosclerosis are present. 7.There is trace perihepatic ascites. 8.No acute or aggressive skeletal skeletal abnormality is seen. IMPRESSION: 1.Extensive mediastinal adenopathy, suspected left lower lobe mass, suspicious for malignancy. If possible, further evaluation with contrast-enhanced CT is recommended. Otherwise bronchoscopy is advised. 2.Right middle lobe consolidation, bronchiectasis, with proximal middle lobe endobronchial mucous plugging. Middle lobe acute on chronic pneumonia is suspected. 3.Probable heart failure. 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 [facility]-[id number] Procedure Note Interface, Radiology Results Incoming - 10/23/2018 9:59 AM SIDING STAPLER EXAMINATION: CT CHEST WO CONTRAST CLINICAL HISTORY: Hypoxia TECHNIQUE: Multiple axial images of the chest were obtained without intravenous contrast. The lack of intravenous contrast reduces the sensitivity of detecting solid organ disease and evaluating vasculature. Sagittal and coronal computerized reformatted images were also obtained. CT imaging was performed with iterative reconstruction techniques and/or automated exposure control to reduce radiation dose. COMPARISON: FINDINGS: 1. Moderate symmetric bilateral pleural effusions are present. 2. There are prominent bilateral interstitial lung markings. Many are fine, peripheral/juxtapleural, and somewhat irregular. 3. There is localized consolidation and atelectasis in the right middle lobe, regional bronchiectasis, and there is endobronchial impaction and complete opacification of the proximal right middle lobe bronchus. 4. Endobronchial mucous plugging/opacification in the basal left lower lobe airways are present. There is consolidation/atelectasis in the left lower lobe. However, there is narrowing of more rounded opacification in the left lower lobe measuring approximately 6 x 4 cm on image 77. 5. There are multiple enlarged mediastinal and left hilar lymph nodes. A subcarinal lymph node measuring 3.4 x 1.9 cm on image 57, low right anterior paratracheal 2.2 x 1.5 cm node on image 41, as well as multiple other more superior paratracheal nodes, AP window nodes, and anterior mediastinal nodes, are present. There is a mildly prominent left gastric lymph node on image 106, measuring 16 x 14 mm. 6. There is mild to moderate generalized cardiomegaly. Coronary, aortic and peripheral atherosclerosis are present. 7. There is trace perihepatic ascites. 8. No acute or aggressive skeletal skeletal abnormality is seen. IMPRESSION: 1. Extensive mediastinal adenopathy, suspected left lower lobe mass, suspicious for malignancy. If possible, further evaluation with contrast- enhanced CT is recommended. Otherwise bronchoscopy is advised. 2. Right middle lobe consolidation, bronchiectasis, with proximal middle lobe endobronchial mucous plugging. Middle lobe acute on chronic pneumonia is suspected. 3. Probable heart failure. 4. 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 [facility]-[id number] Performing Organization Address City/State/Zipcode Phone Number [facility] [address] [place] [address] Hemoglobin & hematocrit (10/23/2018 12:40 AM SIDING STAPLER) HGB 6.5 (LL) 14.0 - 18.0 g/dL [facility] Comment: HOSPITAL Hgb results called to and read back by Glenn Cochran/KENNY (name/location) at 10/23/201800:59 (date/time) by [facility]. HCT 21.1 (L) 41.0 - 51.0 % [facility] Specimen Blood Performing Organization Address City/State/Zipcode Phone Number [facility] DEPARTMENT OF PATHOLOGY [address] [place] [address] Prepare RBC, 1 Units (10/23/2018 12:40 AM SIDING STAPLER)Only the most recent of2 resultswithin the time period is included. Product name Apheresis Red Cell AS3 #2 LR [facility] Unit number [id number] [facility] Product [facility] [id number] [facility] Dispense status Transfused [facility] Blood expiration date [facility] Blood type code 0600 [facility] Blood type A NEGATIVE [facility] Performing Organization Address City/State/Zipcode Phone Number [facility] DEPARTMENT OF PATHOLOGY [address] [place] [address] [place] [address] HOSPITAL Type and screen (10/23/2018 12:40 AM SIDING STAPLER) ABO grouping AB [facility] Rh type NEG [facility] Antibody screen (gel) NEG [facility] Specimen Blood Performing Organization Address City/State/Zipcode Phone Number [facility] DEPARTMENT OF PATHOLOGY [address] [place] [address] [place] [address] HOSPITAL Urinalysis screen and microscopy, with reflex to culture (10/22/2018 10:45 PM SIDING STAPLER) Specimen site [place] [facility] Color, UA Yellow [facility] Appearance, UA Clear [facility] Specific gravity, UA 1.015 1.001 - 1.030 [facility] pH, UA 5.0 5.0 - 9.0 [facility] Protein, UA Negative Negative [facility] Glucose, UA 1+ (A) Negative [facility] Ketones, UA Negative Negative [facility] Bilirubin, UA Negative Negative [facility] Blood, UA Small (A) Negative [facility] Nitrite, UA Negative Negative [facility] Urobilinogen, UA <2.0 <2.0 E.U./dL [facility] Leukocyte esterase, UA Negative Negative [facility] Epithelial cells, UA <1 /HPF [facility] Round epithelial cells, UA <1 0 - 5 /HPF [facility] WBC, UA 1 0 - 1 /HPF [facility] RBC, UA 7 (H) 0 - 5 /HPF [facility] Bacteria, UA None seen None seen [facility] Yeast, UA None seen [facility] Yeast with pseudohyphae, UA None seen [facility] Specimen Urine Performing Organization Address City/[facility]/Zipcode Phone Number [facility] DEPARTMENT OF PATHOLOGY [id number] [place] [address] Partial thromboplastin time, activated (10/22/2018 10:45 PM SIDING STAPLER) PTT 43.5 (H) 23.0 - 36.0 sec [facility] PTT therapeutic range for unfractionated heparin is 61.0-112.0 seconds which corresponds to Anti-Xa 0.3-0.7 U/ml. Specimen Blood Performing Organization Address City/[facility]/Zipcode Phone Number [facility] DEPARTMENT OF PATHOLOGY [id number] [place] [address] [place] [address] HOSPITAL Prothrombin time with INR (10/22/2018 10:45 PM SIDING STAPLER) Prothrombin time 14.9 (H) 11.5 - 14.5 sec [facility] INR 1.2 [facility] Comment: [facility] The International Normalized Ratio (INR) is a therapeutic monitoring tool for patients who are stable on oral anticoagulant therapy. An INR of 2.0-3.0 is suggested for deep vein thrombosis/pulmonary embolism. Specimen Blood Performing Organization Address City/[facility]/Zipcode Phone Number [facility] DEPARTMENT OF PATHOLOGY [address] [place] [address] Urine culture (10/22/2018 10:45 PM SIDING STAPLER) Urine culture SEE COMMENTComment: Bacteriuria [facility] screen negative. HOSPITAL Performing Organization Address City/[facility] Phone Number [facility] DEPARTMENT OF PATHOLOGY [address] [place] [address] Uric acid level (10/22/2018 10:45 PM SIDING STAPLER) Uric acid 9.1 (H) 3.4 - 7.0 mg/dL [facility] Specimen Plasma specimen Performing Organization Address City/[facility] [place] [facility] Phone Number [facility] DEPARTMENT OF PATHOLOGY [address] [place] [address] Thyroid stimulating hormone (10/22/2018 10:45 PM [facility]) TSH 1.46 0.27 - 4.20 uIU/mL [facility] Specimen Plasma specimen Performing Organization Address City/[facility] [place] [facility]alscode Phone Number [facility] DEPARTMENT OF PATHOLOGY [address] [place] [address] T4, free (10/22/2018 10:45 PM [facility]) T4, free 0.9 0.9 - 1.7 ng/dL [facility] Specimen Plasma specimen Performing Organization Address City/[facility]/Zipcode Phone Number [facility] DEPARTMENT OF PATHOLOGY [address] [place] [address] [address] HOSPITAL Prealbumin level (10/22/2018 10:45 PM [place]) Prealbumin 11 (L) 16 - 32 mg/dL [facility] Specimen Serum Performing Organization Address City/State/Zipcode Phone Number [facility] DEPARTMENT OF PATHOLOGY AND [address] [place] [address] [address] Phosphorus level (10/22/2018 10:45 PM [facility]) Phosphorus 2.6 2.4 - 4.5 mg/dL [facility] Specimen Plasma specimen Performing Organization Address City/State/Zipcode Phone Number [facility] DEPARTMENT OF PATHOLOGY [id number] [place] [address] B natriuretic peptide (10/22/2018 10:45 PM [facility]) BNP 461 (H) 0 - 100 pg/mL [facility] Specimen Blood Performing Organization Address City/[facility]/Zipcode Phone Number [facility] DEPARTMENT OF PATHOLOGY [address] [place] [address] [place] [address] HOSPITAL Lipase level (10/22/2018 10:45 PM [place]) Lipase 24 13 - 60 U/L [facility] Specimen Plasma specimen Performing Organization Address City/[facility]/Zipcode Phone Number [facility] DEPARTMENT OF PATHOLOGY [address] [place] [address]. [place] [address] [place] [address] HOSPITAL Lactic acid level (10/22/2018 10:45 PM [place]) Lactic acid 1.5 0.5 - 2.2 mmol/L [facility] Specimen Plasma specimen Performing Organization Address City/[facility]/Zipcode Phone Number [facility] DEPARTMENT OF PATHOLOGY [address] [place] [address] Hemoglobin A1c (10/22/2018 10:45 PM [facility]) Hemoglobin A1C 5.8 4.0 - 6.0 % [facility] Comment: HOSPITAL Less than 6% - Goal of therapy for Type II Diabetes Less than 7%-Goal of therapy for Type I Diabetes Less than 8%-Acceptable control for Type I or Type II Diabetes Greater than 8%-Unacceptable control; action indicated. ([id number]) Specimen Blood Performing Organization Address City/[facility] Phone Number [facility] DEPARTMENT OF PATHOLOGY [address] [place] [address] Creatine kinase, total (CPK) (10/22/2018 10:45 PM [facility]) Creatine kinase 18 (A) 39 - 308 U/L [facility] Specimen Plasma specimen Performing Organization Address City/[facility]code Phone Number [facility] DEPARTMENT OF PATHOLOGY [address] [place] [address] Amylase level (10/22/2018 10:45 PM [place]) Amylase 8 13 - 73 U/L [facility] Specimen Plasma specimen Performing Organization Address City/[facility] [place] [facility]alscova Phone Number [facility] DEPARTMENT OF PATHOLOGY [address] [place] [address] Lipid panel (10/22/2018 10:45 PM [facility]) Cholesterol 68 0 - 199 mg/dL [facility] Triglycerides 26 0 - 149 mg/dL [facility] HDL cholesterol 35 (L) 40 - 99,999 [facility] mg/dL [facility] LDL cholesterol 34 0 - 99 mg/dL [facility] Lipid panel See below [facility] interpretation Comment: [facility] Total Cholesterol (mg/dL) <200 Desirable [phone]-gqgv >=240High Triglycerides (mg/dL) <150 Normal [id number]-sffr 200-499High >=500Very high HDL Cholesterol (mg/dL) <40Low (male) <50Low (female) LDL Cholesterol (mg/dL) <100 Optimal 100-129Near or above optimal [phone]-whvy 160-189High >=190Very high Risk Catergories that modify LDL goals. Risk CatergoriesLDL goal (mg/dL) CHD and CHD risk equivalent<100 (10-year risk >20%) Multiple (2+) risk factors <130 (10-year risk=<20%) 0-1 risk factors <160 (<10-year risk) Defining levels of lipids in metabolic syndrome Triglycerides>=150 mg/dL HDL Cholesterol Men<40 mg/dL Women<50 mg/dL Non-HDL cholesterol is a second target for therapy in persons with high triglycerides (>=200 mg/dL) Specimen Plasma specimen Performing Organization Address City/[facility] [place] [facility]code Phone Number [facility] DEPARTMENT OF PATHOLOGY [address] [place] [address] AND GENOMIC MEDICINE [facility] [address] [place] [address] HOSPITAL XR Knee 3 Vw Right (02/07/2018 2:00 PM CDT) Narrative Performed At Three views of the right knee performed in the office today demonstrate HM CRISTHIAN advanced degenerative changes throughout the knee.There is a marked varus alignment of approximately 25.There is complete destruction of the medial compartment with extensive bone to bone contact.There are periarticular osteophytes as well as subchondral sclerosis.Extensive arterial calcification is also noted. Performing Organization Address City/[facility]code Phone Number WAYNE MORROW [address] [place] [address] after 12/04/2017 Insurance Payer Benefit Plan / Group Subscriber ID Type Phone Address [facility] MEDICARE AARP MEDICARE COMPLETE MCR xxxxxxxxx HMO Advance Directives Patient has advance care planning documents on file. For more information, please contact:Melo Meza[address] [place] [address]
--- OUTSIDE RECORDS SUMMARY | 2018-12-05 13:25 | XMS REPORT | CCD ---
:02/13/1931 Author Organization [facility] Care Team Providers Name Role Phone Robin [...] HTN (hypertension) Resolved Pneumonia3 Resolved Replacement4 Resolved [id number] in last 7 yrs4lt knee Medications Medication [...] values reflect the clinical guidelines of the [place] [employer].HEMATOLOGY Most recent to oldest [Reference [...] lens and insertion of prosthetic replacement 3 [facility]978hh1sw
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
--- OUTSIDE RECORDS SUMMARY | 2018-12-05 13:26 | XMS REPORT | Continuity of Care Document ---
:1930 Author Organization [facility] Care Team Providers Name Role Phone MD Prashant, Art Unavailable Unavailable Insurance Providers Payer name Policy type / Policy ID Covered constitution party ID Policy [place] Coverage type MEDICARE PRIMARY [place] Encounters Encounter Performer Location Date Office Visit Koffi Cerda MD [facility] Medical [place] [facility] Allergies, Adverse Reactions, Alerts [...] Apr 11, 2014 Active CORONARY ATHEROSCLEROSIS OF [place] CORONARY ARTERY Apr 11, 2014 Active DISEASE, [...]
--- OUTSIDE RECORDS SUMMARY | 2018-12-05 13:26 | XMS REPORT | CCD ---
:02/13/1931 Author Organization [facility] [place] Care Team Providers Name Role Phone Arian [...] HTN (hypertension) Resolved Pneumonia3 Resolved Replacement4 Resolved [id number] in last 7 yrs4lt knee
--- OUTSIDE RECORDS SUMMARY | 2018-12-05 13:26 | XMS REPORT | Continuity of Care Document ---
:02/13/1931 Author Organization [facility] Care Team Providers Name Role Phone MD Prashant, Art Unavailable Unavailable Insurance Providers Payer name Policy type / Policy ID Covered democrat ID Policy [place] Coverage type MEDICARE PRIMARY MED[place] Encounters Encounter Performer Location Date Office Visit Koffi Cerda MD [facility] Medical [facility] Allergies, Adverse Reactions, Alerts [...] Apr 11, 2014 Active CORONARY ATHEROSCLEROSIS OF [place] CORONARY ARTERY Apr 11, 2014 Active DISEASE, [...] Jan 04, cholesterol, serum CHOLESTEROL 136 mg/dl [phone] Jan 04, HDL cholesterol, HDL 34 mg/dl 26-62 2014Jan 04, LDL cholesterol, LDL 90 mg/dl 0-130 2014Jan 04, iron, serum IRON 25 ug/dL 20-172 2014Jan 04, iron binding TIBC 367 ug/dL [phone] capacity, total Jan 04, creatine kinase, CPK [...]
--- OUTSIDE RECORDS SUMMARY | 2018-12-05 13:26 | XMS REPORT | Continuity of Care Document ---
:1930 Author Organization [facility] Care Team Providers Name Role Phone MD Prashant, Art Unavailable Unavailable Insurance Providers Payer name Policy type / Policy ID Covered alliance party ID Policy [place] Coverage type MEDICARE PRIMARY MEDIC[place] The Old Reader MED[place]ARE [place]: [place] Old Reader Encounters Encounter Performer Location Date Office Visit Koffi Cerda MD [facility] Medical [place] [facility] Allergies, Adverse Reactions, Alerts [...]
--- OUTSIDE RECORDS SUMMARY | 2018-12-05 13:27 | XMS REPORT | Continuity of Care Document ---
:1930 Author Organization [facility] Care Team Providers Name Role Phone MD Howie, Kaushal Unavailable Unavailable Insurance Providers Payer name Policy type / Policy ID Covered constitution party ID Policy Fraser Coverage type MEDICARE PRIMARY MEDIC[place]: [place] MED[place]: [place] Encounters Encounter Performer Location Date Office Visit Kaushal Denise MD [facility] [place] January 23, 2015 Gastroenterology [...] Apr 11, 2014 Active CORONARY ATHEROSCLEROSIS OF [place] CORONARY ARTERY Apr 11, 2014 Active DISEASE, [...] Apr 17, cholesterol, serum CHOLESTEROL 136 mg/dl [phone] Apr 17, HDL cholesterol, HDL 34 mg/dl 26-62 2015 serum Apr 17, LDL cholesterol, LDL 90 mg/dl 0-130 2015 serum Apr 17, iron, serum IRON 25 ug/dL 20-172 2015 Jan 04, iron binding TIBC 367 ug/dL [phone] capacity, total Apr , creatine kinase, CPK [...]
--- OUTSIDE RECORDS SUMMARY | 2018-12-05 13:27 | XMS REPORT | Continuity of Care Document ---
:1930 Author Organization [facility] Care Team Providers Name Role Phone MD Prashant, Art Unavailable Unavailable Insurance Providers Payer name Policy type / Policy ID Covered green party ID Policy Fraser Coverage type MEDICARE PRIMARY MEDICARE B-[place]: Ask The Doctor MEDICARE B-[place]: Ask The Doctor Encounters Encounter Performer Location Date Lab Report Art MD Prashant [facility] [place] [facility] Jan 04, 2015 Practice Allergies, Adverse [...] Apr 11, 2014 Active CORONARY ATHEROSCLEROSIS OF [place] CORONARY ARTERY Apr 11, 2014 Active DISEASE, [...] Jan 04, cholesterol, serum CHOLESTEROL 136 mg/dl [phone] Jan 04, HDL cholesterol, HDL 34 mg/dl 26-62 2014Jan 04, LDL cholesterol, LDL 90 mg/dl 0-130 2014Jan 04, iron, serum IRON 25 ug/dL 20-172 2014Jan 04, iron binding TIBC 367 ug/dL [phone] capacity, total Jan 04, creatine kinase, CPK [...]
--- OUTSIDE RECORDS SUMMARY | 2018-12-05 13:27 | XMS REPORT | Continuity of Care Document ---
:02/13/1931 Author Organization [facility] Care Team Providers Name Role Phone MD Prashant, Art Unavailable Unavailable Insurance Providers Payer name Policy type / Policy ID Covered alliance party ID Policy Fraser Coverage type MEDICARE PRIMARY MEDICARE B-[place]: [employer] MEDICARE B-[place]: [employer] Encounters Encounter Performer Location Date Office Visit Koffi Cerda MD [facility] [place] [facility] Allergies, Adverse Reactions, Alerts [...] Apr 11, 2014 Active CORONARY ATHEROSCLEROSIS OF [place] CORONARY ARTERY Apr 11, 2014 Active DISEASE, [...] Jan 04, cholesterol, serum CHOLESTEROL 136 mg/dl [phone] Jan 04, HDL cholesterol, HDL 34 mg/dl 26-62 2014 serum Jan 04, LDL cholesterol, LDL 90 mg/dl 0-130 2014 serum Jan 04, iron, serum IRON 25 ug/dL 20-172 2014Jan 04, iron binding TIBC 367 ug/dL [phone] capacity, total Jan 04, creatine kinase, CPK [...]
--- NOTE | 2018-12-05 14:40 | RAD REPORT ---
EXAM DESCRIPTION: Tino Single View3 2:32 pm CLINICAL HISTORY: Shortness of breath COMPARISON: September 2018 FINDINGS: Moderate bilateral pulmonary opacities. The heart is markedly enlarged. IMPRESSION: Moderate bilateral pulmonary opacities probably representing pulmonary edema
[2018-12-05 14:54] LABS: Absolute Lymphocytes (CBC) 0.8 K/uL (0.7-4.9); Absolute Monocytes 0.8 K/uL (0.1-1.3); Absolute Neutrophil 8.5 K/uL (1.8-8.0); Basophils % 0.3 % (0-1.3); Eosinophils % 0.3 % (0-4.4); Hematocrit 20.5 % (39.6-49.0); Lymphocytes % 7.8 % (15.3-44.8); MPV 9.7 fL (7.6-11.3); Monocytes % 7.7 % (3.3-12.3); RBC Red Blood Cell Count 2.55 M/uL (4.33-5.43)
[2018-12-05 14:55] LABS: Protime INR 1.1
--- NOTE | 2018-12-05 14:57 | ER ---
Nurse's Notes [facility] Name: Varinder Nielson Age: 88 yrs Sex: Male : 1930 Arrival Date: 12/05/2018 Time: 13:24 Bed 8 Private MD: Diagnosis: Dyspnea;Hypoxemia;Atrial fibrillation and flutter;Unspecified combined systolic (congestive) and diastolic (congestive) heart failure;Chronic obstructive pulmonary disease with (acute) exacerbation;Type 2 diabetes mellitus;Pleural effusion in conditions classified elsewhere;Anemia, unspecified;Unspecified kidney failure;Gastrointestinal hemorrhage, unspecified Presentation: 12/05 13:25 Presenting complaint: EMS states: Pt reports SOB since yesterday, worse today, hx of ph CHF and COPD, SPo2 88% RA improved to 98% after A\T\A tx, BP 153/104, HR 111 sinus tach. Transition of care: patient was not received from another setting of care. Onset of symptoms was December 05, 2018. Risk Assessment: Do you want to hurt yourself or someone else? Patient reports no desire to harm self or others. Initial Sepsis Screen: Does the patient meet any 2 criteria? No. Patient's initial sepsis screen is negative. Does the patient have a suspected source of infection? Yes: Productive cough/pneumonia. Care prior to arrival: None. 13:25 Method Of Arrival: EMS: [facility] 13:25 Acuity: JANET 3 ph Triage Assessment: 13:30 General: Appears in no apparent distress. comfortable, Behavior is cooperative, bp appropriate for age, anxious. Respiratory: Reports shortness of breath on exertion Onset: The symptoms/episode began/occurred at an unknown time. the patient has mild shortness of breath. Historical: - Allergies: 13:40 No Known Allergies; ph - Home Meds: 13:40 amlodipine 10 mg tab 1 tab once daily [Active]; acetaminophen 325 mg Oral tab 2 tabs as ph needed [Active]; metoprolol tartrate 25 mg Oral tab 1 tab once daily [Active]; aspirin 81 mg Oral TbEC 1 tab once daily [Active]; atorvastatin 80 mg oral tab [Active]; ferrous sulfate 325 mg (65 mg iron) Oral tab twice a day [Active]; folic acid 1 mg Oral tab 1 tab once daily [Active]; furosemide 40 mg Oral tab 1 tab once daily [Active]; potassium gluconate oral oral [Active]; omeprazole 20 mg Oral cpDR 1 cap once daily [Active]; glipizide 10 mg Oral tab 1 tab once daily [Active]; prednisone 20 mg Oral tab 2 tabs once daily [Active]; gabapentin 300 mg oral cap 1 cap 3 times per day [Active]; furosemide 20 mg Oral tab 1 tab 3 times per day [Active]; - PMHx: 13:40 Anemia; CAD; Atrial Fib; COPD; BPH; CHF; CVA; Dementia; Diabetes - NIDDM; Gastric ph Reflux; High Cholesterol; Hyperlipidemia; Hypertension; hypomagnesium; osteoarthritis; Pneumonia; - PSHx: 13:40 Cholecystectomy; Appendectomy; ph - Immunization history:: Adult Immunizations not up to date. - Social history:: Smoking status: Patient/guardian denies using tobacco, but has a distant history of tobacco abuse. - Ebola Screening: : No symptoms or risks identified at this time. Screenin:30 Abuse screen: Denies threats or abuse. Denies injuries from another. Nutritional bp screening: No deficits noted. Tuberculosis screening: No symptoms or risk factors identified. Fall Risk None identified. Assessment: 13:30 General: Appears in no apparent distress. comfortable, Behavior is cooperative, bp appropriate for age. Pain: Denies pain. Neuro: Level of Consciousness is awake, alert, obeys commands, Oriented to person, place, time, situation, Appropriate for age. Cardiovascular: Rhythm is sinus rhythm. Respiratory: Airway is patent Respiratory effort is even, unlabored, Breath sounds are coarse. GI: No signs and/or symptoms were reported involving the gastrointestinal system. : No signs and/or symptoms were reported regarding the genitourinary system. EENT: No deficits noted. Derm: No deficits noted. Musculoskeletal: Circulation, motion, and sensation intact. Range of motion: intact in all extremities. 15:30 Reassessment: PT H/H BELOW LOW NORMAL, CONSENTED FOR PRBC TRANSFUSION. bp 17:00 Reassessment: PRBC RECEIVED, TRANSFUSION INITIATED. PT ON NIBP AND CONTINUOUS SP02 WITH bp CARDIAC MONITORING. 19:15 Reassessment: Patient appears in no apparent distress at this time. Patient and/or cc3 family updated on plan of care and expected duration. Pain level reassessed. Patient is alert, oriented x 3, equal unlabored respirations, skin warm/dry/pink. Received this male patient from morning shift SAMANTHA Montgomery as a case of anemia with hemoglobin of 6.6 with ongoing 1st unit of PRBC transfusion infusing well at the right ACV gauge 20; another IV cannula noted at the right upper arm gauge 22 with ongoing Pantoprazole infusion infusing well. Patient with indwelling herrera's catheter Fr. 16 attached to urine bag draining to yellow colored urine output at 700 mL level. 19:30 Reassessment: 1st unit of packed red blood cells completed. cc3 19:45 Reassessment: Room available at 401, called for report and handed over to SAMANTHA Orr for cc3 continuity of care and management and endorsed as well to request for the second unit of ordered PRBC. 20:20 Reassessment: Patient appears in no apparent distress at this time. Patient and/or cc3 family updated on plan of care and expected duration. Pain level reassessed. Patient is alert, oriented x 3, equal unlabored respirations, skin warm/dry/pink. Patient left ER for admission vitally stable by stretcher escorted by phlebotomy tech Tio. Vital Signs: 13:29 BP 129 / 64; Pulse 97; Resp 26; Temp 98.1; Pulse Ox 94% on R/A; Weight 77.11 kg; Height ph 5 ft. 10 in. (177.80 cm); 15:37 BP 162 / 65; Pulse 93; Resp 20; Pulse Ox 93% ; bp 17:37 BP 101 / 75; Pulse 104; Resp 32; Temp 97.8; Pulse Ox 93% ; bp 18:00 BP 133 / 58; Pulse 84; Resp 24; Temp 97.8; Pulse Ox 94% ; bp 19:30 BP 131 / 72; Pulse 84; Resp 25 S; Temp 98(O); Pulse Ox 94% on R/A; cc3 20:05 BP 135 / 61; Pulse 85; Resp 26 S; Pulse Ox 95% on R/A; cc3 13:29 Body Mass Index 24.39 (77.11 kg, 177.80 cm) ph ED Course: 13:24 Patient arrived in ED. ph 13:28 Ulises Marquez, RN is Primary Nurse. bp 13:29 Triage completed. ph 13:30 Patient has correct armband on for positive identification. Placed in gown. Bed in low bp position. Call light in reach. Side rails up X2. 14:05 First set of blood cultures drawn by me. jb1 14:09 Patel Daley MD is Attending Physician. evangelina 14:18 EKG done, by chief technician. reviewed by Patel Daley MD. sm3 14:20 Second set of blood cultures drawn by me. jb1 14:29 X-ray completed. Portable x-ray completed in exam room. Patient tolerated procedure ls3 well. 14:30 XRAY Chest (1 view) In Process Unspecified. EDMS 14:30 Initial lab(s) drawn, by me, sent to lab. Inserted saline lock: 20 gauge in right jb1 antecubital area, using aseptic technique. Blood collected. 14:30 Urine collected: clean catch specimen, cloudy, aleida colored. jb1 14:55 Mikayla Olivares MD is Hospitalizing Provider. evangelina 16:25 Inserted saline lock: 22 gauge in right upper arm, using aseptic technique. bp 17:33 Herrera cath inserted, using sterile technique, 16 Fr., by de, balloon inflated, to bp gravity drainage, returned clear yellow urine. Patient tolerated well. 19:15 Arm band placed on left wrist. cc3 19:45 No provider procedures requiring assistance completed. Patient admitted, IV remains in cc3 place. Administered Medications: 14:30 Drug: NS 0.9% 1000 ml Route: IV; Rate: 75 ml/hr; Site: right antecubital; bp 14:50 CANCELLED (Duplicate Order): Lasix 40 mg IVP once evangelina 15:00 Drug: Pepcid 20 mg Route: IVP; Site: right antecubital; bp 16:53 Follow up: Response: No adverse reaction bp 15:00 Drug: SOLU-Medrol 125 mg Route: IVP; Site: right antecubital; bp 16:53 Follow up: Response: No adverse reaction bp 15:00 Drug: Xopenex 2.5 mg Route: Inhalation; bp 15:00 Drug: AtroVENT Aerosol 0.5 mg Route: Inhalation; bp 15:00 Drug: Zosyn 3.375 grams Route: IVPB; Infused Over: 60 mins; Site: right antecubital; bp 16:00 Follow up: IV Status: Completed infusion; IV Intake: 100ml bp 15:00 Drug: Lasix 60 mg Route: IVP; Site: right antecubital; bp 16:52 Follow up: Response: No adverse reaction bp 15:31 Drug: ProTONIX 40 mg Route: IVP; Site: right upper arm; bp 19:00 Follow up: Response: No adverse reaction cc3 16:40 Drug: ProTONIX 40 mg Route: IVP; Site: right upper arm; bp 19:00 Follow up: Response: No adverse reaction cc3 17:00 Drug: ProTONIX 8 mg/hr Route: IV; Rate: 25 ml/hr; Site: right upper arm; bp 19:30 Follow up: Response: No adverse reaction; IV Status: Infusion continued upon admission cc3 Intake: 16:00 IV: 100ml; Total: 100ml. bp Outcome: 14:56 Decision to Hospitalize by Provider. evangelina 19:45 Admitted to Tele accompanied by tech, via stretcher, room 401, with chart, Report cc3 called to SAMANTHA Orr 19:45 Condition: stable 19:45 Instructed on the need for admit, Demonstrated understanding of instructions. 20:25 Patient left the ED. cc3 Signatures: Dispatcher [employer] Fausto Asencio jb1 Patel Daley MD MD cha Hall, Patricia RN RN Ulises Delarosa RN RN Sun Santa 3 Rosalina Sorenson cc3 Tani Gao3
--- NOTE | 2018-12-05 14:57 | EDPHYS ---
Physician Documentation [facility] Name: Varinder Nielson Age: 88 yrs Sex: Male : 1930 Arrival Date: 12/05/2018 Time: 13:24 Bed 8 Private MD: ED Physician Patel Daley HPI: 12/05 14:50 This 88 yrs old Male presents to ER via EMS with complaints of Breathing evangelina Difficulty. 14:50 The patient has shortness of breath at rest, with light activity. Onset: The evangelina symptoms/episode began/occurred 5 day(s) ago. Duration: The symptoms are continuous, and are steadily getting worse. The patient's shortness of breath is aggravated by exertion, supine position, is alleviated by elevating head, nebulizer treatment, sitting up, application of supplemental oxygen. Associated signs and symptoms: Pertinent positives: non-productive cough. Severity of symptoms: At their worst the symptoms were moderate in the emergency department the symptoms have improved mildly. The patient has experienced similar episodes in the past, multiple times. Historical: - Allergies: 13:40 No Known Allergies; ph - Home Meds: 13:40 amlodipine 10 mg tab 1 tab once daily [Active]; acetaminophen 325 mg Oral tab 2 tabs as ph needed [Active]; metoprolol tartrate 25 mg Oral tab 1 tab once daily [Active]; aspirin 81 mg Oral TbEC 1 tab once daily [Active]; atorvastatin 80 mg oral tab [Active]; ferrous sulfate 325 mg (65 mg iron) Oral tab twice a day [Active]; folic acid 1 mg Oral tab 1 tab once daily [Active]; furosemide 40 mg Oral tab 1 tab once daily [Active]; potassium gluconate oral oral [Active]; omeprazole 20 mg Oral cpDR 1 cap once daily [Active]; glipizide 10 mg Oral tab 1 tab once daily [Active]; prednisone 20 mg Oral tab 2 tabs once daily [Active]; gabapentin 300 mg oral cap 1 cap 3 times per day [Active]; furosemide 20 mg Oral tab 1 tab 3 times per day [Active]; - PMHx: 13:40 Anemia; CAD; Atrial Fib; COPD; BPH; CHF; CVA; Dementia; Diabetes - NIDDM; Gastric ph Reflux; High Cholesterol; Hyperlipidemia; Hypertension; hypomagnesium; osteoarthritis; Pneumonia; - PSHx: 13:40 Cholecystectomy; Appendectomy; ph - Immunization history:: Adult Immunizations not up to date. - Social history:: Smoking status: Patient/guardian denies using tobacco, but has a distant history of tobacco abuse. - Ebola Screening: : No symptoms or risks identified at this time. ROS: 14:51 Constitutional: Negative for fever, chills, and weight loss, Eyes: Negative for injury, evangelina pain, redness, and discharge, ENT: Negative for injury, pain, and discharge, Neck: Negative for injury, pain, and swelling, Cardiovascular: Negative for chest pain, palpitations, and edema, Abdomen/GI: Negative for abdominal pain, nausea, vomiting, diarrhea, and constipation, Back: Negative for injury and pain, : Negative for injury, bleeding, discharge, and swelling, MS/Extremity: Negative for injury and deformity, Skin: Negative for injury, rash, and discoloration, Neuro: Negative for headache, weakness, numbness, tingling, and seizure, Psych: Negative for depression, anxiety, suicide ideation, homicidal ideation, and hallucinations, Allergy/Immunology: Negative for hives, rash, and allergies, Endocrine: Negative for neck swelling, polydipsia, polyuria, polyphagia, and marked weight changes, Hematologic/Lymphatic: Negative for swollen nodes, abnormal bleeding, and unusual bruising. 14:51 Respiratory: Positive for cough, shortness of breath, wheezing, expiratory. Exam: 14:51 Constitutional: This is a well developed, well nourished patient who is awake, alert, evangelina and in no acute distress. Head/Face: Normocephalic, atraumatic. Eyes: Pupils equal round and reactive to light, extra-ocular motions intact. Lids and lashes normal. Conjunctiva and sclera are non-icteric and not injected. Cornea within normal limits. Periorbital areas with no swelling, redness, or edema. ENT: Nares patent. No nasal discharge, no septal abnormalities noted. Tympanic membranes are normal and external auditory canals are clear. Oropharynx with no redness, swelling, or masses, exudates, or evidence of obstruction, uvula midline. Mucous membranes moist. Neck: Trachea midline, no thyromegaly or masses palpated, and no cervical lymphadenopathy. Supple, full range of motion without nuchal rigidity, or vertebral point tenderness. No Meningismus. Chest/axilla: Normal chest wall appearance and motion. Nontender with no deformity. No lesions are appreciated. Cardiovascular: Regular rate and rhythm with a normal S1 and S2. No gallops, murmurs, or rubs. Normal PMI, no JVD. No pulse deficits. Abdomen/GI: Soft, non-tender, with normal bowel sounds. No distension or tympany. No guarding or rebound. No evidence of tenderness throughout. Back: No spinal tenderness. No costovertebral tenderness. Full range of motion. Male : Normal genitalia with no discharge or lesions. Skin: Warm, dry with normal turgor. Normal color with no rashes, no lesions, and no evidence of cellulitis. MS/ Extremity: Pulses equal, no cyanosis. Neurovascular intact. Full, normal range of motion. Neuro: Awake and alert, GCS 15, oriented to person, place, time, and situation. Cranial nerves II-XII grossly intact. Motor strength 5/5 in all extremities. Sensory grossly intact. Cerebellar exam normal. Normal gait. Psych: Awake, alert, with orientation to person, place and time. Behavior, mood, and affect are within normal limits. 14:51 Respiratory: mild respiratory distress is noted, Respirations: labored breathing, that is mild, Breath sounds: decreased breath sounds, rhonchi, wheezing: expiratory 15:35 Abdomen/GI: Rectal exam: rectal tone normal, Stool: brown, guaiac positive, evangelina hemorrhoid(s), are not appreciated, mass, is not appreciated, swelling, is not appreciated, tenderness, is not appreciated, fecal impaction, is not appreciated. Vital Signs: 13:29 BP 129 / 64; Pulse 97; Resp 26; Temp 98.1; Pulse Ox 94% on R/A; Weight 77.11 kg; Height ph 5 ft. 10 in. (177.80 cm); 15:37 BP 162 / 65; Pulse 93; Resp 20; Pulse Ox 93% ; bp 17:37 BP 101 / 75; Pulse 104; Resp 32; Temp 97.8; Pulse Ox 93% ; bp 18:00 BP 133 / 58; Pulse 84; Resp 24; Temp 97.8; Pulse Ox 94% ; bp 19:30 BP 131 / 72; Pulse 84; Resp 25 S; Temp 98(O); Pulse Ox 94% on R/A; cc3 20:05 BP 135 / 61; Pulse 85; Resp 26 S; Pulse Ox 95% on R/A; cc3 13:29 Body Mass Index 24.39 (77.11 kg, 177.80 cm) ph MDM: 14:10 Patient medically screened. [facility] 14:57 Data reviewed: vital signs, nurses notes, lab test result(s), EKG, radiologic studies, evangelina plain films. 12/05 14:11 Order name: Basic Metabolic Panel; Complete Time: 15:08 [facility] 12/05 14:11 Order name: CBC with Diff; Complete Time: 15:08 [facility] 12/05 14:11 Order name: LFT's; Complete Time: 15:08 [facility] 12/05 14:11 Order name: Magnesium; Complete Time: 15:08 [facility] 12/05 14:11 Order name: NT PRO-BNP; Complete Time: 15:08 [facility] 12/05 14:11 Order name: PT-INR; Complete Time: 15:08 [facility] 12/05 14:11 Order name: Troponin (emerg Dept Use Only); Complete Time: 15:08 [facility] 12/05 14:11 Order name: Lipase; Complete Time: 15:08 [facility] 12/05 14:11 Order name: Blood Culture Adult (2) [facility] 12/05 14:11 Order name: Procalcitonin [facility] 12/05 14:11 Order name: Urine Culture [facility] 12/05 14:52 Order name: Urine Dipstick--Ancillary (enter results) 12/05 15:16 Order name: Type And Screen [facility] 12/05 15:35 Order name: Bb Add On 12/05 14:11 Order name: XRAY Chest (1 view); Complete Time: 15:08 [facility] 12/05 14:11 Order name: EKG; Complete Time: 14:12 [facility] 12/05 14:11 Order name: Cardiac monitoring; Complete Time: 14:28 [facility] 12/05 14:11 Order name: EKG - Nurse/Tech; Complete Time: 14:20 [facility] 12/05 14:11 Order name: IV Saline Lock; Complete Time: 14:28 [facility] 12/05 14:11 Order name: Labs collected and sent; Complete Time: 14:28 [facility] 12/05 14:11 Order name: O2 Per Protocol; Complete Time: 14:28 [facility] 12/05 14:11 Order name: O2 Sat Monitoring; Complete Time: 14:27 [facility] 12/05 14:11 Order name: Urine Dipstick-Ancillary (obtain specimen); Complete Time: 14:31 [facility] 12/05 15:16 Order name: Transfuse; Complete Time: 17:31 [facility] 12/05 15:59 Order name: IV Saline Lock - Large Bore; Complete Time: 16:30 [facility] Administered Medications: 14:30 Drug: NS 0.9% 1000 ml Route: IV; Rate: 75 ml/hr; Site: right antecubital; bp 14:50 CANCELLED (Duplicate Order): Lasix 40 mg IVP once evangelina 15:00 Drug: Pepcid 20 mg Route: IVP; Site: right antecubital; bp 16:53 Follow up: Response: No adverse reaction bp 15:00 Drug: SOLU-Medrol 125 mg Route: IVP; Site: right antecubital; bp 16:53 Follow up: Response: No adverse reaction bp 15:00 Drug: Xopenex 2.5 mg Route: Inhalation; bp 15:00 Drug: AtroVENT Aerosol 0.5 mg Route: Inhalation; bp 15:00 Drug: Zosyn 3.375 grams Route: IVPB; Infused Over: 60 mins; Site: right antecubital; bp 16:00 Follow up: IV Status: Completed infusion; IV Intake: 100ml bp 15:00 Drug: Lasix 60 mg Route: IVP; Site: right antecubital; bp 16:52 Follow up: Response: No adverse reaction bp 15:31 Drug: ProTONIX 40 mg Route: IVP; Site: right upper arm; bp 19:00 Follow up: Response: No adverse reaction cc3 16:40 Drug: ProTONIX 40 mg Route: IVP; Site: right upper arm; bp 19:00 Follow up: Response: No adverse reaction cc3 17:00 Drug: ProTONIX 8 mg/hr Route: IV; Rate: 25 ml/hr; Site: right upper arm; bp 19:30 Follow up: Response: No adverse reaction; IV Status: Infusion continued upon admission cc3 Disposition: 12/05/18 14:56 Hospitalization ordered by Mikayla Olivares for Inpatient Admission. Preliminary diagnosis are Dyspnea, Hypoxemia, Atrial fibrillation and flutter, Unspecified combined systolic (congestive) and diastolic (congestive) heart failure, Chronic obstructive pulmonary disease with (acute) exacerbation, Type 2 diabetes mellitus, Pleural effusion in conditions classified elsewhere, Anemia, unspecified, Unspecified kidney failure, Gastrointestinal hemorrhage, unspecified. - Bed requested for Telemetry/MedSurg (Inpatient). - Status is Inpatient Admission. cc3 - Condition is Fair. - Problem is new. - Symptoms have improved. UTI on Admission? No Signatures: Dispatcher [employer] EDMS Angela Truong Corey, MD MD cha Hall, Patricia, RN RN Ulises Delarosa RN RN Rosalina Larson cc3 Corrections: (The following items were deleted from the chart) 14:50 14:50 Lasix 40 mg IVP once ordered. evangelina evangelina 15:08 14:56 Hospitalization Ordered by Mikayla Olivares MD for Inpatient Admission. Preliminary evangelina diagnosis is Dyspnea; Hypoxemia; Atrial fibrillation and flutter; Unspecified combined systolic (congestive) and diastolic (congestive) heart failure; Chronic obstructive pulmonary disease with (acute) exacerbation; Type 2 diabetes mellitus. Bed requested for Telemetry/MedSurg (Inpatient). Status is Inpatient Admission. Condition is Fair. Problem is new. Symptoms have improved. UTI on Admission? No. evangelina 15:19 15:08 12/05/2018 14:56 Hospitalization Ordered by Mikayla Olivares MD for Inpatient evangelina Admission. Preliminary diagnosis is Dyspnea; Hypoxemia; Atrial fibrillation and flutter; Unspecified combined systolic (congestive) and diastolic (congestive) heart failure; Chronic obstructive pulmonary disease with (acute) exacerbation; Type 2 diabetes mellitus; Pleural effusion in conditions classified elsewhere. Bed requested for Telemetry/MedSurg (Inpatient). Status is Inpatient Admission. Condition is Fair. Problem is new. Symptoms have improved. UTI on Admission? No. evangelina 15:34 15:19 12/05/2018 14:56 Hospitalization Ordered by Mikayla Olivares MD for Inpatient evangelina Admission. Preliminary diagnosis is Dyspnea; Hypoxemia; Atrial fibrillation and flutter; Unspecified combined systolic (congestive) and diastolic (congestive) heart failure; Chronic obstructive pulmonary disease with (acute) exacerbation; Type 2 diabetes mellitus; Pleural effusion in conditions classified elsewhere; Anemia, unspecified; Unspecified kidney failure. Bed requested for Telemetry/MedSurg (Inpatient). Status is Inpatient Admission. Condition is Fair. Problem is new. Symptoms have improved. UTI on Admission? No. evangelina 17:38 15:34 12/05/2018 14:56 Hospitalization Ordered by Mikayla Olivares MD for Inpatient bd Admission. Preliminary diagnosis is Dyspnea; Hypoxemia; Atrial fibrillation and flutter; Unspecified combined systolic (congestive) and diastolic (congestive) heart failure; Chronic obstructive pulmonary disease with (acute) exacerbation; Type 2 diabetes mellitus; Pleural effusion in conditions classified elsewhere; Anemia, unspecified; Unspecified kidney failure; Gastrointestinal hemorrhage, unspecified. Bed requested for Telemetry/MedSurg (Inpatient). Status is Inpatient Admission. Condition is Fair. Problem is new. Symptoms have improved. UTI on Admission? No. evangelina 20:25 17:38 12/05/2018 14:56 Hospitalization Ordered by Mikayla Olivares MD for Inpatient cc3 Admission. Preliminary diagnosis is Dyspnea; Hypoxemia; Atrial fibrillation and flutter; Unspecified combined systolic (congestive) and diastolic (congestive) heart failure; Chronic obstructive pulmonary disease with (acute) exacerbation; Type 2 diabetes mellitus; Pleural effusion in conditions classified elsewhere; Anemia, unspecified; Unspecified kidney failure; Gastrointestinal hemorrhage, unspecified. Bed requested for Telemetry/MedSurg (Inpatient). Status is Inpatient Admission. Condition is Fair. Problem is new. Symptoms have improved. UTI on Admission? No. bd
[2018-12-05 15:01] LABS: ALT/SGPT 7 U/L (12-78); AST/SGOT 4 U/L (15-37); Albumin 2.6 g/dL (3.4-5.0); Alkaline Phosphatase 103 U/L (45-117); BUN Blood Urea Nitrogen 27 mg/dL (7-18); Bicarbonate 31 mmol/L (21-32); Bilirubin Direct 0.2 mg/dL (0-0.2); Bilirubin Total 0.4 mg/dL (0.2-1.0); Glucose Level 325 mg/dL (74-106); Lipase 111 U/L (73-393); NT PRO-BNP 3004 pg/mL (<450); Potassium 4.3 mmol/L (3.5-5.1); Protein, Total 7.1 g/dL (6.4-8.2); Sodium Level 137 mmol/L (136-145); Troponin (Emerg Dept Use Only) < 0.02 ng/mL (0.0-0.045)
[2018-12-05] MEDS ORDERED: METHYLPREDNISOLONE 125 MG INJ ONE (15:16)
[2018-12-05] MEDS ORDERED: LEVALBUTEROL 1.25 MG/3 ML NEB ONE (15:16)
[2018-12-05] MEDS ORDERED: IPRATROPIUM BROM 0.5MG/2.5ML ONE (15:16)
[2018-12-05] MEDS ORDERED: NA CHLORIDE 0.9% 1,000 ML ONE (15:17)
[2018-12-05] MEDS ORDERED: FAMOTIDINE 20 MG/2 ML VIAL IV ONE (15:17)
[2018-12-05] MEDS ORDERED: FUROSEMIDE 100 MG/10 ML VIAL IV ONE (15:17)
[2018-12-05] MEDS ORDERED: PIPER/TAZO/NS 3.375gm 3.375 GM/100 ML BAG ONE (15:17)
[2018-12-05 15:50] LABS: Urine Blood NEGATIVE (NEG); Urine Glucose 3+ (NEG); Urine Protein TRACE (NEG); Urine Specific Gravity 1.015 (1.005-1.030); Urine pH 5.5 (5.0-7.0)
[2018-12-05] MEDS ORDERED: PANTOPRAZOLE 40 MG INJ ONE (17:01)
[2018-12-05] MEDS ORDERED: NA CHLORIDE 0.9% 250 ML ONE (17:11)
[2018-12-05] MEDS ORDERED: PANTOPRAZOLE INJ 80 MG in NA CHLORIDE 0.9% 250 ML IV ONE (18:00)
[2018-12-05] MEDS ORDERED: NA CHLORIDE 0.9% 100 ML ONE (22:26)
[2018-12-05 22:45] VITALS: BMI 25.5
[2018-12-06] MEDS ORDERED: PANTOPRAZOLE INJ 80 MG in NA CHLORIDE 0.9% 250 ML IV SCH (04:00)
[2018-12-06] MEDS ORDERED: PANTOPRAZOLE 40 MG INJ ONE (04:08)
[2018-12-06] MEDS ORDERED: NA CHLORIDE 0.9% 250 ML ONE (04:08)
--- NOTE | 2018-12-06 05:18 | P.HP ---
Certification for Inpatient Patient admitted to: Inpatient With expected LOS: >2 Midnights Practitioner: I am a practitioner with admitting privileges, knowledge of patient current condition, hospital course, and medical plan of care. Services: Services provided to patient in accordance with Admission requirements found in Title 42 Section 412.3 of the Code of Federal Regulations Patient History Date of Service: 12/05/18 Reason for admission: CHF exacerbation, anemia History of Present Illness: Mr Nielson is an 88 years old male with multiple medical problems including, COPD, CVA, iron deficiency anemia, GIB, HTN, CAD, chronic diastolic CHF, who came to ED complaining of SOB. His symptoms started today. He denied nausea, vomiting or chest pain associated with. No history of fever or productive cough. Lab work remarkable for Hgb 6.6 mg/dl, WBC within normal limits, procalcitonin negative. CXR shows bilateral infiltrate consistent with pulmonary edema. No history of bloody stools or melena. In ER the patient has had 2 UNITS of PRBC's transfused. At arrival in O2 sat was 88% on RA. No fever. Allergies No Known Allergies Allergy (Verified 01/07/18 16:44) Home Medications: Acetaminophen [Tylenol*] 325 mg PO Q4HP PRN 09/18/18 Amlodipine Besylate [Norvasc] 10 mg PO DAILY 09/18/18 Aspirin Chewable [Aspirin Chewable*] 81 mg PO DAILY 09/18/18 Docusate Sodium 100 mg PO BIDP PRN 09/18/18 Folic Acid 1 mg PO DAILY 09/18/18 Gabapentin 300 mg PO TID PRN 09/18/18 Glipizide [Glucotrol] 10 mg PO DAILY 09/18/18 Melatonin/Pyridoxine HCl (B6) [Melatonin 3 mg Tablet] 5 mg PO BEDTIME 09/18/18 Metoprolol Succinate [Toprol Xl*] 25 mg PO DAILY 09/18/18 Atorvastatin Calcium [Lipitor] 80 mg PO BEDTIME #30 tab 09/29/18 Cholecalciferol (Vitamin D3) [Vitamin D 400 IU TAB*] 3 tab PO DAILY 12/06/18 Furosemide [Lasix*] 60 mg PO DAILY 12/06/18 Omeprazole 20 mg PO DAILY 12/06/18 Potassium Gluconate 595 mg PO DAILY 12/06/18 predniSONE [Prednisone] 40 mg PO DAILY 12/06/18 - Past Medical/Surgical History Has patient received pneumonia vaccine in the past: Yes Diabetic: Yes -: Iron deficiency anemia -: DDD, cervical radiculopathy -: CAD -: Diabetes mellitus type 2 -: Paroxysmally Atrial fibrillation -: Hypertension -: GERD -: TIA/history CVA -: Diabetic neuropathy -: Arthritis -: CHF, diastolic dysfunction, pulmonary hypertension -: Hyperlipidemia -: tien eye cataract sx -: Appendectomy -: Cholecystectomy -: L. knee replacement -: skin cancer sx Psychosocial/ Personal History: He is . He has 2 children. - Family History Mother -: Hypertension, Stroke - Social History Smoking Status: Former smoker Alcohol use: No CD- Drugs: No Caffeine use: Yes Place of Residence: Home Review of Systems 10-point ROS is otherwise unremarkable Physical Examination - Vital Signs Temperature: 98.2 F Blood Pressure: 142/66 Pulse: 87 Respirations: 18 Pulse Ox (%): 95 - Physical Exam General: Alert, In no apparent distress HEENT: Atraumatic, PERRLA, Mucous membr. moist/pink, EOMI, Sclerae nonicteric Neck: Supple, 2+ carotid pulse no bruit, No LAD, Without JVD or thyroid abnormality Respiratory: Diminished, Crackles/rales (bibasilar rales) Cardiovascular: Normal S1 S2, Irregular heart rate/rhythm Gastrointestinal: Normal bowel sounds, No tenderness Musculoskeletal: No tenderness Integumentary: No rashes Neurological: Normal speech, Normal strength at 5/5 x4 extr, Normal tone, Normal affect Lymphatics: No axilla or inguinal lymphadenopathy - Studies Laboratory Data (last 24 hrs) 12/05/18 14:20: PT 12.9 H, INR 1.10 12/05/18 14:20: WBC 10.2, Hgb 6.6 L*, Hct 20.5 L*, Plt Count 240 12/05/18 14:20: Sodium 137, Potassium 4.3, BUN 27 H, Creatinine 1.89 H, Glucose 325 H, Magnesium 2.0, Total Bilirubin 0.4, AST 4 L, ALT 7 L, Alkaline Phosphatase 103, Lipase 111 Assessment and Plan - Problems (Diagnosis) (1) History of gastrointestinal bleeding Current Visit: Yes Status: Acute (2) CHF (congestive heart failure) Onset Date: 01/10/18 Current Visit: No Status: Chronic Qualifiers: Heart failure type: diastolic Heart failure chronicity: acute on chronic Qualified Code(s): I50.33 - Acute on chronic diastolic (congestive) heart failure (3) COPD (chronic obstructive pulmonary disease) Onset Date: 04/28/17 Current Visit: No Status: Chronic Qualifiers: COPD type: chronic bronchitis Chronic bronchitis type: unspecified Qualified Code(s): J42 - Unspecified chronic bronchitis (4) Coronary artery disease Onset Date: 03/15/17 Current Visit: No Status: Chronic Qualifiers: Coronary Disease-Associated Artery/Lesion type: [place] artery [place] vs. transplanted heart: [place] heart Associated angina: without angina Qualified Code(s): I25.10 - Atherosclerotic heart disease of [place] coronary artery without angina pectoris (5) Diabetes mellitus Onset Date: 03/15/17 Current Visit: No Status: Chronic Qualifiers: Diabetes mellitus type: type 2 Diabetes mellitus halfway insulin use: unspecified halfway insulin use status Diabetes mellitus complication status : with unspecified complications Qualified Code(s): E11.8 - Type 2 diabetes mellitus with unspecified complications (6) History of CVA (cerebrovascular accident) Current Visit: No Status: Chronic (7) Hypertension Onset Date: 03/15/17 Current Visit: No Status: Chronic Qualifiers: Hypertension type: essential hypertension Qualified Code(s): I10 - Essential (primary) hypertension - Plan The patient was admitted due to acute on chronic diastolic CHF, acute on chronic iron deficiency anemia. The patient was evaluated by Dr Norris who has recommended EGD once the patent improve from CHF. Will continue Diuresis, monitor HH, transfuse blood as needed. Continue PPI Tx. - Advance Directives Does patient have a Living Will: Yes Does patient have a Durable POA for Healthcare: Yes - Code Status/Comfort Care Code Status Assessed: Yes Code Status: Full Code
[2018-12-06] MEDS ORDERED: D50W 25 GM/50 ML SYRINGE IV PRN (05:22)
[2018-12-06] MEDS ORDERED: GLUCAGON 1 MG/VIAL IM PRN (05:22)
[2018-12-06] MEDS ORDERED: SODIUM CHLORIDE 0.9% 10ML INJ IV PRN (05:38)
[2018-12-06] MEDS: FUROSEMIDE 40 MG/4 ML VIAL IV SCH ×3 (06:14→16:07)
[2018-12-06] MEDS: INSULIN -REGULAR HUMAN 50 UNIT/0.5 ML ML SQ SCH ×4 (06:23→20:13)
[2018-12-06 06:55] LABS: Absolute Lymphocytes (CBC) 0.4 K/uL (0.7-4.9); Absolute Monocytes 0.1 K/uL (0.1-1.3); Absolute Neutrophil 7.1 K/uL (1.8-8.0); Basophils % 0.1 % (0-1.3); Hematocrit 24.4 % (39.6-49.0); Lymphocytes % 5.2 % (15.3-44.8); MPV 9.9 fL (7.6-11.3); RBC Red Blood Cell Count 3.01 M/uL (4.33-5.43)
[2018-12-06 07:00] LABS: Albumin 2.4 g/dL (3.4-5.0); Bilirubin Total 0.8 mg/dL (0.2-1.0); Potassium 4.5 mmol/L (3.5-5.1); Protein, Total 6.9 g/dL (6.4-8.2)
[2018-12-06 08:19] LABS: Anisocytosis 1+; Blood Morphology Comment NOTED (NOT SEEN); Elliptocytes 1+; Platelet Estimate ADEQ; Poikilocytosis 1+
[2018-12-06] MEDS ORDERED: ENOXAPARIN 30 MG/0.3 ML SQ SCH (09:00)
[2018-12-06] MEDS: PANTOPRAZOLE 40 MG INJ IVP SCH ×2 (09:36→20:14)
[2018-12-06] MEDS ORDERED: GABAPENTIN 300 MG CAP PO PRN (15:40)
[2018-12-06] MEDS ORDERED: DOCUSATE NA 100 MG CAP PO PRN (15:40)
[2018-12-06] MEDS ORDERED: ATORVASTATIN 80 MG TAB PO SCH (21:00)
--- NOTE | 2018-12-06 21:06 | PN ---
Date of Progress Note: 12/06/2018 Subjective: The patient is seen and examined. Chart reviewed and case discussed with RN. The patient received 2 units of PRBCs overnight. Hemoglobin is up to 8. Otherwise, the patient asking for some ice water. Shortness of breath has improved. Medications: List reviewed. code status: addressed Physical Examination: Vital Signs: Temperature 98.3, heart rate 98, blood pressure 165/72, respirations 16, O2 of 97% on room air. General: Awake, alert, oriented x3. Elderly male in some mild distress. CV: S1, S2. Irregularly irregular. Peripheral pulses present. Respiratory: Moving air well bilaterally. No wheezing or stridor. Gastrointestinal: Abdomen is soft, nontender, nondistended. Positive bowel sounds. Extremities: No clubbing, cyanosis, or edema. Neurologic: Nonfocal. Laboratory Data: WBC 7.6, H and H 8 and 24.4, platelets 195, neutrophils 92%. INR 1.10. Sodium 136, potassium 4.5, chloride 101, CO2 of 29, BUN 32, creatinine 1.75, glucose 432, calcium 9.9, albumin 2.4. Blood cultures, no growth to date. Urine culture is pending. Assessment: An 88-year-old male with: 1. Acute gastrointestinal bleed. We will check Hemoccult blood. The patient has been transfused [address] Norris has evaluated the patient, recommends EGD once his congestive heart failure is stable. 2. Acute on chronic diastolic heart failure. We will continue with diuretics. Monitor I's and O's. Strict sodium and fluid restriction. We will have daily weights. 3. Chronic obstructive pulmonary disease, chronic bronchitis. Stable, use albuterol p.r.n. 4. Coronary artery disease lime artery and lime heart without angina, stable. 5. Diabetes mellitus type 2 without long-term use of insulin with hyperglycemia. We will continue with Accu-Cheks and sliding scale insulin. 6. History of cerebrovascular accident. 7. Essential hypertension. Plan: DVT prophylaxis with SCDs. No chemical anticoagulation due to gastrointestinal bleed. SA/MODL Voice ID: [id number] Report ID: [id number] [facility]ITALJatin
[2018-12-07] MEDS ORDERED: ACETAMINOPHEN 500 MG TAB PO PRN (02:44)
[2018-12-07 05:01] LABS: Absolute Lymphocytes (CBC) 0.6 K/uL (0.7-4.9); Absolute Monocytes 0.6 K/uL (0.1-1.3); Absolute Neutrophil 6.7 K/uL (1.8-8.0); Basophils % 0.2 % (0-1.3); Eosinophils % 0.5 % (0-4.4); Hematocrit 25.6 % (39.6-49.0); Lymphocytes % 7.9 % (15.3-44.8); MPV 9.4 fL (7.6-11.3); Monocytes % 7.2 % (3.3-12.3); RBC Red Blood Cell Count 3.19 M/uL (4.33-5.43)
[2018-12-07 05:31] LABS: ALT/SGPT 8 U/L (12-78); Albumin 2.5 g/dL (3.4-5.0); Alkaline Phosphatase 94 U/L (45-117); BUN Blood Urea Nitrogen 34 mg/dL (7-18); Bicarbonate 31 mmol/L (21-32); Bilirubin Total 0.7 mg/dL (0.2-1.0); Glucose Level 225 mg/dL (74-106); Potassium 3.6 mmol/L (3.5-5.1); Protein, Total 6.9 g/dL (6.4-8.2); Sodium Level 138 mmol/L (136-145)
[2018-12-07 05:33] LABS: AST/SGOT < 3 U/L (15-37)
[2018-12-07] MEDS ORDERED: glipiZIDE 5 MG TAB PO SCH (07:30)
[2018-12-07] MEDS: PANTOPRAZOLE 40 MG INJ IVP SCH (07:50)
[2018-12-07] MEDS: FUROSEMIDE 40 MG/4 ML VIAL IV SCH ×2 (07:50→16:00)
[2018-12-07] MEDS: INSULIN -REGULAR HUMAN 50 UNIT/0.5 ML ML SQ SCH ×3 (07:51→15:56)
--- NOTE | 2018-12-07 08:40 | RAD REPORT ---
EXAM DESCRIPTION: Tino Single View12/07/2018 6:51 am CLINICAL HISTORY: Chest pain COMPARISON: December 05, 2018 FINDINGS: Mild improvement in bilateral pulmonary opacities. Small pleural effusions suspected. The heart remains enlarged IMPRESSION: Mild improvement in CHF
[2018-12-07] MEDS ORDERED: AMLODIPINE 10 MG TAB PO SCH (09:00)
[2018-12-07] MEDS ORDERED: predniSONE 20 MG TAB PO SCH (09:00)
[2018-12-07] MEDS ORDERED: FOLIC ACID 1 MG TABLET PO SCH (09:00)
[2018-12-07] MEDS ORDERED: METOPROLOL XL 25 MG TAB PO SCH (09:00)
[2018-12-07] MEDS ORDERED: HOME MED 1 EA UNK (Glipizide [Glucotrol] 10 MG) PO SCH (09:00)
[2018-12-07 11:30] VITALS: O2SAT 97
[2018-12-07 14:01] VITALS: TEMP 98.8
[2018-12-07 16:00] VITALS: BP 145/59
--- NOTE | 2018-12-07 18:43 | PN ---
Date of Progress Note: 12/07/2018 Subjective: The patient seen and examined, chart reviewed and case discussed with RN and Dr. Michoacano wyman. The patient initially wanting to leave against medical advice as he states that he is confined to bed. He understands that he is a fall risk and with concern for his safety that if he gets up witho ut assistance, he may fall and fracture hip or have a trauma to his brain resulting in a brain bleed or even possibly . He understands that. He was counseled against leaving AMA. At this point, so far has not signed out from recorded update from the nursing. Medications: List reviewed. Objective: Vital Signs: Temperature 98.8, heart rate 88, blood pressure 145/70, respirations 24, O2 97% on room air. General: Awake, alert, oriented x3. Elderly male, frail. CV: S1, S2. Peripheral pulses weak, irregularly irregular. Respiratory: moving air well bilaterally. No wheezing or stridor. Minimally diminished breath soun ds at the bases. Gastrointestinal: Abdomen is soft, nontender, nondistended. Positive bowel sounds. Extremities: No clubbing, cyanosis. Trace pedal edema. Neurologic: Nonfocal. Laboratory Data: Sodium 138, potassium 3.6 chloride 102, CO2 31, BUN 34, creatinine 1.5, glucose 225 , calcium 10.3, AST less than 3, ALT 8, albumin 2.5. WBC 7.9, H and H 8.4 and 25.6, platelets 231, n eutrophils 84%. Chest x-ray, personally reviewed, shows mild improvement in CHF. Assessment: An 88-year-old male with: 1.Acute gastrointestinal bleed. The patient has received 2 units PRBCs. Hemoccult pending. The pa t[place]incoln has not had a bowel movement. Dr. Norris is on board. Plan for EGD in a.m. We will keep n. p.o. after midnight, was unable to do EGD previously due to worsening congestive heart failure and re spiratory status. Chest x-ray today shows improvement in lung aeration and the patient is now off ox ygen, stable for EGD. 2.Acute on chronic diastolic heart failure. Continue diuretics. Monitor inputs and outputs. Brenna nue sodium restriction. Weight daily. The patient is diuresing well. His is now off oxygen. Chest x-ray shows improvement. We will continue to monitor. 3.Acute kidney injury. The patient's baseline seems to be about 1.2, improving from 1.9 earlier. W e will continue to monitor. 4.Chronic obstructive pulmonary disease, chronic bronchitis. We will continue breathing treatments as needed. 5.Coronary artery disease, [place] artery and [place] heart without angina, stable. 6.Diabetes mellitus type 2 without long-term use of insulin with hyperglycemia. We will continue Ac cu-Cheks and continue with sliding scale insulin. 7.History of cerebrovascular accident. 8.Essential hypertension, stable. Plan: Anticipate EGD in a.m. if the patient does not leave AMA. Deep vein thrombosis prophylaxis wi th SCDs. No chemical anticoagulation due to bleed. Check Hemoccult stool. Continue IV PPI. /MILIND Voice ID: [id number] Report ID: [id number]
--- NOTE | 2018-12-08 07:51 | DS ---
Date of Discharge: 12/07/2018 Respiratory Care Faculty: Dr. Norris with GI. Procedures: None. Admitting Diagnoses: 1. Gastrointestinal bleed. 2. Krnwg-up-qwkadqt diastolic heart failure. 3. chronic obstructive pulmonary disease. 4. Coronary artery disease, [place] artery and [place] heart without angina. 5. Diabetes mellitus type 2 with hyperglycemia. 6. History of cerebrovascular accident. 7. Essential hypertension. 8. Acute blood loss anemia, status post 2 units packed red blood cells transfusion. Hospital Course: The patient is an 88-year-old male, came in with nausea, vomiting, found to have CHF exacerbation. He also had low hemoglobin of 6.6. The patient was transfused [address] Norris was consulted due to his congestive heart failure and respiratory distress. He was unable to be scoped immediately. The patient was started on diuretics. He was then weaned off oxygen. His condition improved and was stable for EGD. However, the patient did not wish to stay in the hospital and wanted to leave against medical advice. He did not have any hematemesis or GI bleeding, he did have some prior to hospitalization. Occult blood was ordered, however, the patient did not have any bowel movements while in the hospital. His chest x-ray did show improvement, and he was scheduled for EGD. However, he decided to leave against medical advice. He understands the risks associated with leaving against medical advice, and he was counseled extensively multiple times, however , still decided to sign out. The patient was then discharged against medical advice. For physical exam findings, please see progress note dictated on the day of discharge. BRYCE Voice ID: [id number] Report ID: [id number] [id number]
== END 2018-12-07 16:29 | disposition left against medical advice (07) | DRG 292 ==
LOC: ER 13:18 → ERHOLD 16:07 → 4TH 19:53
PROVIDERS: ADMIT Family Medicine; ATTEND Internal Medicine
PROC: 30233N1 Transfusion of Nonautologous Red Blood Cells into Peripheral Vein, Percutaneous Approach (ICD-10-PCS; principal; 2018-12-05)
DX: I11.0 Hypertensive heart disease with heart failure (principal); K92.2 Gastrointestinal hemorrhage, unspecified; N17.9 Acute kidney failure, unspecified; I50.33 Acute on chronic diastolic (congestive) heart failure; I25.10 Atherosclerotic heart disease of native coronary artery without angina pectoris; J44.9 Chronic obstructive pulmonary disease, unspecified; Z86.73 Personal history of transient ischemic attack (TIA), and cerebral infarction without residual deficits; E11.9 Type 2 diabetes mellitus without complications; Z53.21 Procedure and treatment not carried out due to patient leaving prior to being seen by health care provider
CPT/HCPCS: 36415; 36430; 51702; 71045; 80048; 80053; 80076; 81003; 82962; 83690; 83735; 83880; 84145; 84484; 85025; 85610; 86850; 86900; 86901; 87040; 87086; 87088; 93005; 94760; 96365; 96366; 96367; 96375; 97162; 99285; C9113; J1940; J2543; J2930; J7030; J7512; P9016

== ENCOUNTER 2018-12-14 16:30 | Inpatient (IN) | payer MEDICARE, OTHER ==
--- OUTSIDE RECORDS SUMMARY | 2018-12-14 16:34 | XMS REPORT | Clinical Summary ---
:1930 Author Organization [facility] Address [address] [place] [address] Care Team Providers Name Role Phone J [...] ( Primary Dx); Lung mass 10/22/2018 - [facility] General Internal Roxie Ames, Acute on chronic congestive heart failure, unspecified heart failure type (HCC) (Primary Dx); 10/28/2018 Encounter Medicine Pleural effusion 03/02/2018 Office Visit Orthopedic Surgery Raz Silva MD osteoarthritis of right knee (Primary Dx) 02/07/2018 Office Visit Orthopedic Surgery Raz Silva Primary osteoarthritis of right knee (Primary Dx); MD Og Chronic pain of right knee after 12/13/2017 Family History Medical History Relation Name Comments [...] Taken Blood Pressure 154/63 11/10/2018 2:49 PM [employer] Pulse 88 11/10/2018 2:49 PM [employer] Temperature 36.2 C (97.1 F) 11/10/2018 2:49 PM [employer] Respiratory Rate 18 10/28/2018 3:29 PM [employer] Oxygen Saturation 96% 11/10/2018 2:49 PM [employer] Inhaled Oxygen Concentration - - Weight 82.6 kg (182 lb) 11/10/2018 2:49 PM [employer] Height 177.8 cm (5' 10") 10/22/2018 10:35 PM [employer] Body Mass Index 26.11 11/10/2018 2:49 PM [employer] Plan of Treatment Health Maintenance Due Date Last Done Comments SHINGLES VACCINES (#1) 1981 65+ PNEUMOCOCCAL VACCINE (1 of 2 - PCV13) 02/16/1996 PNEUMOCOCCAL POLYSACCHARIDE VACCINE AGE 65 AND OVER 02/16/1996 INFLUENZA VACCINE Completed 07/07/2018 Procedures Procedure Name Priority Date/Time Associated Comments Diagnosis POC GLUCOSE Routine 10/28/2018 12:02 Results for this PM [employer] procedure are in the results section. POC GLUCOSE Routine 10/28/2018 7:57 Results for this AM [employer] procedure are in the results section. POC GLUCOSE Routine 10/27/2018 9:20 Results for this PM [employer] procedure are in the results section. POC GLUCOSE Routine 10/27/2018 4:53 Results for this PM [employer] procedure are in the results section. POC GLUCOSE Routine 10/27/2018 11:39 Results for this AM [employer] procedure are in the results section. POC GLUCOSE Routine 10/27/2018 7:03 Results for this AM [employer] procedure are in the results section. ESTIMATED GFR Routine 10/27/2018 6:30 Results for this AM [employer] procedure are in the results section. HC COMPLETE BLD COUNT Routine 10/27/2018 6:30 Results for this W/AUTO DIFF AM [employer] procedure are in the results section. MAGNESIUM LEVEL Routine 10/27/2018 6:30 Results for this AM [employer] procedure are in the results section. COMPREHENSIVE METABOLIC Routine 10/27/2018 6:30 Results for this PANEL AM [employer] procedure are in the results section. XR CHEST 1 VW PORTABLE Routine 10/27/2018 1:33 Results for this AM [employer] procedure are in the results section. POC GLUCOSE Routine 10/27/2018 12:38 Results for this AM [employer] procedure are in the results section. POC GLUCOSE Routine 10/26/2018 3:51 Results for this PM [employer] procedure are in the results section. US THORACENTESIS WITH Routine 10/26/2018 10:08 Results for this IMAGING AM [employer] procedure are in the results section. CYTOLOGY Routine 10/26/2018 10:01 Results for this (NON-GYNECOLOGICAL) AM [employer] procedure are in REQUEST the results section. XR CHEST 1 VW PORTABLE STAT 10/26/2018 9:21 Results for this AM [employer] procedure are in the results section. PH, MISC FLUID Routine 10/26/2018 9:05 Results for this AM [employer] procedure are in the results section. CELL COUNT AND Routine 10/26/2018 9:05 Results for this DIFFERENTIAL, BODY AM [employer] procedure are in FLUID the results section. PROTEIN, MISC FLUID Routine 10/26/2018 9:05 Results for this AM [employer] procedure are in the results section. LDH, MISC FLUID Routine 10/26/2018 9:05 Results for this AM [employer] procedure are in the results section. BLOOD CULTURE, AEROBIC Routine 10/26/2018 9:05 Results for this & ANAEROBIC AM [employer] procedure are in the results section. POC GLUCOSE Routine 10/26/2018 7:15 Results for this AM [employer] procedure are in the results section. POC GLUCOSE Routine 10/25/2018 10:44 Results for this PM [employer] procedure are in the results section. POC GLUCOSE Routine 10/25/2018 3:16 Results for this PM [employer] procedure are in the results section. POC GLUCOSE Routine 10/25/2018 10:33 Results for this AM [employer] procedure are in the results section. POC GLUCOSE Routine 10/25/2018 7:09 Results for this AM [employer] procedure are in the results section. POC GLUCOSE Routine 10/24/2018 9:00 Results for this PM [employer] procedure are in the results section. HC COMPLETE BLD COUNT Routine 10/24/2018 7:30 Results for this W/AUTO DIFF PM [employer] procedure are in the results section. XR CHEST 1 VW Routine 10/24/2018 6:50 Results for this PM [employer] procedure are in the results section. TRANSFUSE RED BLOOD Routine 10/24/2018 5:24 CELLS PM [employer] POC GLUCOSE Routine 10/24/2018 4:30 Results for this PM [employer] procedure are in the results section. US THORACENTESIS WITH Routine 10/24/2018 4:29 Results for this IMAGING PM [employer] procedure are in the results section. XR CHEST 1 VW PORTABLE STAT 10/24/2018 3:59 Results for this PM [employer] procedure are in the results section. PH, MISC FLUID Routine 10/24/2018 3:42 Results for this PM [employer] procedure are in the results section. CELL COUNT AND Routine 10/24/2018 3:42 Results for this DIFFERENTIAL, BODY PM [employer] procedure are in FLUID the results section. PROTEIN, MISC FLUID Routine 10/24/2018 3:42 Results for this PM [employer] procedure are in the results section. LDH, MISC FLUID Routine 10/24/2018 3:42 Results for this PM [employer] procedure are in the results section. BLOOD CULTURE, AEROBIC Routine 10/24/2018 3:42 Results for this & ANAEROBIC PM [employer] procedure are in the results section. GRAM STAIN Routine 10/24/2018 3:42 Results for this PM [employer] procedure are in the results section. POC GLUCOSE Routine 10/24/2018 11:36 Results for this AM [employer] procedure are in the results section. CYTOLOGY Routine 10/24/2018 7:44 Results for this (NON-GYNECOLOGICAL) AM [employer] procedure are in REQUEST the results section. POC GLUCOSE Routine 10/24/2018 7:18 Results for this AM [employer] procedure are in the results section. ESTIMATED GFR Routine 10/24/2018 6:20 Results for this AM [employer] procedure are in the results section. TOTAL IRON BINDING Routine 10/24/2018 6:20 Results for this CAPACITY AM [employer] procedure are in the results section. FERRITIN LEVEL Routine 10/24/2018 6:20 Results for this AM [employer] procedure are in the results section. MAGNESIUM LEVEL Routine 10/24/2018 6:20 Results for this AM [employer] procedure are in the results section. COMPREHENSIVE METABOLIC Routine 10/24/2018 6:20 Results for this PANEL AM [employer] procedure are in the results section. HC COMPLETE BLD COUNT Routine 10/24/2018 6:20 Results for this W/AUTO DIFF AM [employer] procedure are in the results section. US DUPLEX VENOUS LOWER Routine 10/24/2018 3:56 Results for this EXTREMITY BILATERAL AM [employer] procedure are in the results section. POC GLUCOSE Routine 10/23/2018 8:40 Results for this PM [employer] procedure are in the results section. TROPONIN Timed 10/23/2018 5:45 Results for this PM [employer] procedure are in the results section. POC GLUCOSE Routine 10/23/2018 4:10 Results for this PM [employer] procedure are in the results section. ECHOCARDIOGRAM 2D Routine 10/23/2018 2:16 Results for this COMPLETE W MMODE PM [employer] procedure are in SPECTRAL COLOR DOPPLER the results ([id number]) section. POC GLUCOSE Routine 10/23/2018 10:49 Results for this AM [employer] procedure are in the results section. XR CHEST 1 VW PORTABLE Routine 10/23/2018 10:23 Results for this AM [employer] procedure are in the results section. ECG 12-LEAD Routine 10/23/2018 10:18 Results for this AM [employer] procedure are in the results section. CT CHEST WO CONTRAST Routine 10/23/2018 9:46 Results for this AM [employer] procedure are in the results section. TROPONIN Routine 10/23/2018 8:21 Results for this AM [employer] procedure are in the results section. ESTIMATED GFR Routine 10/23/2018 8:21 Results for this AM [employer] procedure are in the results section. MAGNESIUM LEVEL Routine 10/23/2018 8:21 Results for this AM [employer] procedure are in the results section. COMPREHENSIVE METABOLIC Routine 10/23/2018 8:21 Results for this PANEL AM [employer] procedure are in the results section. HC COMPLETE BLD COUNT Routine 10/23/2018 8:21 Results for this W/AUTO DIFF AM [employer] procedure are in the results section. POC GLUCOSE Routine 10/23/2018 7:01 Results for this AM [employer] procedure are in the results section. TRANSFUSE RED BLOOD STAT 10/23/2018 6:22 CELLS AM [employer] PREPARE RBC STAT 10/23/2018 12:40 Results for this AM [employer] procedure are in the results section. PREPARE RBC STAT 10/23/2018 12:40 Results for this AM [employer] procedure are in the results section. TYPE AND SCREEN STAT 10/23/2018 12:40 Results for this AM [employer] procedure are in the results section. HEMOGLOBIN & HEMATOCRIT STAT 10/23/2018 12:40 Results for this AM [employer] procedure are in the results section. POC GLUCOSE Routine 10/22/2018 11:40 Results for this PM [employer] procedure are in the results section. BLOOD CULTURE, AEROBIC Routine 10/22/2018 10:50 Results for this & ANAEROBIC PM [employer] procedure are in the results section. TROPONIN Routine 10/22/2018 10:45 Results for this PM [employer] procedure are in the results section. ESTIMATED GFR Routine 10/22/2018 10:45 Results for this PM [employer] procedure are in the results section. LIPASE LEVEL Routine 10/22/2018 10:45 Results for this PM [employer] procedure are in the results section. CREATINE KINASE, TOTAL Routine 10/22/2018 10:45 Results for this (CPK) PM [employer] procedure are in the results section. AMYLASE LEVEL Routine 10/22/2018 10:45 Results for this PM [employer] procedure are in the results section. B NATRIURETIC PEPTIDE Routine 10/22/2018 10:45 Results for this PM [employer] procedure are in the results section. COMPREHENSIVE METABOLIC Routine 10/22/2018 10:45 Results for this PANEL PM [employer] procedure are in the results section. HEMOGLOBIN A1C Routine 10/22/2018 10:45 Results for this PM [employer] procedure are in the results section. LACTIC ACID LEVEL Routine 10/22/2018 10:45 Results for this PM [employer] procedure are in the results section. LIPID PANEL Routine 10/22/2018 10:45 Results for this PM [employer] procedure are in the results section. MAGNESIUM LEVEL Routine 10/22/2018 10:45 Results for this PM [employer] procedure are in the results section. PHOSPHORUS LEVEL Routine 10/22/2018 10:45 Results for this PM [employer] procedure are in the results section. PREALBUMIN LEVEL Routine 10/22/2018 10:45 Results for this PM [employer] procedure are in the results section. THYROID STIMULATING Routine 10/22/2018 10:45 Results for this HORMONE PM [employer] procedure are in the results section. T4, FREE Routine 10/22/2018 10:45 Results for this PM [employer] procedure are in the results section. URIC ACID LEVEL Routine 10/22/2018 10:45 Results for this PM [employer] procedure are in the results section. URINALYSIS SCREEN AND Routine 10/22/2018 10:45 Results for this MICROSCOPY, WITH REFLEX PM [employer] procedure are in TO CULTURE the results section. PARTIAL THROMBOPLASTIN Routine 10/22/2018 10:45 Results for this TIME (PTT) PM [employer] procedure are in the results section. PROTHROMBIN TIME WITH Routine 10/22/2018 10:45 Results for this INR PM [employer] procedure are in the results section. HC COMPLETE BLD COUNT Routine 10/22/2018 10:45 Results for this W/AUTO DIFF PM [employer] procedure are in the results section. URINE CULTURE Routine 10/22/2018 10:45 Results for this PM [employer] procedure are in the results section. BLOOD CULTURE, AEROBIC Routine 10/22/2018 10:45 Results for this & ANAEROBIC PM [employer] procedure are in the results section. XR KNEE 3 VW RIGHT Routine 02/07/2018 2:00 Chronic pain of Results for this PM CDT right knee procedure are in the results section. after 12/13/2017 Results POC glucose (10/28/2018 12:02 PM [employer])Only the most recent of22 resultswithin the time period is included. POC glucose 210 (H) 65 - 99 mg/dL [facility] Comment: HOSPITAL RN Notified Meter ID: [id number] Power Lineman: Iban Queen Performing Organization Address City/[facility] Centercode Phone Number [facility] DEPARTMENT OF PATHOLOGY [address] [place] [address] Estimated GFR (10/27/2018 6:30 AM [employer])Only the most recent of4 resultswithin the time period is included. Estimated GFR 35 (A) mL/min/1.73 m2 [facility] Comment: [facility] CatergoryUnitsInterpretation G1 >=90 Normal or high G2 60-89Mildly decreased [id number] to moderately decreased Y1b26-53Qfpdxxdvce to severely decreased G4 15-29Severely decreased G5 <15Kidney failure The eGFR was calculated using the Chronic Kidney Disease Epidemiology Collaboration (CKD-EPI) equation. Interpretation is based on recommendations of the National Kidney Foundation-Kidney Disease Outcomes Quality Initiative (NKF-KDOQI) published in 2014. Specimen Plasma specimen Performing Organization Address City/[facility]/Zipcode Phone Number [facility] DEPARTMENT OF PATHOLOGY [id number] [place] [address] CBC with platelet and differential (10/27/2018 6:30 AM [employer])Only the most recent of5 resultswithin the time period is included. WBC 4.8 4.5 - 11.0 k/uL [facility] RBC 2.95 (L) 4.40 - 6.00 m/uL [facility] HGB 7.9 (L) 14.0 - 18.0 g/dL [facility] HCT 26.2 (L) 41.0 - 51.0 % [facility] MCV 88.8 82.0 - 100.0 fL [facility] MCH 26.8 (L) 27.0 - 34.0 pg [facility] MCHC 30.2 (L) 31.0 - 37.0 g/dL [facility] RDW - SD 50.4 37.0 - 55.0 fL [facility] MPV 11.7 (H) 6.9 - 11.0 fL [facility] Platelet count 174 150 - 400 K/uL [facility] Nucleated RBC 0.00 /100 WBC [facility] Neutrophils 86.6 (H) 39.0 - 69.0 % [facility] Lymphocytes 6.6 (L) 25.0 - 45.0 % [facility] Monocytes 6.0 0.0 - 10.0 % [facility] Eosinophils 0.0 0.0 - 5.0 % [facility] Basophils 0.0 0.0 - 1.0 % [facility] Immature granulocytes 0.8 0.0 - 1.0 % [facility] Specimen Blood Performing Organization Address City/[facility]/Zipcode Phone Number [facility] DEPARTMENT OF PATHOLOGY [address] [place] [address] AND GENOMIC MEDICINE [facility] [address] [place] [address] HOSPITAL Magnesium level (10/27/2018 6:30 AM [employer])Only the most recent of4 resultswithin the time period is included. Magnesium 2.1 1.6 - 2.4 mg/dL [facility] Specimen Plasma specimen Performing Organization Address City/[facility]/Zipcode Phone Number [facility] DEPARTMENT OF PATHOLOGY [id number] [place] [address] AND [facility] [id number] [place] [address] Comprehensive metabolic panel (10/27/2018 6:30 AM [employer])Only the most recent of4 resultswithin the time period is included. Sodium 138 135 - 148 mEq/L [facility] Potassium 4.8 3.5 - 5.0 mEq/L [facility] Chloride 97 (L) 98 - 112 mEq/L [facility] CO2 27 24 - 31 mEq/L [facility] Anion gap 14@ANIO 7 - 15 mEq/L [facility] BUN 80 (H) 8 - 23 mg/dL [facility] Creatinine 1.71 (H) 0.70 - 1.20 mg/dL [facility] Glucose 215 (H) 65 - 99 mg/dL [facility] Calcium 11.1 (H) 8.8 - 10.2 mg/dL [facility] Protein 6.6 6.3 - 8.3 g/dL [facility] Albumin 2.9 (L) 3.5 - 5.0 g/dL [facility] A/G ratio 0.8 0.7 - 3.8 [facility] Alkaline phosphatase 72 40 - 129 U/L [facility] AST 14 10 - 50 U/L [facility] ALT 7 5 - 50 U/L [facility] Total bilirubin <0.2 0.2 - 1.2 mg/dL [facility] Specimen Plasma specimen Performing Organization Address City/State/Zipcode Phone Number [facility] DEPARTMENT OF PATHOLOGY [address] [place] [address] AND [facility] [id number] [place] [address] XR Chest 1 Vw Portable (10/27/2018 1:33 AM [employer])Only the most recent of4 resultswithin the time [...] No pneumothorax. No other significant interval change. [facility]-[id number] Procedure Note Interface, Radiology Results Incoming - 10/27/2018 4:22 AM [employer] EXAMINATION: XR CHEST 1 VW PORTABLE CLINICAL HISTORY: pneumonia COMPARISON: 10/26/2018 IMPRESSION: Mild to moderate enlargement of cardiac silhouette. Hazy interstitial infiltrates on the right are somewhat improved; airspace infiltrates on the left are somewhat worsened. Persistent opacity of right lung base is seen, and follow-up until resolution is advised. Small bilateral effusions. No pneumothorax. No other significant interval change. [facility]-[id number] Performing Organization Address City/State/Zipcode Phone Number [facility] [address] [place] [address] US Thoracentesis With Imaging (10/26/2018 10:08 AM [employer])Only the most recent of2 resultswithin the time period is included. Narrative Performed At [facility] Ultrasound-guided left thoracentesis. Clinical Indication Pleural effusion. Anesthesia Lidocaine 1%. Sedation None. Technique Written informed consent was obtained prior to the procedure. Preprocedural ultrasound imaging over the left posterior chest was then performed, demonstrating a moderate pleural effusion. The posterior chest was sterilely prepared and draped in the routine manner. Lidocaine 1% was used for local anesthetic. Using ultrasound guidance, a 5-Togolese 1 step centesis was advanced successfully into thepleural space, with return of yellow pleural fluid. A total 2.7 L of fluid was removed. The Yueh catheter was removed and hemostasis was achieved with manual compression.The patient tolerated the procedure well. Complications None. Impression: Successful ultrasound-guided left thoracentesis with removal of 0.7 L of pleural fluid. [facility]-[id number] Procedure Note Interface, Radiology Results Incoming - 10/26/2018 10:37 AM [employer] Procedure Ultrasound-guided left thoracentesis. Clinical Indication Pleural effusion. Anesthesia Lidocaine 1%. Sedation None. Technique Written informed consent was obtained prior to the procedure. Preprocedural ultrasound imaging over the left posterior chest was then performed, demonstrating a moderate pleural effusion. The posterior chest was sterilely prepared and draped in the routine manner. Lidocaine 1% was used for local anesthetic. Using ultrasound guidance, a 5-Togolese 1 step centesis was advanced successfully into thepleural space, with return of yellow pleural fluid. A total 2.7 L of fluid was removed. The Yueh catheter was removed and hemostasis was achieved with manual compression. The patient tolerated the procedure well. Complications None. Impression: Successful ultrasound-guided left thoracentesis with removal of 0.7 L of pleural fluid. [facility]-[id number] Performing Organization Address City/[facility]/Zipcode Phone Number [facility] [address] [place] [address] Cytology (non-gynecological) request (10/26/2018 10:01 AM [employer])Only the most recent of2 resultswithin the time period is included. [facility] DEPARTMENT OF PATHOLOGY AND GENOMIC MEDICINE Cytology See link below for PDF [facility] DEPARTMENT OF (non-gynecological) report Lab Report PATHOLOGY AND GENOMIC MEDICINE Result status This is Final Report [facility] DEPARTMENT OF for [id number] PATHOLOGY AND GENOMIC MEDICINE Performing Organization Address [facility] Centercome Phone Number [facility] DEPARTMENT OF PATHOLOGY [address] [place] [address] AND [facility] Blood culture, aerobic & anaerobic (10/26/2018 9:05 AM [employer])Only the most recent of4 resultswithin the time period is included. Blood culture isolate No growth after 5 days of incubation. [facility] Comment: HOSPITAL Specimen Information Specimen Source: Fluid Specimen Site: Thoracentesis fluid Specimen Thoracentesis fluid Performing Organization Address City/[facility] Centercode Phone Number [facility] DEPARTMENT OF PATHOLOGY AND [address] [place] [address] [facility] MEDICINE [address] [address] Cell count and differential, body fluid (10/26/2018 9:05 AM [employer])Only the most recent of2 resultswithin the time period is included. [facility] fluid type Pleural [facility] Color, fluid Pale yellow [facility] Appearance, fluid Hazy [facility] RBC, fluid SEE COMMENTComment: 2+ /CMM [facility] (500 - 10,000 RBC/[facility] Nucleated cells, fluid 892 /CMM [facility] Fluid mononuclear cell Diff to follow [facility] Neutrophils, fluid 2 % [facility] Lymphocytes, fluid 30 % [facility] Mesothelial cells, fluid 2 % [facility] Macrophages, fluid 66 % [facility] Specimen Cerebrospinal fluid Performing Organization Address City/State/Zipcode Phone Number [facility] DEPARTMENT OF PATHOLOGY [address] [place] [address] AND [facility] MEDICINE [facility] [address] [place] [address] HOSPITAL Protein, misc fluid (10/26/2018 9:05 AM [employer])Only the most recent of2 resultswithin the time period is included. Fluid type Pleural [facility] Protein, fluid 1.4 g/dL [facility] Comment: Analysis performed on Madison 8000 analyzer. This is not an approved methodology for this specimen type;accuracy and clinical significance uncertain. Specimen Fluid Performing Organization Address City/[facility]/Zipcode Phone Number [facility] DEPARTMENT OF PATHOLOGY AND [address] [place] [id number] LDH, misc fluid (10/26/2018 9:05 AM AIRCRAFT INSTRUMENT TESTER)Only the most recent of2 resultswithin the time period is included. Fluid type Pleural [facility] LDH, fluid 63 U/L [facility] Comment: Analysis performed on Madison 8000 analyzer. This is not an approved methodology for this specimen type;accuracy and clinical significance uncertain. Specimen Fluid Performing Organization Address City/[facility] Phone Number [facility] DEPARTMENT OF PATHOLOGY AND [address] [place] [address] [address] pH, misc fluid (10/26/2018 9:05 AM AIRCRAFT INSTRUMENT TESTER)Only the most recent of2 resultswithin the time period is included. Fluid type Pleural [facility] pH, fluid 8.00Comment: Reference ranges are not [facility] established for Miscellanous specimens. Specimen Fluid Performing Organization Address City/State/Zipcode Phone Number [facility] DEPARTMENT OF PATHOLOGY AND [address] [place] [address] [address] XR Chest 1 Vw (10/24/2018 6:50 PM AIRCRAFT INSTRUMENT TESTER) Narrative Performed At Study:XR CHEST 1 VW [facility] History: Post Thoracentesis COMPARISON: Same date IMPRESSION: A single view of the chest. Mild pulmonary edema, bibasilar consolidations or atelectasis, and small bilateral pleural effusions unchanged. No pneumothorax. Cardiac silhouette is enlarged, stable.Visualized osseous structures arestable. [id number] Procedure Note Hm Interface, Radiology Results Incoming - 10/24/2018 7:07 PM AIRCRAFT INSTRUMENT TESTER Study:XR CHEST 1 VW History: Post Thoracentesis COMPARISON: Same date IMPRESSION: A single view of the chest. Mild pulmonary edema, bibasilar consolidations or atelectasis, and small bilateral pleural effusions unchanged. No pneumothorax. Cardiac silhouette is enlarged, stable. Visualized osseous structures are stable. [id number] Performing Organization Address City/[facility]/Zipcode Phone Number [facility] [address] [place] [address] Transfuse RBC (10/24/2018 5:24 PM AIRCRAFT INSTRUMENT TESTER)Only the most recent of4 resultswithin the time period is included.Gram stain (10/24/2018 3:42 PM AIRCRAFT INSTRUMENT TESTER) Gram stain isolate Few WBC's [facility] No organisms seen Comment: Specimen Information Specimen Source: Thoracentesis fluid Specimen Site: Chest, right Specimen Thoracentesis fluid - Chest, right Performing Organization Address City/[facility] Phone Number [facility] DEPARTMENT OF PATHOLOGY AND [address] [place] [address] [facility] [address] [place] [address] Total iron binding capacity (10/24/2018 6:20 AM AIRCRAFT INSTRUMENT TESTER) Iron level 14 (L) 59 - 158 ug/dL [facility] Iron binding capacity 211 (L) 260 - 460 ug/dL [facility] % Saturation 6.6 (L) 20.0 - 40.0 % [facility] Specimen Plasma specimen Performing Organization Address City/[facility]/Zipcode Phone Number [facility] DEPARTMENT OF PATHOLOGY [address] [place] [address] AND [facility] [address] [place] [address] HOSPITAL Ferritin level (10/24/2018 6:20 AM AIRCRAFT INSTRUMENT TESTER) Ferritin level 99 30 - 400 ng/mL [facility] Specimen Plasma specimen Performing Organization Address City/[facility]/Zipcode Phone Number [facility] DEPARTMENT OF PATHOLOGY AND [address] [place] [address] GENOMIC MEDICINE [facility] [address] [place] [address] Us duplex venous lower extremity (10/24/2018 3:56 AM AIRCRAFT INSTRUMENT TESTER) Narrative Performed At EXAMINATION:US DUPLEX VENOUS LOWER [...] thrombosis. Subcutaneous edema of bilateral lower extremities. [id number] Procedure Note Interface, Radiology Results Incoming - 10/24/2018 5:26 AM AIRCRAFT INSTRUMENT TESTER EXAMINATION: US DUPLEX VENOUS LOWER EXTREMITY BILATERAL [...] thrombosis. Subcutaneous edema of bilateral lower extremities. [id number] Performing Organization Address City/[facility]/Zipcode Phone Number [facility] [address] [place] [address] Troponin (10/23/2018 5:45 PM AIRCRAFT INSTRUMENT TESTER)Only the most recent of3 resultswithin the time period is included. Troponin <0.30 0.00 - 0.30 ng/mL [facility] Comment: HOSPITAL 0.11 - 1.49 ng/mlMay indicate increased risk of acute coronary syndrome. >=1.5 ng/mlConsistent with acute myocardial infarction. The diagnostic value of a single normal or non-diagnostic result is questionable.Serial samples at 2-6 hour intervals are required to rule out acute myocardial injury. Specimen Plasma specimen Performing Organization Address City/State/Zipcode Phone Number [facility] DEPARTMENT OF PATHOLOGY [address] [place] [address] AND [facility]OMIC [facility]IC[facility] [address] Echocardiogram complete w contrast and 3D if needed (10/23/2018 2:16 PM AIRCRAFT INSTRUMENT TESTER) Ao Root Diameter 3.32 cm HM [facility] [...] Organization Address City/State/Zipcode Phone Number [facility] [address] [place] [address] ECG 12 lead (10/23/2018 10:18 AM AIRCRAFT INSTRUMENT TESTER) Ventricular rate 79 [facility] Atrial rate 87 [facility] QRSD interval 96 [facility] QT interval 372 [facility] QTC interval 426 [facility] QRS axis 1 -11 [facility] T wave axis 70 [facility] EKG impression Atrial fibrillation with premature [facility] MUSE ventricular or aberrantly conducted complexes-Abnormal ECG-No previous ECGs available- Narrative Performed At Performing Organization Address City/State/Zipcode Phone Number [facility] MUSE [address] [place] [address] CT Chest Wo Contrast (10/23/2018 9:46 AM AIRCRAFT INSTRUMENT TESTER) Narrative Performed At EXAMINATION: [facility] CT CHEST WO CONTRAST CLINICAL HISTORY: [...] heart failure. 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 [facility]-[id number] Procedure Note Interface, Radiology Results Incoming - 10/23/2018 9:59 AM AIRCRAFT INSTRUMENT TESTER EXAMINATION: CT CHEST WO CONTRAST CLINICAL HISTORY: [...] failure. 4. 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 [facility]-[id number] Performing Organization Address City/State/Zipcode Phone Number [facility] [address] [place] [address] Hemoglobin & hematocrit (10/23/2018 12:40 AM AIRCRAFT INSTRUMENT TESTER) HGB 6.5 (LL) 14.0 - 18.0 g/dL [facility] Comment: HOSPITAL Hgb results called to and read back by Glenn Cochran/KENNY (name/location) at 10/23/201800:59 (date/time) by [facility]. HCT 21.1 (L) 41.0 - 51.0 % [facility] Specimen Blood Performing Organization Address City/State/Zipcode Phone Number [facility] DEPARTMENT OF PATHOLOGY [address] [place] [address] Prepare RBC, 1 Units (10/23/2018 12:40 AM AIRCRAFT INSTRUMENT TESTER)Only the most recent of2 resultswithin the time period is included. Product name Apheresis Red Cell AS3 #2 LR [facility] Unit number [id number] [facility] Product code [id number] [facility] Dispense status Transfused [facility] Blood expiration date [facility] Blood type code 0600 [facility] Blood type A NEGATIVE [facility] Performing Organization Address City/State/Zipcode Phone Number [facility] DEPARTMENT OF PATHOLOGY [address] [place] [address] [place] [address] HOSPITAL Type and screen (10/23/2018 12:40 AM AIRCRAFT INSTRUMENT TESTER) ABO grouping AB [facility] Rh type NEG [facility] Antibody screen (gel) NEG [facility] Specimen Blood Performing Organization Address City/State/Zipcode Phone Number [facility] DEPARTMENT OF PATHOLOGY [address] [place] [address] [place] [address] HOSPITAL Urinalysis screen and microscopy, with reflex to culture (10/22/2018 10:45 PM AIRCRAFT INSTRUMENT TESTER) Specimen site [place] [facility] Color, UA Yellow [facility] Appearance, UA Clear [facility] Specific gravity, UA 1.015 1.001 - 1.030 [facility] pH, UA 5.0 5.0 - 9.0 [facility] Protein, UA Negative Negative [facility] Glucose, UA 1+ (A) Negative [facility] Ketones, UA Negative Negative [facility] Bilirubin, UA Negative Negative [facility] Blood, UA Small (A) Negative [facility] Nitrite, UA Negative Negative [facility] Urobilinogen, UA <2.0 <2.0 E.U./dL [facility] Leukocyte esterase, UA Negative Negative [facility] Epithelial cells, UA <1 /HPF [facility] Round epithelial cells, UA <1 0 - 5 /HPF [facility] WBC, UA 1 0 - 1 /HPF [facility] RBC, UA 7 (H) 0 - 5 /HPF [facility] Bacteria, UA None seen None seen [facility] Yeast, UA None seen [facility] Yeast with pseudohyphae, UA None seen [facility] Specimen Urine Performing Organization Address City/[facility]/Zipcode Phone Number [facility] DEPARTMENT OF PATHOLOGY [address] [place] [address] Partial thromboplastin time, activated (10/22/2018 10:45 PM AIRCRAFT INSTRUMENT TESTER) PTT 43.5 (H) 23.0 - 36.0 sec [facility] PTT therapeutic range for unfractionated heparin is 61.0-112.0 seconds which corresponds to Anti-Xa 0.3-0.7 U/ml. Specimen Blood Performing Organization Address City/[facility]/Zipcode Phone Number [facility] DEPARTMENT OF PATHOLOGY [id number] [place] [address] [place] [address] HOSPITAL Prothrombin time with INR (10/22/2018 10:45 PM AIRCRAFT INSTRUMENT TESTER) Prothrombin time 14.9 (H) 11.5 - 14.5 sec [facility] INR 1.2 [facility] Comment: [facility] The International Normalized Ratio (INR) is a therapeutic monitoring tool for patients who are stable on oral anticoagulant therapy. An INR of 2.0-3.0 is suggested for deep vein thrombosis/pulmonary embolism. Specimen Blood Performing Organization Address City/[facility]/Zipcode Phone Number [facility] DEPARTMENT OF PATHOLOGY [address] [place] [address] Urine culture (10/22/2018 10:45 PM AIRCRAFT INSTRUMENT TESTER) Urine culture SEE COMMENTComment: Bacteriuria [facility] screen negative. HOSPITAL Performing Organization Address City/[facility] Cent[facility]ode Phone Number [facility] DEPARTMENT OF PATHOLOGY [address] [place] [address] Uric acid level (10/22/2018 10:45 PM AIRCRAFT INSTRUMENT TESTER) Uric acid 9.1 (H) 3.4 - 7.0 mg/dL [facility] Specimen Plasma specimen Performing Organization Address City/[facility] Phone Number [facility] DEPARTMENT OF PATHOLOGY [address] [place] [address] Thyroid stimulating hormone (10/22/2018 10:45 PM AIRCRAFT INSTRUMENT TESTER) TSH 1.46 0.27 - 4.20 uIU/mL [facility] Specimen Plasma specimen Performing Organization Address City/[facility]ode Phone Number [facility] DEPARTMENT OF PATHOLOGY [address] [place] [address] T4, free (10/22/2018 10:45 PM AIRCRAFT INSTRUMENT TESTER) T4, free 0.9 0.9 - 1.7 ng/dL [facility] Specimen Plasma specimen Performing Organization Address City/[facility]/Zipcode Phone Number [facility] DEPARTMENT OF PATHOLOGY [address] [place] [address] [address] HOSPITAL Prealbumin level (10/22/2018 10:45 PM AIRCRAFT INSTRUMENT TESTER) Prealbumin 11 (L) 16 - 32 mg/dL [facility] Specimen Serum Performing Organization Address City/State/Zipcode Phone Number [facility] DEPARTMENT OF PATHOLOGY AND [address] [place] [address] [address] Phosphorus level (10/22/2018 10:45 PM AIRCRAFT INSTRUMENT TESTER) Phosphorus 2.6 2.4 - 4.5 mg/dL [facility] Specimen Plasma specimen Performing Organization Address City/State/Zipcode Phone Number [facility] DEPARTMENT OF PATHOLOGY [id number] [place] [address] B natriuretic peptide (10/22/2018 10:45 PM AIRCRAFT INSTRUMENT TESTER) BNP 461 (H) 0 - 100 pg/mL [facility] Specimen Blood Performing Organization Address City/[facility]/Zipcode Phone Number [facility] DEPARTMENT OF PATHOLOGY [address] [place] [address] [place] [address] HOSPITAL Lipase level (10/22/2018 10:45 PM AIRCRAFT INSTRUMENT TESTER) Lipase 24 13 - 60 U/L [facility] Specimen Plasma specimen Performing Organization Address City/[facility]/Zipcode Phone Number [facility] DEPARTMENT OF PATHOLOGY [address] [place] [address]. [place] [address] [place] [address] HOSPITAL Lactic acid level (10/22/2018 10:45 PM AIRCRAFT INSTRUMENT TESTER) Lactic acid 1.5 0.5 - 2.2 mmol/L [facility] Specimen Plasma specimen Performing Organization Address City/[facility]/Zipcode Phone Number [facility] DEPARTMENT OF PATHOLOGY [address] [place] [address] Hemoglobin A1c (10/22/2018 10:45 PM AIRCRAFT INSTRUMENT TESTER) Hemoglobin A1C 5.8 4.0 - 6.0 % [facility] Comment: HOSPITAL Less than 6% - Goal of therapy for Type II Diabetes Less than 7%-Goal of therapy for Type I Diabetes Less than 8%-Acceptable control for Type I or Type II Diabetes Greater than 8%-Unacceptable control; action indicated. ([id number]) Specimen Blood Performing Organization Address City/[facility]ode Phone Number [facility] DEPARTMENT OF PATHOLOGY [address] [place] [address] Creatine kinase, total (CPK) (10/22/2018 10:45 PM AIRCRAFT INSTRUMENT TESTER) Creatine kinase 18 (A) 39 - 308 U/L [facility] Specimen Plasma specimen Performing Organization Address City/[facility]ode Phone Number [facility] DEPARTMENT OF PATHOLOGY [address] [place] [address] Amylase level (10/22/2018 10:45 PM AIRCRAFT INSTRUMENT TESTER) Amylase 8 13 - 73 U/L [facility] Specimen Plasma specimen Performing Organization Address City/[facility]ercome Phone Number [facility] DEPARTMENT OF PATHOLOGY [address] [place] [address] Lipid panel (10/22/2018 10:45 PM AIRCRAFT INSTRUMENT TESTER) Cholesterol 68 0 - 199 mg/dL [facility] Triglycerides 26 0 - 149 mg/dL [facility] HDL cholesterol 35 (L) 40 - 99,999 [facility] mg/dL [facility] LDL cholesterol 34 0 - 99 mg/dL [facility] Lipid panel See below [facility] interpretation Comment: [facility] Total Cholesterol (mg/dL) <200 Desirable 260-621Vuditkuhgv-ossx >=240High Triglycerides (mg/dL) <150 Normal 000-419Pwqbotnkgi-[id number] 200-499High >=500Very high HDL Cholesterol (mg/dL) <40Low (male) <50Low (female) LDL Cholesterol (mg/dL) <100 Optimal 100-129Near or above optimal 430-660Zasbeyjdhy-ikbe 160-189High >=190Very high Risk Catergories that modify [...] mg/dL) Specimen Plasma specimen Performing Organization Address City/[facility] Centercode Phone Number [facility] DEPARTMENT OF PATHOLOGY [address] [place] [address] AND GENOMIC MEDICINE [facility] [address] [place] [address] HOSPITAL XR Knee 3 Vw Right (02/07/2018 [...] calcification is also noted. Performing Organization Address City/[facility] Centercode Phone Number WAYNE MORROW [address] [place] [address] after 12/13/2017 Insurance Payer Benefit Plan / Group Subscriber ID Type Phone Address [facility] MEDICARE AARP MEDICARE COMPLETE MCR xxxxxxxxx HMO Advance Directives Patient has advance care planning documents on file. For more information, please contact:Melo Meza[address] [place] [address]
--- OUTSIDE RECORDS SUMMARY | 2018-12-14 16:36 | XMS REPORT | CCD ---
:02/13/1931 Author Organization [facility] Care Team Providers Name Role Phone Robin [...] HTN (hypertension) Resolved Pneumonia3 Resolved Replacement4 Resolved [id number] in last 7 [id number] knee Medications Medication [...] values reflect the clinical guidelines of the [place] [employer].HEMATOLOGY Most recent to oldest [Reference [...] lens and insertion of prosthetic replacement 3 [facility] 04/26/296hu2nc
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
--- OUTSIDE RECORDS SUMMARY | 2018-12-14 16:36 | XMS REPORT | CCD ---
:02/13/1931 Author Organization [facility] Outpatient Imaging [place] Care Team Providers Name Role Phone Arian [...] HTN (hypertension) Resolved Pneumonia3 Resolved Replacement4 Resolved [id number] in last 7 yrs4lt knee
--- OUTSIDE RECORDS SUMMARY | 2018-12-14 16:37 | XMS REPORT | Continuity of Care Document ---
:1930 Author Organization [facility] Care Team Providers Name Role Phone MD Prashant, Art Unavailable Unavailable Insurance Providers Payer name Policy type / Policy ID Covered constitution party ID Policy Fraser Coverage type MEDICARE PRIMARY [place] [employer] [place]: [employer] Encounters Encounter Performer Location Date Lab Report Art MD Prashant [facility] [place] [facility] Jan 04, 2015 Practice Allergies, Adverse [...] Apr 11, 2014 Active CORONARY ATHEROSCLEROSIS OF [place] CORONARY ARTERY Apr 11, 2014 Active DISEASE, [...] Jan 04, cholesterol, serum CHOLESTEROL 136 mg/dl [phone] Jan 04, HDL cholesterol, HDL 34 mg/dl 26-62 2014Jan 04, LDL cholesterol, LDL 90 mg/dl 0-130 2014Jan 04, iron, serum IRON 25 ug/dL 20-172 2014Jan 04, iron binding TIBC 367 ug/dL [phone] capacity, total Jan 04, creatine kinase, CPK [...]
--- OUTSIDE RECORDS SUMMARY | 2018-12-14 16:37 | XMS REPORT | Continuity of Care Document ---
:02/13/1931 Author Organization [facility] Care Team Providers Name Role Phone MD Prashant, Art Unavailable Unavailable Insurance Providers Payer name Policy type / Policy ID Covered republican ID Policy Fraser Coverage type MEDICARE PRIMARY MEDIC[place]: [employer] MEDICARE [place]: [employer] Encounters Encounter Performer Location Date Office Visit Koffi Cerda MD [facility] [place] [facility] Allergies, Adverse Reactions, Alerts [...] Apr 11, 2014 Active CORONARY ATHEROSCLEROSIS OF [place] CORONARY ARTERY Apr 11, 2014 Active DISEASE, [...] 80 mm Hg Apr 11, 2014 weight David&Wililam - 3141-9 WEIGHT 220.2 lb Apr 11, [...] Jan 04, cholesterol, serum CHOLESTEROL 136 mg/dl [phone] Jan 04, HDL cholesterol, HDL 34 mg/dl 26-62 2014Jan 04, LDL cholesterol, LDL 90 mg/dl 0-130 2014Jan 04, iron, serum IRON 25 ug/dL 20-172 2014Jan 04, iron binding TIBC 367 ug/dL [phone] capacity, total Jan 04, creatine kinase, CPK [...]
--- OUTSIDE RECORDS SUMMARY | 2018-12-14 16:37 | XMS REPORT | Continuity of Care Document ---
:1930 Author Organization [facility] Care Team Providers Name Role Phone MD Prashant, Art Unavailable Unavailable Insurance Providers Payer name Policy type / Policy ID Covered green party ID Policy Fraser Coverage type MEDICARE PRIMARY MEDIC[place]: [employer] MEDICARE [place]: [employer] Encounters Encounter Performer Location Date Office Visit Koffi Cerda MD [facility] [place] [facility] Allergies, Adverse Reactions, Alerts [...] Apr 11, 2014 Active CORONARY ATHEROSCLEROSIS OF [place] CORONARY ARTERY Apr 11, 2014 Active DISEASE, [...]
--- OUTSIDE RECORDS SUMMARY | 2018-12-14 16:37 | XMS REPORT | Continuity of Care Document ---
:1930 Author Organization [facility] Care Team Providers Name Role Phone MD Prashant, Art Unavailable Unavailable Insurance Providers Payer name Policy type / Policy ID Covered green party ID Policy Fraser Coverage type MEDICARE PRIMARY MEDIC[place]: [employer] MEDICARE [place]: [employer] Encounters Encounter Performer Location Date Office Visit Koffi Cerda MD [facility] Medical [place] [facility] Allergies, Adverse Reactions, Alerts [...] Apr 11, 2014 Active CORONARY ATHEROSCLEROSIS OF [place] CORONARY ARTERY Apr 11, 2014 Active DISEASE, [...]
--- OUTSIDE RECORDS SUMMARY | 2018-12-14 16:38 | XMS REPORT | Continuity of Care Document ---
:02/13/1931 Author Organization [facility] Care Team Providers Name Role Phone MD Prashant, Art Unavailable Unavailable Insurance Providers Payer name Policy type / Policy ID Covered alliance party ID Policy Fraser Coverage type MEDICARE PRIMARY MEDICARE [place]: [employer] MEDICARE B-[place]: [employer] Encounters Encounter Performer Location Date Office Visit Koffi Cerda MD [facility] Medical [place] [facility] Allergies, Adverse Reactions, Alerts [...] Apr 11, 2014 Active CORONARY ATHEROSCLEROSIS OF [place] CORONARY ARTERY Apr 11, 2014 Active DISEASE, [...] Jan 04, cholesterol, serum CHOLESTEROL 136 mg/dl [phone] Jan 04, HDL cholesterol, HDL 34 mg/dl 26-62 2014 serum Jan 04, LDL cholesterol, LDL 90 mg/dl 0-130 2014 serum Jan 04, iron, serum IRON 25 ug/dL 20-172 2014Jan 04, iron binding TIBC 367 ug/dL [phone] capacity, total Jan 04, creatine kinase, CPK [...]
--- OUTSIDE RECORDS SUMMARY | 2018-12-14 16:38 | XMS REPORT | Continuity of Care Document ---
:1930 Author Organization [facility] Care Team Providers Name Role Phone MD Howie, Kaushal Unavailable Unavailable Insurance Providers Payer name Policy type / Policy ID Covered constitution party ID Policy Fraser Coverage type MEDICARE PRIMARY MEDICARE [place]: [employer] MEDICARE B-[place]: [employer] Encounters Encounter Performer Location Date Office Visit Kaushal Denise MD [facility] January 23, 2015 Gastroenterology Allergies, [...] Apr 17, cholesterol, serum CHOLESTEROL 136 mg/dl [phone] Apr 17, HDL cholesterol, HDL 34 mg/dl 26-62 2015 serum Apr 17, LDL cholesterol, LDL 90 mg/dl 0-130 2015 serum Apr 17, iron, serum IRON 25 ug/dL 20-172 2015 Jan 04, iron binding TIBC 367 ug/dL [phone] capacity, total Apr , creatine kinase, CPK [...]
[2018-12-14 17:47] LABS: Absolute Lymphocytes (CBC) 0.8 K/uL (0.7-4.9); Absolute Monocytes 0.8 K/uL (0.1-1.3); Absolute Neutrophil 7.6 K/uL (1.8-8.0); Basophils % 0.6 % (0-1.3); Eosinophils % 0.9 % (0-4.4); Hematocrit 25.7 % (39.6-49.0); Lymphocytes % 8.8 % (15.3-44.8); MPV 9.9 fL (7.6-11.3)
[2018-12-14 17:48] LABS: Protime INR 1.04
[2018-12-14] MEDS ORDERED: IPRATROPIUM BROM 0.5MG/2.5ML ONE (18:03)
[2018-12-14] MEDS ORDERED: ALBUTEROL 2.5 MG/3 ML NEB SOL ONE (18:03)
[2018-12-14] MEDS ORDERED: PANTOPRAZOLE 40 MG INJ ONE (18:03)
[2018-12-14 18:21] LABS: ALT/SGPT 9 U/L (12-78); AST/SGOT 8 U/L (15-37); Albumin 2.6 g/dL (3.4-5.0); Alkaline Phosphatase 108 U/L (45-117); BUN Blood Urea Nitrogen 26 mg/dL (7-18); Bicarbonate 30 mmol/L (21-32); Bilirubin Direct 0.2 mg/dL (0-0.2); Bilirubin Total 0.5 mg/dL (0.2-1.0); Glucose Level 196 mg/dL (74-106); Magnesium 1.9 mg/dL (1.8-2.4); NT PRO-BNP 2679 pg/mL (<450); Potassium 4.1 mmol/L (3.5-5.1); Protein, Total 8.1 g/dL (6.4-8.2); Sodium Level 137 mmol/L (136-145); Troponin (Emerg Dept Use Only) < 0.02 ng/mL (0.0-0.045)
--- NOTE | 2018-12-14 18:23 | RAD REPORT ---
EXAM DESCRIPTION: Tino Single View12/14/2018 5:54 pm CLINICAL HISTORY: Shortness of breath COMPARISON: December 07, 2018 FINDINGS: Moderate bilateral pulmonary opacities. The heart is markedly enlarged. Small to moderate pleural effusion is suspected IMPRESSION: Moderate CHF
[2018-12-14] MEDS ORDERED: NA CHLORIDE 0.9% 500 ML ONE (19:22)
[2018-12-14 19:26] LABS: Urine Amorphous Sediment 2+ /HPF (NONE SEEN); Urine Bacteria 20-50 /HPF (NONE SEEN); Urine Culture Reflex Order REFLEXED; Urine RBC <5 /HPF (NONE SEEN)
[2018-12-14] MEDS ORDERED: CEFTRIAXONE/SWI 1gm 1 GM/10 ML SYR ONE (20:05)
--- NOTE | 2018-12-14 20:09 | RAD REPORT ---
EXAM DESCRIPTION: CT - Chest Abd Pelvis Wo Con - 12/14/2018 7:46 pm CLINICAL HISTORY: Chest and abdominal pain COMPARISON: December 2017 TECHNIQUE: Computed axial tomography of the chest, abdomen and pelvis was obtained. Oral contrast wa s given. IV contrast was not requested. All CT scans are performed using dose optimization technique as appropriate and may include automated exposure control or mA/KV adjustment according to patient size. FINDINGS: The evaluation of mediastinum, leon, vessels and solid organs is limited secondary to the lack of IV contrast administration Small to moderate left pleural effusion. Moderate bilateral subpleural interstitial opacities have the appearance of pulmonary fibrosis. Mild additional bilateral pulmonary opacities seen. Mild mediastinal lymphadenopathy has mildly diminished in size and likely is reactive in nature. The liver, spleen, pancreas, adrenals and left kidney appear grossly normal. Several nonobstructing right renal calculi There is no evidence of diverticulitis. Small inguinal hernias contain fat IMPRESSION: Small to moderate left pleural effusion Moderate pulmonary fibrosis Mild additional bilateral pulmonary opacities may represent pulmonary edema Nonobstructing right renal calculi
--- NOTE | 2018-12-14 20:18 | EKG ---
Test Date: 2018-12-14 Test Time: 16:58:04 Sample Weaver: GRZEGORZ MEASUREMENT RESULTS: Intervals: Rate: 87 [place]: QRSD: 110 QT: 346 QTc: 416 [place]: P: [place]: QRS: -39 T: 35 INTERPRETIVE STATEMENTS: Atrial fibrillation Left axis deviation Abnormal ECG Compared to ECG 12/05/2018 14:13:34 T-wave abnormality no longer present Electronically Signed On 12-14-18 20:17:37 CDT by Elmer Vee
[2018-12-14 20:23] LABS: Urine Blood NEGATIVE (NEG); Urine Glucose 2+ (NEG); Urine Protein 1+ (NEG); Urine Specific Gravity 1.015 (1.005-1.030)
--- NOTE | 2018-12-14 20:42 | ER ---
Nurse's Notes [facility] Name: Varinder Nielson Age: 88 yrs Sex: Male : 1930 Arrival Date: 12/14/2018 Time: 16:31 Bed 8 Private MD: Diagnosis: Anemia in other chronic diseases classified elsewhere;Gastrointestinal hemorrhage, unspecified;Urinary tract infection, site not specified Presentation: 12/14 16:31 Presenting complaint: Patient states: Generalized weakness EMS states: pt has a history pc1 of recent falls. Pt Significant other states: [place] doctor reports that the pt is loosing blood. Transition of care: patient was not received from another setting of care. Onset of symptoms was December 14, 2018. Risk Assessment: Do you want to hurt yourself or someone else? Patient reports no desire to harm self or others. Initial Sepsis Screen: Does the patient meet any 2 criteria? No. Patient's initial sepsis screen is negative. Does the patient have a suspected source of infection? No. Patient's initial sepsis screen is negative. Care prior to arrival: None. 16:31 Method Of Arrival: EMS: [facility] pc1 16:32 Acuity: JANET 3 hb Triage Assessment: 16:31 General: Appears uncomfortable, Behavior is cooperative, anxious, Reports fatigue for pc1 1-2 days. Pain: Denies pain. EENT:. Neuro: Level of Consciousness is awake, alert, obeys commands, Oriented to person, place, situation, Facial symmetry appears normal, Reports weakness. Cardiovascular: Patient's skin is warm and dry. Respiratory: Airway is patent Trachea midline Respiratory effort is even, labored, Respiratory pattern is regular, symmetrical, Breath sounds with wheezes in right upper lobe and right posterior upper lobe. GI: No signs and/or symptoms were reported involving the gastrointestinal system. : No signs and/or symptoms were reported regarding the genitourinary system. Derm: Skin is intact, with poor turgor flakey Skin is dry, Skin is pink, warm \T\ dry. Musculoskeletal: Circulation, motion, and sensation intact. Capillary refill < 3 seconds. Historical: - Allergies: 17:43 No Known Allergies; hb - Home Meds: 17:43 acetaminophen 325 mg Oral tab 2 tabs as needed [Active]; albuterol inhaler 2 puff every hb 6 hours [Active]; amlodipine 5 mg tab 1 tab once daily [Active]; apixaban Oral 1 tab 2 times per day [Active]; aspirin 81 mg Oral TbEC 1 tab once daily [Active]; atorvastatin 80 mg Oral tab [Active]; docusate sodium 100 mg Oral tab 1 tab once daily [Active]; ferrous sulfate 325 mg (65 mg iron) Oral tab twice a day [Active]; folic acid 1 mg Oral tab 1 tab once daily [Active]; furosemide 40 mg Oral tab 1 tab once daily [Active]; furosemide 20 mg Oral tab 1 tab 3 times per day [Active]; gabapentin 300 mg Oral cap 1 cap 3 times per day [Active]; glipizide 10 mg Oral tab 1 tab once daily [Active]; hydralazine 25 mg Oral tab 1 tab three times a day [Active]; Levaquin 500 mg Oral tab 1 tab once daily [Active]; losartan 100 mg Oral tab 1 tab once daily [Active]; amlodipine 10 mg tab 1 tab once daily [Active]; losartan 50 mg Oral tab 1 tab once daily [Active]; metformin 500 mg Oral Tb24 1 tab once daily [Active]; metoprolol tartrate 25 mg Oral tab 1 tab once daily [Active]; multivitamin with minerals Oral tab daily [Active]; omeprazole 20 mg Oral cpDR 1 cap once daily [Active]; pantoprazole 40 mg Oral TbEC 1 tab once daily [Active]; potassium gluconate Oral [Active]; prednisone 20 mg Oral tab 2 tabs once daily [Active]; Tears Naturale Free (PF) 0.1-0.3 % ophthalmic dpet 2 drop twice a day [Active]; - PMHx: 17:43 Anemia; Atrial Fib; BPH; CAD; CHF; COPD; CVA; Dementia; Diabetes - NIDDM; Gastric hb Reflux; High Cholesterol; Hyperlipidemia; Hypertension; hypomagnesium; osteoarthritis; Pneumonia; - PSHx: 17:43 Cholecystectomy; Appendectomy; hb - Immunization history:: Adult Immunizations unknown. - Social history:: Patient/guardian denies using alcohol, street drugs, IV drugs, tobacco products, Smoking status: Patient/guardian denies using tobacco. - Ebola Screening: : Patient negative for fever greater than or equal to 101.5 degrees Fahrenheit, and additional compatible Ebola Virus Disease symptoms Patient denies exposure to infectious person Patient denies travel to an Ebola-affected area in the 21 days before illness onset No symptoms or risks identified at this time. Screenin:00 Abuse screen: Denies threats or abuse. Denies injuries from another. Nutritional hb screening: No deficits noted. Tuberculosis screening: No symptoms or risk factors identified. Fall Risk None identified. Assessment: 16:30 General: Appears mild distress. Behavior is calm, cooperative. Pain: Denies pain. hb Neuro: Level of Consciousness is awake, alert, obeys commands, Oriented to person, place, time, situation. Cardiovascular: Heart tones S1 S2 present Capillary refill < 3 seconds Patient's skin is warm and dry. Respiratory: Airway is patent Respiratory effort is even, labored, Respiratory pattern is regular, symmetrical, Breath sounds are coarse. GI: No signs and/or symptoms were reported involving the gastrointestinal system. : No signs and/or symptoms were reported regarding the genitourinary system. EENT: No signs and/or symptoms were reported regarding the EENT system. Derm: Skin is healthy with good turgor, Skin is dry, Skin is pale. Musculoskeletal: No signs and/or symptoms reported regarding the musculoskeletal system. 17:30 Reassessment: No changes from previously documented assessment. Patient and/or family hb updated on plan of care and expected duration. Pain level reassessed. Patient is alert, oriented x 3, equal unlabored respirations, skin warm/dry/pink. 18:30 Reassessment: No changes from previously documented assessment. Patient and/or family hb updated on plan of care and expected duration. Pain level reassessed. Patient is alert, oriented x 3, equal unlabored respirations, skin warm/dry/pink. 19:41 Reassessment: Patient appears in no apparent distress at this time. No changes from jd3 previously documented assessment. Patient and/or family updated on plan of care and expected duration. Pain level reassessed. Patient is alert, oriented x 3, equal unlabored respirations, skin warm/dry/pink. pt to CT with pharmacy technician. 20:29 Reassessment: Patient appears in no apparent distress at this time. Patient and/or jd3 family updated on plan of care and expected duration. Pain level reassessed. Patient is alert, oriented x 3, equal unlabored respirations, skin warm/dry/pink. pt resting with eyes closed, even and unlabored respirations, no distress noted at this time. 21:44 Reassessment: Patient appears in no apparent distress at this time. Patient and/or jd3 family updated on plan of care and expected duration. Pain level reassessed. Patient is alert, oriented x 3, equal unlabored respirations, skin warm/dry/pink. called to 4th floor to give report, nurse busy in room, will return the call when the nurse is available. 22:06 Reassessment: Patient appears in no apparent distress at this time. Patient and/or jd3 family updated on plan of care and expected duration. Pain level reassessed. Patient is alert, oriented x 3, equal unlabored respirations, skin warm/dry/pink. assisted ot with urinal. elimination needs met. 22:29 Reassessment: awaiting registration before admitting pt to the floor. jd3 23:28 Reassessment: Patient appears in no apparent distress at this time. Patient and/or jd3 family updated on plan of care and expected duration. Pain level reassessed. Patient is alert, oriented x 3, equal unlabored respirations, skin warm/dry/pink. technology risk intern assisting pt with urinal and with transportation to the floor. Vital Signs: 16:46 BP 122 / 60; Pulse 80; Resp 22; Pulse Ox 98% on R/A; pc1 17:10 Pulse Ox 98% on R/A; cp 17:30 BP 130 / 58; Pulse 88; Resp 20; Pulse Ox 95% on R/A; hb 18:30 BP 131 / 52; Pulse 90; Resp 22; Pulse Ox 94% on R/A; hb 19:33 BP 115 / 57; Pulse 89; Resp 17 S; Pulse Ox 95% on R/A; jd3 20:15 BP 115 / 66; Pulse 88; Resp 19; Pulse Ox 95% on R/A; mt 20:30 BP 131 / 61; Pulse 87; Resp 21 S; Pulse Ox 95% on R/A; jd3 21:20 BP 120 / 62; Pulse 82; Resp 24; Pulse Ox 96% on R/A; mt 21:45 BP 119 / 57; Pulse 79; Resp 20 S; Pulse Ox 95% on R/A; jd3 23:27 BP 107 / 77; Pulse 79; Resp 19 S; Pulse Ox 95% on R/A; jd3 ED Course: 16:31 Patient arrived in ED. pc1 16:39 Patel Parker PA is PHCP. cp 16:39 Sloan Ramos MD is Attending Physician. cp 17:02 Jennifer Parham, RN is Primary Nurse. hb 17:02 Arm band placed on. hb 17:03 Triage completed. hb 17:12 EKG done, by ED staff, by information technology technician. reviewed by Patel CALZADA. sm3 17:15 Inserted saline lock: 20 gauge in right antecubital area, using aseptic technique. hb Blood collected. 17:46 Patient has correct armband on for positive identification. Placed in gown. Bed in low hb position. Call light in reach. Side rails up X2. 17:50 X-ray completed. Portable x-ray completed in exam room. Patient tolerated procedure ml well. 17:52 XRAY Chest (1 view) In Process Unspecified. EDMS 19:[address] via stretcher. vm2 19:45 CT completed. Patient tolerated procedure well. Patient moved back from CT. vm2 19:47 CT Chest Abdomen Pelvis W/O Contrast In Process Unspecified. EDMS 20:40 Bernardo Gallagher MD is Hospitalizing Provider. cp 22:07 No provider procedures requiring assistance completed. Patient admitted, IV remains in jd3 place. Administered Medications: 18:00 Drug: Albuterol 2.5 mg Route: Inhalation; ph 19:00 Follow up: Response: No adverse reaction jd3 18:00 Drug: AtroVENT Aerosol 0.5 mg Route: Inhalation; ph 22:10 Follow up: Response: No adverse reaction jd3 18:02 CANCELLED (Inappropriate at this time): ProTONIX 40 mg PO once ph 18:02 Drug: ProTONIX 40 mg Route: IVP; Site: right antecubital; ph 18:53 Follow up: Response: No adverse reaction hb 18:49 Drug: ProTONIX 8 mg/hr Route: IV; Rate: 25 ml/hr; Site: right antecubital; hb 22:09 Follow up: Response: No adverse reaction; IV Status: Infusion continued upon admission jd3 19:17 Drug: NS 0.9% 500 ml Route: IV; Rate: 250 ml/hr; Site: right antecubital; hb 22:09 Follow up: Response: No adverse reaction; IV Status: Completed infusion jd3 19:59 Drug: Rocephin 1 grams Route: IV; Rate: calculated rate; Site: right antecubital; jd3 21:23 Follow up: Response: No adverse reaction; IV Status: Completed infusion jd3 21:23 Drug: Lasix 40 mg Route: IVP; Site: right antecubital; jd3 22:08 Follow up: Response: No adverse reaction jd3 Outcome: 18:30 Attestation : I agree with previous assessment by director community health nursing Riri Dunlap . 20:41 Decision to Hospitalize by Provider. cp 22:07 Admitted to Med/surg accompanied by tech, via stretcher, room 407, with chart, Report jd3 called to Nicole SINGH 22:07 Condition: stable 22:07 Instructed on the need for admit, Demonstrated understanding of instructions. 23:29 Patient left the ED. jd3 Signatures: Dispatcher [employer] EDMS Kimi Christopher Patricia, RN RN ph Elena, Patel, ZHENG PA cp Jennifer Parham RN RN Leslie Shoemaker [facility] Izzy Vega id Asaf Stevenson RN RN jd3 Montes, Shakira 3 Marques Dunlap pc1 Corrections: (The following items were deleted from the chart) 17:32 16:31 Respiratory: Airway is patent Trachea midline Respiratory effort is even, pc1 labored, Respiratory pattern is regular, symmetrical, Breath sounds are clear pc1 17:32 16:31 Derm: Skin is intact, is healthy with good turgor, Skin is dry, Skin is pink, pc1 warm \T\ dry. pc1 18:02 18:02 ProTONIX 40 mg PO ph ph 19:41 19:32 Reassessment: Patient appears in no apparent distress at this time. No changes jd3 from previously documented assessment. Patient and/or family updated on plan of care and expected duration. Pain level reassessed. Patient is alert, oriented x 3, equal unlabored respirations, skin warm/dry/pink. jd3
--- NOTE | 2018-12-14 20:43 | EDPHYS ---
Physician Documentation [facility] Name: Varinder Nielson Age: 88 yrs Sex: Male : 1930 Arrival Date: 12/14/2018 Time: 16:31 Bed 8 Private MD: ED Physician Sloan Ramos HPI: 12/14 17:00 This 88 yrs old Male presents to ER via EMS with complaints of general cp weakness. 17:00 general weakness. Onset: The symptoms/episode began/occurred gradually. Severity of cp symptoms: in the emergency department the symptoms are unchanged despite home interventions. 17:00 The patient has been recently been admitted at [facility], for cp similar complaints, but despite evaluation and treatment the patient has continued symptoms, 9 days ago. Historical: - Allergies: 17:43 No Known Allergies; hb - Home Meds: 17:43 acetaminophen 325 mg Oral tab 2 tabs as needed [Active]; albuterol inhaler 2 puff every hb 6 hours [Active]; amlodipine 5 mg tab 1 tab once daily [Active]; apixaban Oral 1 tab 2 times per day [Active]; aspirin 81 mg Oral TbEC 1 tab once daily [Active]; atorvastatin 80 mg Oral tab [Active]; docusate sodium 100 mg Oral tab 1 tab once daily [Active]; ferrous sulfate 325 mg (65 mg iron) Oral tab twice a day [Active]; folic acid 1 mg Oral tab 1 tab once daily [Active]; furosemide 40 mg Oral tab 1 tab once daily [Active]; furosemide 20 mg Oral tab 1 tab 3 times per day [Active]; gabapentin 300 mg Oral cap 1 cap 3 times per day [Active]; glipizide 10 mg Oral tab 1 tab once daily [Active]; hydralazine 25 mg Oral tab 1 tab three times a day [Active]; Levaquin 500 mg Oral tab 1 tab once daily [Active]; losartan 100 mg Oral tab 1 tab once daily [Active]; amlodipine 10 mg tab 1 tab once daily [Active]; losartan 50 mg Oral tab 1 tab once daily [Active]; metformin 500 mg Oral Tb24 1 tab once daily [Active]; metoprolol tartrate 25 mg Oral tab 1 tab once daily [Active]; multivitamin with minerals Oral tab daily [Active]; omeprazole 20 mg Oral cpDR 1 cap once daily [Active]; pantoprazole 40 mg Oral TbEC 1 tab once daily [Active]; potassium gluconate Oral [Active]; prednisone 20 mg Oral tab 2 tabs once daily [Active]; Tears Naturale Free (PF) 0.1-0.3 % ophthalmic dpet 2 drop twice a day [Active]; - PMHx: 17:43 Anemia; Atrial Fib; BPH; CAD; CHF; COPD; CVA; Dementia; Diabetes - NIDDM; Gastric hb Reflux; High Cholesterol; Hyperlipidemia; Hypertension; hypomagnesium; osteoarthritis; Pneumonia; - PSHx: 17:43 Cholecystectomy; Appendectomy; hb - Immunization history:: Adult Immunizations unknown. - Social history:: Patient/guardian denies using alcohol, street drugs, IV drugs, tobacco products, Smoking status: Patient/guardian denies using tobacco. - Ebola Screening: : Patient negative for fever greater than or equal to 101.5 degrees Fahrenheit, and additional compatible Ebola Virus Disease symptoms Patient denies exposure to infectious person Patient denies travel to an Ebola-affected area in the 21 days before illness onset No symptoms or risks identified at this time. ROS: 17:05 Constitutional: Negative for body aches, chills, fever, poor PO intake. cp 17:05 Eyes: Negative for injury, pain, redness, and discharge. cp 17:05 ENT: Negative for drainage from ear(s), ear pain, sore throat, difficulty swallowing, difficulty handling secretions. 17:05 Cardiovascular: Negative for chest pain, edema, palpitations. 17:05 Respiratory: Positive for shortness of breath, Negative for cough. 17:05 Abdomen/GI: Positive for abdominal pain, rectal bleeding, Negative for vomiting, diarrhea, constipation. 17:05 : Negative for urinary symptoms. 17:05 Neuro: Positive for general weakness, Negative for altered mental status, headache, numbness, syncope. 17:05 All other systems are negative. Exam: 17:10 Constitutional: The patient appears in no acute distress, alert, awake, cp non-diaphoretic, non-toxic, well developed, well nourished. 17:10 Head/Face: Normocephalic, atraumatic. cp 17:10 Eyes: Periorbital structures: appear normal, Pupils: equal, round, and reactive to light and accomodation, Extraocular movements: intact throughout, Conjunctiva: normal, no exudate, no injection, Sclera: no appreciated abnormality, Lids and lashes: appear normal, bilaterally. 17:10 ENT: External ear(s): are unremarkable, Ear canal(s): are normal, clear, TM's: bulging, is not appreciated, bilaterally, dullness, bilaterally, erythema, is not appreciated, bilaterally, Nose: is normal, Mouth: Lips: dry, Oral mucosa: dry, Posterior pharynx: Airway: no evidence of obstruction, patent, Tonsils: are normal in appearance, swelling, is not appreciated, erythema, is not appreciated, exudate, is not appreciated. 17:10 Neck: ROM/movement: is normal, is supple, without pain, no range of motions limitations, no meningismus, no nuchal rigidity. 17:10 Chest/axilla: Inspection: normal, Palpation: is normal, no crepitus, no tenderness. 17:10 Cardiovascular: Rate: normal, Rhythm: irregular, JVD: is not appreciated. 17:10 Respiratory: the patient does not display signs of respiratory distress, Respirations: labored breathing, that is mild, intercostal retractions, are absent, shallow respirations, that is mild, Breath sounds: decreased breath sounds, that are moderate, are located in both bases, stridor, is not appreciated. 17:10 Abdomen/GI: Inspection: abdomen appears normal, Bowel sounds: active, all quadrants, Palpation: soft, in all quadrants, mild abdominal tenderness, in the right lower quadrant and left lower quadrant, rebound tenderness, is not appreciated, involuntary guarding, is not appreciated, Rectal exam: Stool: guaiac positive, dark brown. 17:10 Back: pain, is absent, ROM is normal. 17:10 Skin: cellulitis, is not appreciated, no rash present. 17:10 Neuro: Orientation: to person, place \T\ time. Mentation: is normal, Cerebellar function: is grossly normal, Motor: moves all fours, general weakness w/o focal deficits, Sensation: no obvious gross deficits. 17:12 ECG was reviewed by the Attending Physician. cp Vital Signs: 16:46 BP 122 / 60; Pulse 80; Resp 22; Pulse Ox 98% on R/A; pc1 17:10 Pulse Ox 98% on R/A; cp 17:30 BP 130 / 58; Pulse 88; Resp 20; Pulse Ox 95% on R/A; hb 18:30 BP 131 / 52; Pulse 90; Resp 22; Pulse Ox 94% on R/A; hb 19:33 BP 115 / 57; Pulse 89; Resp 17 S; Pulse Ox 95% on R/A; jd3 20:15 BP 115 / 66; Pulse 88; Resp 19; Pulse Ox 95% on R/A; mt 20:30 BP 131 / 61; Pulse 87; Resp 21 S; Pulse Ox 95% on R/A; jd3 21:20 BP 120 / 62; Pulse 82; Resp 24; Pulse Ox 96% on R/A; mt 21:45 BP 119 / 57; Pulse 79; Resp 20 S; Pulse Ox 95% on R/A; jd3 23:27 BP 107 / 77; Pulse 79; Resp 19 S; Pulse Ox 95% on R/A; jd3 MDM: 16:39 Patient medically screened. cp 17:00 Differential Diagnosis altered mental status, sepsis, flu. cp 20:35 Data reviewed: vital signs, nurses notes, lab test result(s), EKG, radiologic studies, cp CT scan, plain films, and as a result, I will admit patient. 20:35 Test interpretation: by ED physician or midlevel provider: ECG, plain radiologic cp studies. Response to treatment: the patient's symptoms have mildly improved after treatment. 20:35 Physician consultation: Bernardo Gallagher MD was contacted at 20:30, regarding admission, cp to the telemetry unit. patient's condition. 12/14 16:55 Order name: Basic Metabolic Panel; Complete Time: 18:35 cp 12/14 18:46 Interpretation: Normal except: GLUC 196; BUN 26; CRE 1.53; GFR 43; CA 11.2. cp 12/14 16:55 Order name: CBC with Diff; Complete Time: 18:35 cp 12/14 18:36 Interpretation: Normal except: WBC 9.5; RBC 3.20; HGB 8.4; HCT 25.7; MCH 26.1; RDW cp 16.6; JANIYA% 80.7; LYM% 8.8. 12/14 16:55 Order name: LFT's; Complete Time: 18:35 cp 12/14 18:46 Interpretation: Normal except: AST 8; ALT 9; ALB 2.6; GLOB 5.5; A/G 0.5. 12/14 16:55 Order name: Magnesium; Complete Time: 18:35 cp 12/14 16:55 Order name: NT PRO-BNP; Complete Time: 18:35 cp 12/14 16:55 Order name: PT-INR; Complete Time: 18:35 cp 12/14 16:55 Order name: Troponin (emerg Dept Use Only); Complete Time: 18:35 cp 12/14 16:55 Order name: Urine Microscopic Only; Complete Time: 19:45 cp 12/14 19:46 Interpretation: Normal except: UBACT 20-50. 12/14 16:55 Order name: Blood Culture Adult (2) cp 12/14 16:55 Order name: Procalcitonin; Complete Time: 19:20 cp 12/14 19:21 Interpretation: Reviewed. 12/14 16:55 Order name: Lactate; Complete Time: 18:35 cp 12/14 19:21 Interpretation: Abnormal: LAC 2.1. 12/14 16:55 Order name: Type And Screen; Complete Time: 18:46 cp 12/14 18:55 Order name: Urine Dipstick--Ancillary (enter results); Complete Time: 20:34 kj1 12/14 19:28 Order name: Urine Culture EDME 12/14 16:55 Order name: XRAY Chest (1 view); Complete Time: 18:35 cp 12/14 16:55 Order name: EKG; Complete Time: 16:56 cp 12/14 19:22 Order name: CT Chest Abdomen Pelvis W/O Contrast; Complete Time: 20:34 cp 12/14 20:51 Order name: Lactate Sepsis 2 HR Follow-up; Complete Time: 20:34 EDMS 12/14 21:07 Order name: CBC with Automated Diff [facility] 12/14 21:07 Order name: CBC with Automated Diff; Complete Time: 20:34 EDMS 12/14 21:07 Order name: Comprehensive Metabolic Panel [facility] 12/14 21:07 Order name: Comprehensive Metabolic Panel; Complete Time: 20:34 EDMS 12/14 16:55 Order name: Cardiac monitoring; Complete Time: 17:47 cp 12/14 16:55 Order name: EKG - Nurse/Tech; Complete Time: 17:47 cp 12/14 16:55 Order name: IV Saline Lock; Complete Time: 17:47 cp 12/14 16:55 Order name: Labs collected and sent; Complete Time: 17:48 cp 12/14 16:55 Order name: O2 Per Protocol; Complete Time: 17:48 cp 12/14 16:55 Order name: O2 Sat Monitoring; Complete Time: 17:48 cp 12/14 16:55 Order name: Urine Dipstick-Ancillary (obtain specimen); Complete Time: 17:47 cp 12/14 16:55 Order name: Cath; Complete Time: 17:47 cp 12/14 21:07 Order name: CONS Pharmacy Consult EDMS 12/14 21:07 Order name: Heart Healthy EDMS EC:12 Rate is 87 beats/min. Rhythm is irregular. QRS interval is prolonged at 110 msec. QT cp interval is normal. T waves are Flattened in lead aVL. Interpreted by me. Reviewed by me. Administered Medications: 18:00 Drug: Albuterol 2.5 mg Route: Inhalation; ph 19:00 Follow up: Response: No adverse reaction jd3 18:00 Drug: AtroVENT Aerosol 0.5 mg Route: Inhalation; ph 22:10 Follow up: Response: No adverse reaction jd3 18:02 CANCELLED (Inappropriate at this time): ProTONIX 40 mg PO once ph 18:02 Drug: ProTONIX 40 mg Route: IVP; Site: right antecubital; ph 18:53 Follow up: Response: No adverse reaction hb 18:49 Drug: ProTONIX 8 mg/hr Route: IV; Rate: 25 ml/hr; Site: right antecubital; hb 22:09 Follow up: Response: No adverse reaction; IV Status: Infusion continued upon admission jd3 19:17 Drug: NS 0.9% 500 ml Route: IV; Rate: 250 ml/hr; Site: right antecubital; hb 22:09 Follow up: Response: No adverse reaction; IV Status: Completed infusion jd3 19:59 Drug: Rocephin 1 grams Route: IV; Rate: calculated rate; Site: right antecubital; jd3 21:23 Follow up: Response: No adverse reaction; IV Status: Completed infusion jd3 21:23 Drug: Lasix 40 mg Route: IVP; Site: right antecubital; jd3 22:08 Follow up: Response: No adverse reaction jd3 Disposition: 12/15 07:37 Co-signature as Attending Physician, Sloan Ramos MD I agree with the assessment and wa plan of care. Disposition: 12/14/18 20:41 Hospitalization ordered by Bernardo Gallagher for Inpatient Admission. Preliminary diagnosis are Anemia in other chronic diseases classified elsewhere, Gastrointestinal hemorrhage, unspecified, Urinary tract infection, site not specified. - Bed requested for Telemetry/MedSurg (Inpatient). - Status is Inpatient Admission. jd3 - Condition is Stable. - Problem is new. - Symptoms have improved. UTI on Admission? Yes Signatures: Dispatcher [employer] EDMS Sara Sterling RN RN Charla Lux RN RN ph Elena, Patel, PA PA cp Jennifer Parham RN RN hb Appiah, William, MD MD wa Davies, Jonathon, RN RN jd3 Cantu, Patrick pc1 Corrections: (The following items were deleted from the chart) 12/14 18:02 18:01 ProTONIX 40 mg PO once ordered. ph ph 18:02 18:02 ProTONIX 40 mg PO once given. ph ph 18:02 18:02 ProTONIX 40 mg PO once ordered. ph ph 18:46 18:36 Normal except: GLUC 196; BUN 26; CRE 1.53; GFR 43. cp cp 21:24 20:41 Hospitalization Ordered by Bernardo Gallagher MD for Inpatient Admission. Preliminary diagnosis is Anemia in other chronic diseases classified elsewhere; Gastrointestinal hemorrhage, unspecified; Urinary tract infection, site not specified. Bed requested for Telemetry/MedSurg (Inpatient). Status is Inpatient Admission. Condition is Stable. Problem is new. Symptoms have improved. UTI on Admission? Yes. cp 23:29 21:24 12/14/2018 20:41 Hospitalization Ordered by Bernardo Gallagher MD for Inpatient jd3 Admission. Preliminary diagnosis is Anemia in other chronic diseases classified elsewhere; Gastrointestinal hemorrhage, unspecified; Urinary tract infection, site not specified. Bed requested for Telemetry/MedSurg (Inpatient). Status is Inpatient Admission. Condition is Stable. Problem is new. Symptoms have improved. UTI on Admission? Yes. mw
[2018-12-14] MEDS ORDERED: ONDANSETRON 4 MG/2 ML VIAL IV PRN (21:05)
[2018-12-14] MEDS ORDERED: MORPHINE 2 MG/ML SYR IV PRN (21:05)
[2018-12-14] MEDS ORDERED: FUROSEMIDE 40 MG/4 ML VIAL ONE (21:25)
[2018-12-15] MEDS: NA CHLORIDE 0.9% 1,000 ML IV SCH ×3 (00:41→21:25)
[2018-12-15] MEDS: PANTOPRAZOLE INJ 80 MG in NA CHLORIDE 0.9% 250 ML IV SCH ×3 (00:41→14:46)
[2018-12-15 04:22] LABS: Absolute Lymphocytes (CBC) 0.9 K/uL (0.7-4.9); Absolute Monocytes 0.6 K/uL (0.1-1.3); Absolute Neutrophil 5.7 K/uL (1.8-8.0); Basophils % 0.4 % (0-1.3); Eosinophils % 0.8 % (0-4.4); Lymphocytes % 12.4 % (15.3-44.8); Monocytes % 8.2 % (3.3-12.3); RBC Red Blood Cell Count 2.75 M/uL (4.33-5.43)
[2018-12-15 04:33] LABS: AST/SGOT 5 U/L (15-37); Albumin 2.1 g/dL (3.4-5.0); Alkaline Phosphatase 88 U/L (45-117); BUN Blood Urea Nitrogen 23 mg/dL (7-18); Bicarbonate 29 mmol/L (21-32); Bilirubin Total 0.4 mg/dL (0.2-1.0); Glucose Level 178 mg/dL (74-106); Potassium 3.8 mmol/L (3.5-5.1); Protein, Total 6.6 g/dL (6.4-8.2); Sodium Level 140 mmol/L (136-145)
[2018-12-15 04:55] LABS: ALT/SGPT < 6 U/L (12-78)
[2018-12-15] MEDS ORDERED: PANTOPRAZOLE 40 MG INJ ONE (04:59)
[2018-12-15] MEDS ORDERED: NA CHLORIDE 0.9% 250 ML ONE (05:00)
[2018-12-15] MEDS ORDERED: METOPROLOL XL 25 MG TAB PO ONE (07:39)
[2018-12-15] MEDS ORDERED: METOPROLOL TARTRATE 5 MG/5 ML INJ IV STA (07:39)
[2018-12-15] MEDS: ACETAMINOPHEN 500 MG TAB PO PRN (15:24)
--- NOTE | 2018-12-15 16:00 | P.PN ---
Subjective Date of Service: 12/15/18 Subjective: No new changes Review of Systems 10-point ROS is otherwise unremarkable Physical Examination - Vital Signs Temperature: 99.2 F Blood Pressure: 148/66 Pulse: 95 Respirations: 16 Pulse Ox (%): 94 - Physical Exam General: Alert, In no apparent distress, Oriented x2 Respiratory: Clear to auscultation bilaterally, Normal air movement Cardiovascular: Regular rate/rhythm, Normal S1 S2 Gastrointestinal: Normal bowel sounds, No tenderness - Studies Laboratory Data (last 24 hrs) 12/14/18 17:15: PT 12.2, INR 1.04 12/14/18 17:15: WBC 9.5 D, Hgb 8.4 L, Hct 25.7 L, Plt Count 271 12/14/18 17:15: Sodium 137, Potassium 4.1, BUN 26 H, Creatinine 1.53 H, Glucose 196 H, Magnesium 1.9, Total Bilirubin 0.5, AST 8 L, ALT 9 L, Alkaline Phosphatase 108 Assessment And Plan - Plan 1. Continue with IV hydration and PPI drip 2. Continue with IV antibiotics if persistent fever 3. Continue with pain control 4. NPO 5. gastroenterology consultation 6. Monitor LFTs and lipase along with electrolytes and serial H&H. 7. continue with cardiac medications 8. physical therapy evaluation 9. GI and DVT prophylaxis
--- NOTE | 2018-12-15 20:04 | P.HP ---
Certification for Inpatient Patient admitted to: Observation With expected LOS: <2 Midnights Patient will require the following post-hospital care: None Practitioner: I am a practitioner with admitting privileges, knowledge of patient current condition, hospital course, and medical plan of care. Services: Services provided to patient in accordance with Admission requirements found in Title 42 Section 412.3 of the Code of Federal Regulations Patient History Date of Service: 12/14/18 Reason for admission: Generalized weakness; anemia; fall History of Present Illness: Patient is an 88-year-old gentleman who came to the hospital with generalized weakness. Patient fell while he was at his home. He has had multiple falls over the last couple months. He has also had issues with lower GI bleeding. He said he was frustrated during his last hospital stay because he was not able to get a fleet service clerk to see him. He was adamant about leaving at that time. He was able to get down stairs with wheelchair and a friend helped him get into a vehicle. Patient came into the hospital for further evaluation today because of the fall. He is feeling weak. In the emergency room he was found to be anemic. He also had multiple bruising throughout. He has a few skin tears as well. He will need admission for further evaluation. Will repeat his H&H at this time as well. He appears to be pale and he complains of some shortness of breath which may be related to his anemia. I do not think he is safe at this time to necessarily go home unless physical therapy evaluation shows otherwise. We did try to get him up out of bed and he was requiring a lot of assistance. Await Physical therapy evaluation as long as he is not having GI bleeding. Allergies No Known Allergies Allergy (Verified 01/07/18 16:44) Home Medications: Acetaminophen [Tylenol*] 325 mg PO Q4HP PRN 09/18/18 Amlodipine Besylate [Norvasc] 10 mg PO DAILY 09/18/18 Aspirin Chewable [Aspirin Chewable*] 81 mg PO DAILY 09/18/18 Docusate Sodium 100 mg PO BIDP PRN 09/18/18 Folic Acid 1 mg PO DAILY 09/18/18 Gabapentin 300 mg PO TID PRN 09/18/18 Glipizide [Glucotrol] 10 mg PO DAILY 09/18/18 Melatonin/Pyridoxine HCl (B6) [Melatonin 3 mg Tablet] 5 mg PO BEDTIME 12/30/18 Metoprolol Succinate [Toprol Xl*] 25 mg PO DAILY 09/18/18 Atorvastatin Calcium [Lipitor] 80 mg PO BEDTIME #30 tab 09/29/18 Cholecalciferol (Vitamin D3) [Vitamin D 400 IU TAB*] 3 tab PO DAILY 12/06/18 Furosemide [Lasix*] 20 mg PO BID 12/06/18 Omeprazole 20 mg PO DAILY 12/06/18 Potassium Gluconate 595 mg PO DAILY 12/06/18 predniSONE [Prednisone] 40 mg PO DAILY 12/06/18 Albuterol Neb [Proventil 0.083% Neb Soln] 2.5 mg IH DAILY 12/15/18 Arformoterol Tartrate [Brovana] 15 mcg IH DAILY 12/15/18 Ferrous Gluconate 324 mg PO BID 12/15/18 - Past Medical/Surgical History Has patient received pneumonia vaccine in the past: Yes Diabetic: Yes -: Iron deficiency anemia -: DDD, cervical radiculopathy -: CAD -: Diabetes mellitus type 2 -: Paroxysmally Atrial fibrillation -: Hypertension -: GERD -: TIA/history CVA -: Diabetic neuropathy -: Arthritis -: CHF, diastolic dysfunction, pulmonary hypertension -: Hyperlipidemia -: tien eye cataract sx -: Appendectomy -: Cholecystectomy -: L. knee replacement -: skin cancer sx Psychosocial/ Personal History: He is . He has 2 children. - Family History Mother Medical History: Hypertension, Stroke - Social History Smoking Status: Former smoker Alcohol use: No CD- Drugs: No Caffeine use: Yes Place of Residence: Home Review of Systems 10-point ROS is otherwise unremarkable Physical Examination - Vital Signs Temperature: 100.8 F Blood Pressure: 156/91 Pulse: 98 Respirations: 18 Pulse Ox (%): 95 - Physical Exam General: Alert, In no apparent distress, Oriented x3 HEENT: Atraumatic, PERRLA, Mucous membr. moist/pink, EOMI, Sclerae nonicteric Neck: Supple, 2+ carotid pulse no bruit, No LAD, Without JVD or thyroid abnormality Respiratory: Clear to auscultation bilaterally, Normal air movement Cardiovascular: Regular rate/rhythm, Normal S1 S2, Systolic murmur Gastrointestinal: Normal bowel sounds, Soft and benign, Non-distended, No tenderness Musculoskeletal: No clubbing, No swelling, No tenderness Integumentary: No rashes Neurological: Normal gait, Normal speech, Normal strength at 5/5 x4 extr, Normal tone, Sensation intact, Cranial nerves 3-12 intact, Normal affect Lymphatics: No axilla or inguinal lymphadenopathy Assessment & Plan - Problems (Diagnosis) (1) Dyspnea Onset Date: 01/10/18 Current Visit: No Status: Acute Qualifiers: Dyspnea type: orthopnea Qualified Code(s): R06.01 - Orthopnea (2) History of gastrointestinal bleeding Current Visit: No Status: Acute (3) Hypomagnesemia Onset Date: 03/08/17 Current Visit: No Status: Acute (4) Shortness of breath Current Visit: No Status: Acute (5) Weakness Onset Date: 04/06/17 Current Visit: No Status: Acute (6) Anemia Onset Date: 03/15/17 Current Visit: No Status: Chronic Qualifiers: Anemia type: other cause Other causes of anemia: acute posthemorrhagic Qualified Code(s): D62 - Acute posthemorrhagic anemia (7) Atrial fibrillation Onset Date: 03/15/17 Current Visit: No Status: Chronic Qualifiers: Atrial fibrillation type: persistent Qualified Code(s): I48.1 - Persistent atrial fibrillation (8) CHF (congestive heart failure) Onset Date: 01/10/18 Current Visit: No Status: Chronic Qualifiers: Heart failure type: diastolic Heart failure chronicity: acute on chronic Qualified Code(s): I50.33 - Acute on chronic diastolic (congestive) heart failure (9) COPD (chronic obstructive pulmonary disease) Onset Date: 04/28/17 Current Visit: No Status: Chronic Qualifiers: COPD type: chronic bronchitis Chronic bronchitis type: unspecified Qualified Code(s): J42 - Unspecified chronic bronchitis (10) Coronary artery disease Onset Date: 03/15/17 Current Visit: No Status: Chronic Qualifiers: Coronary Disease-Associated Artery/Lesion type: [place] artery [place] vs. 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 (12) History of CVA (cerebrovascular accident) Current Visit: No Status: Chronic (13) Hyperlipidemia Onset Date: 04/28/17 Current Visit: No Status: Chronic Qualifiers: Hyperlipidemia type: unspecified Qualified Code(s): E78.5 - Hyperlipidemia , unspecified (14) Hypertension Onset Date: 03/15/17 Current Visit: No Status: Chronic Qualifiers: Hypertension type: essential hypertension Qualified Code(s): I10 - Essential (primary) hypertension (15) Osteoarthritis Onset Date: 09/22/16 Current Visit: No Status: Chronic Qualifiers: Osteoarthritis location: unspecified site Osteoarthritis type: primary Qualified Code(s): M19.91 - Primary osteoarthritis, unspecified site (16) GERD (gastroesophageal reflux disease) Current Visit: No Status: Suspected Qualifiers: Esophagitis presence: esophagitis presence not specified Qualified Code(s) : K21.9 - Gastro-esophageal reflux disease without esophagitis (17) Falls Current Visit: Yes Status: Acute - Plan 1. Continue with IV hydration and PPI drip 2. Continue with IV antibiotics if persistent fever 3. Continue with pain control 4. NPO 5. gastroenterology consultation consultation 6. Monitor LFTs and lipase along with electrolytes and serial H&H. 7. continue with cardiac medications 8. physical therapy evaluation 9. GI and DVT prophylaxis - Advance Directives Does patient have a Living Will: Yes Does patient have a Durable POA for Healthcare: Yes - Code Status/Comfort Care Code Status Assessed: Yes Code Status: Full Code Critical Care: No Time Spent Managing PTS Care (In Minutes): 45
[2018-12-16] MEDS: PANTOPRAZOLE INJ 80 MG in NA CHLORIDE 0.9% 250 ML IV SCH ×4 (00:12→20:26)
[2018-12-16 07:28] LABS: Absolute Lymphocytes (CBC) 0.7 K/uL (0.7-4.9); Absolute Monocytes 0.6 K/uL (0.1-1.3); Absolute Neutrophil 6.6 K/uL (1.8-8.0); Basophils % 0.6 % (0-1.3); Eosinophils % 0.7 % (0-4.4); Hematocrit 24.6 % (39.6-49.0); Lymphocytes % 9.1 % (15.3-44.8); MPV 9.8 fL (7.6-11.3); Monocytes % 7.2 % (3.3-12.3); RBC Red Blood Cell Count 3.08 M/uL (4.33-5.43)
[2018-12-16 07:40] LABS: Albumin 2.3 g/dL (3.4-5.0); Bilirubin Total 0.5 mg/dL (0.2-1.0); Magnesium 1.8 mg/dL (1.8-2.4); Potassium 4.2 mmol/L (3.5-5.1); Protein, Total 7.1 g/dL (6.4-8.2)
[2018-12-16 07:40] LABS: Blood Morphology Comment NOTED (NOT SEEN); Platelet Estimate ADEQ; Urine White Blood Cell Casts OK
[2018-12-16 07:41] LABS: Anisocytosis 2+; Burr Cells 2+; Ovalocytes 2+; Polychromasia 2+
[2018-12-16] MEDS: NA CHLORIDE 0.9% 1,000 ML IV SCH ×2 (13:10→20:25)
--- NOTE | 2018-12-16 13:35 | P.PN ---
Subjective Date of Service: 12/16/18 Chief Complaint: Generalized weakness; anemia; fall Patient seen and examined at bedside. No family at bedside. Chart reviewed and case discussed with nursing staff. Reports improved breathing and swelling. Though seems to be in respiratory distress, can't complete sentence Denies any GI bleeding at this time. Review of Systems 10-point ROS is otherwise unremarkable Physical Examination - Vital Signs Temperature: 99.2 F Blood Pressure: 148/66 Pulse: 95 Respirations: 16 Pulse Ox (%): 94 - Physical Exam General: Alert, Oriented x2, Oriented x1, Mild distress Respiratory: Dull, Crackles/rales Cardiovascular: No edema, Regular rate/rhythm Gastrointestinal: Normal bowel sounds, No tenderness Musculoskeletal: No tenderness Assessment And Plan - Current Problems (Diagnosis) (1) Falls Current Visit: Yes Status: Chronic (2) Acute respiratory distress Current Visit: No Status: Acute (3) Dyspnea Onset Date: 01/10/18 Current Visit: No Status: Acute Qualifiers: Dyspnea type: orthopnea Qualified Code(s): R06.01 - Orthopnea (4) History of gastrointestinal bleeding Current Visit: Yes Status: Chronic (5) Weakness Onset Date: 04/06/17 Current Visit: Yes Status: Acute (6) Anemia Onset Date: 03/15/17 Current Visit: No Status: Chronic Qualifiers: Anemia type: other cause Other causes of anemia: acute posthemorrhagic Qualified Code(s): D62 - Acute posthemorrhagic anemia (7) Atrial fibrillation Onset Date: 03/15/17 Current Visit: No Status: Chronic Qualifiers: Atrial fibrillation type: persistent Qualified Code(s): I48.1 - Persistent atrial fibrillation (8) CHF (congestive heart failure) Onset Date: 01/10/18 Current Visit: No Status: Chronic Qualifiers: Heart failure type: diastolic Heart failure chronicity: acute on chronic Qualified Code(s): I50.33 - Acute on chronic diastolic (congestive) heart failure (9) COPD (chronic obstructive pulmonary disease) Onset Date: 04/28/17 Current Visit: No Status: Chronic Qualifiers: COPD type: chronic bronchitis Chronic bronchitis type: unspecified Qualified Code(s): J42 - Unspecified chronic bronchitis (10) Coronary artery disease Onset Date: 03/15/17 Current Visit: No Status: Chronic Qualifiers: Coronary Disease-Associated Artery/Lesion type: [place] artery [place] vs. 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 insulin use: with chcf use Diabetes mellitus complication status: without complication Qualified Code(s): E11.9 - Type 2 diabetes mellitus without complications; Z79.4 - FPC (current) use of insulin (12) Hyperlipidemia Onset Date: 04/28/17 Current Visit: No Status: Chronic Qualifiers: Hyperlipidemia type: unspecified Qualified Code(s): E78.5 - Hyperlipidemia , unspecified (13) Hypertension Onset Date: 03/15/17 Current Visit: No Status: Chronic Qualifiers: Hypertension type: essential hypertension Qualified Code(s): I10 - Essential (primary) hypertension - Plan Dyspnea Improved Will continue oxygen as needed Continue breathing treatments History of gastrointestinal bleeding GERD (gastroesophageal reflux disease) IV protonix GI consult H&H Stable at this time, monitor closely Weakness Falls physical therapy evaluation SW consulted for discharge planning. May require a facility for placement. Anemia H&H Stable at this time, monitor closely Atrial fibrillation Continue home medications, continues to be in A-fib, rate controlled. CHF (congestive heart failure) Edema resolved, breathing back to baseline. Continue PO lasix, home dosage COPD (chronic obstructive pulmonary disease) Breathing treatments as needed Coronary artery disease Stable, continue home medications. Diabetes type 2, controlled Accu-checks ACHS and mild sliding scale insulin History of CVA (cerebrovascular accident) Stable Hyperlipidemia Continue home medications Hypertension Elevated, though no medications started. Start home medications and make adjustments as needed. DVT Prophylaxis: Hold, d/t GI bleed hx GI Prophylaxis: IV protonix Diet: Heart healthy Dispo: Pending symptomatic improvement. Pending placement.
[2018-12-16] MEDS ORDERED: GABAPENTIN 300 MG CAP PO PRN (13:36)
[2018-12-16] MEDS: ARFORMOTEROL TARTRATE 15 MCG/2 ML VIAL.NEB IH SCH ×2 (13:51→14:06)
[2018-12-16] MEDS: AMLODIPINE 10 MG TAB PO SCH (17:36)
[2018-12-16] MEDS: METOPROLOL XL 25 MG TAB PO SCH (17:36)
[2018-12-16] MEDS: FUROSEMIDE 20 MG TABLET PO SCH (17:40)
[2018-12-16] MEDS ORDERED: ATORVASTATIN 80 MG TAB PO SCH (21:00)
[2018-12-16 22:07] LABS: Absolute Lymphocytes (CBC) 0.6 K/uL (0.7-4.9); Absolute Monocytes 0.7 K/uL (0.1-1.3); Absolute Neutrophil 8.8 K/uL (1.8-8.0); Basophils % 0.5 % (0-1.3); Eosinophils % 0.4 % (0-4.4); Hematocrit 22.5 % (39.6-49.0); Lymphocytes % 5.8 % (15.3-44.8); MPV 9.6 fL (7.6-11.3); Monocytes % 6.6 % (3.3-12.3); RBC Red Blood Cell Count 2.79 M/uL (4.33-5.43)
[2018-12-17] MEDS ORDERED: MELATONIN 5 MG TABLET PO ONE (01:18)
[2018-12-17] MEDS ORDERED: NA CHLORIDE 0.9% 250 ML ONE (01:31)
[2018-12-17] MEDS: PANTOPRAZOLE INJ 80 MG in NA CHLORIDE 0.9% 250 ML IV SCH (01:44)
[2018-12-17] MEDS ORDERED: LORazepam 2 MG/ML VIAL IV ONE (02:32)
[2018-12-17] MEDS ORDERED: FUROSEMIDE 20 MG/ 2ML VIAL IV ONE ×3 (04:13→06:00)
[2018-12-17] MEDS ORDERED: MORPHINE 2 MG/ML SYR IV STA (04:29)
[2018-12-17] MEDS ORDERED: ALBUMIN HUMAN 25% 100 ML IV ONE (04:35)
[2018-12-17] MEDS ORDERED: SODIUM CHLORIDE 0.9% 10ML INJ IV PRN (04:38)
[2018-12-17] MEDS ORDERED: METOPROLOL TARTRATE 5 MG/5 ML INJ IV STA (04:49)
[2018-12-17] MEDS ORDERED: METHYLPREDNISOLONE 125 MG INJ IV ONE (04:57)
[2018-12-17 06:46] LABS: Absolute Lymphocytes (CBC) 0.7 K/uL (0.7-4.9); Absolute Monocytes 0.5 K/uL (0.1-1.3); Absolute Neutrophil 7.5 K/uL (1.8-8.0); Basophils % 0.5 % (0-1.3); Eosinophils % 0.5 % (0-4.4); Hematocrit 21.1 % (39.6-49.0); Lymphocytes % 7.7 % (15.3-44.8); MPV 9.4 fL (7.6-11.3); Monocytes % 5.3 % (3.3-12.3); RBC Red Blood Cell Count 2.59 M/uL (4.33-5.43)
[2018-12-17] MEDS ORDERED: MORPHINE 2 MG/ML SYR IV ONE (06:46)
[2018-12-17] MEDS ORDERED: VANCOMYCIN/NS 1 gm 1 GM/250 ML BAG IVPB SCH (07:00)
[2018-12-17 07:06] LABS: Albumin 2.5 g/dL (3.4-5.0); Bilirubin Total 0.7 mg/dL (0.2-1.0); Magnesium 1.8 mg/dL (1.8-2.4); Phosphorus 2.2 mg/dL (2.5-4.9); Protein, Total 6.8 g/dL (6.4-8.2)
[2018-12-17 07:19] LABS: Thyroid Stimulating Hormone 3.82 uIU/mL (0.360-3.740)
[2018-12-17] MEDS: ARFORMOTEROL TARTRATE 15 MCG/2 ML VIAL.NEB IH SCH (07:45)
[2018-12-17] MEDS ORDERED: NA CHLORIDE 0.9% 250 ML IV SCH (08:00)
[2018-12-17] MEDS ORDERED: VANCOMYCIN 1.25 GM in NA CHLORIDE 0.9% 250 ML IVPB SCH (08:00)
[2018-12-17] MEDS ORDERED: FUROSEMIDE 40 MG/4 ML VIAL IV ONE (08:41)
[2018-12-17] MEDS ORDERED: POTASSIUM GLUCONATE 595 MG PO SCH (09:00)
[2018-12-17] MEDS: FUROSEMIDE 20 MG TABLET PO SCH (09:00)
[2018-12-17] MEDS ORDERED: ASPIRIN 81 MG CHEWABLE TABLET PO SCH (09:00)
[2018-12-17] MEDS: FUROSEMIDE 40 MG/4 ML VIAL IV SCH (09:00)
[2018-12-17] MEDS ORDERED: VITAMIN D 400 UNIT TAB PO SCH (09:00)
[2018-12-17] MEDS: PANTOPRAZOLE 40 MG INJ IVP SCH ×2 (09:22→21:12)
[2018-12-17] MEDS: AMLODIPINE 10 MG TAB PO SCH (09:22)
[2018-12-17] MEDS: FOLIC ACID 1 MG TABLET PO SCH (09:22)
[2018-12-17] MEDS: METOPROLOL XL 25 MG TAB PO SCH (09:22)
[2018-12-17] MEDS ORDERED: Meropenem 500 MG VIAL IV SCH (09:31)
[2018-12-17 09:32] LABS: CKMB Creatine Kinase MB 1.4 ng/mL (0.3-3.6); Troponin I 0.02 ng/mL (0.0-0.045)
[2018-12-17 09:33] LABS: Anisocytosis 2+; Blood Morphology Comment NOTED (NOT SEEN); Elliptocytes 1+; Platelet Estimate ADEQ; Poikilocytosis 1+; Urine White Blood Cell Casts OK
[2018-12-17] MEDS ORDERED: HALOPERIDOL LACT 5 MG/ML INJ IV ONE (09:34)
--- NOTE | 2018-12-17 09:35 | P.CNS ---
Date of Consult: 12/17/18 Chief Complaint: Respiratory distress History of Present Illness: Patient is 88 years of age recurrent hospital admissions admitted with generalized weakness he had fallen at home he has had multiple falls with history of possible GI bleeding patient is agitated pleasing to follow instructions in feeling weak he moves all his extremities in respiratory distress in if Condie saturation off facial oxygen mask No prior history of obstructive airways disease Allergies No Known Allergies Allergy (Verified 01/07/18 16:44) Home Medications: Acetaminophen [Tylenol*] 325 mg PO Q4HP PRN 09/18/18 Amlodipine Besylate [Norvasc] 10 mg PO DAILY 09/18/18 Aspirin Chewable [Aspirin Chewable*] 81 mg PO DAILY 09/18/18 Docusate Sodium 100 mg PO BIDP PRN 09/18/18 Folic Acid 1 mg PO DAILY 09/18/18 Gabapentin 300 mg PO TID PRN 09/18/18 Glipizide [Glucotrol] 10 mg PO DAILY 09/18/18 Melatonin/Pyridoxine HCl (B6) [Melatonin 3 mg Tablet] 5 mg PO BEDTIME 09/18/18 Metoprolol Succinate [Toprol Xl*] 25 mg PO DAILY 09/18/18 Atorvastatin Calcium [Lipitor] 80 mg PO BEDTIME #30 tab 09/29/18 Cholecalciferol (Vitamin D3) [Vitamin D 400 IU TAB*] 3 tab PO DAILY 12/06/18 Furosemide [Lasix*] 20 mg PO BID 12/06/18 Omeprazole 20 mg PO DAILY 12/06/18 Potassium Gluconate 595 mg PO DAILY 12/06/18 predniSONE [Prednisone] 40 mg PO DAILY 12/06/18 Albuterol Neb [Proventil 0.083% Neb Soln] 2.5 mg IH DAILY 12/15/18 Arformoterol Tartrate [Brovana] 15 mcg IH DAILY 12/15/18 Ferrous Gluconate 324 mg PO BID 12/15/18 - Past Medical/Surgical History Diabetic: Yes -: Iron deficiency anemia -: DDD, cervical radiculopathy -: CAD -: Diabetes mellitus type 2 -: Paroxysmally Atrial fibrillation -: Hypertension -: GERD -: TIA/history CVA -: Diabetic neuropathy -: Arthritis -: CHF, diastolic dysfunction, pulmonary hypertension -: Hyperlipidemia -: tien eye cataract sx -: Appendectomy -: Cholecystectomy -: L. knee replacement -: skin cancer sx Psychosocial/ Personal History: He is . He has 2 children. - Family History Mother Medical History: Hypertension, Stroke - Social History Smoking Status: Unknown if ever smoked Alcohol use: No CD- Drugs: No Caffeine use: Yes Place of Residence: Home Review of Systems General: Weakness Respiratory: Shortness of Breath Physical Examination Temp Pulse Resp BP Pulse Ox 98.0 F 67 22 H 126/53 L 93 12/17/18 08:00 12/17/18 08:00 12/17/18 08:00 12/17/18 08:00 12/17/18 08:00 General: Alert, Moderate distress Respiratory: Expiratory wheezes Cardiovascular: No edema, Normal S1 S2 Gastrointestinal: Normal bowel sounds, Soft and benign Musculoskeletal: No clubbing Integumentary: Other (Patient has bruise over the left knee he also has a left upper ROM Mr SA infection) - Problems (1) Respiratory distress Current Visit: Yes Status: Acute Plan: Patient is 88 years of age admitted with respiratory distress is hypoxic anemic CT scan shows consolidation in the left lung with a left-sided pleural effusion also has infiltrate in the right lung these changes have become more apparent since September of 2018 appears to have a pneumonia quite possible that he has a pleural space infection I have added meropenem continue with vancomycin aggressive diuresis as tolerated Haldol for agitation patient is currently anemic I have ordered BiPAP Dc IV fluids Lasix patient is currently DNR may need to be transferred to the ICU for close monitoring
[2018-12-17] MEDS ORDERED: Meropenem 500 MG in NA CHLORIDE 0.9% 100 ML IV SCH (10:00)
--- NOTE | 2018-12-17 10:26 | RAD REPORT ---
EXAM DESCRIPTION: RAD - Chest Single View - 12/17/2018 4:32 am CLINICAL HISTORY: sob Chest pain. COMPARISON: Chest Single View dated 12/14/2018; Chest Single View dated 12/07/2018; Chest Single View dated 12/05/2018; Chest Single View dated 10/11/2018 FINDINGS: Portable technique limits examination quality. Mild progression of bilateral pleural effusions size is seen, particularly on the left, since compara tive study. Pulmonary edema pattern appears unchanged. Heart is significantly enlarged in size. No di splaced fractures.
[2018-12-17] MEDS: HALOPERIDOL LACT 5 MG/ML INJ IV PRN ×3 (10:46→21:56)
[2018-12-17 11:04] LABS: Arterial Blood Carboxyhemoglob 2.4 % (0-1.5); Blood O2 Saturation 94.8 % (92-98.5)
[2018-12-17] MEDS: VANCOMYCIN 1.25 GM in NA CHLORIDE 0.9% 250 ML IVPB SCH (12:02)
--- NOTE | 2018-12-17 12:54 | CON ---
Reason For Consult: Pulmonary edema with transfusion. History Of Present Illness: Mr. Nielson is 88 years old. He has chronic atrial fibrillation. He do es not have depressed ejection fraction. He has never been on an anticoagulant because of the GI ble eding. His GI bleeding has been worked up extensively. No cause for the bleeding can be found, we k now it is coming from the GI tract, but there was no single spot. Apparently, there is oozing from b oth small and large bowel diffusely. Mr. Nielson is now a [id number] status. When he was in the hospital and we tried to get a transfusion last night, he went into pulmonary edema. He was giv en large doses of Lasix and albumin, but still had very little urine output. He is concerned that he may have urinary retention. Usually, 50 cc comes out at a time when he tries to urinate, so I suspe ct he may have a bladder full of urine and obstructed. Soon, we will order to get him to diurese. W e will probably have to put a [place] in. In the past, the patient's ejection fraction has been normal . He is not having unstable angina. He was not having any signs or symptoms of heart failure until he had a transfusion. His last echocardiogram was in September 2018, EF 31%, mild aortic sclerosis, mi ld mitral regurgitation, mildly elevated right ventricular systolic pressure. I believe the patient has heart failure on the basis of anemia and atrial fib, not from left ventricular dysfunction or marifer vular dysfunction. We should put a Oakley in, give him a dose of 80 mg of Lasix, and then proceed wit h a transfusion Thank you very much for your kind referral of Mr. Nielson. I will follow him with you. ELLIOTT/MILIND Voice ID: [id number] Report ID: [id number]
[2018-12-17 14:06] LABS: Hematocrit 25.1 % (39.6-49.0)
[2018-12-17] MEDS: Meropenem 500 MG in NA CHLORIDE 0.9% 100 ML IV SCH (21:10)
[2018-12-18 07:11] LABS: Absolute Lymphocytes (CBC) 0.6 K/uL (0.7-4.9); Absolute Monocytes 0.5 K/uL (0.1-1.3); Absolute Neutrophil 8.3 K/uL (1.8-8.0); Basophils % 0.2 % (0-1.3); Eosinophils % 0.2 % (0-4.4); Hematocrit 24.7 % (39.6-49.0); Lymphocytes % 6.5 % (15.3-44.8); MPV 9.2 fL (7.6-11.3); Monocytes % 5.3 % (3.3-12.3); RBC Red Blood Cell Count 3.04 M/uL (4.33-5.43)
[2018-12-18 07:52] LABS: Albumin 2.3 g/dL (3.4-5.0); Bilirubin Total 0.4 mg/dL (0.2-1.0); Phosphorus 2.8 mg/dL (2.5-4.9); Potassium 3.6 mmol/L (3.5-5.1); Protein, Total 6.7 g/dL (6.4-8.2)
[2018-12-18] MEDS: AMLODIPINE 10 MG TAB PO SCH (08:13)
[2018-12-18] MEDS: FOLIC ACID 1 MG TABLET PO SCH (08:13)
[2018-12-18] MEDS: VANCOMYCIN 1.25 GM in NA CHLORIDE 0.9% 250 ML IVPB SCH (08:13)
[2018-12-18] MEDS: Meropenem 500 MG in NA CHLORIDE 0.9% 100 ML IV SCH ×2 (08:13→19:50)
[2018-12-18] MEDS: FUROSEMIDE 40 MG/4 ML VIAL IV SCH (08:13)
[2018-12-18] MEDS: PANTOPRAZOLE 40 MG INJ IVP SCH (08:15)
[2018-12-18] MEDS: ARFORMOTEROL TARTRATE 15 MCG/2 ML VIAL.NEB IH SCH (10:45)
--- NOTE | 2018-12-18 11:13 | P.PN ---
Subjective Date of Service: 12/18/18 Chief Complaint: Pneumonia pleural effusion Subjective: Improving (Patient is improving doing much better he is alert responsive oriented cooperative well in the ICU) Review of Systems General: Weakness Respiratory: Shortness of Breath Physical Examination - Vital Signs Temperature: 97.6 F Blood Pressure: 136/67 Pulse: 87 Respirations: 24 Pulse Ox (%): 96 - Physical Exam General: Alert, Oriented x3 HEENT: Atraumatic Respiratory: Crackles/rales, Expiratory wheezes Cardiovascular: No edema, Regular rate/rhythm - Studies Microbiology Data (last 24 hrs): 12/15/18 02:15 Wound - Left Arm Gram Stain - Final 12/15/18 02:15 Wound - Left Arm Culture & Sensitivity - Final Meth Resistant Staph Aureus 12/14/18 18:30 Clean Catch Urine [place] Count - Final 12/14/18 18:30 Clean Catch Urine - Final Assessment & Plan - Problems (Diagnosis) (1) Pneumonia Current Visit: Yes Status: Acute Plan: Patient is 88 years of age admitted with pneumonia and left pleural effusion was also transfused 2 units patient's white count is normal renal function as also improved on Lasix sputum cultures pending vital signs stable oxygenation satisfactory possible underlying diastolic dysfunction repeat chest x-ray in the morning patient has a wound on the left, Mr SA has been isolated possible thoracentesis Qualifiers: Pneumonia type: due to unspecified organism
--- NOTE | 2018-12-18 11:19 | P.PN ---
Subjective Date of Service: 12/18/18 Chief Complaint: Pneumonia pleural effusion, GI bleed Subjective: Improving (No blood seen. MRSA from a RUE area. He is coughing up yellow sputum.) Review of Systems 10-point ROS is otherwise unremarkable General: Weakness (Improving) Respiratory: Cough (productive of yellow sputum ) Physical Examination - Vital Signs Temperature: 97.6 F Blood Pressure: 136/67 Pulse: 87 Respirations: 24 Pulse Ox (%): 96 - Physical Exam General: Alert, In no apparent distress, Oriented x3, Cooperative HEENT: Atraumatic, Normocephalic, PERRLA, EOMI Neck: Supple Respiratory: Other (cough) Cardiovascular: Irregular heart rate/rhythm Gastrointestinal: Soft and benign, No tenderness, No rebound, No guarding Neurological: Normal speech - Studies Microbiology Data (last 24 hrs): 12/15/18 02:15 Wound - Left Arm Gram Stain - Final 12/15/18 02:15 Wound - Left Arm Culture & Sensitivity - Final Meth Resistant Staph Aureus 12/14/18 18:30 Clean Catch Urine [place] Count - Final 12/14/18 18:30 Clean Catch Urine - Final Assessment And Plan - Current Problems (Diagnosis) (1) History of gastrointestinal bleeding Current Visit: Yes Status: Chronic (2) Atrial fibrillation Onset Date: 03/15/17 Current Visit: No Status: Chronic Qualifiers: Atrial fibrillation type: persistent Qualified Code(s): I48.1 - Persistent atrial fibrillation (3) CHF (congestive heart failure) Onset Date: 01/10/18 Current Visit: No Status: Chronic Qualifiers: Heart failure type: diastolic Heart failure chronicity: acute on chronic Qualified Code(s): I50.33 - Acute on chronic diastolic (congestive) heart failure (4) COPD (chronic obstructive pulmonary disease) Onset Date: 04/28/17 Current Visit: No Status: Chronic Qualifiers: COPD type: chronic bronchitis Chronic bronchitis type: unspecified Qualified Code(s): J42 - Unspecified chronic bronchitis (5) Coronary artery disease Onset Date: 03/15/17 Current Visit: No Status: Chronic Qualifiers: Coronary Disease-Associated Artery/Lesion type: [place] artery [place] vs. 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
[2018-12-18] MEDS: THIAMINE HCL 100 MG TABLET PO SCH (16:03)
--- NOTE | 2018-12-18 19:51 | P.PN ---
Subjective Date of Service: 12/17/18 Chief Complaint: Pneumonia pleural effusion, GI bleed Patient seen and examined at bedside. No family at bedside. Chart reviewed and case discussed with nursing staff. Reports improved breathing and swelling. Though seems to be in respiratory distress, can't complete sentence Refuses BiPAP, seems to be in respiratory distress. Review of Systems 10-point ROS is otherwise unremarkable Physical Examination - Vital Signs Temperature: 98.8 F Blood Pressure: 146/81 Pulse: 102 Respirations: 29 Pulse Ox (%): 97 - Physical Exam General: Moderate distress (Respiratory) Respiratory: Crackles/rales Cardiovascular: Edema Gastrointestinal: Normal bowel sounds Assessment And Plan - Current Problems (Diagnosis) (1) Falls Current Visit: Yes Status: Chronic (2) Acute respiratory distress Current Visit: No Status: Acute (3) Dyspnea Onset Date: 01/10/18 Current Visit: No Status: Acute Qualifiers: Dyspnea type: orthopnea Qualified Code(s): R06.01 - Orthopnea (4) History of gastrointestinal bleeding Current Visit: Yes Status: Chronic (5) Weakness Onset Date: 04/06/17 Current Visit: Yes Status: Acute (6) Anemia Onset Date: 03/15/17 Current Visit: No Status: Chronic Qualifiers: Anemia type: other cause Other causes of anemia: acute posthemorrhagic Qualified Code(s): D62 - Acute posthemorrhagic anemia (7) Atrial fibrillation Onset Date: 03/15/17 Current Visit: No Status: Chronic Qualifiers: Atrial fibrillation type: persistent Qualified Code(s): I48.1 - Persistent atrial fibrillation (8) CHF (congestive heart failure) Onset Date: 01/10/18 Current Visit: No Status: Chronic Qualifiers: Heart failure type: diastolic Heart failure chronicity: acute on chronic Qualified Code(s): I50.33 - Acute on chronic diastolic (congestive) heart failure (9) COPD (chronic obstructive pulmonary disease) Onset Date: 04/28/17 Current Visit: No Status: Chronic Qualifiers: COPD type: chronic bronchitis Chronic bronchitis type: unspecified Qualified Code(s): J42 - Unspecified chronic bronchitis (10) Coronary artery disease Onset Date: 03/15/17 Current Visit: No Status: Chronic Qualifiers: Coronary Disease-Associated Artery/Lesion type: [place] artery [place] vs. 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 Diabetes mellitus complication status: without complication Qualified Code(s): E11.9 - Type 2 diabetes mellitus without complications; Z79.4 - long term (current) use of insulin (12) Hyperlipidemia Onset Date: 04/28/17 Current Visit: No Status: Chronic Qualifiers: Hyperlipidemia type: unspecified Qualified Code(s): E78.5 - Hyperlipidemia , unspecified (13) Hypertension Onset Date: 03/15/17 Current Visit: No Status: Chronic Qualifiers: Hypertension type: essential hypertension Qualified Code(s): I10 - Essential (primary) hypertension - Plan Dyspnea Pleural effusion In respiratory distress this morning, acute. Will transfer to the ICU as patient refusing BiPAP and may need intubation. Confirmed regarding status. Patient is a DNR but they would like to intubate if patient needs it. Will continue oxygen as needed Continue breathing treatments Pulmonary consulted, recommendations appreciated. History of gastrointestinal bleeding GERD (gastroesophageal reflux disease) IV protonix GI consult H&H Stable at this time, monitor closely Weakness [place] physical therapy evaluation SW consulted for discharge planning. May require a facility for placement. Anemia H&H Stable at this time, monitor closely Atrial fibrillation Continue home medications, continues to be in A-fib, rate controlled. CHF (congestive heart failure) Edema improved Continue PO lasix, home dosage COPD (chronic obstructive pulmonary disease) Breathing treatments as needed Coronary artery disease Stable, continue home medications. Diabetes type 2, controlled Accu-checks ACHS and mild sliding scale insulin History of CVA (cerebrovascular accident) Stable Hyperlipidemia Continue home medications Hypertension Elevated, though no medications started. Start home medications and make adjustments as needed. DVT Prophylaxis: Hold, d/t GI bleed hx GI Prophylaxis: IV protonix Diet: Heart healthy Dispo: Pending symptomatic improvement. Pending placement. Transfer to ICU for acute respiratory distress
--- NOTE | 2018-12-18 19:51 | P.PN ---
Subjective Date of Service: 12/18/18 Chief Complaint: Pneumonia pleural effusion, GI bleed Subjective: Improving Patient seen and examined at bedside. No family at bedside. Chart reviewed and case discussed with nursing staff. Breathing improves. Patient more common. Satting well on nasal cannula. Other vital signs stable Review of Systems 10-point ROS is otherwise unremarkable Physical Examination - Vital Signs Temperature: 98.8 F Blood Pressure: 146/81 Pulse: 102 Respirations: 29 Pulse Ox (%): 97 - Physical Exam General: Alert, In no apparent distress, Confused Respiratory: Diminished Cardiovascular: Edema, Irregular heart rate/rhythm (Atrial fibrillation) Assessment And Plan - Current Problems (Diagnosis) (1) Falls Current Visit: Yes Status: Chronic (2) Acute respiratory distress Current Visit: No Status: Acute (3) Dyspnea Onset Date: 01/10/18 Current Visit: No Status: Acute Qualifiers: Dyspnea type: orthopnea Qualified Code(s): R06.01 - Orthopnea (4) History of gastrointestinal bleeding Current Visit: Yes Status: Chronic (5) Weakness Onset Date: 04/06/17 Current Visit: Yes Status: Acute (6) Anemia Onset Date: 03/15/17 Current Visit: No Status: Chronic Qualifiers: Anemia type: other cause Other causes of anemia: acute posthemorrhagic Qualified Code(s): D62 - Acute posthemorrhagic anemia (7) Atrial fibrillation Onset Date: 03/15/17 Current Visit: No Status: Chronic Qualifiers: Atrial fibrillation type: persistent Qualified Code(s): I48.1 - Persistent atrial fibrillation (8) CHF (congestive heart failure) Onset Date: 01/10/18 Current Visit: No Status: Chronic Qualifiers: Heart failure type: diastolic Heart failure chronicity: acute on chronic Qualified Code(s): I50.33 - Acute on chronic diastolic (congestive) heart failure (9) COPD (chronic obstructive pulmonary disease) Onset Date: 04/28/17 Current Visit: No Status: Chronic Qualifiers: COPD type: chronic bronchitis Chronic bronchitis type: unspecified Qualified Code(s): J42 - Unspecified chronic bronchitis (10) Coronary artery disease Onset Date: 03/15/17 Current Visit: No Status: Chronic Qualifiers: Coronary Disease-Associated Artery/Lesion type: [place] artery [place] vs. transplanted heart: [place] heart Associated angina: without angina Qualified Code(s): I25.10 - Atherosclerotic heart disease of [place] coronary artery without angina pectoris (11) Diabetes type 2, controlled Onset Date: 09/22/16 Current Visit: No Status: Chronic Qualifiers: Diabetes mellitus fci insulin use: with long term care pharmacist use Diabetes mellitus complication status: without complication Qualified Code(s): E11.9 - Type 2 diabetes mellitus without complications; Z79.4 - alf (current) use of insulin (12) Hyperlipidemia Onset Date: 04/28/17 Current Visit: No Status: Chronic Qualifiers: Hyperlipidemia type: unspecified Qualified Code(s): E78.5 - Hyperlipidemia , unspecified (13) Hypertension Onset Date: 03/15/17 Current Visit: No Status: Chronic Qualifiers: Hypertension type: essential hypertension Qualified Code(s): I10 - Essential (primary) hypertension - Plan Dyspnea Pleural effusion Acute respiratory distress Improved breathing. Will transfer back to the floor from the ICU. Will continue oxygen as needed Continue breathing treatments History of gastrointestinal bleeding GERD (gastroesophageal reflux disease) IV protonix GI consult, recommendations appreciated. H&H Stable at this time, monitor closely Weakness [place] physical therapy evaluation SW consulted for discharge planning. May require a facility for placement. Anemia H&H Stable at this time, monitor closely Atrial fibrillation Continue home medications, continues to be in A-fib, rate controlled. CHF (congestive heart failure) Edema resolved, breathing back to baseline. Continue PO lasix, home dosage COPD (chronic obstructive pulmonary disease) Breathing treatments as needed Coronary artery disease Stable, continue home medications. Diabetes type 2, controlled Accu-checks ACHS and mild sliding scale insulin History of CVA (cerebrovascular accident) Stable Hyperlipidemia Continue home medications Hypertension Elevated, though no medications started. Start home medications and make adjustments as needed. DVT Prophylaxis: Hold, d/t GI bleed hx GI Prophylaxis: IV protonix Diet: Heart healthy Dispo: Pending symptomatic improvement. Pending placement. Transferred back to the floor from the ICU.
[2018-12-19] MEDS: ACETAMINOPHEN 500 MG TAB PO PRN (00:55)
[2018-12-19] MEDS: PANTOPRAZOLE 40MG TABLET PO SCH (06:39)
--- NOTE | 2018-12-19 08:09 | RAD REPORT ---
EXAM DESCRIPTION: [place] Single View12/19/2018 6:18 am CLINICAL HISTORY: Shortness of breath COMPARISON: December 17 FINDINGS: No significant change in the left pleural effusion. Small right pleural effusion is suspe cted. Mild worsening in the bilateral pulmonary opacities likely represent a combination of pulmonary edema and pulmonary fibrosis The heart remains enlarged
--- NOTE | 2018-12-19 08:29 | P.PN ---
Subjective Date of Service: 12/19/18 Chief Complaint: Pneumonia pleural effusion, GI bleed Subjective: Improving (Patient is doing much better for alert responsive cooperative) Review of Systems General: Weakness Respiratory: Shortness of Breath Physical Examination - Vital Signs Temperature: 98.2 F Blood Pressure: 160/77 Pulse: 91 Respirations: 18 Pulse Ox (%): 98 - Physical Exam General: Alert, Oriented x3 Respiratory: Clear to auscultation bilaterally, Diminished (Diminished air entry on the left side) Assessment & Plan - Problems (Diagnosis) (1) Pneumonia Current Visit: Yes Status: Acute Plan: Patient has a significant pleural effusion on the left side with a possible infection I have discussed with the patient regarding thoracentesis any is agreed he has added done before labs all reviewed the white count is normal hemoglobin stable sputum cultures and blood cultures and negative blood pressure is mildly elevated Qualifiers: Pneumonia type: due to unspecified organism
[2018-12-19] MEDS: ARFORMOTEROL TARTRATE 15 MCG/2 ML VIAL.NEB IH SCH (09:40)
[2018-12-19] MEDS: FOLIC ACID 1 MG TABLET PO SCH (09:51)
[2018-12-19] MEDS: AMLODIPINE 10 MG TAB PO SCH (09:51)
[2018-12-19] MEDS: THIAMINE HCL 100 MG TABLET PO SCH (09:52)
[2018-12-19] MEDS: FUROSEMIDE 40 MG/4 ML VIAL IV SCH (09:52)
[2018-12-19] MEDS: VANCOMYCIN 1.25 GM in NA CHLORIDE 0.9% 250 ML IVPB SCH (09:57)
[2018-12-19] MEDS: Meropenem 500 MG in NA CHLORIDE 0.9% 100 ML IV SCH ×2 (09:57→21:48)
--- NOTE | 2018-12-19 14:12 | RAD REPORT ---
EXAM DESCRIPTION: US - Chest - 12/19/2018 2:04 pm CLINICAL HISTORY: Left pleural effusion COMPARISON: December 19, 2018 chest x-ray FINDINGS: A small to moderate left pleural effusion is present. Left lower lobe atelectasis is seen. IMPRESSION: Small to moderate left pleural effusion
--- NOTE | 2018-12-19 19:43 | P.PN ---
Subjective Date of Service: 12/19/18 Chief Complaint: Pneumonia pleural effusion, GI bleed Patient seen and examined at bedside. No family at bedside. Chart reviewed and case discussed with nursing staff. Breathing improved. Patient more calm, Satting well on nasal cannula. Other vital signs stable. Review of Systems 10-point ROS is otherwise unremarkable Physical Examination - Vital Signs Temperature: 98.8 F Blood Pressure: 146/81 Pulse: 102 Respirations: 29 Pulse Ox (%): 97 - Physical Exam General: Alert, In no apparent distress, Oriented x3 Neck: Supple Respiratory: Diminished Cardiovascular: Edema, Irregular heart rate/rhythm (Atrial fibrillation) - Studies Microbiology Data (last 24 hrs): 12/14/18 17:30 Blood - Blood Aerobic Blood Culture - Final No growth in 5 days. 12/14/18 17:30 Blood - Blood Anaerobic Blood Culture - Final No growth in 5 days. 12/14/18 17:15 Blood - Blood Aerobic Blood Culture - Final No growth in 5 days. 12/14/18 17:15 Blood - Blood Anaerobic Blood Culture - Final No growth in 5 days. Assessment And Plan - Current Problems (Diagnosis) (1) Falls Current Visit: Yes Status: Chronic (2) Acute respiratory distress Current Visit: No Status: Acute (3) Dyspnea Onset Date: 01/10/18 Current Visit: No Status: Acute Qualifiers: Dyspnea type: orthopnea Qualified Code(s): R06.01 - Orthopnea (4) History of gastrointestinal bleeding Current Visit: Yes Status: Chronic (5) Weakness Onset Date: 04/06/17 Current Visit: Yes Status: Acute (6) Anemia Onset Date: 03/15/17 Current Visit: No Status: Chronic Qualifiers: Anemia type: other cause Other causes of anemia: acute posthemorrhagic Qualified Code(s): D62 - Acute posthemorrhagic anemia (7) Atrial fibrillation Onset Date: 03/15/17 Current Visit: No Status: Chronic Qualifiers: Atrial fibrillation type: persistent Qualified Code(s): I48.1 - Persistent atrial fibrillation (8) CHF (congestive heart failure) Onset Date: 01/10/18 Current Visit: No Status: Chronic Qualifiers: Heart failure type: diastolic Heart failure chronicity: acute on chronic Qualified Code(s): I50.33 - Acute on chronic diastolic (congestive) heart failure (9) COPD (chronic obstructive pulmonary disease) Onset Date: 04/28/17 Current Visit: No Status: Chronic Qualifiers: COPD type: chronic bronchitis Chronic bronchitis type: unspecified Qualified Code(s): J42 - Unspecified chronic bronchitis (10) Coronary artery disease Onset Date: 03/15/17 Current Visit: No Status: Chronic Qualifiers: Coronary Disease-Associated Artery/Lesion type: [place] artery [place] vs. 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 Pending thoracocentesis for pleural effusion. Will continue oxygen as needed Continue breathing treatments Pulmonology consulted. Recommendations appreciated History of gastrointestinal bleeding GERD (gastroesophageal reflux disease) IV protonix GI consult, recommendations appreciated. H&H Stable at this time, monitor closely Weakness Falls physical therapy evaluation SW consulted for discharge planning. May require a facility for placement. Anemia H&H Stable at this time, monitor closely Atrial fibrillation Continue home medications, continues to be in A-fib, rate controlled. CHF (congestive heart failure) Edema resolved, breathing back to baseline. Continue PO lasix, home dosage COPD (chronic obstructive pulmonary disease) Breathing treatments as needed Coronary artery disease Stable, continue home medications. Diabetes type 2, controlled Accu-checks ACHS and mild sliding scale insulin History of CVA (cerebrovascular accident) Stable Hyperlipidemia Continue home medications Hypertension Elevated, though no medications started. Start home medications and make adjustments as needed. DVT Prophylaxis: Hold, d/t GI bleed hx GI Prophylaxis: IV protonix Diet: Heart healthy Dispo: Pending symptomatic improvement. Pending placement. Pending thoracocentesis
[2018-12-19] MEDS: MELATONIN 5 MG TABLET PO SCH (21:48)
[2018-12-20] MEDS: PANTOPRAZOLE 40MG TABLET PO SCH (04:10)
[2018-12-20] MEDS: ARFORMOTEROL TARTRATE 15 MCG/2 ML VIAL.NEB IH SCH (07:42)
[2018-12-20] MEDS: VANCOMYCIN 1.25 GM in NA CHLORIDE 0.9% 250 ML IVPB SCH (08:16)
[2018-12-20] MEDS: Meropenem 500 MG in NA CHLORIDE 0.9% 100 ML IV SCH ×2 (08:16→22:29)
[2018-12-20] MEDS: AMLODIPINE 10 MG TAB PO SCH (08:16)
[2018-12-20] MEDS: FUROSEMIDE 40 MG/4 ML VIAL IV SCH (08:17)
[2018-12-20] MEDS: THIAMINE HCL 100 MG TABLET PO SCH (08:17)
[2018-12-20] MEDS: FOLIC ACID 1 MG TABLET PO SCH (08:17)
[2018-12-20 10:30] LABS: Albumin 2.5 g/dL (3.4-5.0); Bilirubin Total 0.5 mg/dL (0.2-1.0); Potassium 3.7 mmol/L (3.5-5.1); Protein, Total 7.3 g/dL (6.4-8.2)
[2018-12-20 11:06] LABS: Absolute Lymphocytes (CBC) 0.7 K/uL (0.7-4.9); Absolute Monocytes 0.5 K/uL (0.1-1.3); Absolute Neutrophil 5.7 K/uL (1.8-8.0); Basophils % 0.5 % (0-1.3); Eosinophils % 1.1 % (0-4.4); Hematocrit 25.4 % (39.6-49.0); Lymphocytes % 10.5 % (15.3-44.8); MPV 9.7 fL (7.6-11.3); Monocytes % 7.5 % (3.3-12.3); RBC Red Blood Cell Count 3.16 M/uL (4.33-5.43)
--- NOTE | 2018-12-20 12:17 | RAD REPORT ---
EXAM DESCRIPTION: RAD - Chest Single View - 12/20/2018 12:11 pm CLINICAL HISTORY: POST THORA Chest pain. COMPARISON: Chest Single View dated 12/19/2018; Chest Single View dated 12/17/2018; Chest Single View d ated 12/14/2018; Chest Single View dated 12/07/2018 FINDINGS: Portable technique limits examination quality. Bilateral pulmonary opacities are present, likely representing pulmonary edema. Bilateral pleural eff usions are seen, slightly reduced on the left since comparative study. No postprocedure pneumothorax seen. The heart is moderately enlarged. IMPRESSION: No postprocedure pneumothorax evident.
--- NOTE | 2018-12-20 12:20 | RAD REPORT ---
EXAM DESCRIPTION: US - Thoracentesis w/ US Guide - 12/20/2018 12:02 pm CLINICAL HISTORY: Left pleural effusion FINDINGS: The risks, benefits and alternatives to the procedure were explained to the patient and in formed consent obtained. The skin and subcutaneous tissues were anesthetized with Lidocaine. Under sonographic guidance an 8 F rench catheter was placed into the posterior lower left pleural space. 550 cc of light yellowish flui d removed and sent to the lab The patient experienced no immediate complication. IMPRESSION: Thoracentesis
--- NOTE | 2018-12-20 15:37 | RAD REPORT ---
EXAM DESCRIPTION: RAD - Chest Single View - 12/20/2018 3:09 pm CLINICAL HISTORY: POST THORA Chest pain. COMPARISON: Chest Single View dated 12/20/2018; Chest Single View dated 12/19/2018; Chest Single View da zaida 12/17/2018; Chest Single View dated 12/14/2018 FINDINGS: Portable technique limits examination quality. Small right and moderate left pleural effusion noted with moderate bilateral pulmonary edema noted. H eart size is moderately enlarged. There is no evidence of postprocedure pneumothorax. IMPRESSION: No postprocedure pneumothorax identified.
[2018-12-20] MEDS: MELATONIN 5 MG TABLET PO SCH (21:00)
--- NOTE | 2018-12-20 21:00 | PN ---
Date of Progress Note: 12/20/2018 Subjective: The patient is seen and examined. Chart reviewed and case discussed with RN and Dr. Elaina wylie. The patient went for thoracentesis today and had 550 cc of light yellowish fluid extracted. P athology pending. Code Status: Do not resuscitate. Medications: List reviewed. Physical Examination: Vital Signs: Temperature 98.7, heart rate 99, blood pressure 167/72, respirations 20, O2 93% on room air. General: Awake, alert, oriented x3. Elderly male, frail, ill appearing. CV: S1, S2, irregularly irregular. Peripheral pulses present. Respiratory: Diminished breath sounds. No wheezing or stridor. Gastrointestinal: Abdomen is soft, nontender, nondistended. Positive bowel sounds. Extremities: No clubbing, cyanosis, or edema. Neurologic: Nonfocal. Laboratory Data: Sodium 142, potassium 3.7, chloride 104, CO2 34, BUN 27, creatinine 1.15, glucose 2 19, lactate 1.3, calcium 10.8, albumin 2.5. WBC 7.1, H and H 8.3 and 25.4, platelets 232. Blood cul tures showed no growth. Final wound from the left arm showing MRSA and sputum also growing out MRSA. Body fluid AFB smear is pending as is the culture sensitivity. Chest x-ray: No postprocedure pneu mothorax identified. Small right and moderate left pleural effusion noted with moderate bilateral pu lmonary edema. Heart is moderately enlarged. Assessment And Plan: An 88-year-old male with: 1.Dyspnea secondary to pleural effusion, improving. 2.Acute respiratory distress secondary to pleural effusion status post thoracentesis with 0.5 L [place] y[place]. Fluid studies are pending at this time. Appreciate Pulmonology input. Continue supplemental o xygen breathing treatments. 3.Gastroesophageal reflux disease. Continue PPI. 4.History of gastrointestinal bleed. The patient has been seen by GI. We will continue to monitor H and H. 5.Methicillin-resistant Staphylococcus aureus infection of the left arm wound. We will continue wit h IV antibiotics. The patient is on vancomycin and meropenem. 6.Status post fall. Continue PT eval. 7.Generalized weakness, improving. 8.Anemia, post hemorrhagic. Monitor H and H and transfuse as needed. 9.Atrial fibrillation, chronic. Anticoagulation on hold. 10.Xykhh-sx-wafeypm diastolic heart failure. We will continue to monitor I's and O's. Continue jaky e dose of p.o. Lasix, fluid restriction, daily weights. 11.Chronic obstructive pulmonary disease, chronic bronchitis, stable. Continue albuterol p.r.n. 12.Coronary artery disease, [place] artery and [place] heart without angina, stable. Resume home medi cations. 13.Diabetes mellitus type 2 with hyperglycemia, non-insulin requiring. 14.Hyperlipidemia. Continue statin. 15.Essential hypertension, stable. Resume home medications. 16.Hypercalcemia. We will follow up on cytology results. 17.Gastrointestinal prophylaxis with pantoprazole. SCDs for chemical anticoagulation for deep venou s thrombosis prophylaxis. No chemical anticoagulation due to recent procedure. /MILIND Voice ID: [id number] Report ID: [id number]
[2018-12-20] MEDS: ACETAMINOPHEN 500 MG TAB PO PRN (22:29)
[2018-12-21] MEDS: DOCUSATE NA 100 MG CAP PO PRN (00:54)
[2018-12-21 05:57] VITALS: BMI 22.4
[2018-12-21] MEDS: PANTOPRAZOLE 40MG TABLET PO SCH (06:26)
[2018-12-21] MEDS: ARFORMOTEROL TARTRATE 15 MCG/2 ML VIAL.NEB IH SCH (07:53)
[2018-12-21] MEDS: FUROSEMIDE 40 MG/4 ML VIAL IV SCH (08:41)
[2018-12-21] MEDS: THIAMINE HCL 100 MG TABLET PO SCH (08:41)
[2018-12-21] MEDS: Meropenem 500 MG in NA CHLORIDE 0.9% 100 ML IV SCH (08:41)
[2018-12-21] MEDS: FOLIC ACID 1 MG TABLET PO SCH (08:42)
[2018-12-21] MEDS: AMLODIPINE 10 MG TAB PO SCH (08:42)
--- NOTE | 2018-12-21 10:06 | RAD REPORT ---
EXAM DESCRIPTION: RAD - Chest Pa And Lat (2 Views) - 12/21/2018 9:30 am CLINICAL HISTORY: Follow for pleural effusion Chest pain. COMPARISON: Chest Single View dated 12/20/2018; Chest Single View dated 12/20/2018; Chest Single View da zaida 12/19/2018; Chest Single View dated 12/17/2018 FINDINGS: Since the comparative study, there has been mild improvement in lung aeration seen. Small right and moderate left pleural effusion again noted. No pneumothorax evident. Heart size is moderate ly enlarged.
[2018-12-21] MEDS: VANCOMYCIN 1.25 GM in NA CHLORIDE 0.9% 250 ML IVPB SCH (10:31)
--- NOTE | 2018-12-21 12:29 | P.PN ---
Subjective Date of Service: 12/21/18 Chief Complaint: Pneumonia pleural effusion, GI bleed Subjective: Improving (Patient is doing much better status post thoracentesis so far Gram stain of the pleural fluid is negative. 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 Augmentin with doxycycline possible discharge home chest x-ray shows some improvement and history is not pleural fluid are pending cytology is negative Qualifiers: Pneumonia type: due to unspecified organism
--- NOTE | 2018-12-21 12:41 | P.PN ---
Subjective Date of Service: 12/20/18 Chief Complaint: Pneumonia pleural effusion, GI bleed Subjective: Improving (Feels better.) Physical Examination - Vital Signs Temperature: 97.2 F Blood Pressure: 195/73 Pulse: 93 Respirations: 18 Pulse Ox (%): 90 Assessment And Plan - Current Problems (Diagnosis) (1) History of gastrointestinal bleeding Current Visit: Yes Status: Chronic (2) Atrial fibrillation Onset Date: 03/15/17 Current Visit: No Status: Chronic Qualifiers: Atrial fibrillation type: persistent Qualified Code(s): I48.1 - Persistent atrial fibrillation (3) CHF (congestive heart failure) Onset Date: 01/10/18 Current Visit: No Status: Chronic Qualifiers: Heart failure type: diastolic Heart failure chronicity: acute on chronic Qualified Code(s): I50.33 - Acute on chronic diastolic (congestive) heart failure (4) COPD (chronic obstructive pulmonary disease) Onset Date: 04/28/17 Current Visit: No Status: Chronic Qualifiers: COPD type: chronic bronchitis Chronic bronchitis type: unspecified Qualified Code(s): J42 - Unspecified chronic bronchitis (5) Coronary artery disease Onset Date: 03/15/17 Current Visit: No Status: Chronic Qualifiers: Coronary Disease-Associated Artery/Lesion type: [place] artery [place] vs. transplanted heart: [place] heart Associated angina: without angina Qualified Code(s): I25.10 - Atherosclerotic heart disease of [place] coronary artery without angina pectoris (6) Diabetes mellitus Onset Date: 03/15/17 Current Visit: No Status: Chronic Qualifiers: Diabetes mellitus type: type 2 Diabetes mellitus mcc insulin use: unspecified mcc insulin use status Diabetes mellitus complication status : with unspecified complications Qualified Code(s): E11.8 - Type 2 diabetes mellitus with unspecified complications (7) GERD (gastroesophageal reflux disease) Current Visit: No Status: Suspected Qualifiers: Esophagitis presence: esophagitis presence not specified Qualified Code(s) : K21.9 - Gastro-esophageal reflux disease without esophagitis - Plan REC: 1) serial H&Hs and transfuse prn with diuresis 2) EGD when cardiopulm improved / stable 3) PPI therapy
--- NOTE | 2018-12-21 12:42 | P.PN ---
Subjective Date of Service: 12/21/18 Chief Complaint: Pneumonia pleural effusion, GI bleed Subjective: Improving (Ambulating in hallway with physical therapy) Physical Examination - Vital Signs Temperature: 97.2 F Blood Pressure: 195/73 Pulse: 93 Respirations: 18 Pulse Ox (%): 90 Assessment And Plan - Current Problems (Diagnosis) (1) History of gastrointestinal bleeding Current Visit: Yes Status: Chronic (2) Atrial fibrillation Onset Date: 03/15/17 Current Visit: No Status: Chronic Qualifiers: Atrial fibrillation type: persistent Qualified Code(s): I48.1 - Persistent atrial fibrillation (3) CHF (congestive heart failure) Onset Date: 01/10/18 Current Visit: No Status: Chronic Qualifiers: Heart failure type: diastolic Heart failure chronicity: acute on chronic Qualified Code(s): I50.33 - Acute on chronic diastolic (congestive) heart failure (4) COPD (chronic obstructive pulmonary disease) Onset Date: 04/28/17 Current Visit: No Status: Chronic Qualifiers: COPD type: chronic bronchitis Chronic bronchitis type: unspecified Qualified Code(s): J42 - Unspecified chronic bronchitis (5) Coronary artery disease Onset Date: 03/15/17 Current Visit: No Status: Chronic Qualifiers: Coronary Disease-Associated Artery/Lesion type: [place] artery [place] vs. 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
[2018-12-21] MEDS: MELATONIN 5 MG TABLET PO SCH (20:49)
[2018-12-21 23:30] LABS: Vitamin D 1,25-Dihydroxy Total 15 pg/mL (18-72); Vitamin D,1,25-OH2, D2 <8 pg/mL
--- NOTE | 2018-12-22 05:56 | DS ---
Date of Discharge: 12/21/2018 Vascular Specialists: Dr. Jeff with GI; Dr. Rossi, pulmonology; Dr. Vee with Cardiology. Procedures: None. Pathology Specimen: Pleural effusion cytology shows no malignant cells. Admitting Diagnoses: 1.Dyspnea. 2.History of gastrointestinal bleed. 3.Hypomagnesemia. 4.Shortness of breath. 5.Weakness. 6.Acute post hemorrhagic anemia. 7.Atrial fibrillation, persistent. 8.Congestive heart failure, acute on chronic diastolic. 9.Chronic obstructive pulmonary disease, chronic bronchitis. 10.Coronary artery disease, [place] artery and [place] heart, without angina. 11.Diabetes mellitus type 2 with long-term use of insulin with hyperglycemia. 12.History of cerebrovascular accident. 13.Hyperlipidemia. 14.Hypertension. 15.Osteoarthritis. 16.Gastroesophageal reflux disease. 17.Fall. Discharge Diagnoses: 1.Dyspnea secondary to pleural effusion, improved, status post thoracentesis. 2.Acute respiratory distress secondary to pleural effusion, now with thoracentesis. 3.Gastroesophageal reflux disease without esophagitis, on proton pump inhibitor. 4.History of gastrointestinal bleed. Hemoglobin and hematocrit stable. 5.Methicillin-resistant Staphylococcus aureus infection of the wound of the left arm. 6.Status post fall. 7.Generalized weakness, improved. 8.Anemia, post hemorrhagic. 9.Atrial fibrillation, chronic, on aspirin for anticoagulation. 10.Acute on chronic diastolic heart failure. 11.Chronic obstructive pulmonary disease, chronic bronchitis, stable. 12.Coronary artery disease, [place] artery and [place] heart, without angina, stable. 13.Diabetes mellitus type 2 with hyperglycemia with long-term use of insulin, stable. 14.Hyperlipidemia, mixed, on statin. 15.Essential hypertension, stable. 16.Hypercalcemia, improved. Hospital Course: The patient had a prolonged course in the hospital. The patient had recently left against medical advice. The patient comes in with generalized weakness, anemia, and fall. The patie nt had refused EGD on previous admission by Dr. Norris. The patient was found to be short of breat h. Imaging studies showed small to moderate left pleural effusion, moderate pulmonary fibrosis, silvana tional pulmonary opacities, representing edema and nonobstructing right renal calculi. The patient w as started on supplemental oxygen. He also had thoracentesis done with 0.5 L removed. The patient w as seen by Dr. Flo with Pulmonology. Cytology did not show any malignancy. Repeat chest x-ray showed improvement. No pneumothorax was found. The patient was also seen by Dr. Vee who felt guadalupe t this was heart failure based anemia and atrial fibrillation, and not left ventricular dysfunction o r valvular dysfunction. The patient was given Lasix and transfusion. He did have some low hemoglobi n and was transfused. Hemoglobin dropped down to 6.9. The patient was given 2 units. His hemoglobi n remained stable subsequently. The patient's kidney function was slightly elevated and improved wit h IV fluids and treatment, and normalized. The patient's cultures remained negative from the blood f rom the wound on the left arm and sputum showed MRSA. Body fluid Gram stain and culture also showing no growth at this time. The patient overall did well. He was then cleared for discharge from Pulmo nology standpoint as well as GI standpoint. The patient will need oral antibiotics with Augmentin an d doxycycline upon discharge. Followup: He will need to follow up with primary care physician in 2-3 days. Follow up with pulmono logist, Dr. Rossi, in 2 weeks. Follow up with GI, Dr. Jeff, in 2 weeks. Return to ER for worse vikash condition. Diet: Diabetic diet. Activity: Fall precautions. Disposition: The patient was referred to intermediate facility and was transferred there. Medications: As per medication reconciliation list. Physical Examination: General: Awake, alert, oriented x3. No acute distress, elderly male. CV: S1, S2 irregularly irregular. Peripheral pulses weak. Respiratory: Moving air well in the apices. Diminished breath sounds at the bases. No wheezing. Gastrointestinal: Abdomen is soft, nontender, nondistended. Positive bowel sounds. Extremities: No clubbing, cyanosis, edema. Neurologic: Nonfocal. Total time spent discharging the patient was 45 minutes. /MILIND Voice ID: [id number] Report ID: [id number]
[2018-12-22] MEDS: PANTOPRAZOLE 40MG TABLET PO SCH (05:59)
[2018-12-22] MEDS: AMLODIPINE 10 MG TAB PO SCH (08:01)
[2018-12-22] MEDS: FUROSEMIDE 40 MG/4 ML VIAL IV SCH (08:01)
[2018-12-22] MEDS: THIAMINE HCL 100 MG TABLET PO SCH (08:01)
[2018-12-22] MEDS: FOLIC ACID 1 MG TABLET PO SCH (08:02)
[2018-12-22] MEDS: ARFORMOTEROL TARTRATE 15 MCG/2 ML VIAL.NEB IH SCH (08:36)
--- NOTE | 2018-12-22 20:16 | PN ---
Date of Progress Note: 12/22/2018 History: The patient is seen and examined. Chart reviewed and case discussed with RN. The patient was supposed to be discharged to [facility] yesterday, however, apparently had been denied as he is out of network. Currently undergoing evaluation for [facility]. Medications: List reviewed. Physical Examination: Vital Signs: Temperature 97.9, heart rate 98, blood pressure 120/60, respirations 20, O2 100% on 4 L via nasal cannula. General: Awake, alert, oriented x3, not in any acute distress, elderly male. CV: S1, S2. Peripheral pulses present. No murmurs. Respiratory: Moving air well bilaterally. No wheezing. Gastrointestinal: Abdomen is soft, nontender, nondistended. Positive bowel sounds. Extremities: No clubbing, cyanosis, or edema. Neurologic: Nonfocal. Laboratory Data: Pending. Assessment And Plan: An 88-year-old male with: 1. Dyspnea secondary to pleural effusion, improved status post thoracentesis. Currently on nasal cannula. Monitor O2 saturations. Wean off as tolerated. 2. Acute respiratory distress with hypoxia secondary to pleural effusion, improving. On [place] 3. Gastroesophageal reflux disease without esophagitis. Cont PPI 4. History of gastrointestinal bleed, stable. No further bleeding. GI on board. 5. Methicillin-resistant Staphylococcus aureus infection of the wound of the left arm. Continue antibiotics. 6. Status post fall. Cont PT. Patient very weak and has unstable gait. 7. Generalized weakness, improved. Cont PT 8. Anemia, post hemorrhagic. Monitor HH. Transfuse as needed. 9. Atrial fibrillation, chronic, on aspirin for anticoagulation. Rate controlled. 10. Acute on chronic diastolic heart failure. Monitor I/O's. Fluid restriction. Daily wts. 11. Chronic obstructive pulmonary disease, chronic bronchitis, stable. Nebs prn 12. Coronary artery disease [place] artery and [place] heart without angina, stable. 13. Diabetes mellitus type 2 with hyperglycemia with long-term use of insulin , stable. Sliding scale insulin. Monitor blood glucose levels. 14. Hyperlipidemia, mixed. Continue statin. 15. Essential hypertension, stable on home meds. 16. Hypercalcemia, improved. Monitor. Plan: Discharge to [facility] once accepted. /MILIND Voice ID: [id number] Report ID: [id number]
--- NOTE | 2018-12-22 20:59 | P.PN ---
Subjective Date of Service: 12/22/18 Chief Complaint: Pneumonia pleural effusion, GI bleed Subjective: Improving (No GI bleeding noted. Hgb has been stable. Pulmonary status improved.) Review of Systems 10-point ROS is otherwise unremarkable General: Weakness (Improved. ) Physical Examination - Vital Signs Temperature: 98.5 F Blood Pressure: 131/58 Pulse: 85 Respirations: 20 Pulse Ox (%): 100 - Physical Exam General: Alert, In no apparent distress, Oriented x3, Cooperative HEENT: Atraumatic, Normocephalic, PERRLA, EOMI Neck: Supple Respiratory: Diminished Cardiovascular: Normal pulses Gastrointestinal: Soft and benign, No tenderness, No rebound, No guarding Neurological: Normal speech Assessment And Plan - Current Problems (Diagnosis) (1) History of gastrointestinal bleeding Current Visit: Yes Status: Chronic (2) Atrial fibrillation Onset Date: 03/15/17 Current Visit: No Status: Chronic Qualifiers: Atrial fibrillation type: persistent Qualified Code(s): I48.1 - Persistent atrial fibrillation (3) CHF (congestive heart failure) Onset Date: 01/10/18 Current Visit: No Status: Chronic Qualifiers: Heart failure type: diastolic Heart failure chronicity: acute on chronic Qualified Code(s): I50.33 - Acute on chronic diastolic (congestive) heart failure (4) COPD (chronic obstructive pulmonary disease) Onset Date: 04/28/17 Current Visit: No Status: Chronic Qualifiers: COPD type: chronic bronchitis Chronic bronchitis type: unspecified Qualified Code(s): J42 - Unspecified chronic bronchitis (5) Coronary artery disease Onset Date: 03/15/17 Current Visit: No Status: Chronic Qualifiers: Coronary Disease-Associated Artery/Lesion type: [place] artery [place] vs. 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
[2018-12-22] MEDS: DOCUSATE NA 100 MG CAP PO PRN (21:36)
[2018-12-22] MEDS: DOXYCYCLINE 100 MG CAP PO SCH (21:36)
[2018-12-22] MEDS: AMOX/K CLAV 875 MG TAB PO SCH (21:36)
[2018-12-22] MEDS: MELATONIN 5 MG TABLET PO SCH (21:36)
[2018-12-23 06:00] LABS: Absolute Lymphocytes (CBC) 0.8 K/uL (0.7-4.9); Absolute Monocytes 0.6 K/uL (0.1-1.3); Absolute Neutrophil 4.8 K/uL (1.8-8.0); Basophils % 0.6 % (0-1.3); Eosinophils % 2.3 % (0-4.4); Hematocrit 22.8 % (39.6-49.0); Lymphocytes % 12.9 % (15.3-44.8); MPV 9.9 fL (7.6-11.3); Monocytes % 9.8 % (3.3-12.3); RBC Red Blood Cell Count 2.85 M/uL (4.33-5.43)
[2018-12-23 06:05] LABS: Potassium 3.6 mmol/L (3.5-5.1)
[2018-12-23] MEDS: PANTOPRAZOLE 40MG TABLET PO SCH (06:08)
[2018-12-23] MEDS: ARFORMOTEROL TARTRATE 15 MCG/2 ML VIAL.NEB IH SCH (08:00)
[2018-12-23] MEDS: FOLIC ACID 1 MG TABLET PO SCH (09:09)
[2018-12-23] MEDS: AMOX/K CLAV 875 MG TAB PO SCH (09:09)
[2018-12-23] MEDS: THIAMINE HCL 100 MG TABLET PO SCH (09:09)
[2018-12-23] MEDS: DOXYCYCLINE 100 MG CAP PO SCH (09:09)
[2018-12-23] MEDS: DOCUSATE NA 100 MG CAP PO PRN (09:10)
[2018-12-23] MEDS: FUROSEMIDE 40 MG/4 ML VIAL IV SCH (09:10)
[2018-12-23] MEDS: AMLODIPINE 10 MG TAB PO SCH (09:10)
[2018-12-23 10:02] VITALS: O2SAT 96
[2018-12-23 12:26] VITALS: BP 140/69; TEMP 98.6
[2018-12-23 13:00] LABS: Hematocrit 25.5 % (39.6-49.0)
--- NOTE | 2018-12-23 17:30 | PN ---
Date of Progress Note: 12/23/2018 Subjective: The patient is seen and examined. Chart reviewed and case discussed with RN. The patie nt was supposed to be discharged to [facility], however, had not been excepted to [facility], has now been accepted to [facility]. The patient denies any significant events overnight. Medications: List reviewed. Physical Examination: Vital Signs: Temperature 97.8, heart rate 87, blood pressure 136/74, respirations 20, O2 96% on 3 L via nasal cannula. GENERAL: Awake, alert, and oriented x3 elderly male. CV: S1 and S2, irregularly irregular. Peripheral pulses present. RESPIRATORY: Moving air well bilaterally. No wheezing or stridor. Gastrointestinal: Abdomen is soft, nontender, nondistended. Positive bowel sounds. Extremities: No clubbing, cyanosis, or edema. Neurologic: Nonfocal. Laboratory Data: Sodium 139, potassium 3.6, chloride 101, CO2 34, BUN 19, creatinine 1.15, glucose 2 49, calcium 10.7. WBC 6.5, H and H 7.4 and 22.8, platelets 179, neutrophils 74%. Assessment And Plan: An 88-year-old male with: 1.Dyspnea secondary to pleural effusion, improved status post thoracentesis. 2.Acute respiratory distress with hypoxia secondary to pleural effusion, improving. 3.Bacterial pneumonia secondary to Methicillin-resistant Staphylococcus aureus. Continue now on p.o . antibiotics with doxycycline and Augmentin. 4.Gastroesophageal reflux disease without esophagitis. Continue PPI. 5.History of gastrointestinal bleed. No further bleeding. We will continue to monitor. 6.Methicillin-resistant Staphylococcus aureus infection of the left arm wound. Continue antibiotics . 7.Status post fall, continue PT. 8.Generalized weakness, improved. 9.Post hemorrhagic anemia. The patient's H and H dropped again today to 7.4. We will repeat level this afternoon and transfuse if less than 7. 10.Atrial fibrillation chronic, on aspirin. 11.Acute on chronic diastolic heart failure. The patient is compensated. We will continue fluid re striction and sodium restriction, and monitor daily weights. 12.Chronic obstructive pulmonary disease, chronic bronchitis, stable. 13.Coronary artery disease [place] artery and [place] heart without angina, stable. 14.Diabetes mellitus type 2 with hyperglycemia with long-term use of insulin, stable. 15.Mixed hyperlipidemia. We will continue on statin. 16.Essential hypertension, stable. 17.Hypercalcemia. Continue to monitor again, but continue with IV fluids. 18.Discharged to [facility] today. BRYCE Voice ID: [id number] Report ID: [id number]
--- NOTE | 2018-12-27 10:56 | EKG ---
Test Date: 2018-12-17 Test Time: 08:32:57 Charge Nurse: GEMA MEASUREMENT RESULTS: Intervals: Rate: 86 [place]: QRSD: 90 QT: 348 QTc: 416 [place]: P: [place]: QRS: -52 T: 92 INTERPRETIVE STATEMENTS: Atrial fibrillation Left axis Nonspecific ST and T wave abnormality, probably digitalis effect Abnormal ECG Compared to ECG 12/14/2018 16:58:04 ST (T wave) deviation now present Electronically Signed On 12-18-18 10:35:28 CDT by Elmer Vee
== END 2018-12-23 15:44 | DRG 177 ==
LOC: ER 16:30 → ERHOLD 21:05 → 4TH 22:31 → 3RD-ICU 12-17 11:23 → OBSVTOIN 12-17 12:10 → 4TH 12-18 20:06
PROVIDERS: ADMIT Hospitalist; ATTEND Family Medicine
PROC: 30233N1 Transfusion of Nonautologous Red Blood Cells into Peripheral Vein, Percutaneous Approach (ICD-10-PCS; 2018-12-17)
PROC: 0W9B3ZX Drainage of Left Pleural Cavity, Percutaneous Approach, Diagnostic (ICD-10-PCS; principal; 2018-12-20)
DX: J15.212 Pneumonia due to Methicillin resistant Staphylococcus aureus (principal); I50.33 Acute on chronic diastolic (congestive) heart failure; J90 Pleural effusion, not elsewhere classified; K92.2 Gastrointestinal hemorrhage, unspecified; D62 Acute posthemorrhagic anemia; I48.1 Persistent atrial fibrillation; R06.03 Acute respiratory distress; K21.9 Gastro-esophageal reflux disease without esophagitis; Z87.891 Personal history of nicotine dependence; E83.42 Hypomagnesemia; J42 Unspecified chronic bronchitis; I11.0 Hypertensive heart disease with heart failure; I25.10 Atherosclerotic heart disease of native coronary artery without angina pectoris; Z79.4 Long term (current) use of insulin; Z86.73 Personal history of transient ischemic attack (TIA), and cerebral infarction without residual deficits; M19.91 Primary osteoarthritis, unspecified site; Z79.84 Long term (current) use of oral hypoglycemic drugs; R09.02 Hypoxemia; Z66 Do not resuscitate; Z91.81 History of falling; E11.65 Type 2 diabetes mellitus with hyperglycemia; E83.52 Hypercalcemia; R26.81 Unsteadiness on feet; S40.812A Abrasion of left upper arm, initial encounter; B95.62 Methicillin resistant Staphylococcus aureus infection as the cause of diseases classified elsewhere; W18.39XA Other fall on same level, initial encounter; Y93.01 Activity, walking, marching and hiking; Y92.019 Unspecified place in single-family (private) house as the place of occurrence of the external cause; E78.2 Mixed hyperlipidemia
CPT/HCPCS: 32555; 36415; 36430; 71045; 71046; 71250; 74176; 76604; 80048; 80053; 80076; 80202; 81003; 81015; 82306; 82533; 82553; 82565; 82652; 82805; 83605; 83735; 83880; 83970; 84100; 84145; 84439; 84443; 84484; 85014; 85018; 85025; 85044; 85610; 86850; 86900; 86901; 87015; 87040; 87070; 87077; 87086; 87088; 87116; 87186; 87205; 87206; 88108; 88305; 93005; 94640; 94660; 96365; 96366; 96375; 97116; 97163; 97530; 99285; C9113; J0696; J1630; J1940; J2270; J2405; J2930; J7030; J7605; P9016; P9047